=== PATIENT | male | born 1965 | race African-American/Black ===

== ENCOUNTER 2018-03-20 12:59 | Inpatient (IN) | payer OTHER ==
[2018-03-20 16:42] VITALS: BMI 20.9
--- NOTE | 2018-03-20 17:43 | HP ---
COWS - Scale Resting Pulse: 0= [place] 80 or Below Sweatin= Chills/Flushing Restless Observation: 1= Difficult to Sit Still Pupil Size: 0= Normal to Room Light Bone or Joint Aches: 2= Severe Diffuse Aches Runny Nose/ Eye Tearin= Runny Nose/Eyes GI Upset > 30mins: 2= Nausea/Diarrhea Tremor Observation: 2= Slight Tremor Visible Yawning Observation: 1= 1-2x During Session Anxiety or Irritability: 1=Feels Anxious/Irritable Goose Flesh Skin: 0=Smooth Skin COWS Score: 12 CIWA Score - CIWA Score Nausea/Vomitin Muscle Tremors: 3 Anxiety: 4-Mod. Anxious/Guarded Agitation: 1-Slight > Activity Paroxysmal Sweats: No Perspiration Orientation: 1-Uncertain about Date Tacttile Disturbances: 0-None Auditory Disturbances: 1-Very Mild Visual Disturbances: 1-Very Mild Sensitivity Headache: 1-Very Mild CIWA-Ar Total Score: 14 Admission ROS BHS - HPI Chief Complaint: I want to kick this addiction, get off it totally Allergies/Adverse Reactions: Allergies Allergy/AdvReac Type Severity Reaction Status Date / Time Penicillins Allergy Verified 03/20/18 17:28 History of Present Illness: 52 yo gentleman here for detox from opiates and alcohol. Denies any seizure, no overdose, has had black outs. Exam Limitations: Clinical Condition - Ebola screening Have you traveled outside of the country in the last 21 days: No Have you had contact with anyone from an Ebola affected area: No Have you been sick,other than usual withdrawal symptoms: No - Review of Systems Constitutional: Loss of Appetite, Malaise, Night Sweats, Changes in sleep, Unintentional Wgt. Loss EENT: reports: Blurred Vision, Nose Congestion Respiratory: reports: No Symptoms reported Cardiac: reports: No Symptoms Reported GI: reports: Poor Appetite, Poor Fluid Intake, Abdominal cramping : reports: Frequency Musculoskeletal: reports: Back Pain, Muscle Pain Integumentary: reports: Dryness Neuro: reports: Headache Endocrine: reports: No Symptoms Reported Hematology: reports: No Symptoms Reported Psychiatric: reports: Judgement Intact, Mood/Affect Appropiate, Anxious Other Systems: Reviewed and Negative Patient History - Patient Medical History Hx Anemia: No Hx Asthma: No Hx Chronic Obstructive Pulmonary Disease (COPD): No Hx Cancer: No Hx Cardiac Disorders: No Hx Hypertension: No Hx Pacemaker: No Hx Seizures: No Hx Diabetes: No Hx Liver Disease: No Hx Genitourinary Disorders: No Hx Sexually Transmitted Disorders: No Hx Renal Disease (ESRD): No Hx Thyroid Disease: No Hx Human Immunodeficiency Virus (HIV): No Hx Hepatitis C: No Hx Depression: No Hx Suicide Attempt: No Hx Bipolar Disorder: No Hx Schizophrenia: No - Patient Surgical History Past Surgical History: No - PPD History Previous Implant?: Yes Documented Results: Negative w/o proof PPD to be Administered?: Yes - Reproductive History Patient is a Female of Child Bearing Age (11 -55 yrs old): No (male) - Smoking Cessation Smoking history: Current every day smoker Have you smoked in the past 12 months: Yes Aproximately how many cigarettes per day: 5 Initiated information on smoking cessation: Yes 'Breaking Loose' booklet given: 03/20/18 - Substance & Tx. History Hx Alcohol Use: Yes Hx Substance Use: Yes Substance Use Type: Alcohol, Heroin, Opiates Hx Substance Use Treatment: Yes (detox, rehab years ago) - Substances Abused alcohol Route: Oral Frequency: Daily Amount used: 2 pints, one six pack beer Age of first use: 17 Date of Last Use: 03/19/18 cocaine Route: Inhalation Frequency: Daily Amount used: 5 bags Age of first use: 17 Date of Last Use: 03/19/18 Heroin Route: Inhalation Frequency: Daily Amount used: 2 BAGS Age of first use: 52 Date of Last Use: 03/19/18 marijuana Route: Smoking Frequency: 3-6 times per week Amount used: 1 bag Age of first use: 15 Date of Last Use: 03/18/18 Alcohol Route: Oral Frequency: Daily Amount used: LIQUOR- 2 PINTS,BEER-1 SIX PACK Age of first use: 17 Date of Last Use: 03/19/18 Family Disease History - Family Disease History Family Disease History: Heart Disease: Father (, ), Other: Father, Mother (living, dementia), Brother (one - living - healthy), Sister (two - living - healthy) Admission Physical Exam BHS - Vital Signs Vital Signs: Vital Signs - 24 hr 03/20/18 16:20 Temperature 97.5 F L Pulse Rate 78 Respiratory 18 Rate Blood Pressure 160/113 - Physical General Appearance: Yes: Nourished, Appropriately Dressed, Moderate Distress, Thin, Anxious HEENTM: Yes: EOMI, Hearing grossly Normal, Normocephalic, Normal Voice, Pharynx Normal, Nasal Congestion, Other (eyes reddened (states from drugs, no exudate)) Respiratory: Yes: Normal Breath Sounds, No Respiratory Distress Neck: Yes: No masses,lesions,Nodules, Supple Breast: Yes: Breast Exam Deferred Cardiology: Yes: Regular Rhythm, Regular Rate Abdominal: Yes: Flat, Soft Genitourinary: Yes: Frequency Back: Yes: Normal Inspection Musculoskeletal: Yes: full range of Motion, Gait Steady Extremities: Yes: Normal Inspection, Non-Tender Cleared for Admission [facility] - Detox or Rehab [facility] Level of Care: Medically Managed Detox Regimen/Protocol: Methadone/Valium [facility] Breath Alcohol Content Breath Alcohol Content: 0 Urine Drug Screen - Results Drug Screen Negative: No Urine Drug Screen Results: THC-Marijuana, KEVIN-Cocaine, OPI-Opiates, BAR- Barbiturates, FEN-Fentanyl
[2018-03-20] MEDS ORDERED: MAG HYDROX/AL HYDROX/SIMETH 30 ML UNIT-DOSE CUP PO PRN (17:44)
[2018-03-20] MEDS ORDERED: MENTHOL/PHENOL 1 EACH UD MM PRN (17:44)
[2018-03-20] MEDS ORDERED: METHADONE HCL 10 MG TABLET (FOR DETOX USE ONLY) PO ONE ×3 (17:44→23:00)
[2018-03-20] MEDS ORDERED: MAGNESIUM HYDROX 2400MG/30ML ORAL SUSPENSION 30 ML CUP PO PRN (17:44)
[2018-03-20] MEDS ORDERED: LOPERAMIDE HCL 2 MG CAPSULE PO PRN (17:44)
[2018-03-20] MEDS ORDERED: P-EPHED 60MG/TRIPROLIDI 2.5MG TABLET PO PRN (17:44)
[2018-03-20] MEDS ORDERED: NICOTINE POLACRILEX 4 MG GUM BC PRN (17:44)
[2018-03-20] MEDS ORDERED: diazePAM 5 MG TABLET PO ONE ×2 (17:44→19:00)
[2018-03-20] MEDS ORDERED: MAGNESIUM CITRATE 300 ML BOTTLE PO PRN (17:44)
[2018-03-20] MEDS ORDERED: guaiFENesin/D-METHORPHAN HB 10 ML UNIT-DOSE CUPS PO PRN (17:44)
[2018-03-20] MEDS: IBUPROFEN 400 MG TABLET (FP) PO PRN (21:12)
[2018-03-20] MEDS: THIAMINE HCL 100 MG TABLET (FP) PO SCH (22:27)
[2018-03-20] MEDS: ACETAMINOPHEN 325 MG TABLET (FP) PO PRN (22:28)
[2018-03-20] MEDS: diazePAM 5 MG TABLET PO SCH (22:28)
[2018-03-20] MEDS: MELATONIN 5 MG TABLETS PO PRN (22:29)
[2018-03-21] MEDS: diazePAM 5 MG TABLET PO SCH ×3 (05:27→23:43)
[2018-03-21] MEDS ORDERED: METHADONE HCL 10 MG TABLET (FOR DETOX USE ONLY) PO SCH (10:00)
[2018-03-21] MEDS: diazePAM 5 MG TABLET PO PRN (10:17)
[2018-03-21] MEDS: PRENATAL VITAMINS W/ FOLIC ACID TABLET (FP) PO SCH (10:17)
[2018-03-21 10:38] LABS: HEMATOCRIT 42.7 % (35.4-49); MCH 32.4 pg (25.7-33.7); MCHC 32.8 g/dl (32.0-35.9); MEAN CELL VOLUME 98.9 fl (80-96); MEAN PLT VOLUME 8.6 fl (7.5-11.1); PLATELET COUNT 241 K/MM3 (134-434); RBC 4.32 M/mm3 (4.00-5.60); RDW 12.8 % (11.9-15.9); WHITE BLOOD COUNT 7.3 K/mm3 (4.0-10.0)
[2018-03-21 10:41] LABS: URINE APPEARANCE TURBID; URINE BILIRUBIN NEGATIVE (<2.0 mg/dL); URINE COLOR LTYELLOW; URINE GLUCOSE (UA) NEGATIVE (NEGATIVE); URINE KETONE NEGATIVE (NEGATIVE); URINE LEUK ESTERASE NEGATIVE (NEGATIVE); URINE NITRITE NEGATIVE (NEGATIVE); URINE PROTEIN NEGATIVE (NEGATIVE); URINE UROBILINOGEN NEGATIVE mg/dL (0.2-1.0)
[2018-03-21 10:44] LABS: CHLORIDE 102 mmol/L (98-107); POTASSIUM 4.3 mmol/L (3.5-5.1); SODIUM 137 mmol/L (136-145)
[2018-03-21 10:51] LABS: ALBUMIN 3.6 g/dl (3.4-5.0); ALK PHOS 92 U/L (45-117); ANION GAP 14 MMOL/L (8-16); BILIRUBIN,TOTAL 0.8 mg/dL (0.2-1.0); BLOOD UREA NITROGEN 23 mg/dL (7-18); CALCIUM 9.6 mg/dL (8.5-10.1); CO2 21 mmol/L (21-32); CREATININE 1.3 mg/dL (0.7-1.3); GLUCOSE,RANDOM 155 mg/dL (74-106); SGOT/AST 60 U/L (15-37); SGPT/ALT 40 U/L (12-78); TOT PROT 7.6 g/dl (6.4-8.2)
--- NOTE | 2018-03-21 11:48 | CONSULT ---
[facility] Psychiatric Consult - Data Date of interview: 03/21/18 Admission source: [facility] Identifying data: First admission to [facility] for this 52 y/o AA male self- referred for detoxification treatment (opioid,cocaine,cannabis,alcohol).Treated on .Patient is single without dependents,homeless,unemployed and supported on food stamps. Substance Abuse History: Confirmed by patient in this session.Details in current [facility] report as follows : Smoking history: Current every day smoker. Have you smoked in the past 12 months: Yes. Aproximately how many cigarettes per day: 5. Initiated information on smoking cessation: Yes. 'Breaking Loose' booklet given: 03/20/18. - Substance & Tx. History. Hx Alcohol Use: Yes. Hx Substance Use: Yes. Substance Use Type: Alcohol, Heroin, Opiates. Hx Substance Use Treatment: Yes (detox, rehab years ago). - Substances Abused. * * alcohol. Route: Oral. Frequency: Daily. Amount used: 2 pints, one six pack beer. Age of first use: 17. Date of Last Use: 03/19/18. cocaine. Route: Inhalation. Frequency: Daily. Amount used: 5 bags. Age of first use: 17. Date of Last Use: 03/19/18. Heroin. Route: Inhalation. Frequency: Daily. Amount used: 2 BAGS. Age of first use: 52. Date of Last Use: 03/19/18. marijuana. Route: Smoking. Frequency: 3-6 times per week. Amount used: 1 bag. Age of first use: 15. Date of Last Use: 03/18/18. Alcohol. Route: Oral. Frequency: Daily. Amount used: LIQUOR- 2 PINTS,BEER-1 SIX PACK. Age of first use: 17. Date of Last Use: 03/19/18 Medical History: Sciatica as per self-report. Psychiatric History: Patient denies. Physical/Sexual Abuse/Trauma History: Patient denies. Additional Comment: Urine Drug Screen Results: THC-Marijuana, KEVIN-Cocaine, OPI- Opiates, BAR-Barbiturates, FEN-Fentanyl.Noted. Mental Status Exam - Mental Status Exam Alert and Oriented to: Time, Place, Person Cognitive Function: Good Patient Appearance: Well Groomed Mood: Hopeful, Euthymic Affect: Appropriate, Normal Range Patient Behavior: Appropriate, Cooperative Speech Pattern: Clear, Appropriate Voice Loudness: Normal Thought Process: Intact, Goal Oriented Thought Disorder: Not Present Hallucinations: Denies Suicidal Ideation: Denies Homicidal Ideation: Denies Insight/Judgement: Poor Sleep: Poorly, Difficulty falling asleep Appetite: Good Muscle strength/Tone: Normal Gait/Station: Normal Psychiatric Findings - Problem List ([place] 1, 2,3) (1) Opioid dependence with withdrawal Current Visit: Yes Status: Acute (2) Alcohol dependence with uncomplicated withdrawal Current Visit: Yes Status: Acute (3) Cocaine dependence Current Visit: Yes Status: Acute Qualifiers: Substance use status: uncomplicated Qualified Code(s): F14.20 - Cocaine dependence, uncomplicated (4) Cannabis dependence Current Visit: Yes Status: Acute (5) Nicotine dependence Current Visit: Yes Status: Chronic Qualifiers: Nicotine product type: cigarettes Substance use status: uncomplicated Qualified Code(s): F17.210 - Nicotine dependence, cigarettes, uncomplicated (6) Insomnia Current Visit: Yes Status: Acute - Initial Treatment Plan Initial Treatment Plan: Psychoeducation.Sleep hygiene.Detoxification.Ambien 10 mg po hs prn.Patient is made aware of the risk of parasomnias.Agrees to this careplan.Observation.
--- NOTE | 2018-03-21 12:24 | PN ---
S CIWA - CIWA Score Nausea/Vomitin-No Nausea/No Vomiting Muscle Tremors: 4-Moderate,w/Arms Extend Anxiety: 4-Mod. Anxious/Guarded Agitation: 4-Moderately Restless Paroxysmal Sweats: 1-Minimal Palms Moist Orientation: 0-Oriented Tacttile Disturbances: 0-None Auditory Disturbances: 0-None Visual Disturbances: 0-None Headache: 0-None Present CIWA-Ar Total Score: 13 BHS COWS - Scale Resting Pulse: 0= [place] 80 or Below Sweatin= Chills/Flushing Restless Observation: 3= Extraneous Movement Pupil Size: 0= Normal to Room Light Bone or Joint Aches: 4=Acute Joint/Muscle Pain Runny Nose/ Eye Tearin= Nasal Congestion GI Upset > 30mins: 0= None Tremor Observation of Outstretched Hands: 2= Slight Tremor Visible Yawning Observation: 1= 1-2x During Session Anxiety or Irritability: 2=Irritable/Anxious Goose Flesh Skin: 0=Smooth Skin COWS Score: 14 [facility] Progress Note (SOAP) Subjective: ANXIETY,SWEATS,EYES IRRITATED/TEARY, LEFT LEG PAIN WITH RADIATION TO LOWER LEG- HX SCIATICA Objective: 03/21/18 12:23 Vital Signs 03/21/18 03/21/18 06:58 09:40 Temperature 97.7 F 96.7 F L Pulse Rate 68 70 Respiratory 18 18 Rate Blood Pressure 100/60 104/72 Laboratory Tests 03/21/18 03/21/18 03/21/18 08:00 08:00 08:20 WBC 7.3 RBC 4.32 Hgb 14.0 Hct 42.7 MCV 98.9 H MCH 32.4 MCHC 32.8 RDW 12.8 Plt Count 241 MPV 8.6 Sodium 137 Potassium 4.3 Chloride 102 Carbon Dioxide 21 Anion Gap 14 BUN 23 H Creatinine 1.3 Creat Clearance w eGFR 57.97 Random Glucose 155 H Calcium 9.6 Total Bilirubin 0.8 AST 60 H ALT 40 Alkaline Phosphatase 92 Total Protein 7.6 Albumin 3.6 Urine Color Ltyellow Urine Appearance Turbid Urine pH 5.0 Ur Specific [place] 1.034 Urine Protein Negative Urine Glucose (UA) Negative Urine Ketones Negative Urine Blood Negative Urine Nitrite Negative Urine Bilirubin Negative Urine Urobilinogen Negative Ur Leukocyte Esterase Negative Assessment: 03/21/18 12:23 WITHDRAWAL SX Plan: CONTINUE DETOX FLEXERIL DIRECTED CHAVA Bravo DIRECTED
[2018-03-21] MEDS ORDERED: TETRAHYDROZOLINE HCL EYE DROPS OU ONE (13:00)
[2018-03-21] MEDS: CYCLOBENZAPRINE HCL 10 MG TABLET (FP) PO SCH ×2 (13:32→23:42)
[2018-03-21] MEDS: LIDOCAINE 5% TOPICAL PATCH TP SCH (13:33)
[2018-03-21] MEDS ORDERED: ZOLPIDEM TARTRATE 10 MG TABLET (PARK CARE ONLY) PO PRN (22:00)
[2018-03-21] MEDS: LIDOCAINE PATCH REMOVAL MC SCH (23:42)
[2018-03-21] MEDS: THIAMINE HCL 100 MG TABLET (FP) PO SCH (23:43)
[2018-03-21] MEDS: TETRAHYDROZOLINE HCL EYE DROPS OU SCH (23:43)
[2018-03-22] MEDS: IBUPROFEN 400 MG TABLET (FP) PO PRN ×2 (03:15→19:31)
[2018-03-22] MEDS: CYCLOBENZAPRINE HCL 10 MG TABLET (FP) PO SCH ×3 (05:15→22:36)
[2018-03-22] MEDS: PRENATAL VITAMINS W/ FOLIC ACID TABLET (FP) PO SCH (10:05)
[2018-03-22] MEDS: TETRAHYDROZOLINE HCL EYE DROPS OU SCH ×2 (10:06→23:24)
[2018-03-22] MEDS: METHADONE HCL 5 MG TABLET (FOR DETOX USE ONLY) PO SCH (10:06)
[2018-03-22] MEDS: diazePAM 5 MG TABLET PO SCH ×2 (10:06→22:36)
[2018-03-22] MEDS: LIDOCAINE 5% TOPICAL PATCH TP SCH (10:07)
--- NOTE | 2018-03-22 17:13 | PN ---
[facility] CIWA - CIWA Score Nausea/Vomitin Muscle Tremors: 4-Moderate,w/Arms Extend Anxiety: 3 Agitation: 3 Paroxysmal Sweats: 3 Orientation: 0-Oriented Tacttile Disturbances: 0-None Auditory Disturbances: 0-None Visual Disturbances: 0-None Headache: 0-None Present CIWA-Ar Total Score: 16 BHS COWS - Scale Resting Pulse: 0= [place] 80 or Below Sweatin= Chills/Flushing Restless Observation: 3= Extraneous Movement Pupil Size: 1= Pupils >than Normal Bone or Joint Aches: 2= Severe Diffuse Aches Runny Nose/ Eye Tearin= Runny Nose/Eyes GI Upset > 30mins: 2= Nausea/Diarrhea Tremor Observation of Outstretched Hands: 2= Slight Tremor Visible Yawning Observation: 1= 1-2x During Session Anxiety or Irritability: 2=Irritable/Anxious Goose Flesh Skin: 0=Smooth Skin COWS Score: 16 S Progress Note (SOAP) Subjective: Interrupted sleep, sweating Objective: 03/22/18 17:10 Last Vital Signs Temp Pulse Resp BP Pulse Ox 97.0 F L 74 18 103/70 03/22/18 13:17 03/22/18 13:17 03/22/18 13:17 03/22/18 13:17 Laboratory Tests 03/21/18 03/21/18 03/21/18 08:00 08:00 08:00 WBC 7.3 RBC 4.32 Hgb 14.0 Hct 42.7 MCV 98.9 H MCH 32.4 MCHC 32.8 RDW 12.8 Plt Count 241 MPV 8.6 Sodium 137 Potassium 4.3 Chloride 102 Carbon Dioxide 21 Anion Gap 14 BUN 23 H Creatinine 1.3 Creat Clearance w eGFR 57.97 Random Glucose 155 H Calcium 9.6 Total Bilirubin 0.8 AST 60 H ALT 40 Alkaline Phosphatase 92 Total Protein 7.6 Albumin 3.6 Urine Color Urine Appearance Urine pH Ur Specific [place] Urine Protein Urine Glucose (UA) Urine Ketones Urine Blood Urine Nitrite Urine Bilirubin Urine Urobilinogen Ur Leukocyte Esterase RPR Titer Nonreactive 03/21/18 08:20 WBC RBC Hgb Hct MCV MCH MCHC RDW Plt Count MPV Sodium Potassium Chloride Carbon Dioxide Anion Gap BUN Creatinine Creat Clearance w eGFR Random Glucose Calcium Total Bilirubin AST ALT Alkaline Phosphatase Total Protein Albumin Urine Color Ltyellow Urine Appearance Turbid Urine pH 5.0 Ur Specific [place] 1.034 Urine Protein Negative Urine Glucose (UA) Negative Urine Ketones Negative Urine Blood Negative Urine Nitrite Negative Urine Bilirubin Negative Urine Urobilinogen Negative Ur Leukocyte Esterase Negative RPR Titer Labs reviewed: serum glucose 155, prerenal azotemia Assessment: 03/22/18 17:11 Withdrawal symptoms Noted with hyperglycemia and prerenal azotemia Plan: Continue detox Hyperglycemia: repeat fasting glucose, send HbA1c Prerenal azotemia: encourage PO water intake, repeat BMP
[2018-03-22] MEDS: LIDOCAINE PATCH REMOVAL MC SCH (22:23)
[2018-03-22] MEDS: THIAMINE HCL 100 MG TABLET (FP) PO SCH (22:36)
[2018-03-22] MEDS: MELATONIN 5 MG TABLETS PO PRN (22:37)
[2018-03-23] MEDS: CYCLOBENZAPRINE HCL 10 MG TABLET (FP) PO SCH ×3 (06:17→22:02)
[2018-03-23] MEDS: diazePAM 5 MG TABLET PO PRN ×2 (06:27→14:57)
[2018-03-23] MEDS: IBUPROFEN 400 MG TABLET (FP) PO PRN ×2 (09:44→16:25)
[2018-03-23] MEDS: diazePAM 5 MG TABLET PO SCH ×2 (09:44→22:03)
[2018-03-23] MEDS: METHADONE HCL 5 MG TABLET (FOR DETOX USE ONLY) PO SCH (09:44)
[2018-03-23] MEDS: LIDOCAINE 5% TOPICAL PATCH TP SCH (09:45)
[2018-03-23] MEDS: PRENATAL VITAMINS W/ FOLIC ACID TABLET (FP) PO SCH (09:45)
[2018-03-23 10:25] LABS: ANION GAP 9 MMOL/L (8-16); BLOOD UREA NITROGEN 22 mg/dL (7-18); CALCIUM 8.9 mg/dL (8.5-10.1); CHLORIDE 105 mmol/L (98-107); CO2 28 mmol/L (21-32); GLUCOSE,RANDOM 69 mg/dL (74-106); POTASSIUM 4.6 mmol/L (3.5-5.1); SODIUM 142 mmol/L (136-145)
[2018-03-23 10:28] LABS: CREATININE 0.9 mg/dL (0.7-1.3)
--- NOTE | 2018-03-23 11:25 | EKG ---
Test Reason : Blood Pressure : / mmHG Vent. Rate : 064 BPM Atrial Rate : 064 BPM P-R Int : 130 ms QRS Dur : 072 ms QT Int : 422 ms P-R-T Axes : 047 076 063 degrees QTc Int : 435 ms NORMAL SINUS RHYTHM WITH SINUS ARRHYTHMIA NORMAL ECG NO PREVIOUS ECGS AVAILABLE Confirmed by EDDIE ROSS MD ([id number]) on 03/23/2018 11:25:17 AM Referred By: Confirmed By:EDDIE RSOS MD
[2018-03-23] MEDS: TETRAHYDROZOLINE HCL EYE DROPS OU SCH ×2 (11:44→22:04)
[2018-03-23] MEDS: ACETAMINOPHEN 325 MG TABLET (FP) PO PRN (11:47)
--- NOTE | 2018-03-23 15:22 | PN ---
S Progress Note (SOAP) Subjective: Sweats Pain in L leg "I have sciatica" sleep disturbance Objective: 03/23/18 15:18 A & O x 3 In bed Seen ambulating steadily later Vital Signs Temperature 96.8 F L 03/23/18 13:22 Pulse Rate 73 03/23/18 13:22 Respiratory Rate 18 03/23/18 13:22 Blood Pressure 108/67 03/23/18 13:22 O2 Sat by Pulse Oximetry (%) Assessment: 03/23/18 15:20 withdrawal sx Sciatica pain Plan: continue detox Continue flexeril for pain Warm compress to L leg
[2018-03-23] MEDS: THIAMINE HCL 100 MG TABLET (FP) PO SCH (22:03)
[2018-03-23] MEDS: LIDOCAINE PATCH REMOVAL MC SCH (22:04)
[2018-03-24] MEDS: hydrOXYzine PAMOATE 25 MG CAPSULE (FP) PO PRN ×3 (04:34→21:06)
[2018-03-24] MEDS: IBUPROFEN 400 MG TABLET (FP) PO PRN ×2 (04:34→16:52)
[2018-03-24] MEDS: CYCLOBENZAPRINE HCL 10 MG TABLET (FP) PO SCH (06:18)
[2018-03-24] MEDS: LIDOCAINE 5% TOPICAL PATCH TP SCH (09:50)
[2018-03-24] MEDS ORDERED: METHADONE HCL 10 MG TABLET (FOR DETOX USE ONLY) PO SCH (10:00)
[2018-03-24] MEDS ORDERED: diazePAM 5 MG TABLET PO SCH (10:00)
[2018-03-24] MEDS: PRENATAL VITAMINS W/ FOLIC ACID TABLET (FP) PO SCH (10:22)
[2018-03-24] MEDS: TETRAHYDROZOLINE HCL EYE DROPS OU SCH ×2 (10:23→22:12)
--- NOTE | 2018-03-24 13:35 | PN ---
BHS Progress Note (SOAP) Subjective: PT C/O SEVER LEFT LEG PAIN SHOOTING DOWN LOWER LEG-CURRENT MEDS 'NOT HELPING". HX SCIATICA. Objective: 03/24/18 13:34 Vital Signs 03/24/18 03/24/18 06:43 09:24 Temperature 97.6 F 98.4 F Pulse Rate 80 81 Respiratory 18 18 Rate Blood Pressure 125/87 120/74 Laboratory Tests 03/21/18 03/21/18 03/21/18 08:00 08:00 08:00 WBC 7.3 RBC 4.32 Hgb 14.0 Hct 42.7 MCV 98.9 H MCH 32.4 MCHC 32.8 RDW 12.8 Plt Count 241 MPV 8.6 Sodium 137 Potassium 4.3 Chloride 102 Carbon Dioxide 21 Anion Gap 14 BUN 23 H Creatinine 1.3 Creat Clearance w eGFR 57.97 Random Glucose 155 H Hemoglobin A1c % Calcium 9.6 Total Bilirubin 0.8 AST 60 H ALT 40 Alkaline Phosphatase 92 Total Protein 7.6 Albumin 3.6 Urine Color Urine Appearance Urine pH Ur Specific [place] Urine Protein Urine Glucose (UA) Urine Ketones Urine Blood Urine Nitrite Urine Bilirubin Urine Urobilinogen Ur Leukocyte Esterase RPR Titer Nonreactive 03/21/18 03/23/18 03/23/18 08:20 07:00 07:00 WBC RBC Hgb Hct MCV MCH MCHC RDW Plt Count MPV Sodium 142 Potassium 4.6 Chloride 105 Carbon Dioxide 28 D Anion Gap 9 BUN 22 H Creatinine 0.9 Creat Clearance w eGFR > 60 Random Glucose 69 L D Hemoglobin A1c % 6.1 H Calcium 8.9 Total Bilirubin AST ALT Alkaline Phosphatase Total Protein Albumin Urine Color Ltyellow Urine Appearance Turbid Urine pH 5.0 Ur Specific [place] 1.034 Urine Protein Negative Urine Glucose (UA) Negative Urine Ketones Negative Urine Blood Negative Urine Nitrite Negative Urine Bilirubin Negative Urine Urobilinogen Negative Ur Leukocyte Esterase Negative RPR Titer Assessment: 03/24/18 13:34 WITHDRAWAL SX Plan: CONTINUE DETOX D/C FLEXERIL BAXLOFEN DIRECTED.
[2018-03-24] MEDS: BACLOFEN 10 MG TABLET (FP) PO SCH ×2 (13:37→21:06)
[2018-03-24] MEDS: MELATONIN 5 MG TABLETS PO PRN (21:06)
[2018-03-24] MEDS: THIAMINE HCL 100 MG TABLET (FP) PO SCH (21:06)
[2018-03-24] MEDS: LIDOCAINE PATCH REMOVAL MC SCH (22:12)
[2018-03-25] MEDS: ACETAMINOPHEN 325 MG TABLET (FP) PO PRN (04:10)
[2018-03-25] MEDS: BACLOFEN 10 MG TABLET (FP) PO SCH (05:32)
[2018-03-25] MEDS ORDERED: METHADONE HCL 5 MG TABLET (FOR DETOX USE ONLY) PO SCH (06:00)
[2018-03-25 06:17] VITALS: BP 133/85; PULSE 74; TEMP 97.2
--- NOTE | 2018-03-25 16:20 | PN ---
BHS Progress Note (SOAP) Subjective: DETOX COMPLETED. ALERT O X 3. NAD. FOLLOW UP AT [facility]. Objective: 03/25/18 16:18 Laboratory Tests 03/21/18 03/21/18 03/21/18 08:00 08:00 08:00 WBC 7.3 RBC 4.32 Hgb 14.0 Hct 42.7 MCV 98.9 H MCH 32.4 MCHC 32.8 RDW 12.8 Plt Count 241 MPV 8.6 Sodium 137 Potassium 4.3 Chloride 102 Carbon Dioxide 21 Anion Gap 14 BUN 23 H Creatinine 1.3 Creat Clearance w eGFR 57.97 Random Glucose 155 H Hemoglobin A1c % Calcium 9.6 Total Bilirubin 0.8 AST 60 H ALT 40 Alkaline Phosphatase 92 Total Protein 7.6 Albumin 3.6 Urine Color Urine Appearance Urine pH Ur Specific [place] Urine Protein Urine Glucose (UA) Urine Ketones Urine Blood Urine Nitrite Urine Bilirubin Urine Urobilinogen Ur Leukocyte Esterase RPR Titer Nonreactive 03/21/18 03/23/18 03/23/18 08:20 07:00 07:00 WBC RBC Hgb Hct MCV MCH MCHC RDW Plt Count MPV Sodium 142 Potassium 4.6 Chloride 105 Carbon Dioxide 28 D Anion Gap 9 BUN 22 H Creatinine 0.9 Creat Clearance w eGFR > 60 Random Glucose 69 L D Hemoglobin A1c % 6.1 H Calcium 8.9 Total Bilirubin AST ALT Alkaline Phosphatase Total Protein Albumin Urine Color Ltyellow Urine Appearance Turbid Urine pH 5.0 Ur Specific [place] 1.034 Urine Protein Negative Urine Glucose (UA) Negative Urine Ketones Negative Urine Blood Negative Urine Nitrite Negative Urine Bilirubin Negative Urine Urobilinogen Negative Ur Leukocyte Esterase Negative RPR Titer Vital Signs - 24 hr 03/24/18 03/24/18 03/25/18 18:00 22:17 00:30 Temperature 99.8 F H 97.6 F Pulse Rate 75 64 Respiratory 18 18 18 Rate Blood Pressure 129/81 157/100 03/25/18 03/25/18 03:30 06:16 Temperature 97.2 F L Pulse Rate 74 Respiratory 18 18 Rate Blood Pressure 133/85 Assessment: 03/25/18 16:18 MEDICALLY STABLE Plan: D/C PT TODAY
--- NOTE | 2018-03-25 16:23 | DS ---
[facility] Detox Discharge Summary Admission Date: 03/20/18 Discharge Date: 03/25/18 - History Present History: Alcohol Dependence, Cannabis Dependence, Cocaine Dependence Additional Comments: DETOX COMPLETED. ALERT O X 3. Pertinent Past History: PLEASE SEE DX BELOW - Physical Exam Results Vital Signs: Vital Signs Temperature 97.2 F L 03/25/18 06:16 Pulse Rate 74 03/25/18 06:16 Respiratory Rate 18 03/25/18 06:16 Blood Pressure 133/85 03/25/18 06:16 O2 Sat by Pulse Oximetry (%) Pertinent Admission Physical Exam Findings: WITHDRAWAL SX Laboratory Tests 03/21/18 03/21/18 03/21/18 08:00 08:00 08:00 WBC 7.3 RBC 4.32 Hgb 14.0 Hct 42.7 MCV 98.9 H MCH 32.4 MCHC 32.8 RDW 12.8 Plt Count 241 MPV 8.6 Sodium 137 Potassium 4.3 Chloride 102 Carbon Dioxide 21 Anion Gap 14 BUN 23 H Creatinine 1.3 Creat Clearance w eGFR 57.97 Random Glucose 155 H Hemoglobin A1c % Calcium 9.6 Total Bilirubin 0.8 AST 60 H ALT 40 Alkaline Phosphatase 92 Total Protein 7.6 Albumin 3.6 Urine Color Urine Appearance Urine pH Ur Specific [place] Urine Protein Urine Glucose (UA) Urine Ketones Urine Blood Urine Nitrite Urine Bilirubin Urine Urobilinogen Ur Leukocyte Esterase RPR Titer Nonreactive 03/21/18 03/23/18 03/23/18 08:20 07:00 07:00 WBC RBC Hgb Hct MCV MCH MCHC RDW Plt Count MPV Sodium 142 Potassium 4.6 Chloride 105 Carbon Dioxide 28 D Anion Gap 9 BUN 22 H Creatinine 0.9 Creat Clearance w eGFR > 60 Random Glucose 69 L D Hemoglobin A1c % 6.1 H Calcium 8.9 Total Bilirubin AST ALT Alkaline Phosphatase Total Protein Albumin Urine Color Ltyellow Urine Appearance Turbid Urine pH 5.0 Ur Specific [place] 1.034 Urine Protein Negative Urine Glucose (UA) Negative Urine Ketones Negative Urine Blood Negative Urine Nitrite Negative Urine Bilirubin Negative Urine Urobilinogen Negative Ur Leukocyte Esterase Negative RPR Titer - Treatment Hospital Course: Detox Protocol Followed, Detoxed Safely, Responded well, Discharged Condition Good - Medication Discharge Medications: Ambulatory Orders NK [No Known Home Medication] 03/20/18 - Diagnosis (1) Alcohol dependence with uncomplicated withdrawal Status: Acute (2) Cannabis dependence Status: Chronic (3) Cocaine dependence Status: Chronic Qualifiers: Substance use status: uncomplicated Qualified Code(s): F14.20 - Cocaine dependence, uncomplicated (4) Insomnia Status: Chronic (5) Opioid dependence with withdrawal Status: Acute (6) Nicotine dependence Status: Chronic Qualifiers: Nicotine product type: cigarettes Substance use status: in withdrawal Qualified Code(s): F17.213 - Nicotine dependence, cigarettes, with withdrawal (7) Dry eye syndrome Status: Acute Qualifiers: Laterality: bilateral Qualified Code(s): H04.123 - Dry eye syndrome of bilateral lacrimal glands (8) Sciatica Status: Acute - AMA Did Patient Leave Against Medical Advice: No
== END 2018-03-25 08:54 | disposition home or self-care (01) | DRG 773 ==
LOC: YASAS 12:59 → Y3N 18:37
PROC: HZ2ZZZZ Detoxification Services for Substance Abuse Treatment (ICD-10-PCS; principal; 2018-03-20)
DX: F11.23 Opioid dependence with withdrawal (principal); F10.230 Alcohol dependence with withdrawal, uncomplicated; F14.20 Cocaine dependence, uncomplicated; F12.20 Cannabis dependence, uncomplicated; F17.210 Nicotine dependence, cigarettes, uncomplicated; G47.00 Insomnia, unspecified; M54.30 Sciatica, unspecified side; H04.123 Dry eye syndrome of bilateral lacrimal glands; R73.9 Hyperglycemia, unspecified; R79.89 Other specified abnormal findings of blood chemistry; Z88.0 Allergy status to penicillin
CPT/HCPCS: 36415; 80048; 80053; 81003; 83036; 85027; 86593; 93005; 93010; J0475

== ENCOUNTER 2019-02-08 10:48 | Inpatient (IN) | payer OTHER ==
[2019-02-08 11:17] VITALS: BMI 20.6
--- NOTE | 2019-02-08 12:55 | HP ---
COWS - Scale Resting Pulse: 1= [place] 81-100 Sweatin= Chills/Flushing Restless Observation: 1= Difficult to Sit Still Pupil Size: 1= Pupils >than Normal Bone or Joint Aches: 2= Severe Diffuse Aches Runny Nose/ Eye Tearin= Nasal Congestion GI Upset > 30mins: 2= Nausea/Diarrhea Tremor Observation: 1= Tremor [place], Not Seen Yawning Observation: 2= >3x During Session Anxiety or Irritability: 2=Irritable/Anxious Goose Flesh Skin: 0=Smooth Skin COWS Score: 14 CIWA Score Nausea/Vomitin Muscle Tremors: 2 Anxiety: 2 Agitation: 2 Paroxysmal Sweats: 1-Minimal Palms Moist Orientation: 0-Oriented Tacttile Disturbances: 1-Very Mild Itch/Numbness Auditory Disturbances: 1-Very Mild Visual Disturbances: 1-Very Mild Sensitivity Headache: 2-Mild CIWA-Ar Total Score: 14 - Admission Criteria [facility]ASAS Guidelines: Admission for Medically Managed Detox: Requires at least one of the followin. CIWA greater than 12 2. Seizures within the past 24 hours 3. Delirium tremens within the past 24 hours 4. Hallucinations within the past 24 hours 5. Acute intervention needed for co occurring medical disorder 6. Acute intervention needed for co occurring psychiatric disorder 7. Severe withdrawal that cannot be handled at a lower level of care (continued vomiting, continued diarrhea, abnormal vital signs) requiring intravenous medication and/or fluids 8. Admission ROS S - [facility] Chief Complaint: i need help to stop using heroin,alcohol,cocaine Allergies/Adverse Reactions: Allergies Allergy/AdvReac Type Severity Reaction Status Date / Time Penicillins Allergy Verified 02/08/19 11:14 History of Present Illness: this 53 years old male with heroin and alcohol dependence,and cocaine dependence ,seeking detox, withdrawal symptom had previous admission ,last C 03/20/18 to 03/25/18 had sarcoidosis since 1986 ,follow up with pmd nicotine dependence 10 cigarette/day, longest period of sobriety 1 year - Ebola screening Have you traveled outside of the country in the last 21 days: No Have you had contact with anyone from an Ebola affected area: No Patient History - Patient Medical History Hx Anemia: No Hx Asthma: No Hx Chronic Obstructive Pulmonary Disease (COPD): No Hx Cancer: No Hx Cardiac Disorders: No Hx Hypertension: No Hx Pacemaker: No Hx Seizures: No Hx Diabetes: No Hx Gastrointestinal Disorders: No Hx Liver Disease: No Hx Genitourinary Disorders: No Hx Sexually Transmitted Disorders: No Hx Renal Disease (ESRD): No Hx Thyroid Disease: No Hx Human Immunodeficiency Virus (HIV): No (last 11/29 negative) Hx Hepatitis C: No Hx Depression: No Hx Suicide Attempt: No Hx Bipolar Disorder: No Hx Schizophrenia: No Other Medical History: no suicidal,no homicidal - Patient Surgical History Past Surgical History: No Hx Neurologic Surgery: No Hx Cataract Extraction: No Hx Cardiac Surgery: No Hx Lung Surgery: No Hx Breast Surgery: No Hx Breast Biopsy: No Hx Abdominal Surgery: No Hx Appendectomy: No Hx Cholecystectomy: No Hx Genitourinary Surgery: No Hx Section: No Hx Orthopedic Surgery: No Anesthesia Reaction: No - PPD History Previous Implant?: Yes Documented Results: Negative w/proof Implanted On Prior [facility] Admission?: Yes Date: 03/22/18 Results: 0 mm PPD to be Administered?: No - Smoking Cessation Smoking history: Current every day smoker Have you smoked in the past 12 months: Yes Aproximately how many cigarettes per day: 10 Hx Chewing Tobacco Use: No Initiated information on smoking cessation: Yes 'Breaking Loose' booklet given: 02/08/19 - Substance & Tx. History Hx Alcohol Use: Yes Hx Substance Use: Yes Substance Use Type: Alcohol, Heroin Hx Substance Use Treatment: Yes ([facility] 03/20/18 to 03/25/18) - Substances abused Alcohol Substance route: Oral Frequency: Daily Amount used: beers- 24oz ([id number]) and vodka 1L Age of first use: 17 Date of last use: 02/08/19 Heroin Substance route: Inhalation Frequency: Daily Amount used: 6BAGS Age of first use: 52 Date of last use: 02/08/19 Cocaine Substance route: Inhalation Frequency: 1-2 times per week Amount used: 100$ Age of first use: 22 Date of last use: 02/06/19 Family Disease History - Family Disease History Family Disease History: Heart Disease: Father (, ), Other: Father, Mother (living, dementia), Brother (one - living - healthy), Sister (two - living - healthy) Admission Physical Exam BHS - Vital Signs Vital Signs: Vital Signs - 24 hr 02/08/19 02/08/19 11:14 11:55 Temperature 98 F 98 F Pulse Rate 89 89 Respiratory 18 18 Rate Blood Pressure 123/96 123/96 - Physical General Appearance: Yes: Moderate Distress, Tremorous, Sweating, Anxious HEENTM: Yes: Normal ENT Inspection, [place], Pharynx Normal Respiratory: Yes: Within Normal Limits, Lungs Clear, Normal Breath Sounds Neck: Yes: Within Normal Limits, Supple, Trachea in good position Breast: Yes: Within Normal Limits Cardiology: Yes: Within Normal Limits, Regular Rhythm, Regular Rate, S1, S2 Abdominal: Yes: Within Normal Limits, Normal Bowel Sounds, Non Tender, Flat Genitourinary: Yes: Within Normal Limits Back: Yes: Muscle Spasm Musculoskeletal: Yes: Back pain, Muscle Pain Extremities: Yes: Tremors Neurological: Yes: telecommunicator II-XII NML intact, Alert, Motor Strength 5/5 Integumentary: Yes: Dry Lymphatic: Yes: Within Normal Limits - Diagnostic (1) Opioid dependence with withdrawal Current Visit: No Status: Acute (2) Sarcoidosis Current Visit: Yes Status: Acute (3) Alcohol dependence with uncomplicated withdrawal Current Visit: No Status: Acute (4) Cocaine dependence Current Visit: No Status: Chronic Qualifiers: Substance use status: uncomplicated Qualified Code(s): F14.20 - Cocaine dependence, uncomplicated (5) Nicotine dependence Current Visit: No Status: Chronic Qualifiers: Nicotine product type: cigarettes Substance use status: in withdrawal Qualified Code(s): F17.213 - Nicotine dependence, cigarettes, with withdrawal Cleared for Admission [facility] - Detox or Rehab [facility] Level of Care: Medically Managed Detox Regimen/Protocol: Methadone/Librium Breathalyzer - Breathalyzer Breathalyzer: 0.061 Urine Drug Screen - Test Device Lot number: [id number] Expiration date: 11/10/20 - Control Is test valid?: Yes - Results Drug screen NEGATIVE: No Urine drug screen results: KEVIN-Cocaine, FEN-Fentanyl, MOP-Opiates Inpatient Rehab Admission - Rehab Decision to Admit Inpatient rehab admission?: No
[2019-02-08] MEDS ORDERED: cloNIDine HCL 0.1 MG TABLET PO PRN (13:06)
[2019-02-08] MEDS ORDERED: chlordiazePOXIDE HCL 25 MG CAPSULE PO PRN (13:07)
[2019-02-08] MEDS ORDERED: MENTHOL/PHENOL 1 EACH UD MM PRN (13:08)
[2019-02-08] MEDS ORDERED: ACETAMINOPHEN 325 MG TABLET (FP) PO PRN (13:08)
[2019-02-08] MEDS ORDERED: MAG HYDROX/AL HYDROX/SIMETH 30 ML UNIT-DOSE CUP PO PRN (13:08)
[2019-02-08] MEDS ORDERED: IBUPROFEN 400 MG TABLET (FP) PO PRN (13:08)
[2019-02-08] MEDS ORDERED: BISMUTH SUBSALICYLATE 262 MG/15 ML BTL PO PRN (13:08)
[2019-02-08] MEDS ORDERED: MAGNESIUM CITRATE 300 ML BOTTLE PO PRN (13:08)
[2019-02-08] MEDS ORDERED: MAGNESIUM HYDROX 2400MG/30ML ORAL SUSPENSION 30 ML CUP PO PRN (13:08)
[2019-02-08] MEDS ORDERED: ALBUTEROL SO4 2.5/IPRATROPIUM 0.5 INH SOL 3 ML VIAL.NEB. NEB PRN (13:17)
[2019-02-08] MEDS: ALBUTEROL SO4 8 GM HFA INHALER IH SCH ×3 (13:30→22:19)
[2019-02-08] MEDS ORDERED: METHADONE HCL 10 MG TABLET (FOR DETOX USE ONLY) PO ONE (14:30)
[2019-02-08] MEDS ORDERED: predniSONE 20 MG TABLET (UD) PO ONE (14:30)
[2019-02-08] MEDS: BUDESONIDE/FORMETEROL FUMARATE 80/4.5 mcg INHALER IH SCH ×2 (14:49→22:19)
[2019-02-08 16:26] LABS: HEMATOCRIT 37.7 % (35.4-49); HEMOGLOBIN 12.5 GM/dL (11.7-16.9); MCH 32.3 pg (25.7-33.7); MCHC 33.1 g/dl (32.0-35.9); MEAN CELL VOLUME 97.7 fl (80-96); MEAN PLT VOLUME 7.9 fl (7.5-11.1); PLATELET COUNT 257 K/MM3 (134-434); RBC 3.86 M/mm3 (4.00-5.60); RDW 15.1 % (11.9-15.9)
[2019-02-08 16:32] LABS: ALBUMIN 3.4 g/dl (3.4-5.0); BILIRUBIN,TOTAL 0.3 mg/dL (0.2-1); BLOOD UREA NITROGEN 13.4 mg/dL (7-18); CALCIUM 8.9 mg/dL (8.5-10.1); POTASSIUM 3.4 mmol/L (3.5-5.1); TOT PROT 6.9 g/dl (6.4-8.2)
[2019-02-08] MEDS: chlordiazePOXIDE HCL 25 MG CAPSULE PO SCH ×2 (17:37→22:18)
[2019-02-08] MEDS: THIAMINE HCL 100 MG TABLET (FP) PO SCH (22:18)
[2019-02-09] MEDS: ALBUTEROL SO4 8 GM HFA INHALER IH SCH ×6 (02:00→22:09)
[2019-02-09] MEDS: chlordiazePOXIDE HCL 25 MG CAPSULE PO SCH ×2 (06:31→10:10)
--- NOTE | 2019-02-09 09:33 | PN ---
S CIWA - CIWA Score Nausea/Vomitin Muscle Tremors: 2 Anxiety: 2 Agitation: 2 Paroxysmal Sweats: No Perspiration Orientation: 0-Oriented Tacttile Disturbances: 1-Very Mild Itch/Numbness Auditory Disturbances: 0-None Visual Disturbances: 0-None Headache: 2-Mild CIWA-Ar Total Score: 11 BHS COWS - Scale Resting Pulse: 1= [place] 81-100 Sweatin= Chills/Flushing Restless Observation: 1= Difficult to Sit Still Pupil Size: 1= Pupils >than Normal Bone or Joint Aches: 1= Mild Discomfort Runny Nose/ Eye Tearin= Runny Nose/Eyes GI Upset > 30mins: 2= Nausea/Diarrhea Tremor Observation of Outstretched Hands: 1= Tremor [place], Not Seen Yawning Observation: 1= 1-2x During Session Anxiety or Irritability: 2=Irritable/Anxious Goose Flesh Skin: 0=Smooth Skin COWS Score: 13 S Progress Note (SOAP) Subjective: alert,irritable,anxious,interrupted sleep,tremor,pin in the body and back Objective: 02/09/19 09:30 Vital Signs Temperature 96.8 F L 02/09/19 09:07 Pulse Rate 97 H 02/09/19 09:07 Respiratory Rate 18 02/09/19 09:07 Blood Pressure 125/88 02/09/19 09:07 O2 Sat by Pulse Oximetry (%) Laboratory Last Values WBC 7.0 K/mm3 (4.0-10.0) 02/08/19 13:15 RBC 3.86 M/mm3 (4.00-5.60) L 02/08/19 13:15 Hgb 12.5 GM/dL (11.7-16.9) 02/08/19 13:15 Hct 37.7 % (35.4-49) 02/08/19 13:15 MCV 97.7 fl (80-96) H 02/08/19 13:15 MCH 32.3 pg (25.7-33.7) 02/08/19 13:15 MCHC 33.1 g/dl (32.0-35.9) 02/08/19 13:15 RDW 15.1 % (11.9-15.9) D 02/08/19 13:15 Plt Count 257 K/MM3 (134-434) 02/08/19 13:15 MPV 7.9 fl (7.5-11.1) 02/08/19 13:15 Sodium 143 mmol/L (136-145) 02/08/19 13:15 Potassium 3.4 mmol/L (3.5-5.1) L 02/08/19 13:15 Chloride 107 mmol/L (98-107) 02/08/19 13:15 Carbon Dioxide 28 mmol/L (21-32) 02/08/19 13:15 Anion Gap 8 MMOL/L (8-16) 02/08/19 13:15 BUN 13.4 mg/dL (7-18) 02/08/19 13:15 Creatinine 1.0 mg/dL (0.55-1.3) 02/08/19 13:15 Est GFR (CKD-EPI)AfAm 99.15 02/08/19 13:15 Est GFR (CKD-EPI)NonAf 85.55 02/08/19 13:15 Random Glucose 85 mg/dL (74-106) 02/08/19 13:15 Calcium 8.9 mg/dL (8.5-10.1) 02/08/19 13:15 Total Bilirubin 0.3 mg/dL (0.2-1) 02/08/19 13:15 AST 35 U/L (15-37) 02/08/19 13:15 ALT 33 U/L (13-61) 02/08/19 13:15 Alkaline Phosphatase 121 U/L (45-117) H 02/08/19 13:15 Total Protein 6.9 g/dl (6.4-8.2) 02/08/19 13:15 Albumin 3.4 g/dl (3.4-5.0) 02/08/19 13:15 Assessment: 02/09/19 09:31 withdrawal symptom Plan: continue detox methadone and librium regimen,k is 3.4,k dur 20 meq po daily for 3 days,repeat k in am
[2019-02-09] MEDS ORDERED: METHADONE HCL 5 MG TABLET (FOR DETOX USE ONLY) PO ONE (10:00)
[2019-02-09] MEDS ORDERED: predniSONE 10 MG TABLET (UD) PO ONE (10:00)
[2019-02-09] MEDS: PRENATAL VITAMINS W/ FOLIC ACID TABLET (FP) PO SCH (10:10)
[2019-02-09] MEDS: POTASSIUM CHLORIDE TABS 20 MEQ TABLET.ER (FP) PO SCH (10:12)
[2019-02-09] MEDS: BUDESONIDE/FORMETEROL FUMARATE 80/4.5 mcg INHALER IH SCH ×2 (10:13→22:08)
--- NOTE | 2019-02-09 12:01 | PN ---
BHS Progress Note Note: patient would like regimen to be change from methadone librium to methadone and valium
[2019-02-09] MEDS: diazePAM 5 MG TABLET PO SCH ×2 (14:00→22:08)
[2019-02-09 18:07] LABS: URINE APPEARANCE CLEAR; URINE BILIRUBIN NEGATIVE (NEGATIVE); URINE COLOR YELLOW; URINE GLUCOSE (UA) NEGATIVE (NEGATIVE); URINE KETONE NEGATIVE (NEGATIVE); URINE LEUK ESTERASE NEGATIVE (NEGATIVE); URINE NITRITE NEGATIVE (NEGATIVE); URINE PROTEIN NEGATIVE (NEGATIVE); URINE UROBILINOGEN 0.2 mg/dL (0.2-1.0)
[2019-02-09] MEDS: diazePAM 5 MG TABLET PO PRN (18:30)
[2019-02-09] MEDS: METHOCARBAMOL 500 MG TABLET PO PRN (22:08)
[2019-02-09] MEDS: MELATONIN 5 MG TABLETS PO PRN (22:08)
[2019-02-09] MEDS: THIAMINE HCL 100 MG TABLET (FP) PO SCH (22:08)
[2019-02-10] MEDS: ACETAMINOPHEN 325 MG TABLET (FP) PO PRN (00:17)
[2019-02-10] MEDS: ALBUTEROL SO4 8 GM HFA INHALER IH SCH ×6 (02:09→22:09)
[2019-02-10] MEDS ORDERED: chlordiazePOXIDE HCL 25 MG CAPSULE PO SCH (05:00)
[2019-02-10] MEDS: diazePAM 5 MG TABLET PO SCH ×3 (06:44→22:07)
[2019-02-10] MEDS ORDERED: predniSONE 20 MG TABLET (UD) PO ONE (10:00)
[2019-02-10] MEDS: PRENATAL VITAMINS W/ FOLIC ACID TABLET (FP) PO SCH (10:06)
[2019-02-10] MEDS: METHADONE HCL 10 MG TABLET (FOR DETOX USE ONLY) PO ONE ×2 (10:06)
[2019-02-10] MEDS: POTASSIUM CHLORIDE TABS 20 MEQ TABLET.ER (FP) PO SCH (10:06)
[2019-02-10] MEDS: BUDESONIDE/FORMETEROL FUMARATE 80/4.5 mcg INHALER IH SCH ×2 (10:06→22:09)
--- NOTE | 2019-02-10 11:04 | PN ---
S CIWA - CIWA Score Nausea/Vomitin-Mild Nausea/No Vomiting Muscle Tremors: 2 Anxiety: 1-Mildly Anxious Agitation: 1-Slight > Activity Paroxysmal Sweats: 1-Minimal Palms Moist Orientation: 0-Oriented Tacttile Disturbances: 0-None Auditory Disturbances: 0-None Visual Disturbances: 0-None Headache: 0-None Present CIWA-Ar Total Score: 6 S COWS - Scale Resting Pulse: 1= [place] 81-100 Sweatin= Chills/Flushing Restless Observation: 1= Difficult to Sit Still Pupil Size: 1= Pupils >than Normal Bone or Joint Aches: 1= Mild Discomfort Runny Nose/ Eye Tearin= Nasal Congestion GI Upset > 30mins: 0= None Tremor Observation of Outstretched Hands: 0= None Yawning Observation: 0= None Anxiety or Irritability: 1=Feels Anxious/Irritable Goose Flesh Skin: 0=Smooth Skin COWS Score: 7 S Progress Note (SOAP) Subjective: Pt would like to see for wellbutrin prescription- help with tobacco use. says he is doing well with detox protocols O: Vital Signs - 24 hr 02/09/19 02/09/19 02/09/19 13:53 17:00 20:30 Temperature 98.1 F 98.2 F 98.8 F Pulse Rate 77 75 83 Respiratory 18 18 18 Rate Blood Pressure 138/94 143/85 132/84 02/10/19 02/10/19 02/10/19 00:30 07:28 09:16 Temperature 97.7 F 97.8 F Pulse Rate 58 L 88 Respiratory 18 18 18 Rate Blood Pressure 147/95 137/95 Laboratory Tests 02/08/19 02/08/19 02/08/19 13:15 13:15 13:15 WBC 7.0 RBC 3.86 L Hgb 12.5 Hct 37.7 MCV 97.7 H MCH 32.3 MCHC 33.1 RDW 15.1 D Plt Count 257 MPV 7.9 Sodium 143 Potassium 3.4 L Chloride 107 Carbon Dioxide 28 Anion Gap 8 BUN 13.4 Creatinine 1.0 Est GFR (CKD-EPI)AfAm 99.15 Est GFR (CKD-EPI)NonAf 85.55 Random Glucose 85 Calcium 8.9 Total Bilirubin 0.3 AST 35 ALT 33 Alkaline Phosphatase 121 H Total Protein 6.9 Albumin 3.4 Urine Color Urine Appearance Urine pH Ur Specific [place] Urine Protein Urine Glucose (UA) Urine Ketones Urine Blood Urine Nitrite Urine Bilirubin Urine Urobilinogen Ur Leukocyte Esterase RPR Titer Nonreactive 02/09/19 13:10 WBC RBC Hgb Hct MCV MCH MCHC RDW Plt Count MPV Sodium Potassium Chloride Carbon Dioxide Anion Gap BUN Creatinine Est GFR (CKD-EPI)AfAm Est GFR (CKD-EPI)NonAf Random Glucose Calcium Total Bilirubin AST ALT Alkaline Phosphatase Total Protein Albumin Urine Color Yellow Urine Appearance Clear Urine pH 6.0 Ur Specific [place] 1.014 Urine Protein Negative Urine Glucose (UA) Negative Urine Ketones Negative Urine Blood Negative Urine Nitrite Negative Urine Bilirubin Negative Urine Urobilinogen 0.2 Ur Leukocyte Esterase Negative RPR Titer labs WNL VS WNL a/p: continue alcohol and heroin detox protocols- d/w pt long term MAT with methadone/suboxone (does not want this) and alcohol Rx with campral- alcohol not drug of choice. Pt would also like to see for wellbutrin
[2019-02-10] MEDS: diazePAM 5 MG TABLET PO PRN (17:47)
[2019-02-10] MEDS: THIAMINE HCL 100 MG TABLET (FP) PO SCH (22:06)
[2019-02-10] MEDS: MELATONIN 5 MG TABLETS PO PRN (22:07)
[2019-02-10] MEDS: hydrOXYzine HCL 25 MG TABLET (FP) PO PRN (22:07)
[2019-02-11] MEDS ORDERED: chlordiazePOXIDE HCL 10 MG CAPSULE PO PRN
[2019-02-11] MEDS ORDERED: chlordiazePOXIDE HCL 10 MG CAPSULE PO SCH (05:00)
[2019-02-11] MEDS: diazePAM 5 MG TABLET PO SCH ×2 (05:38→17:40)
[2019-02-11] MEDS ORDERED: METHADONE HCL 5 MG TABLET (FOR DETOX USE ONLY) PO ONE (06:00)
[2019-02-11] MEDS: ALBUTEROL SO4 8 GM HFA INHALER IH SCH ×5 (07:05→22:39)
--- NOTE | 2019-02-11 09:19 | CONSULT ---
[facility] Psychiatric Consult - Data Date of interview: 02/11/19 Admission source: [facility] Identifying data: Patient is a 53 year old single male, without children, unemployed, domiciled, but is not receiving any financial assistance. This is one of multiple admissions for patient. Patient admitted to for opioid dependence. Substance Abuse History: Smoking Cessation. Smoking history: Current every day smoker. Have you smoked in the past 12 months: Yes. Aproximately how many cigarettes per day: 10. Hx Chewing Tobacco Use: No. Initiated information on smoking cessation: Yes. 'Breaking Loose' booklet given: 02/08/19. - Substance & Tx. History. Hx Alcohol Use: Yes. Hx Substance Use: Yes. Substance Use Type : Alcohol, Heroin. Hx Substance Use Treatment: Yes ([facility] 03/20/18 to 03/25/18). - Substances abused. Alcohol. Substance route: Oral. Frequency: Daily. Amount used: beers- 24oz ([id number]) and vodka 1L. Age of first use: 17. Date of last use: 02/08/19. Heroin. Substance route: Inhalation. Frequency: Daily. Amount used: 6BAGS. Age of first use: 52. Date of last use: 02/08/19. Cocaine. Substance route: Inhalation. Frequency: 1-2 times per week. Amount used: 100$. Age of first use: 22. Date of last use: 02/06/19 Medical History: sarcoidosis since 1986 Psychiatric History: Patient denies history of psychiatric hospitalizations and suicide attempt. Mr. Pan reports seeing a psychiatrist at [facility] 13 years ago who prescribed him wellbutrin. He reports most recently seeing a physician six months ago at a clinic in [place] who wrote him a prescription for wellbutrin (last took medication six months ago). Mr. Pan also reports past history of accepting remeron. Patient is not followed by a psychiatrist and is not currently taking psychotropic medications. Patient focused on receiving a prescription of wellbutrin. At present patient reports stable mood. Physical/Sexual Abuse/Trauma History: denies. Mental Status Exam - Mental Status Exam Alert and Oriented to: Time, Place, Person Cognitive Function: Good Patient Appearance: Well Groomed Mood: Euthymic Affect: Appropriate Patient Behavior: Cooperative Speech Pattern: Appropriate Voice Loudness: Normal Thought Process: Goal Oriented Thought Disorder: Not Present Hallucinations: Denies Suicidal Ideation: Denies Homicidal Ideation: Denies Insight/Judgement: Poor Sleep: Fair Appetite: Fair Muscle strength/Tone: Normal Gait/Station: Normal Psychiatric Findings - Problem List ([place] 1, 2,3) (1) Alcohol dependence with uncomplicated withdrawal Current Visit: Yes Status: Acute (2) Opioid dependence with withdrawal Current Visit: Yes Status: Acute (3) Cocaine dependence Current Visit: Yes Status: Chronic Qualifiers: Substance use status: uncomplicated Qualified Code(s): F14.20 - Cocaine dependence, uncomplicated (4) Nicotine dependence Current Visit: Yes Status: Chronic Qualifiers: Nicotine product type: cigarettes Substance use status: in withdrawal Qualified Code(s): F17.213 - Nicotine dependence, cigarettes, with withdrawal (5) Substance induced mood disorder Current Visit: Yes Status: Suspected - Initial Treatment Plan Initial Treatment Plan: Psychoeducation provided. Detoxification in progress. Observation.
[2019-02-11] MEDS ORDERED: predniSONE 10 MG TABLET (UD) PO ONE (10:00)
[2019-02-11] MEDS: BUDESONIDE/FORMETEROL FUMARATE 80/4.5 mcg INHALER IH SCH ×2 (10:32→22:39)
[2019-02-11] MEDS: PRENATAL VITAMINS W/ FOLIC ACID TABLET (FP) PO SCH (10:33)
[2019-02-11] MEDS: POTASSIUM CHLORIDE TABS 20 MEQ TABLET.ER (FP) PO SCH (10:33)
[2019-02-11] MEDS: METHOCARBAMOL 500 MG TABLET PO PRN ×2 (13:22→22:38)
[2019-02-11] MEDS: diazePAM 5 MG TABLET PO PRN (13:23)
--- NOTE | 2019-02-11 14:28 | PN ---
S CIWA - CIWA Score Nausea/Vomitin-No Nausea/No Vomiting Muscle Tremors: None Anxiety: 4-Mod. Anxious/Guarded Agitation: 3 Paroxysmal Sweats: No Perspiration Orientation: 0-Oriented Tacttile Disturbances: 2-Mild Itch/Numbness/Burn Auditory Disturbances: 0-None Visual Disturbances: 0-None Headache: 0-None Present CIWA-Ar Total Score: 9 BHS Progress Note (SOAP) Subjective: Anxious, Restless. Objective: PATIENT A & O X 3, OBSERVED AMBULATING ON UNIT UNASSISTED. IN NO ACUTE DISTRESS. 02/11/19 14:26 Vital Signs Temperature 97.6 F 02/11/19 13:38 Pulse Rate 84 02/11/19 13:38 Respiratory Rate 18 02/11/19 13:38 Blood Pressure 154/98 02/11/19 13:38 O2 Sat by Pulse Oximetry (%) Laboratory Tests 02/08/19 02/08/19 02/08/19 13:15 13:15 13:15 WBC 7.0 RBC 3.86 L Hgb 12.5 Hct 37.7 MCV 97.7 H MCH 32.3 MCHC 33.1 RDW 15.1 D Plt Count 257 MPV 7.9 Sodium 143 Potassium 3.4 L Chloride 107 Carbon Dioxide 28 Anion Gap 8 BUN 13.4 Creatinine 1.0 Est GFR (CKD-EPI)AfAm 99.15 Est GFR (CKD-EPI)NonAf 85.55 Random Glucose 85 Calcium 8.9 Total Bilirubin 0.3 AST 35 ALT 33 Alkaline Phosphatase 121 H Total Protein 6.9 Albumin 3.4 Urine Color Urine Appearance Urine pH Ur Specific [place] Urine Protein Urine Glucose (UA) Urine Ketones Urine Blood Urine Nitrite Urine Bilirubin Urine Urobilinogen Ur Leukocyte Esterase RPR Titer Nonreactive 02/09/19 02/10/19 13:10 07:30 WBC RBC Hgb Hct MCV MCH MCHC RDW Plt Count MPV Sodium Potassium 3.7 Chloride Carbon Dioxide Anion Gap BUN Creatinine Est GFR (CKD-EPI)AfAm Est GFR (CKD-EPI)NonAf Random Glucose Calcium Total Bilirubin AST ALT Alkaline Phosphatase Total Protein Albumin Urine Color Yellow Urine Appearance Clear Urine pH 6.0 Ur Specific [place] 1.014 Urine Protein Negative Urine Glucose (UA) Negative Urine Ketones Negative Urine Blood Negative Urine Nitrite Negative Urine Bilirubin Negative Urine Urobilinogen 0.2 Ur Leukocyte Esterase Negative RPR Titer LABS NOTED. Assessment: 02/11/19 14:27 WITHDRAWAL SYMPTOMS. Plan: CONTINUE DETOX. PATIENT SCHEDULED FOR DISCHARGE FROM DETOX UNIT TOMORROW.
[2019-02-11] MEDS: hydrOXYzine HCL 25 MG TABLET (FP) PO PRN (15:07)
[2019-02-11] MEDS: ACETAMINOPHEN 325 MG TABLET (FP) PO PRN (15:55)
[2019-02-11] MEDS: THIAMINE HCL 100 MG TABLET (FP) PO SCH (22:38)
[2019-02-11] MEDS: MELATONIN 5 MG TABLETS PO PRN (22:38)
[2019-02-12] MEDS: hydrOXYzine HCL 25 MG TABLET (FP) PO PRN (00:58)
[2019-02-12] MEDS: ALBUTEROL SO4 8 GM HFA INHALER IH SCH ×2 (01:30→05:41)
[2019-02-12] MEDS ORDERED: chlordiazePOXIDE HCL 10 MG CAPSULE PO SCH (05:00)
[2019-02-12] MEDS ORDERED: predniSONE 5 MG TABLET (UD) PO ONE ×2 (06:00→10:00)
[2019-02-12] MEDS ORDERED: diazePAM 5 MG TABLET PO ONE (06:00)
[2019-02-12 06:16] VITALS: TEMP 97.5
[2019-02-12 06:38] VITALS: BP 150/89; PULSE 79
--- NOTE | 2019-02-12 09:12 | DS ---
[facility] Detox Discharge Summary Admission Date: 02/08/19 Discharge Date: 02/12/19 - History Present History: Alcohol Dependence, Cannabis Dependence, Cocaine Dependence, Opioid Dependence - Physical Exam Results Vital Signs: Vital Signs Temperature 97.5 F L 02/12/19 06:00 Pulse Rate 79 02/12/19 06:37 Respiratory Rate 18 02/12/19 06:37 Blood Pressure 150/89 02/12/19 06:37 O2 Sat by Pulse Oximetry (%) Pertinent Admission Physical Exam Findings: pt arrived in withdrawals Laboratory Tests 02/08/19 02/08/19 02/08/19 13:15 13:15 13:15 WBC 7.0 RBC 3.86 L Hgb 12.5 Hct 37.7 MCV 97.7 H MCH 32.3 MCHC 33.1 RDW 15.1 D Plt Count 257 MPV 7.9 Sodium 143 Potassium 3.4 L Chloride 107 Carbon Dioxide 28 Anion Gap 8 BUN 13.4 Creatinine 1.0 Est GFR (CKD-EPI)AfAm 99.15 Est GFR (CKD-EPI)NonAf 85.55 Random Glucose 85 Calcium 8.9 Total Bilirubin 0.3 AST 35 ALT 33 Alkaline Phosphatase 121 H Total Protein 6.9 Albumin 3.4 Urine Color Urine Appearance Urine pH Ur Specific [place] Urine Protein Urine Glucose (UA) Urine Ketones Urine Blood Urine Nitrite Urine Bilirubin Urine Urobilinogen Ur Leukocyte Esterase RPR Titer Nonreactive 02/09/19 02/10/19 13:10 07:30 WBC RBC Hgb Hct MCV MCH MCHC RDW Plt Count MPV Sodium Potassium 3.7 Chloride Carbon Dioxide Anion Gap BUN Creatinine Est GFR (CKD-EPI)AfAm Est GFR (CKD-EPI)NonAf Random Glucose Calcium Total Bilirubin AST ALT Alkaline Phosphatase Total Protein Albumin Urine Color Yellow Urine Appearance Clear Urine pH 6.0 Ur Specific [place] 1.014 Urine Protein Negative Urine Glucose (UA) Negative Urine Ketones Negative Urine Blood Negative Urine Nitrite Negative Urine Bilirubin Negative Urine Urobilinogen 0.2 Ur Leukocyte Esterase Negative RPR Titer today pt is aaox3 ambulating no acute distress no s/s of withdrawals - Treatment Hospital Course: Detox Protocol Followed, Detoxed Safely, Responded well, Discharged Condition Good, Rehab Referral Accepted Patient has Accepted a Rehab Referral to: pt declined; referral provided - Medication Discharge Medications: Ambulatory Orders Albuterol Sulfate Inhaler - [Ventolin Hfa Inhaler -] 1 - 2 inh IH Q4H PRN #1 inhaler 02/11/19 - Diagnosis (1) Alcohol dependence with uncomplicated withdrawal Status: Chronic (2) Dry eye syndrome Status: Acute Qualifiers: Laterality: bilateral Qualified Code(s): H04.123 - Dry eye syndrome of bilateral lacrimal glands (3) Hyperglycemia Status: Acute (4) Opioid dependence with withdrawal Status: Chronic (5) Sarcoidosis Status: Acute (6) Sciatica Status: Acute Qualifiers: Laterality: unspecified laterality Qualified Code(s): M54.30 - Sciatica, unspecified side (7) Cannabis dependence Status: Chronic (8) Cocaine dependence Status: Chronic Qualifiers: Substance use status: uncomplicated Qualified Code(s): F14.20 - Cocaine dependence, uncomplicated (9) Insomnia Status: Chronic (10) Marijuana use Status: Chronic (11) Nicotine dependence Status: Chronic Qualifiers: Nicotine product type: cigarettes Substance use status: uncomplicated Qualified Code(s): F17.210 - Nicotine dependence, cigarettes, uncomplicated (12) Substance induced mood disorder Status: Suspected - AMA Did Patient Leave Against Medical Advice: No
[2019-02-13] MEDS ORDERED: chlordiazePOXIDE HCL 10 MG CAPSULE PO ONE (05:00)
== END 2019-02-12 06:48 | disposition home or self-care (01) | DRG 773 ==
LOC: YASAS 10:48 → Y6N 13:14
PROVIDERS: ADMIT Surgery; ATTEND Surgery
PROC: HZ2ZZZZ Detoxification Services for Substance Abuse Treatment (ICD-10-PCS; principal; 2019-02-08)
DX: F11.23 Opioid dependence with withdrawal (principal); F10.230 Alcohol dependence with withdrawal, uncomplicated; F14.20 Cocaine dependence, uncomplicated; F12.20 Cannabis dependence, uncomplicated; F17.210 Nicotine dependence, cigarettes, uncomplicated; D86.9 Sarcoidosis, unspecified; G47.00 Insomnia, unspecified; H04.123 Dry eye syndrome of bilateral lacrimal glands; M54.30 Sciatica, unspecified side; R73.9 Hyperglycemia, unspecified; E87.6 Hypokalemia; Z88.0 Allergy status to penicillin
CPT/HCPCS: 36415; 80053; 81003; 84132; 85027; 86593; J0735

== ENCOUNTER 2019-05-31 19:01 | Inpatient (IN) | payer OTHER ==
[2019-05-31 19:49] VITALS: BMI 22.4
--- NOTE | 2019-05-31 19:51 | HP ---
"COWS - Scale Resting Pulse: 0= [place] 80 or Below Sweatin= Chills/Flushing Restless Observation: 3= Extraneous Movement Pupil Size: 0= Normal to Room Light (Pupils = 3 mm) Bone or Joint Aches: 0= None Runny Nose/ Eye Tearin= None GI Upset > 30mins: 0= None Tremor Observation: 2= Slight Tremor Visible Yawning Observation: 0= None Anxiety or Irritability: 1=Feels Anxious/Irritable Goose Flesh Skin: 0=Smooth Skin COWS Score: 7 CIWA Score Nausea/Vomitin-No Nausea/No Vomiting Muscle Tremors: 3 Anxiety: 1-Mildly Anxious Agitation: 1-Slight > Activity Paroxysmal Sweats: No Perspiration Orientation: 1-Uncertain about Date Tacttile Disturbances: 0-None Auditory Disturbances: 0-None Visual Disturbances: 0-None Headache: 2-Mild CIWA-Ar Total Score: 8 - Admission Criteria [facility] Guidelines: Admission for Medically Managed Detox: Requires at least one of the followin. CIWA greater than 12 2. Seizures within the past 24 hours 3. Delirium tremens within the past 24 hours 4. Hallucinations within the past 24 hours 5. Acute intervention needed for co occurring medical disorder 6. Acute intervention needed for co occurring psychiatric disorder 7. Severe withdrawal that cannot be handled at a lower level of care (continued vomiting, continued diarrhea, abnormal vital signs) requiring intravenous medication and/or fluids 8. Patient presents the following: Acute intervention needed for co-occurring med or psych disorder (Elevated B/P.) Admission Criteria Met: Admission criteria met Admitting History and Physical - Smoking History Smoking history: Current every day smoker Have you smoked in the past 12 months: Yes Aproximately how many cigarettes per day: 10 - Alcohol/Substance Use Hx Alcohol Use: Yes Admission ROS BHS - HPI Chief Complaint: Here for heroin and alcohol detox. Allergies/Adverse Reactions: Allergies Allergy/AdvReac Type Severity Reaction Status Date / Time Penicillins Allergy Verified 05/31/19 19:39 History of Present Illness: 53 yo presents w/ mild alcohol and opioid withdrawal symptoms and positive intoxication. Last here 02/12/19. States relapsed 2 weeks after discharge. CONNIE: 0.061 Utox: + KEVIN/FEN/MOP Patient COWS = 7. Pupils pinpoint (2 mm). CIWA = 8 w/ CONNIE: 0.061 Denies seizures or blackouts. Hx: overdoses. Last 2 months ago on heroin. Alcohol use began at age 52. Currently drinks 2 - 6 pks beer and 2 pints vodka 4 x/wk. Last drink 2 pm today. Heroin use began at age 17. Current uses 4 bags/day - Nasal. Last used 4 hrs ago. States has a Narcan kit. Cocaine - states last used 1 month ago. Nicotine use began at age 16. Smokes 4 cig/day. PMHx: Sarcoidosis; HTN: States on Norvasc but can't remember dose. Will start on low dose Norvasc. Pt encouraged to f/u w/ PCP. MHHx: Depression and anxiety. Denies thoughts of harming self or others. Not on MH meds. Does not see a MH Provider. SHx: Homeless. Unemployed. Denies legal issues. Search Terms: Jack Pan, 1965 Search Date: 05/31/2019 07:46:45 PM The Drug Utilization Report below displays all of the controlled substance prescriptions, if any, that your patient has filled in the last twelve months. The information displayed on this report is compiled from pharmacy submissions to the Department, and accurately reflects the information as submitted by the pharmacies. This report was requested by: Irene Pan | Reference #: [id number] There are no results for the search terms that you entered. Exam Limitations: No Limitations - Ebola screening Have you traveled outside of the country in the last 21 days: No (N) Have you had contact with anyone from an Ebola affected area: No Have you been sick,other than usual withdrawal symptoms: No Do you have a fever: No - Review of Systems Constitutional: Changes in sleep (Occ difficulty falling and staying asleep.), Weight Stable EENT: reports: Blurred Vision Respiratory: reports: Other (SOB w/ drug use.) Cardiac: reports: No Symptoms Reported GI: reports: No Symptoms Reported : reports: No Symptoms Reported Musculoskeletal: reports: Back Pain (Intermittent LBP in a.m. Denies pain at this time) Integumentary: reports: No Symptoms Reported Neuro: reports: Headache (Mild frontal headache), Tremors Endocrine: reports: Increased Thirst Hematology: reports: No Symptoms Reported Psychiatric: reports: Judgement Intact, Orientated x3 (Missed by 1 day), Anxious , Depressed (Denies thoughts of harming self or others.) Patient History - Patient Medical History Hx Anemia: No Hx Asthma: No Hx Chronic Obstructive Pulmonary Disease (COPD): No Hx Cancer: No Hx Cardiac Disorders: No Hx Hypertension: No Hx Pacemaker: No Hx Seizures: No Hx Diabetes: No Hx Gastrointestinal Disorders: No Hx Liver Disease: No Hx Genitourinary Disorders: No Hx Sexually Transmitted Disorders: No Hx Renal Disease (ESRD): No Hx Thyroid Disease: No Hx Human Immunodeficiency Virus (HIV): No (last 11/29 negative) Hx Hepatitis C: No Hx Depression: No Hx Suicide Attempt: No Hx Bipolar Disorder: No Hx Schizophrenia: No - Patient Surgical History Past Surgical History: No Hx Neurologic Surgery: No Hx Cataract Extraction: No Hx Cardiac Surgery: No Hx Lung Surgery: No Hx Breast Surgery: No Hx Breast Biopsy: No Hx Abdominal Surgery: No Hx Appendectomy: No Hx Cholecystectomy: No Hx Genitourinary Surgery: No Hx Section: No Hx Orthopedic Surgery: No Anesthesia Reaction: No - PPD History Previous Implant?: Yes Documented Results: Negative w/proof Implanted On Prior [facility] Admission?: Yes Date: 03/22/18 Results: 0 mm PPD to be Administered?: Yes - Smoking Cessation Smoking history: Current every day smoker Have you smoked in the past 12 months: Yes Aproximately how many cigarettes per day: 5 Hx Chewing Tobacco Use: No Initiated information on smoking cessation: Yes 'Breaking Loose' booklet given: 05/31/19 - Substance & Tx. History Hx Alcohol Use: Yes Hx Substance Use: Yes Substance Use Type: Alcohol, Cocaine, Heroin Hx Substance Use Treatment: Yes (detox, rehab - yrs ago) - Substances abused Alcohol Substance route: Oral Frequency: Daily Amount used: beers- 24oz ([id number]) and vodka 1L Age of first use: 17 Date of last use: 02/08/19 Heroin Substance route: Inhalation Frequency: Daily Amount used: 6BAGS Age of first use: 52 Date of last use: 02/08/19 Cocaine Substance route: Inhalation Frequency: 1-2 times per week Amount used: 100$ Age of first use: 22 Date of last use: 02/06/19 Admission Physical Exam BHS - Physical General Appearance: Yes: Nourished, Mild Distress, Intoxicated (CONNIE: 0.061), Tremorous (Slight tremors) HEENTM: Yes: EOMI, Hearing grossly Normal, Normocephalic, Normal Voice, JEREMIE ( Pupils = 3 mm), Pharynx Normal, Other (Dry lips and mucous membranes. 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 NML intact, Alert, Motor Strength 5/5, Normal Response Integumentary: Yes: Normal Color, Dry (Dry skin, decreased skin turgor), Warm Lymphatic: Yes: Within Normal Limits - Diagnostic (1) Hx of sarcoidosis Current Visit: No Status: Chronic (2) Dehydration determined by examination Current Visit: No Status: Acute (3) Alcohol dependence with uncomplicated withdrawal Current Visit: No Status: Acute Comment: with CONNIE: 0.061 (4) Nicotine dependence Current Visit: No Status: Chronic Qualifiers: Nicotine product type: cigarettes Substance use status: uncomplicated Qualified Code(s): F17.210 - Nicotine dependence, cigarettes, uncomplicated (5) Opioid dependence with withdrawal Current Visit: No Status: Acute (6) Hypertension Current Visit: No Status: Chronic Qualifiers: Hypertension type: unspecified Qualified Code(s): I10 - Essential (primary ) hypertension Cleared for Admission [facility] - Detox or Rehab [facility] Level of Care: Medically Managed Detox Regimen/Protocol: Methadone/Librium Claeared for Rehab Admission: No Breathalyzer - Breathalyzer Breathalyzer: 0.061 Urine Drug Screen - Test Device Lot number: [id number] Expiration date: 11/10/20 - Control Is test valid?: Yes - Results Drug screen NEGATIVE: No Urine drug screen results: KEVIN-Cocaine, FEN-Fentanyl, MOP-Opiates Inpatient Rehab Admission - Rehab Decision to Admit Inpatient rehab admission?: No"
[2019-05-31] MEDS ORDERED: MAGNESIUM CITRATE 300 ML BOTTLE PO PRN (20:38)
[2019-05-31] MEDS ORDERED: NICOTINE POLACRILEX 2 MG GUM BUC PRN (20:38)
[2019-05-31] MEDS ORDERED: BISMUTH SUBSALICYLATE 524 MG/30 ML UD PO PRN (20:38)
[2019-05-31] MEDS ORDERED: MAG HYDROX/AL HYDROX/SIMETH 30 ML UNIT-DOSE CUP PO PRN (20:38)
[2019-05-31] MEDS ORDERED: MENTHOL/PHENOL 1 EACH UD MM PRN (20:38)
[2019-05-31] MEDS ORDERED: IBUPROFEN 400 MG TABLET (FP) PO PRN (20:38)
[2019-05-31] MEDS ORDERED: ACETAMINOPHEN 325 MG TABLET (FP) PO PRN (20:38)
[2019-05-31] MEDS ORDERED: MAGNESIUM HYDROX 2400MG/30ML ORAL SUSPENSION 30 ML CUP PO PRN (20:38)
[2019-05-31] MEDS ORDERED: chlordiazePOXIDE HCL 10 MG CAPSULE PO PRN (21:13)
[2019-05-31] MEDS: THIAMINE HCL 100 MG TABLET (FP) PO SCH (21:54)
[2019-05-31] MEDS ORDERED: METHADONE HCL 10 MG TABLET (FOR DETOX USE ONLY) PO ONE (23:30)
[2019-06-01] MEDS: ALBUTEROL SO4 8 GM HFA INHALER IH PRN (01:30)
[2019-06-01] MEDS: chlordiazePOXIDE HCL 25 MG CAPSULE PO SCH ×3 (05:26→22:06)
--- NOTE | 2019-06-01 09:51 | PN ---
[facility] CIWA - CIWA Score Nausea/Vomitin-Mild Nausea/No Vomiting Muscle Tremors: 2 Anxiety: 2 Agitation: 2 Paroxysmal Sweats: 1-Minimal Palms Moist Orientation: 0-Oriented Tacttile Disturbances: 1-Very Mild Itch/Numbness Auditory Disturbances: 0-None Visual Disturbances: 0-None Headache: 2-Mild CIWA-Ar Total Score: 11 [facility] COWS - Scale Resting Pulse: 0= [place] 80 or Below Sweatin= No chills or Flushing Restless Observation: 1= Difficult to Sit Still Pupil Size: 1= Pupils >than Normal Bone or Joint Aches: 1= Mild Discomfort Runny Nose/ Eye Tearin= Nasal Congestion GI Upset > 30mins: 1= Stomach Cramp Tremor Observation of Outstretched Hands: 2= Slight Tremor Visible Yawning Observation: 1= 1-2x During Session Anxiety or Irritability: 2=Irritable/Anxious Goose Flesh Skin: 0=Smooth Skin COWS Score: 10 [facility] Progress Note (SOAP) Subjective: alert,irritable,anxious,interrupted sleep,tremor Objective: 06/01/19 09:50 Vital Signs Temperature 98.1 F 06/01/19 06:31 Pulse Rate 64 06/01/19 06:31 Respiratory Rate 18 06/01/19 06:31 Blood Pressure 117/76 06/01/19 06:31 O2 Sat by Pulse Oximetry (%) 06/01/19 09:50 labs pending Assessment: 06/01/19 09:51 withdrawal symptom Plan: continue detox methadone and librium regimen
[2019-06-01] MEDS ORDERED: METHADONE HCL 5 MG TABLET (FOR DETOX USE ONLY) PO ONE (10:00)
[2019-06-01 10:15] LABS: PH,URINE 6.5 (5.0-8.0); URINE APPEARANCE CLEAR; URINE BILIRUBIN NEGATIVE (NEGATIVE); URINE COLOR YELLOW; URINE GLUCOSE (UA) NEGATIVE (NEGATIVE); URINE KETONE NEGATIVE (NEGATIVE); URINE LEUK ESTERASE NEGATIVE (NEGATIVE); URINE NITRITE NEGATIVE (NEGATIVE); URINE PROTEIN NEGATIVE (NEGATIVE); URINE UROBILINOGEN 0.2 mg/dL (0.2-1.0)
[2019-06-01] MEDS: PRENATAL VITAMINS W/ FOLIC ACID TABLET (FP) PO SCH (10:28)
[2019-06-01] MEDS: amLODIPine BESYLATE 5 MG TABLET (FP) PO SCH (10:29)
--- NOTE | 2019-06-01 10:45 | EKG ---
Test Reason : Blood Pressure : / mmHG Vent. Rate : 065 BPM Atrial Rate : 065 BPM P-R Int : 152 ms QRS Dur : 082 ms QT Int : 384 ms P-R-T Axes : 069 079 056 degrees QTc Int : 399 ms NORMAL SINUS RHYTHM MINIMAL VOLTAGE CRITERIA FOR LVH, MAY BE NORMAL VARIANT BORDERLINE ECG Confirmed by MD JUMA, NELSY ([id number]) on 06/01/2019 10:45:13 AM Referred By: Confirmed By:NELSY DENNISON MD
[2019-06-01] MEDS: THIAMINE HCL 100 MG TABLET (FP) PO SCH (22:06)
[2019-06-01] MEDS: MELATONIN 5 MG TABLETS PO PRN (22:08)
[2019-06-02] MEDS ORDERED: chlordiazePOXIDE HCL 10 MG CAPSULE PO PRN
[2019-06-02] MEDS: ALBUTEROL SO4 8 GM HFA INHALER IH PRN (05:46)
[2019-06-02] MEDS: chlordiazePOXIDE 5 MG CAPSULE PO SCH ×3 (05:46→22:09)
[2019-06-02] MEDS: ACETAMINOPHEN 325 MG TABLET (FP) PO PRN (05:48)
[2019-06-02] MEDS ORDERED: METHADONE HCL 10 MG TABLET (FOR DETOX USE ONLY) PO ONE (10:00)
[2019-06-02] MEDS ORDERED: METHADONE (DETOX) 10 MG, METHADONE (DETOX) 5 MG PO ONE (10:05)
[2019-06-02] MEDS: amLODIPine BESYLATE 5 MG TABLET (FP) PO SCH (10:18)
[2019-06-02] MEDS: PRENATAL VITAMINS W/ FOLIC ACID TABLET (FP) PO SCH (10:18)
[2019-06-02 10:20] LABS: HEMATOCRIT 43.1 % (35.4-49); HEMOGLOBIN 14.1 GM/dL (11.7-16.9); MCHC 32.6 g/dl (32.0-35.9); MEAN CELL VOLUME 98.1 fl (80-96); MEAN PLT VOLUME 8.4 fl (7.5-11.1); PLATELET COUNT 230 K/MM3 (134-434); RBC 4.39 M/mm3 (4.00-5.60); RDW 13.6 % (11.9-15.9); WHITE BLOOD COUNT 4.2 K/mm3 (4.0-10.0)
--- NOTE | 2019-06-02 10:26 | PN ---
[facility] CIWA - CIWA Score Nausea/Vomitin-Mild Nausea/No Vomiting Muscle Tremors: 2 Anxiety: 2 Agitation: 2 Paroxysmal Sweats: No Perspiration Orientation: 0-Oriented Tacttile Disturbances: 1-Very Mild Itch/Numbness Auditory Disturbances: 0-None Visual Disturbances: 0-None Headache: 1-Very Mild CIWA-Ar Total Score: 9 [facility] COWS - Scale Resting Pulse: 0= [place] 80 or Below Sweatin= No chills or Flushing Restless Observation: 1= Difficult to Sit Still Pupil Size: 1= Pupils >than Normal Bone or Joint Aches: 1= Mild Discomfort Runny Nose/ Eye Tearin= Nasal Congestion GI Upset > 30mins: 1= Stomach Cramp Tremor Observation of Outstretched Hands: 2= Slight Tremor Visible Yawning Observation: 1= 1-2x During Session Anxiety or Irritability: 2=Irritable/Anxious Goose Flesh Skin: 0=Smooth Skin COWS Score: 10 [facility] Progress Note (SOAP) Subjective: alert,irritable,anxious,interrupted sleep,pain in the body and back,tremor Objective: 06/02/19 10:25 Vital Signs Temperature 97.9 F 06/02/19 09:24 Pulse Rate 65 06/02/19 09:24 Respiratory Rate 18 06/02/19 09:24 Blood Pressure 125/83 06/02/19 09:24 O2 Sat by Pulse Oximetry (%) Assessment: 06/02/19 10:25 withdrawal symptom Plan: continue detox methadone and librium regimen,medication adjust
[2019-06-02 10:30] LABS: ALBUMIN 3.9 g/dl (3.4-5.0); BILIRUBIN,TOTAL 0.7 mg/dL (0.2-1); BLOOD UREA NITROGEN 13.1 mg/dL (7-18); CALCIUM 9.5 mg/dL (8.5-10.1); POTASSIUM 4.2 mmol/L (3.5-5.1); TOT PROT 7.5 g/dl (6.4-8.2)
[2019-06-02] MEDS ORDERED: METHADONE HCL 10 MG TABLET (FOR DETOX USE ONLY) ONE (10:36)
[2019-06-02] MEDS ORDERED: METHADONE HCL 5 MG TABLET (FOR DETOX USE ONLY) ONE (10:36)
[2019-06-02 14:59] LABS: RPR REACTIVE 1:1 (NONREACTIVE)
[2019-06-02] MEDS: THIAMINE HCL 100 MG TABLET (FP) PO SCH (22:09)
[2019-06-03] MEDS: ACETAMINOPHEN 325 MG TABLET (FP) PO PRN ×2 (04:10→18:27)
[2019-06-03] MEDS: chlordiazePOXIDE HCL 10 MG CAPSULE PO SCH ×3 (04:10→21:18)
[2019-06-03] MEDS: ALBUTEROL SO4 8 GM HFA INHALER IH PRN ×2 (04:12→21:21)
[2019-06-03 09:14] LABS: TREPONEMA ANTIBODY REACTIVE (NONREACTIVE)
[2019-06-03] MEDS ORDERED: METHADONE HCL 10 MG TABLET (FOR DETOX USE ONLY) PO ONE (10:00)
[2019-06-03] MEDS ORDERED: METHADONE HCL 10 MG TABLET PO ONE (10:00)
--- NOTE | 2019-06-03 10:24 | PN ---
S CIWA - CIWA Score Nausea/Vomitin-No Nausea/No Vomiting Muscle Tremors: 1-None Visible, but [place] Anxiety: 1-Mildly Anxious Agitation: 1-Slight > Activity Paroxysmal Sweats: No Perspiration Orientation: 0-Oriented Tacttile Disturbances: 1-Very Mild Itch/Numbness Auditory Disturbances: 0-None Visual Disturbances: 0-None Headache: 1-Very Mild CIWA-Ar Total Score: 5 [facility] COWS - Scale Resting Pulse: 0= [place] 80 or Below Sweatin= No chills or Flushing Restless Observation: 0= Sits Still Pupil Size: 1= Pupils >than Normal Bone or Joint Aches: 1= Mild Discomfort Runny Nose/ Eye Tearin= Nasal Congestion GI Upset > 30mins: 0= None Tremor Observation of Outstretched Hands: 1= Tremor [place], Not Seen Yawning Observation: 0= None Anxiety or Irritability: 1=Feels Anxious/Irritable Goose Flesh Skin: 0=Smooth Skin COWS Score: 5 S Progress Note (SOAP) Subjective: alert,irritable,anxious,interrupted sleep, Objective: 06/03/19 10:22 Vital Signs Temperature 97.7 F 06/03/19 06:13 Pulse Rate 63 06/03/19 06:13 Respiratory Rate 18 06/03/19 06:13 Blood Pressure 115/84 06/03/19 06:13 O2 Sat by Pulse Oximetry (%) Laboratory Last Values WBC 4.2 K/mm3 (4.0-10.0) 06/02/19 08:15 RBC 4.39 M/mm3 (4.00-5.60) 06/02/19 08:15 Hgb 14.1 GM/dL (11.7-16.9) 06/02/19 08:15 Hct 43.1 % (35.4-49) 06/02/19 08:15 MCV 98.1 fl (80-96) H 06/02/19 08:15 MCH 32.0 pg (25.7-33.7) 06/02/19 08:15 MCHC 32.6 g/dl (32.0-35.9) 06/02/19 08:15 RDW 13.6 % (11.9-15.9) 06/02/19 08:15 Plt Count 230 K/MM3 (134-434) 06/02/19 08:15 MPV 8.4 fl (7.5-11.1) 06/02/19 08:15 Sodium 137 mmol/L (136-145) 06/02/19 08:15 Potassium 4.2 mmol/L (3.5-5.1) 06/02/19 08:15 Chloride 103 mmol/L (98-107) 06/02/19 08:15 Carbon Dioxide 30 mmol/L (21-32) 06/02/19 08:15 Anion Gap 4 MMOL/L (8-16) L 06/02/19 08:15 BUN 13.1 mg/dL (7-18) 06/02/19 08:15 Creatinine 1.0 mg/dL (0.55-1.3) 06/02/19 08:15 Est GFR (CKD-EPI)AfAm 99.15 06/02/19 08:15 Est GFR (CKD-EPI)NonAf 85.55 06/02/19 08:15 Random Glucose 65 mg/dL (74-106) L 06/02/19 08:15 Calcium 9.5 mg/dL (8.5-10.1) 06/02/19 08:15 Total Bilirubin 0.7 mg/dL (0.2-1) 06/02/19 08:15 AST 42 U/L (15-37) H 06/02/19 08:15 ALT 51 U/L (13-61) 06/02/19 08:15 Alkaline Phosphatase 103 U/L (45-117) 06/02/19 08:15 Total Protein 7.5 g/dl (6.4-8.2) 06/02/19 08:15 Albumin 3.9 g/dl (3.4-5.0) 06/02/19 08:15 Urine Color Yellow 06/01/19 08:00 Urine Appearance Clear 06/01/19 08:00 Urine pH 6.5 (5.0-8.0) 06/01/19 08:00 Ur Specific [place] 1.010 (1.010-1.035) 06/01/19 08:00 Urine Protein Negative (NEGATIVE) 06/01/19 08:00 Urine Glucose (UA) Negative (NEGATIVE) 06/01/19 08:00 Urine Ketones Negative (NEGATIVE) 06/01/19 08:00 Urine Blood Negative (NEGATIVE) 06/01/19 08:00 Urine Nitrite Negative (NEGATIVE) 06/01/19 08:00 Urine Bilirubin Negative (NEGATIVE) 06/01/19 08:00 Urine Urobilinogen 0.2 mg/dL (0.2-1.0) 06/01/19 08:00 Ur Leukocyte Esterase Negative (NEGATIVE) 06/01/19 08:00 RPR Titer Reactive 1:1 (NONREACTIVE) H D 06/02/19 08:15 T.pallidum Ab (MHA) Reactive (NONREACTIVE) 06/02/19 08:15 patient has rpr negative on 03/21/18 and 02/08/19,sated not sexually active, last sexual relation in 2018,no regular partner patient is allergic to penicillin,start patient on vibramycin 100 mgs po bid for 14 days,advise sexual precaution, patient will go follow up with [facility] outpatient program,or [facility] follow up after discharge,patient understood 06/03/19 10:25 06/03/19 10:27 Assessment: 06/03/19 10:31 withdrawal symptom Plan: continue detox methadone and librium regimen,psychiatric consultation for adhd, discharge in am
[2019-06-03] MEDS: amLODIPine BESYLATE 5 MG TABLET (FP) PO SCH (10:40)
[2019-06-03] MEDS: PRENATAL VITAMINS W/ FOLIC ACID TABLET (FP) PO SCH (10:40)
[2019-06-03] MEDS ORDERED: DOXYCYCLINE HYCLATE 100 MG TABLET PO ONE (10:42)
[2019-06-03] MEDS ORDERED: DOXYCYCLINE HYCLATE 100 MG TABLET PO SCH (18:00)
[2019-06-03] MEDS: THIAMINE HCL 100 MG TABLET (FP) PO SCH (21:18)
[2019-06-03] MEDS: MELATONIN 5 MG TABLETS PO PRN (21:18)
[2019-06-04] MEDS ORDERED: chlordiazePOXIDE HCL 10 MG CAPSULE PO ONE (05:00)
[2019-06-04] MEDS ORDERED: METHADONE HCL 5 MG TABLET (FOR DETOX USE ONLY) PO ONE ×2 (06:00)
[2019-06-04 06:04] VITALS: BP 116/78; PULSE 71; TEMP 97.9
--- NOTE | 2019-06-04 08:32 | DS ---
[facility] Detox Discharge Summary Admission Date: 05/31/19 Discharge Date: 06/04/19 - History Present History: Alcohol Dependence, Cannabis Dependence, Cocaine Dependence, Opioid Dependence - Physical Exam Results Vital Signs: Vital Signs Temperature 97.9 F 06/04/19 06:00 Pulse Rate 71 06/04/19 06:00 Respiratory Rate 18 06/04/19 06:00 Blood Pressure 116/78 06/04/19 06:00 O2 Sat by Pulse Oximetry (%) Pertinent Admission Physical Exam Findings: pt arrived in withdrawals Vital Signs Temperature 97.9 F 06/04/19 06:00 Pulse Rate 71 06/04/19 06:00 Respiratory Rate 18 06/04/19 06:00 Blood Pressure 116/78 06/04/19 06:00 O2 Sat by Pulse Oximetry (%) Laboratory Tests 06/01/19 06/02/19 06/02/19 08:00 08:15 08:15 WBC 4.2 RBC 4.39 Hgb 14.1 Hct 43.1 MCV 98.1 H MCH 32.0 MCHC 32.6 RDW 13.6 Plt Count 230 MPV 8.4 Sodium 137 Potassium 4.2 Chloride 103 Carbon Dioxide 30 Anion Gap 4 L BUN 13.1 Creatinine 1.0 Est GFR (CKD-EPI)AfAm 99.15 Est GFR (CKD-EPI)NonAf 85.55 Random Glucose 65 L Calcium 9.5 Total Bilirubin 0.7 AST 42 H ALT 51 Alkaline Phosphatase 103 Total Protein 7.5 Albumin 3.9 Urine Color Yellow Urine Appearance Clear Urine pH 6.5 Ur Specific [place] 1.010 Urine Protein Negative Urine Glucose (UA) Negative Urine Ketones Negative Urine Blood Negative Urine Nitrite Negative Urine Bilirubin Negative Urine Urobilinogen 0.2 Ur Leukocyte Esterase Negative RPR Titer T.pallidum Ab (MHA) 06/02/19 08:15 WBC RBC Hgb Hct MCV MCH MCHC RDW Plt Count MPV Sodium Potassium Chloride Carbon Dioxide Anion Gap BUN Creatinine Est GFR (CKD-EPI)AfAm Est GFR (CKD-EPI)NonAf Random Glucose Calcium Total Bilirubin AST ALT Alkaline Phosphatase Total Protein Albumin Urine Color Urine Appearance Urine pH Ur Specific [place] Urine Protein Urine Glucose (UA) Urine Ketones Urine Blood Urine Nitrite Urine Bilirubin Urine Urobilinogen Ur Leukocyte Esterase RPR Titer Reactive 1:1 H D T.pallidum Ab (MHA) Reactive today pt is aaox3 ambulating no acute distress - Treatment Hospital Course: Detox Protocol Followed, Detoxed Safely, Responded well, Discharged Condition Good, Rehab Referral Accepted Patient has Accepted a Rehab Referral to: pt referred to [facility] otp - Medication Discharge Medications: Ambulatory Orders Albuterol Sulfate Inhaler - [Ventolin HFA Inhaler -] 2 inh IH Q4H PRN #1 inhaler 06/03/19 Doxycycline Hyclate [Vibramycin -] 100 mg PO BID@1000,1800 #14 capsule 06/03/19 - Diagnosis (1) Alcohol dependence with uncomplicated withdrawal Current Visit: Yes Status: Chronic (2) Dehydration determined by examination Current Visit: No Status: Acute (3) Dry eye syndrome Current Visit: No Status: Acute Qualifiers: Laterality: bilateral Qualified Code(s): H04.123 - Dry eye syndrome of bilateral lacrimal glands (4) Hyperglycemia Current Visit: No Status: Acute (5) Opioid dependence with withdrawal Current Visit: Yes Status: Chronic (6) Sarcoidosis Current Visit: No Status: Acute (7) Sciatica Current Visit: No Status: Acute Qualifiers: Laterality: unspecified laterality Qualified Code(s): M54.30 - Sciatica, unspecified side (8) Cannabis dependence Current Visit: Yes Status: Chronic (9) Cocaine dependence Current Visit: Yes Status: Chronic Qualifiers: Substance use status: uncomplicated Qualified Code(s): F14.20 - Cocaine dependence, uncomplicated (10) Hx of sarcoidosis Current Visit: No Status: Chronic (11) Hypertension Current Visit: No Status: Chronic Qualifiers: Hypertension type: unspecified Qualified Code(s): I10 - Essential (primary ) hypertension (12) Insomnia Current Visit: No Status: Chronic (13) Marijuana use Current Visit: No Status: Chronic (14) Nicotine dependence Current Visit: No Status: Chronic Qualifiers: Nicotine product type: cigarettes Substance use status: uncomplicated Qualified Code(s): F17.210 - Nicotine dependence, cigarettes, uncomplicated (15) Substance induced mood disorder Current Visit: No Status: Suspected - AMA Did Patient Leave Against Medical Advice: No
== END 2019-06-04 08:55 | disposition home or self-care (01) | DRG 773 ==
LOC: YASAS 19:01 → Y6N 20:52
PROVIDERS: ADMIT Allergy & Immunology; ATTEND Allergy & Immunology
PROC: HZ2ZZZZ Detoxification Services for Substance Abuse Treatment (ICD-10-PCS; principal; 2019-05-31)
DX: F11.23 Opioid dependence with withdrawal (principal); F10.230 Alcohol dependence with withdrawal, uncomplicated; F14.20 Cocaine dependence, uncomplicated; F12.20 Cannabis dependence, uncomplicated; F17.210 Nicotine dependence, cigarettes, uncomplicated; F19.24 Other psychoactive substance dependence with psychoactive substance-induced mood disorder; G47.00 Insomnia, unspecified; I10 Essential (primary) hypertension; M54.30 Sciatica, unspecified side; E86.0 Dehydration; H04.123 Dry eye syndrome of bilateral lacrimal glands; R73.9 Hyperglycemia, unspecified; D86.9 Sarcoidosis, unspecified; Z88.0 Allergy status to penicillin
CPT/HCPCS: 36415; 80053; 81003; 85027; 86593; 86780; 93005; 93010

== ENCOUNTER 2019-07-15 19:23 | Inpatient (IN) | payer OTHER ==
[2019-07-15] MEDS ORDERED: ACETAMINOPHEN 325 MG TABLET (FP) PO ONE (19:45)
[2019-07-15] MEDS ORDERED: ACETAMINOPHEN 1000 MG/100 ML VIAL (NON FORMULARY) IVPB ONE ×2 (19:47→19:56)
[2019-07-15] MEDS ORDERED: SODIUM CHLORIDE 2,177 ML IV ONE (19:47)
--- NOTE | 2019-07-15 19:49 | PDOC ---
History of Present Illness - General Chief Complaint: SIRS, Suspected/Possible Stated Complaint: FEVER Time Seen by Provider: 07/15/19 19:44 History Source: Patient Exam Limitations: No Limitations - History of Present Illness Initial Comments: 07/15/19 19:48 HPI: 53yo M PMH Sarcoidosis, COPD, HTN, ETOH and Heroin use disorders presenting from [facility] with fever (TMax 105.5), chills, nausea, cough productive of clear sputum for several days. Patient reports his friend had similar symptoms thought not as bad. Endorses diarrhea "from the dope-sickness. " Last used heroin at 9AM. Patient presenting from [facility] where he was seeking admission for detox. Of note, patient was recently diagnosed with COPD and started on symbicort. He has a new PCP but cannot remember her name. All: PCN Meds: Symbicort PMH: As above PSH: Per chart SHx: 07/18 Vodka daily, Heroin Past History - Travel Traveled outside of the country in the last 30 days: No Close contact w/someone who was outside of country & ill: No - Past Medical History Allergies/Adverse Reactions: Allergies Allergy/AdvReac Type Severity Reaction Status Date / Time Penicillins Allergy Verified 07/15/19 19:25 Home Medications: Ambulatory Orders Budesonide/Formeterol Fumarate [SYMBICORT 160/4.5mcg -] 1 inh PO BID 07/15/19 Umeclidinium [place] [Incruse Ellipta] 62.5 mcg IH DAILY 07/15/19 Anemia: No Asthma: No Cancer: No Cardiac Disorders: No COPD: No Diabetes: No GI Disorders: No Disorders: No HTN: No Kidney Stones: No Liver Disease: No Seizures: No Thyroid Disease: No - Surgical History Abdominal Surgery: No Appendectomy: No Cardiac Surgery: No Cholecystectomy: No Lung Surgery: No Neurologic Surgery: No Orthopedic Surgery: No - Reproductive History Testicular Surgery: No - Psycho Social/Smoking Cessation Hx Smoking History: Unknown if ever smoked Have you smoked in the past 12 months: No Number of Cigarettes Smoked Daily: 5 Information on smoking cessation initiated: No 'Breaking Loose' booklet given: 05/31/19 Hx Alcohol Use: Yes Drug/Substance Use Hx: Yes Substance Use Type: Alcohol, Cocaine, Heroin Hx Substance Use Treatment: Yes (detox, rehab - yrs ago) Review of Systems - Review of Systems Able to Perform ROS?: Yes Is the patient limited Kinyarwanda proficient: Yes Constitutional: Yes: Chills, Fever. No: Diaphoresis, Weakness HEENTM: Yes: Throat Pain. No: Recent change in vision, Nose Pain, Nose Congestion Respiratory: Yes: Cough, Shortness of Breath, Productive cough (clear sputum). No: Wheezing, Hemoptysis Cardiac (ROS): No: Chest Pain, Edema, Irregular Heart Rate, Lightheadedness, Palpitations, Syncope, Chest Tightness ABD/GI: Yes: Nausea. No: Blood Streaked Bowels, Constipated, Diarrhea, Poor Appetite, Poor Fluid Intake, Rectal Bleeding, Vomiting, Tarry Stools : No: Burning, Dysuria, Discharge, Incontinence, Pain Musculoskeletal: No: Muscle Pain, Muscle Weakness Integumentary: No: Bruising, Erythema, Pruritus, Rash Neurological: No: Headache, Numbness, Tingling, Weakness Psychiatric: No: Sleep Pattern Change, Change in Appetite Endocrine: No: Increased Thirst, Increased Urine, Change in Weight Hematologic/Lymphatic: No: Anemia, Blood Clots, Easy Bleeding All Other Systems: Reviewed and Negative *Physical Exam - Vital Signs Last Vital Signs Temp Pulse Resp BP Pulse Ox 104 F H 100 H 20 145/93 97 07/15/19 19:25 07/15/19 19:25 07/15/19 19:25 07/15/19 19:25 07/15/19 19:25 - Physical Exam 07/15/19 19:48 Vitals reviewed, patient rectally febrile to 105.2 07/15/19 19:59 WDWN man, appears stated age, no acute distress, not tremulous No tongue fasciculation, MMM, EOMI, NCAT, PERRLA Sinus tachycardia, no murmurs appreciated, nl s1s2 Wheezes bilateral apices, diminished sounds at bilateral bases, intermittent coughing with productive clear sputum Soft, non-tender, non-distended WWP, no clubbing / cyanosis / edema 2+ radial and PT pulses CN grossly intact, normal sensation and strength throughout ED Treatment Course - LABORATORY CBC & Chemistry Diagram: 07/15/19 20:07 07/15/19 20:07 - RADIOLOGY Radiology Studies Ordered: Category Date Time Status CHEST X-RAY PORTABLE* [RAD] Stat Radiology 07/15/19 19:47 Ordered Medical Decision Making - Medical Decision Making 07/15/19 19:48 53yo M PMH Sarcoidosis, COPD, HTN, ETOH and Heroin use disorders presenting from [facility] with fever (TMax 105.5), chills, nausea, cough productive of clear sputum for several days. Physical exam notable for wheezing, diminished breath sounds, productive cough, and absence of tremor / psychomotor agitation. DDX includes but is not limited to: Influenza, other viral URI, PNA, COPD exacerbation. - Sepsis order set - Flu swab - Tylenol 1g IV - Duo Neb - Monitor for signs of withdrawal 07/15/19 20:23 - EKBPM, Sinus Tach, Normal Anderson, QTc 467, no ST or T changes noted - Zofran ordered 07/15/19 21:18 - No leukocytosis - Normal CMP - Influenza negative - CT Chest 07/15/19 23:22 - CT looks like multilobar PNA on my read - Rocephin and Azithromycin ordered Dispo: Med/Surg for PNA, Sepsis, Detox - Endorsed to Night Team, Dr. Root - F/u CT, Repeat Vitals, Admit Discharge - Discharge Information Problems reviewed: Yes Clinical Impression/Diagnosis: Desire for detoxification Sepsis Qualifiers: Sepsis type: sepsis due to unspecified organism Sepsis acute organ dysfunction status: unspecified Qualified Code(s): A41.9 - Sepsis, unspecified organism Pneumonia Qualifiers: Pneumonia type: due to unspecified organism Laterality: bilateral Lung location : unspecified part of lung Qualified Code(s): J18.9 - Pneumonia, unspecified organism Condition: Guarded Disposition: HOME - Admission Yes - Follow up/Referral Referrals: Timo See DO [Primary Care Provider] - - Patient Discharge Instructions - Post Discharge Activity
[2019-07-15] MEDS ORDERED: ALBUTEROL SO4 2.5/IPRATROPIUM 0.5 INH SOL 3 ML VIAL.NEB. NEB ONE ×2 (19:56→20:02)
[2019-07-15] MEDS ORDERED: ACETAMINOPHEN INJECTION 100 ML IVPB ONE (20:02)
[2019-07-15 20:19] LABS: BASO % 0.3 % (0-2.0); EOS % 0.1 % (0-4.5); HEMATOCRIT 43.5 % (35.4-49); HEMOGLOBIN 14.5 GM/dL (11.7-16.9); LYMPH % 4.6 % (8-40); MCH 32.1 pg (25.7-33.7); MCHC 33.4 g/dl (32.0-35.9); MEAN CELL VOLUME 96.3 fl (80-96); MEAN PLT VOLUME 8.2 fl (7.5-11.1); MONO % 9.2 % (3.8-10.2); NEUT % 85.8 % (42.8-82.8); PLATELET COUNT 214 K/MM3 (134-434); RBC 4.51 M/mm3 (4.00-5.60); RDW 13.3 % (11.9-15.9); WHITE BLOOD COUNT 9.5 K/mm3 (4.0-10.0)
[2019-07-15 20:24] LABS: VENOUS PC02 28.2 mmHg (38-52); VENOUS PH 7.43 (7.31-7.41); VENOUS PO2 < 49 mmHg (28-48)
[2019-07-15] MEDS ORDERED: ONDANSETRON *ODT* 4 MG TABLET SL ONE (20:24)
--- NOTE | 2019-07-15 20:26 | PDOC ---
Documentation entered by Evita Barker SCRIBE, acting as scribe for Arianna Uriarte DO. Arianna Uriarte, : This documentation has been prepared by the Mj marie Joy, SCRIBE, under my direction and personally reviewed by me in its entirety. I confirm that the documentation accurately reflects all work, treatment, procedures, and medical decision making performed by me. Attending Attestation - Resident Resident Name: BertrandDank - ED Attending Attestation I have performed the following: I have examined & evaluated the patient, The case was reviewed & discussed with the resident, I agree w/resident's findings & plan, Exceptions are as noted - HPI HPI: 07/15/19 20:48 The patient is a 53 year old male from [facility] with significant past medical history of sarcoidosis, COPD, HTN, alcohol and drug (substance) abuse who presents to the ED with fever and coughing for x2 days. The patient states that he has associated symptoms of nausea and vomiting. As per patient, he was at [facility] where he was getting detox for snorting heroin (does not inject) and alcohol use (1 pint/day) and had onset of fever of 104 F which prompted his arrival to the ED. The patient denies sore throat or runny nose. Allergies: Penicillins PCP: Dr. Timo See - Physicial Exam PE: 07/15/19 20:22 Gen: aaox3, coughing- productive cream colored sputum heent: dry mm, posterior pharynx clear, no tongue fasciculations neck: supple heart: +s1s2 tachy lungs: coarse bs b/l, wheezing abd: soft, nt/nd +bs ext: no c/c/e, no hand tremors - Medical Decision Making 07/15/19 20:24 I, Dr. Arianna Uriarte DO, attest that this document has been prepared under my direction and personally reviewed by me in its entirety. I further attest, that it accurately reflects all work, treatment, procedures and medical decision -making performed by me. a/p: 53yo male sent from [facility] where he presented for detox from heroin/ alcohol -pt presented febrile with a cough-productive cream colored sputum -pt tachy, temp 104 -pt without acute withdrawal symptoms at this time -will send labs, cultures, nebs, tylenol, ivf hydration -concern for flu vs pna vs copd exacerbation with viral syndrome -will monitor and reassess 07/15/19 22:27 flu neg cxr neg labs reviewed pending ct 07/16/19 00:14 bronchiectasis and patchy infiltrates on ct abx ordered microblog sent to [facility] for admisssion 07/16/19 02:10 pt pending admission to [facility] for sepsis Heart Score/ECG Review - ECG Intrepretation Comment:: 07/15/19 20:26 sinus tach at 107, nl axis, nl interval, q waves septally which are age indeterminate, abnl ekg
[2019-07-15 20:49] LABS: URINE APPEARANCE CLEAR; URINE BILIRUBIN NEGATIVE (NEGATIVE); URINE COLOR YELLOW; URINE GLUCOSE (UA) NEGATIVE (NEGATIVE); URINE KETONE 1+ (NEGATIVE); URINE LEUK ESTERASE NEGATIVE (NEGATIVE); URINE NITRITE NEGATIVE (NEGATIVE); URINE PROTEIN TRACE (NEGATIVE); URINE UROBILINOGEN 0.2 mg/dL (0.2-1.0)
[2019-07-15 20:50] LABS: ALBUMIN 4.2 g/dl (3.4-5.0); ALK PHOS 105 U/L (45-117); ANION GAP 7 MMOL/L (8-16); BILIRUBIN,TOTAL 0.4 mg/dL (0.2-1); BLOOD UREA NITROGEN 16.5 mg/dL (7-18); CALCIUM 9.4 mg/dL (8.5-10.1); CHLORIDE 97 mmol/L (98-107); CO2 28 mmol/L (21-32); CREATININE 1.2 mg/dL (0.55-1.3); GLUCOSE,RANDOM 98 mg/dL (74-106); POTASSIUM 4.2 mmol/L (3.5-5.1); SGOT/AST 41 U/L (15-37); SGPT/ALT 41 U/L (13-61); SODIUM 133 mmol/L (136-145); TOT PROT 8.2 g/dl (6.4-8.2)
[2019-07-15] MEDS ORDERED: AZITHROMYCIN IVPB 250 MG in DEXTROSE 5%-WATER - 250 ML IVPB ONE (23:20)
[2019-07-15] MEDS ORDERED: CEFTRIAXONE 1 GM in DEXTROSE 5%-WATER - 100 ML IVPB ONE (23:20)
[2019-07-16] MEDS ORDERED: KETOROLAC TROMETHAMINE 30 MG/1 ML VIAL IVPUSH ONE (00:01)
[2019-07-16] MEDS ORDERED: KETOROLAC TROMETHAMINE 30 MG/1 ML VIAL ONE (00:24)
[2019-07-16] MEDS ORDERED: CEFTRIAXONE 1 GM/50 ML BAG ONE (00:24)
--- NOTE | 2019-07-16 00:27 | PN ---
Teaching Attending Note Name of Resident: Loretta Truong ATTENDING PHYSICIAN STATEMENT I saw and evaluated the patient. I reviewed the resident's note and discussed the case with the resident. I agree with the resident's findings and plan as documented. SUBJECTIVE: Patient is a 53 year old man with a PMH of Sarcoidosis, Penicillin allergy, COPD , HTN, Tobacco use and Polysubstance abuse (alcohol, cocaine, heroin) presenting from [facility] with fever (TMax 105.5), chills, nausea and cough productive of clear sputum for several days. Patient reports his friend had similar symptoms thought not as bad. Has diarrhea "from the dope-sickness." Last used heroin at 9 am. Patient presenting from [facility] where he was seeking admission for detox. Of note, patient was recently diagnosed with COPD and started on symbicort. He has a new PCP but cannot remember her name. OBJECTIVE: Alert Vital Signs Period Temp Pulse Resp BP Sys/Singer Pulse Ox Last 24 Hr 101.6 F-105.2 F 92-100 18-108 116-154/71-93 95-97 HEENT: No Jaundice, eye redness or discharge, PERRLA, EOMI. Normocephalic, atraumatic. External ears are normal and hearing is grossly intact. No nasal discharge. Neck: Supple, nontender. No palpable adenopathy or thyromegaly. No JVD Chest: Good effort. Clear to auscultation and percussion. Heart: Regular. No S3, rub or murmur Abdomen: Not distended, soft, nontender and no HSM. No rebound or guarding. Normal bowel sounds. Ext: Peripheral pulses intact. No leg edema. Skin: Warm and dry. No petechiae, rash or ecchymosis. Neuro: Alert. Oriented x3. CN 2-12 grossly intact. Sensation grossly intact in all four extremities and DTR are symmetric. Psych: Appropriate mood and affect. Good insight. Current Medications Generic Name Dose Route Start Last Admin Trade Name Freq PRN Reason Stop Dose Admin Azithromycin 250 mg/ Dextrose 250 mls @ 250 mls/hr 07/16/19 00:45 IVPB 07/16/19 01:44 ONCE ONE Home Medications Medication Instructions Recorded Budesonide/Formeterol Fumarate 1 inh PO BID 07/15/19 [SYMBICORT 160/4.5mcg -] Umeclidinium [place] [Incruse 62.5 mcg IH DAILY 07/15/19 Ellipta] Abnormal Lab Results 07/15/19 07/15/19 07/15/19 20:07 20:07 20:07 MCV 96.3 H Absolute Neuts (auto) 8.2 H Neutrophils % 85.8 H Lymphocytes % 4.6 L VBG pH 7.43 H POC VBG pCO2 28.2 L POC VBG pO2 < 49 H VBG HCO3 18.5 L VBG Base Excess -4.4 L Sodium 133 L Chloride 97 L Anion Gap 7 L AST 41 H Urine Ketones 07/15/19 20:30 MCV Absolute Neuts (auto) Neutrophils % Lymphocytes % VBG pH POC VBG pCO2 POC VBG pO2 VBG HCO3 VBG Base Excess Sodium Chloride Anion Gap AST Urine Ketones 1+ H ASSESSMENT AND PLAN: 1. Pneumonia/COPD exacerbation - CXR shows increased interstitial markings. Preliminary report of bronchiectasis and patchy infiltrates on CT chest. Flu swab was negative. EKG shows sinus tachycardia and LAE. Will treat with solumedrol, duoneb, symbicort, IV Levofloxacin and Azithromycin. Hydrate with IV NS. Will continue comprehensive care for all of patients comorbid conditions. 2. Tobacco Use Counseled on risks associated with tobacco use. We will provide patient all the necessary assistance to facilitate smoking cessation and prescribe Nicotine patch. 3. Polysubstance abuse - Monitor for drug withdrawal. Implement [facility] alcohol withdrawal protocol and do neurochecks. Implement seizure, fall and aspiration precautions. Treat with thiamine and folic acid and monitor electrolytes (Ca,Mg,K,P). Counseled patient about abstaining from alcohol/ illicit drugs. Will consult magneto specialist and refer to alcohol/drug detox upon discharge. 4. Hypertension - Restart suitable outpatient antihypertensive drugs when clinically appropriate. Revise regimen to ensure [id number] excellent BP control and sales counselor patient on the injurious effects of uncontrolled hypertension. Nonpharmacologic measures to control hypertension like weight loss , salt restriction and exercise discussed. Importance of adherence to treatment regimen and attainment of normotension emphasized. 5. DVT prophylaxis - Lovenox 40 mg SQ q 24 hours. 6. Advance directives - Full code
[2019-07-16] MEDS ORDERED: AZITHROMYCIN IVPB 250 MG in DEXTROSE 5%-WATER - 250 ML IVPB ONE (00:45)
--- NOTE | 2019-07-16 02:51 | HP ---
CHIEF COMPLAINT: high fever and cough PCP: Unknown HISTORY OF PRESENT ILLNESS: 53yo M PMH Sarcoidosis, COPD, HTN, PCN allergy, ETOH and Heroin use disorders presenting from [facility] with fever (TMax 105.5) cough productive of clear sputum for a couple of days. Patient reports his friend had similar symptoms thought not as bad. He also complained of SOB, nausea, diarrhea (which he associated with getting sick from heroin) for the past few days. He denies any chest pain, night sweats, significant weight loss or urinary changes. According to the pt he was recently found to have early signs of COPD and started on ventolin, symbicort and Incruse ellipta. He admits to using heroin via inhalation and denies any IVDU. CIWA 5. Last drink and heroin use was yesterday morning. ER course was notable for: (1) VS with fever of 101.6 and CBC unremarkable except for MCV of 96.3, CMP with hyponatremia 133, AST 41 ALT 41 (2) flu negative, UA neg, CXR clear with perihalar fullness. CT with bronchiectasis and patchy infiltrate (3) sheng cam and CHITRA florentino Recent Travel: none PAST MEDICAL HISTORY: as above PAST SURGICAL HISTORY: none Social History: Smokinpack and a half for years Alcohol: a fifth daily Drugs: heroin use and cocaine use Allergies Penicillins Allergy (Verified 07/15/19 19:25) HOME MEDICATIONS: Home Medications Medication Instructions Recorded Budesonide/Formeterol Fumarate 1 inh PO BID 07/15/19 [SYMBICORT 160/4.5mcg -] Umeclidinium [place] [Incruse 62.5 mcg IH DAILY 07/15/19 Ellipta] REVIEW OF SYSTEMS CONSTITUTIONAL: fever, chills Absent: diaphoresis, generalized weakness, malaise, loss of appetite, weight change HEENT: Absent: rhinorrhea, nasal congestion, throat pain, throat swelling, difficulty swallowing, mouth swelling, ear pain, eye pain, visual changes CARDIOVASCULAR: Absent: chest pain, syncope, palpitations, irregular heart rate, lightheadedness , peripheral edema RESPIRATORY: cough, shortness of breath Absent: dyspnea with exertion, orthopnea, wheezing, stridor, hemoptysis GASTROINTESTINAL:nausea Absent: abdominal pain, abdominal distension, vomiting, diarrhea, constipation , melena, hematochezia GENITOURINARY: Absent: dysuria, frequency, urgency, hesitancy, hematuria, flank pain, genital pain MUSCULOSKELETAL: Absent: myalgia, arthralgia, joint swelling, back pain, neck pain SKIN: Absent: rash, itching, pallor HEMATOLOGIC/IMMUNOLOGIC: Absent: easy bleeding, easy bruising, lymphadenopathy, frequent infections ENDOCRINE: Absent: unexplained weight gain, unexplained weight loss, heat intolerance, cold intolerance NEUROLOGIC: Absent: headache, focal weakness or paresthesias, dizziness, unsteady gait, seizure, mental status changes, bladder or bowel incontinence PSYCHIATRIC: Absent: anxiety, depression, suicidal or homicidal ideation, hallucinations. PHYSICAL EXAMINATION Vital Signs - 24 hr 07/15/19 07/15/19 07/16/19 19:25 20:44 00:06 Temperature 104 F H 105.2 F H 101.6 F H Pulse Rate 100 H Pulse Rate [ 92 H Left] Pulse Rate [ Right Radial] Respiratory 20 108 H 18 Rate Blood Pressure 145/93 154/89 Blood Pressure 116/71 [Left Arm] Blood Pressure [Right Arm] O2 Sat by Pulse 97 95 96 Oximetry (%) 07/16/19 02:24 Temperature Pulse Rate Pulse Rate [ Left] Pulse Rate [ 88 Right Radial] Respiratory 18 Rate Blood Pressure Blood Pressure [Left Arm] Blood Pressure 124/73 [Right Arm] O2 Sat by Pulse 99 Oximetry (%) GENERAL: Awake, alert, and fully oriented, in no acute distress. HEAD: Normal with no signs of trauma. EYES: Pupils equal, round and reactive to light, extraocular movements intact, sclera anicteric, conjunctiva clear. No lid lag. EARS, NOSE, THROAT: oropharynx clear without exudates. Moist mucous membranes. NECK: Normal range of motion, supple without lymphadenopathy, JVD, or masses. LUNGS: Breath sounds equal, clear to auscultation bilaterally. diffuse wheezes, and no crackles. No accessory muscle use. HEART: Regular rate and rhythm, normal S1 and S2 without murmur, rub or gallop. ABDOMEN: Soft, nontender, not distended, normoactive bowel sounds, no guarding, no rebound, no masses. No hepatomegaly or splenomegaly. MUSCULOSKELETAL: Normal range of motion at all joints. No bony deformities or tenderness. No CVA tenderness. UPPER EXTREMITIES: 2+ pulses, warm, well-perfused. No cyanosis. No clubbing. No peripheral edema. LOWER EXTREMITIES: 2+ pulses, warm, well-perfused. No calf tenderness. No peripheral edema. PSYCHIATRIC: Cooperative. Good eye contact. Appropriate mood and affect. SKIN: Warm, dry, normal turgor, no rashes or lesions noted, normal capillary refill. Laboratory Results - last 24 hr 07/15/19 07/15/19 07/15/19 20:07 20:07 20:07 WBC 9.5 RBC 4.51 Hgb 14.5 Hct 43.5 MCV 96.3 H MCH 32.1 MCHC 33.4 RDW 13.3 Plt Count 214 MPV 8.2 Absolute Neuts (auto) 8.2 H Neutrophils % 85.8 H Lymphocytes % 4.6 L Monocytes % 9.2 Eosinophils % 0.1 Basophils % 0.3 Nucleated RBC % 0 VBG pH POC VBG pCO2 POC VBG pO2 VBG HCO3 VBG O2 Sat ([place]) VBG Base Excess Sodium 133 L Potassium 4.2 Chloride 97 L Carbon Dioxide 28 Anion Gap 7 L BUN 16.5 Creatinine 1.2 Est GFR (CKD-EPI)AfAm 79.53 Est GFR (CKD-EPI)NonAf 68.62 Random Glucose 98 Lactic Acid 1.2 Calcium 9.4 Total Bilirubin 0.4 AST 41 H ALT 41 Alkaline Phosphatase 105 Troponin I < 0.02 Total Protein 8.2 Albumin 4.2 Urine Color Urine Appearance Urine pH Ur Specific [place] Urine Protein Urine Glucose (UA) Urine Ketones Urine Blood Urine Nitrite Urine Bilirubin Urine Urobilinogen Ur Leukocyte Esterase Influenza A (Rapid) Influenza B (Rapid) 07/15/19 07/15/19 07/15/19 20:07 20:30 20:30 WBC RBC Hgb Hct MCV MCH MCHC RDW Plt Count MPV Absolute Neuts (auto) Neutrophils % Lymphocytes % Monocytes % Eosinophils % Basophils % Nucleated RBC % VBG pH 7.43 H POC VBG pCO2 28.2 L POC VBG pO2 < 49 H VBG HCO3 18.5 L VBG O2 Sat ([place]) 73.2 VBG Base Excess -4.4 L Sodium Potassium Chloride Carbon Dioxide Anion Gap BUN Creatinine Est GFR (CKD-EPI)AfAm Est GFR (CKD-EPI)NonAf Random Glucose Lactic Acid Calcium Total Bilirubin AST ALT Alkaline Phosphatase Troponin I Total Protein Albumin Urine Color Yellow Urine Appearance Clear Urine pH 5.0 D Ur Specific [place] 1.022 Urine Protein Trace Urine Glucose (UA) Negative Urine Ketones 1+ H Urine Blood Negative Urine Nitrite Negative Urine Bilirubin Negative Urine Urobilinogen 0.2 Ur Leukocyte Esterase Negative Influenza A (Rapid) Negative Influenza B (Rapid) Negative ASSESSMENT/PLAN: 53yo M PMH Sarcoidosis, COPD, HTN, PCN allergy, ETOH and Heroin use disorders presenting from [facility] with fever (TMax 105.5) cough productive of clear sputum for a couple of days associated with SOB and nausea admitted for PNA with COPD exacerbation Sepsis 2/2 PNA with COPD exacerbation fever 101.6, SOB, tachycardia, productive cough, CT chest with patchy infiltrate flu neg sputum, urine and blood cultures ordered received rocephin and azythro in ED will continue with IV levoflaxacin and azithromycin for now until culture sensitivity and speciation return received tylenol 1gm for fever will treat COPD with symbicort, duonebs, solumedrol, albuterol PRN NS @ 100 cc/hr Substance use disorder CIWA 5. Last drink was yesterday morning monitor for signs of withdrawal Ativan protocol neurochecks seizure, fall and aspiration precautions thiamine,folic acid, MTVs monitor electrolytes Dr See consulted Abnormal LFTS Nausea, AST and ALT at 41 history of alcohol use abdominal US to assess liver function HTN currently normotensive monitor VS No BP meds on pharmacy record DVT lovenox daily Admit to Med Surge Visit type - Emergency Visit Emergency Visit: Yes ED Registration Date: 07/15/19 Care time: The patient presented to the Emergency Department on the above date and was hospitalized for further evaluation of their emergent condition. - New Patient This patient is new to me today: No - Critical Care Critical Care patient: No ATTENDING PHYSICIAN STATEMENT I saw and evaluated the patient. I reviewed the resident's note and discussed the case with the resident. I agree with the resident's findings and plan as documented. SUBJECTIVE: OBJECTIVE: ASSESSMENT AND PLAN:
[2019-07-16] MEDS ORDERED: ALBUTEROL SO4 0.083% IH SOL 2.5 MG/3 ML VIAL.NEB. NEB SCH (04:00)
[2019-07-16] MEDS ORDERED: ALBUTEROL SO4 2.5/IPRATROPIUM 0.5 INH SOL 3 ML VIAL.NEB. NEB SCH (04:00)
[2019-07-16] MEDS ORDERED: BUDESONIDE/FORMETEROL FUMARATE 80/4.5 mcg INHALER IH ONE (04:45)
[2019-07-16 04:47] VITALS: BMI 20.6
[2019-07-16] MEDS ORDERED: LORazepam 2 MG TABLET PO SCH (05:00)
[2019-07-16] MEDS ORDERED: LORazepam 1 MG TABLET PO PRN (06:38)
[2019-07-16] MEDS ORDERED: LORazepam 1 MG TABLET PO SCH (06:52)
[2019-07-16] MEDS: SODIUM CHLORIDE 1,000 ML IV SCH (06:54)
[2019-07-16] MEDS: ACETAMINOPHEN 325 MG TABLET (FP) PO PRN (07:27)
[2019-07-16] MEDS: LORazepam 1 MG TABLET PO SCH ×5 (07:27→22:40)
[2019-07-16 08:07] LABS: BASO % 0.3 % (0-2.0); HEMATOCRIT 37.6 % (35.4-49); HEMOGLOBIN 12.8 GM/dL (11.7-16.9); LYMPH % 4.6 % (8-40); MCH 32.2 pg (25.7-33.7); MEAN CELL VOLUME 94.9 fl (80-96); MEAN PLT VOLUME 8.1 fl (7.5-11.1); MONO % 5.8 % (3.8-10.2); NEUT % 89.3 % (42.8-82.8); PLATELET COUNT 193 K/MM3 (134-434); RBC 3.96 M/mm3 (4.00-5.60); RDW 13.2 % (11.9-15.9); WHITE BLOOD COUNT 11.3 K/mm3 (4.0-10.0)
--- NOTE | 2019-07-16 08:28 | CONSULT ---
Consult Detox [facility] Reason for Current Admission/Consult: Patient is heroin and alcohol dependent. Referred by:: Loretta Truong - History History of Present Illness: 53 yo presents w/ mild alcohol and opioid withdrawal symptoms and positive intoxication. Last here 02/12/19 and 05/31-06/04/19 which he completed detox and was given referral to follow up in [facility] He again comes to [facility] ER yesterday with respiratory complaints but states he is still using and last used on 07/15/19 heroin and alcohol. He is in apparent somewhat withdrawals. No urine tox was done on patient on admission. Denies seizures or blackouts. Hx: overdoses. Last 2 months ago on heroin. Alcohol use began at age 52. Currently drinks 2 - 6 pks beer and 2 pints vodka 4 x/wk. Last drink 2 pm today. Heroin use began at age 17. Current uses 4 bags/day - Nasal. Last used 4 hrs ago. States has a Narcan kit. Cocaine - states last used 1 month ago. Nicotine use began at age 16. Smokes 4 cig/day. This was the history elicited from patient in 05/31/19. PMHx: Sarcoidosis; HTN: States on Norvasc but can't remember dose. MHHx: Depression and anxiety. Denies thoughts of harming self or others. Not on MH meds. Does not see a MH Provider. SHx: Homeless. Unemployed. Denies legal issues. - History Source History Provided By: Medical Record Limitations to Obtaining History: No Limitations - Alcohol/Substance Use Hx Alcohol Use: Yes Hx Substance Use: Yes (cocaine, heroin and marijuana also) Hx Substance Use Treatment: Yes (multiple detoxes in [facility] and 05/2019) - Past Medical History Cardio/Vascular: Yes: HTN Pulmonary: Yes: Other (sarcoidosis) - Past Surgical History Past Surgical History: Yes: None Assessment Plan - Plan Plan: 1. Opioid Dependence: Patient may be initiated on methadone detox protocol. He must follow up with [facility] which was the referral given to him in 06/04/19. He is homeless and not a resident of [place]. 2. Alcohol Dependence: Patient got on dose of Ativan. According to resident patient is on mild withdrawals and will actually be in more withdrawals later on today. Continue Ativan detox protocol Dr. See - Medication Detox Regimen/Protocol: Ativan, Methadone
--- NOTE | 2019-07-16 08:29 | PN ---
Progress Note (short form) - Note Progress Note: 53yo M PMH Sarcoidosis, COPD, HTN, PCN allergy, ETOH and Heroin use disorders presenting from [facility] with fever (TMax 105.5) cough productive of clear sputum for a couple of days. He also complained of SOB, nausea, diarrhea ( which he associated with getting sick from heroin) for the past few days. According to the pt he was recently found to have early signs of COPD and started on ventolin, symbicort and Incruse ellipta. He admits to using heroin via inhalation and denies any IVDU. CIWA 5. Last drink and heroin use was day before admission. Pt seen and examined in bed. Lethargic but arousable. Afebrile. Blood and urine cx pending. On ativan detox taper. Given one dose of methadone by Dr See. VALERY GENERAL: Awake, alert, and fully oriented, in no acute distress. HEAD: Normal with no signs of trauma. EYES: Pupils equal, round and reactive to light, extraocular movements intact, sclera anicteric, conjunctiva clear. No lid lag. EARS, NOSE, THROAT: oropharynx clear without exudates. Moist mucous membranes. NECK: Normal range of motion, supple without lymphadenopathy, JVD, or masses. LUNGS: Breath sounds equal, clear to auscultation bilaterally. scattered wheezes HEART: Regular rate and rhythm, normal S1 and S2 without murmur, rub or gallop. ABDOMEN: Soft, nontender, not distended, normoactive bowel sounds, no guarding, no rebound, no masses. No hepatomegaly or splenomegaly. MUSCULOSKELETAL: Normal range of motion at all joints. No bony deformities or tenderness. No CVA tenderness. UPPER EXTREMITIES: 2+ pulses, warm, well-perfused. No cyanosis. No clubbing. No peripheral edema. LOWER EXTREMITIES: 2+ pulses, warm, well-perfused. No calf tenderness. No peripheral edema. PSYCHIATRIC: Cooperative. Good eye contact. Appropriate mood and affect. SKIN: Warm, dry, normal turgor, no rashes or lesions noted, normal capillary refill. Problem List - Problems (1) Polysubstance (excluding opioids) dependence Code(s): F19.20 - OTHER PSYCHOACTIVE SUBSTANCE DEPENDENCE, UNCOMPLICATED (2) Abnormal LFTs Code(s): R94.5 - ABNORMAL RESULTS OF LIVER FUNCTION STUDIES (3) COPD (chronic obstructive pulmonary disease) Code(s): J44.9 - CHRONIC OBSTRUCTIVE PULMONARY DISEASE, UNSPECIFIED (4) Prophylactic measure Code(s): Z29.9 - ENCOUNTER FOR PROPHYLACTIC MEASURES, UNSPECIFIED (5) Desire for detoxification Code(s): ZYM2234 - (6) Pneumonia Code(s): J18.9 - PNEUMONIA, UNSPECIFIED ORGANISM Qualifiers: Pneumonia type: due to unspecified organism Laterality: bilateral Lung location: unspecified part of lung Qualified Code(s): J18.9 - Pneumonia, unspecified organism (7) Sepsis Code(s): A41.9 - SEPSIS, UNSPECIFIED ORGANISM Qualifiers: Sepsis type: sepsis due to unspecified organism Sepsis acute organ dysfunction status: unspecified Qualified Code(s): A41.9 - Sepsis, unspecified organism (8) Hypertension Code(s): I10 - ESSENTIAL (PRIMARY) HYPERTENSION Qualifiers: Hypertension type: unspecified Qualified Code(s): I10 - Essential (primary ) hypertension Visit type - Emergency Visit Emergency Visit: Yes ED Registration Date: 07/15/19 Care time: The patient presented to the Emergency Department on the above date and was hospitalized for further evaluation of their emergent condition. - New Patient This patient is new to me today: Yes Date on this admission: 07/16/19 - Critical Care Critical Care patient: No - Discharge Referral Referred to [facility] No
[2019-07-16 08:30] LABS: ALBUMIN 3.3 g/dl (3.4-5.0); BILIRUBIN,TOTAL 0.9 mg/dL (0.2-1); BLOOD UREA NITROGEN 15.6 mg/dL (7-18); CALCIUM 8.4 mg/dL (8.5-10.1); MAGNESIUM 2.1 mg/dL (1.8-2.4); PHOSPHOROUS 2.8 mg/dL (2.5-4.9); POTASSIUM 3.7 mmol/L (3.5-5.1); TOT PROT 6.7 g/dl (6.4-8.2)
[2019-07-16] MEDS ORDERED: METHADONE HCL 10 MG TABLET (FOR DETOX USE ONLY) PO ONE (08:36)
[2019-07-16] MEDS ORDERED: cloNIDine HCL 0.1 MG TABLET PO PRN (08:36)
[2019-07-16] MEDS: MULTIVITAMINS (DAILY MVI) TABLET (FP) PO SCH (11:31)
[2019-07-16] MEDS: FOLIC ACID 1 MG TABLET (FP) PO SCH (11:31)
[2019-07-16] MEDS: ENOXAPARIN NA (PORCINE) 40 MG/0.4 ML DISP.SYRIN SQ SCH (11:33)
[2019-07-16] MEDS: methylPREDNISolone NA SUCC 40 MG/1 ML VIAL IVPUSH SCH ×2 (11:33→18:53)
[2019-07-16] MEDS: THIAMINE HCL 100 MG TABLET (FP) PO SCH (11:33)
[2019-07-16] MEDS ORDERED: METHADONE HCL 10 MG TABLET PO ONE (12:15)
--- NOTE | 2019-07-16 13:22 | EKG ---
Test Reason : Blood Pressure : / mmHG Vent. Rate : 107 BPM Atrial Rate : 107 BPM P-R Int : 146 ms QRS Dur : 080 ms QT Int : 350 ms P-R-T Axes : 073 077 054 degrees QTc Int : 467 ms SINUS TACHYCARDIA POSSIBLE LEFT ATRIAL ENLARGEMENT BORDERLINE ECG WHEN COMPARED WITH ECG OF 31-MAY-2019 22:05, VENT. RATE HAS INCREASED BY 42 BPM T WAVE INVERSION NOW EVIDENT IN ANTERIOR LEADS QT HAS LENGTHENED Confirmed by ARNALDO BALTAZAR MD ([id number]) on 07/16/2019 1:22:31 PM Referred By: Confirmed By:ARNALDO BALTAZAR MD
[2019-07-16] MEDS: ALBUTEROL SO4 0.083% IH SOL 2.5 MG/3 ML VIAL.NEB. NEB PRN (14:24)
[2019-07-17] MEDS: SODIUM CHLORIDE 1,000 ML IV SCH ×2 (01:38→05:08)
[2019-07-17] MEDS: methylPREDNISolone NA SUCC 40 MG/1 ML VIAL IVPUSH SCH ×3 (01:38→17:04)
[2019-07-17] MEDS: LORazepam 1 MG TABLET PO SCH ×4 (05:09→23:51)
--- NOTE | 2019-07-17 08:02 | PN ---
Progress Note, Physician History of Present Illness: 53yo M PMH Sarcoidosis, COPD, HTN, PCN allergy, ETOH and Heroin use disorders presenting from [facility] with fever (TMax 105.5) cough productive of clear sputum for a couple of days. He also complained of SOB, nausea, diarrhea ( which he associated with getting sick from heroin) for the past few days. According to the pt he was recently found to have early signs of COPD and started on ventolin, symbicort and Incruse ellipta. He admits to using heroin via inhalation and denies any IVDU. CIWA 5. Last drink and heroin use was day before admission. - Current Medication List Current Medications: Active Medications Acetaminophen (Tylenol -) 650 mg PO Q6H PRN PRN Reason: Fever Or Pain Last Admin: 07/16/19 07:27 Dose: 650 mg Albuterol Sulfate (Ventolin 0.083% Nebulizer Soln -) 1 amp NEB RQ4H PRN PRN Reason: SHORT OF BREATH/WHEEZING Last Admin: 07/16/19 14:24 Dose: 1 amp Clonidine (Catapres -) 0.1 mg PO Q4H PRN PRN Reason: Withdrawal Symptoms Stop: 07/17/19 23:59 Enoxaparin Sodium (Lovenox -) 40 mg SQ DAILY [facility] Last Admin: 07/16/19 11:33 Dose: Not Given Folic Acid (Folic Acid -) 1 mg PO DAILY [facility] Last Admin: 07/16/19 11:31 Dose: 1 mg Sodium Chloride (Normal Saline -) 1,000 mls @ 100 mls/hr IV ASDIR [facility] Last Admin: 07/17/19 05:08 Dose: Not Given Lorazepam (Ativan -) 0.5 mg PO Q6H [facility] Stop: 07/18/19 23:01 Lorazepam (Ativan -) 0.5 mg PO Q4H PRN PRN Reason: Symptoms of Withdrawal Stop: 07/19/19 00:00 Lorazepam (Ativan -) 0.5 mg PO ONCE ONE Stop: 07/19/19 05:01 Lorazepam (Ativan -) 1 mg PO 0500,1100,1700,2300 [facility] Stop: 07/17/19 23:01 Last Admin: 07/17/19 05:09 Dose: 1 mg Lorazepam (Ativan -) 1 mg PO Q4H PRN PRN Reason: Symptoms of Withdrawal Stop: 07/18/19 00:00 Methadone HCl (Dolophine -) 15 mg PO ONCE ONE Stop: 07/17/19 10:01 Methadone HCl (Dolophine -) 10 mg PO ONCE ONE Stop: 07/18/19 10:01 Methadone HCl (Dolophine -) 5 mg PO ONCE ONE Stop: 07/19/19 06:01 Methylprednisolone Sodium Succinate (Solu-Medrol -) 40 mg IVPUSH Q8H-IV [facility] Last Admin: 07/17/19 01:38 Dose: 40 mg Multivitamins/Minerals/Vitamin C (Tab-A-Vit -) 1 tab PO DAILY [facility] Last Admin: 07/16/19 11:31 Dose: 1 tab Thiamine HCl (Vitamin B1 -) 100 mg PO DAILY [facility] Last Admin: 07/16/19 11:33 Dose: 100 mg - Objective Vital Signs: Vital Signs Temperature 97.8 F 07/17/19 04:50 Pulse Rate 72 07/17/19 04:50 Respiratory Rate 18 07/17/19 04:50 Blood Pressure 134/73 07/17/19 04:50 O2 Sat by Pulse Oximetry (%) 96 07/16/19 21:00 Constitutional: Yes: Well Nourished, No Distress, Calm Eyes: Yes: WNL, Conjunctiva Clear HENT: Yes: WNL, Atraumatic, Normocephalic Neck: Yes: WNL, Supple, Trachea Midline Cardiovascular: Yes: WNL, Regular Rate and Rhythm Respiratory: Yes: WNL, Regular, CTA Bilaterally, Diminished (at bases) Gastrointestinal: Yes: WNL, Normal Bowel Sounds ...Rectal Exam: Yes: Deferred Genitourinary: Yes: WNL Breast(s): Yes: WNL Musculoskeletal: Yes: WNL Extremities: Yes: WNL Edema: No Peripheral Pulses WNL: Yes Peripheral Pulses: Left Radial: 2+, Right Radial: 2+, Left Doralis Pedis: 2+, Right Dorsalis Pedis: 2+, Left Femoral: 2+, Right Femoral: 2+ Integumentary: Yes: WNL Neurological: Yes: WNL, Alert, Oriented ...Motor Strength: WNL Psychiatric: Yes: WNL Labs: CBC, BMP 07/16/19 07:30 07/16/19 07:30 - ....Imaging Cat Scan: [facility] severe chronic lung dfisease with upper lobe fibrosis. Several area of patchy opacification within right lower) Problem List - Problems (1) Polysubstance (excluding opioids) dependence Assessment/Plan: seen by Dr See c/w detox with ativan and methadone pt expressed wish to continue with drug/etoh rehab when detox is complete Code(s): F19.20 - OTHER PSYCHOACTIVE SUBSTANCE DEPENDENCE, UNCOMPLICATED (2) Abnormal LFTs Assessment/Plan: trended down avoid hepato toxic agents Code(s): R94.5 - ABNORMAL RESULTS OF LIVER FUNCTION STUDIES (3) COPD (chronic obstructive pulmonary disease) Code(s): J44.9 - CHRONIC OBSTRUCTIVE PULMONARY DISEASE, UNSPECIFIED (4) Prophylactic measure Assessment/Plan: FEN adequate PO intake regular diet monitor electrolytes DVT lovenox Dispo maintain on med surg floor full code discharge planning to rehab/detox Code(s): Z29.9 - ENCOUNTER FOR PROPHYLACTIC MEASURES, UNSPECIFIED (5) Desire for detoxification Code(s): [id number] - (6) Pneumonia Assessment/Plan: patchy opacification on CT chest sputum with aplha hemolytic strep afebrile with nono productive cough will start abx and continue to monitor Code(s): J18.9 - PNEUMONIA, UNSPECIFIED ORGANISM Qualifiers: Pneumonia type: due to unspecified organism Laterality: bilateral Lung location: unspecified part of lung Qualified Code(s): J18.9 - Pneumonia, unspecified organism (7) Sepsis Assessment/Plan: afebrile WBC 11.9 c/w abx Code(s): A41.9 - SEPSIS, UNSPECIFIED ORGANISM Qualifiers: Sepsis type: sepsis due to unspecified organism Sepsis acute organ dysfunction status: unspecified Qualified Code(s): A41.9 - Sepsis, unspecified organism (8) Hypertension Assessment/Plan: pt states he was taking norvasc at home-no prior record in hx BP on higher side will start on norvasc 5mg and moniotr Code(s): I10 - ESSENTIAL (PRIMARY) HYPERTENSION Qualifiers: Hypertension type: unspecified Qualified Code(s): I10 - Essential (primary ) hypertension Visit type - Emergency Visit Emergency Visit: Yes ED Registration Date: 07/15/19 Care time: The patient presented to the Emergency Department on the above date and was hospitalized for further evaluation of their emergent condition. - New Patient This patient is new to me today: No - Critical Care Critical Care patient: No - Discharge Referral Referred to [facility] Med [facility].C.: No
[2019-07-17 08:34] LABS: BASO % 0.1 % (0-2.0); HEMATOCRIT 38.6 % (35.4-49); HEMOGLOBIN 12.7 GM/dL (11.7-16.9); LYMPH % 2.6 % (8-40); MCH 32.1 pg (25.7-33.7); MEAN CELL VOLUME 97.3 fl (80-96); MEAN PLT VOLUME 8.3 fl (7.5-11.1); MONO % 3.2 % (3.8-10.2); NEUT % 94.1 % (42.8-82.8); PLATELET COUNT 197 K/MM3 (134-434); RBC 3.96 M/mm3 (4.00-5.60); RDW 13.3 % (11.9-15.9); WHITE BLOOD COUNT 11.9 K/mm3 (4.0-10.0)
[2019-07-17] MEDS: FOLIC ACID 1 MG TABLET (FP) PO SCH (09:01)
[2019-07-17 09:02] LABS: ALBUMIN 2.8 g/dl (3.4-5.0); BILIRUBIN,TOTAL 0.4 mg/dL (0.2-1); BLOOD UREA NITROGEN 18.5 mg/dL (7-18); CALCIUM 8.7 mg/dL (8.5-10.1); MAGNESIUM 2.5 mg/dL (1.8-2.4); TOT PROT 6.5 g/dl (6.4-8.2)
[2019-07-17] MEDS: MULTIVITAMINS (DAILY MVI) TABLET (FP) PO SCH (09:02)
[2019-07-17] MEDS: ENOXAPARIN NA (PORCINE) 40 MG/0.4 ML DISP.SYRIN SQ SCH ×2 (09:02→09:14)
[2019-07-17] MEDS: THIAMINE HCL 100 MG TABLET (FP) PO SCH (09:02)
[2019-07-17] MEDS ORDERED: METHADONE HCL 5 MG TABLET PO ONE (10:00)
[2019-07-17] MEDS ORDERED: BUDESONIDE/FORMETEROL FUMARATE 160/4.5 mcg INHALER IH SCH (10:00)
[2019-07-17 11:18] LABS: ANISOCYTOSIS 0; MACROCYTOSIS 0; PLATELET ESTIMATE NORMAL
[2019-07-17] MEDS: amLODIPine BESYLATE 5 MG TABLET (FP) PO SCH (11:42)
[2019-07-17] MEDS ORDERED: SODIUM CHLORIDE FOR INHALATION 3 ML VIAL.NEB IH PRN (12:10)
[2019-07-17] MEDS ORDERED: cefTRIAXone SODIUM 1 GM VIAL ONE (12:52)
[2019-07-17] MEDS ORDERED: DEXTROSE 5%-WATER - 50 ML IVPB ONE (12:52)
[2019-07-17] MEDS: CEFTRIAXONE 1 GM in DEXTROSE 5%-WATER - 50 ML IVPB SCH (12:55)
[2019-07-17] MEDS ORDERED: SODIUM CHLORIDE 1,000 ML IV SCH (14:45)
[2019-07-17] MEDS: AZITHROMYCIN IVPB 500 MG/250 ML BAG IVPB SCH (15:12)
[2019-07-17] MEDS: ACETAMINOPHEN 325 MG TABLET (FP) PO PRN (17:03)
[2019-07-17] MEDS: ALBUTEROL SO4 0.083% IH SOL 2.5 MG/3 ML VIAL.NEB. NEB PRN (20:40)
[2019-07-18] MEDS ORDERED: LORazepam 0.5 MG TABLET PO PRN
[2019-07-18] MEDS: methylPREDNISolone NA SUCC 40 MG/1 ML VIAL IVPUSH SCH ×3 (02:47→17:35)
[2019-07-18] MEDS: ALBUTEROL SO4 0.083% IH SOL 2.5 MG/3 ML VIAL.NEB. NEB PRN ×3 (02:58→23:05)
[2019-07-18] MEDS: MELATONIN 5 MG TABLETS PO PRN ×2 (03:17→23:06)
[2019-07-18] MEDS: LORazepam 0.5 MG TABLET PO SCH ×4 (05:49→23:06)
--- NOTE | 2019-07-18 08:36 | PN ---
Progress Note, Physician Chief Complaint: No complaints today-would like to go to rehab after detox is complete History of Present Illness: 53yo M PMH Sarcoidosis, COPD, HTN, PCN allergy, ETOH and Heroin use disorders presenting from [facility] with fever (TMax 105.5) cough productive of clear sputum for a couple of days. He also complained of SOB, nausea, diarrhea ( which he associated with getting sick from heroin) for the past few days. According to the pt he was recently found to have early signs of COPD and started on ventolin, symbicort and Incruse ellipta. He admits to using heroin via inhalation and denies any IVDU. CIWA 5. Last drink and heroin use was day before admission. - Current Medication List Current Medications: Active Medications Acetaminophen (Tylenol -) 650 mg PO Q6H PRN PRN Reason: Fever Or Pain Last Admin: 07/17/19 17:03 Dose: 650 mg Albuterol Sulfate (Ventolin 0.083% Nebulizer Soln -) 1 amp NEB RQ4H PRN PRN Reason: SHORT OF BREATH/WHEEZING Last Admin: 07/18/19 02:58 Dose: 1 amp Amlodipine Besylate (Norvasc -) 5 mg PO DAILY [facility] Last Admin: 07/17/19 11:42 Dose: 5 mg Enoxaparin Sodium (Lovenox -) 40 mg SQ DAILY [facility] Last Admin: 07/17/19 09:14 Dose: Not Given Folic Acid (Folic Acid -) 1 mg PO DAILY [facility] Last Admin: 07/17/19 09:01 Dose: 1 mg Azithromycin (Zithromax 500mg Ivpb (Pre-Docked)) 500 mg in 250 mls @ 250 mls/ hr IVPB DAILY [facility] Last Admin: 07/17/19 15:12 Dose: 250 mls/hr Ceftriaxone Sodium 1 gm/ (Dextrose) 50 mls @ 200 mls/hr IVPB DAILY [facility]; Protocol Last Admin: 07/17/19 12:55 Dose: 200 mls/hr Sodium Chloride (Normal Saline -) 1,000 mls @ 50 mls/hr IV ASDIR [facility] Last Admin: 07/17/19 15:12 Dose: 50 mls/hr Lorazepam (Ativan -) 0.5 mg PO Q6H [facility] Stop: 07/18/19 23:01 Last Admin: 07/18/19 05:49 Dose: 0.5 mg Lorazepam (Ativan -) 0.5 mg PO Q4H PRN PRN Reason: Symptoms of Withdrawal Stop: 07/19/19 00:00 Lorazepam (Ativan -) 0.5 mg PO ONCE ONE Stop: 07/19/19 05:01 Melatonin (Melatonin) 5 mg PO HS PRN PRN Reason: INSOMNIA Last Admin: 07/18/19 03:17 Dose: 5 mg Methadone HCl (Dolophine -) 10 mg PO ONCE ONE Stop: 07/18/19 10:01 Methadone HCl (Dolophine -) 5 mg PO ONCE ONE Stop: 07/19/19 06:01 Methylprednisolone Sodium Succinate (Solu-Medrol -) 40 mg IVPUSH Q8H-IV [facility] Last Admin: 07/18/19 02:47 Dose: 40 mg Multivitamins/Minerals/Vitamin C (Tab-A-Vit -) 1 tab PO DAILY [facility] Last Admin: 07/17/19 09:02 Dose: 1 tab Sodium Chloride (Normal Saline For Inhalation -) 3 ml IH Q6H PRN PRN Reason: COUGH Thiamine HCl (Vitamin B1 -) 100 mg PO DAILY [facility] Last Admin: 07/17/19 09:02 Dose: 100 mg - Objective Vital Signs: Vital Signs Temperature 98.6 F 07/18/19 06:00 Pulse Rate 81 07/18/19 06:00 Respiratory Rate 18 07/18/19 06:00 Blood Pressure 141/83 07/18/19 06:00 O2 Sat by Pulse Oximetry (%) 98 07/17/19 21:00 Additional Findings/Remarks: Constitutional: Yes: Well Nourished, No Distress, Calm Eyes: Yes: WNL, Conjunctiva Clear HENT: Yes: WNL, Atraumatic, Normocephalic Neck: Yes: WNL, Supple, Trachea Midline Cardiovascular: Yes: WNL, Regular Rate and Rhythm Respiratory: Yes: WNL, Regular, CTA Bilaterally Gastrointestinal: Yes: WNL, Normal Bowel Sounds ...Rectal Exam: Yes: Deferred Genitourinary: Yes: WNL Breast(s): Yes: WNL Musculoskeletal: Yes: WNL Extremities: Yes: WNL Edema: No Peripheral Pulses WNL: Yes Peripheral Pulses: Left Radial: 2+, Right Radial: 2+, Left Doralis Pedis: 2+, Right Dorsalis Pedis: 2+, Left Femoral: 2+, Right Femoral: 2+ Integumentary: Yes: WNL Neurological: Yes: WNL, Alert, Oriented ...Motor Strength: WNL Psychiatric: Yes: WNL Labs: CBC, BMP 07/17/19 07:28 07/17/19 07:28 - ....Imaging Cat Scan: Report Reviewed Ultrasound: Report Reviewed (Liver-Fatty infiltartion vs hepatocellular dz) Problem List - Problems (1) Polysubstance (excluding opioids) dependence Assessment/Plan: followed by Dr See c/w detox with ativan and methadone pt expressed wish to continue with drug/etoh rehab when detox is complete Code(s): F19.20 - OTHER PSYCHOACTIVE SUBSTANCE DEPENDENCE, UNCOMPLICATED (2) Abnormal LFTs Assessment/Plan: trended down avoid hepato toxic agents Code(s): R94.5 - ABNORMAL RESULTS OF LIVER FUNCTION STUDIES (3) COPD (chronic obstructive pulmonary disease) Code(s): J44.9 - CHRONIC OBSTRUCTIVE PULMONARY DISEASE, UNSPECIFIED (4) Prophylactic measure Assessment/Plan: FEN adequate PO intake IVF stopped regular diet monitor electrolytes DVT lovenox Dispo maintain on med surg floor full code discharge planning to rehab/detox Code(s): Z29.9 - ENCOUNTER FOR PROPHYLACTIC MEASURES, UNSPECIFIED (5) Desire for detoxification Code(s): [id number] - (6) Pneumonia Assessment/Plan: patchy opacification on CT chest sputum with strep pneumonie afebrile with non-productive cough c/w abx and continue to monitor awaiting sensitivities Code(s): J18.9 - PNEUMONIA, UNSPECIFIED ORGANISM Qualifiers: Pneumonia type: due to unspecified organism Laterality: bilateral Lung location: unspecified part of lung Qualified Code(s): J18.9 - Pneumonia, unspecified organism (7) Sepsis Assessment/Plan: afebrile WBC 11.2 c/w abx Code(s): A41.9 - SEPSIS, UNSPECIFIED ORGANISM Qualifiers: Sepsis type: sepsis due to unspecified organism Sepsis acute organ dysfunction status: unspecified Qualified Code(s): A41.9 - Sepsis, unspecified organism (8) Hypertension Assessment/Plan: c/w norvasc Code(s): I10 - ESSENTIAL (PRIMARY) HYPERTENSION Qualifiers: Hypertension type: unspecified Qualified Code(s): I10 - Essential (primary ) hypertension Visit type - Emergency Visit Emergency Visit: Yes ED Registration Date: 07/15/19 Care time: The patient presented to the Emergency Department on the above date and was hospitalized for further evaluation of their emergent condition. - New Patient This patient is new to me today: No - Critical Care Critical Care patient: No - Discharge Referral Referred to [facility] Med P.C.: No
[2019-07-18] MEDS ORDERED: cefTRIAXone SODIUM 1 GM VIAL ONE (08:51)
[2019-07-18] MEDS ORDERED: DEXTROSE 5%-WATER - 50 ML IVPB ONE (08:52)
[2019-07-18] MEDS: FOLIC ACID 1 MG TABLET (FP) PO SCH (09:18)
[2019-07-18] MEDS: ENOXAPARIN NA (PORCINE) 40 MG/0.4 ML DISP.SYRIN SQ SCH (09:18)
[2019-07-18] MEDS: MULTIVITAMINS (DAILY MVI) TABLET (FP) PO SCH (09:18)
[2019-07-18] MEDS: amLODIPine BESYLATE 5 MG TABLET (FP) PO SCH (09:18)
[2019-07-18 09:19] LABS: BASO % 0.4 % (0-2.0); HEMATOCRIT 34.2 % (35.4-49); HEMOGLOBIN 11.4 GM/dL (11.7-16.9); LYMPH % 2.5 % (8-40); MCH 32.1 pg (25.7-33.7); MCHC 33.4 g/dl (32.0-35.9); MEAN CELL VOLUME 96.1 fl (80-96); MEAN PLT VOLUME 8.6 fl (7.5-11.1); MONO % 4.4 % (3.8-10.2); NEUT % 92.7 % (42.8-82.8); PLATELET COUNT 212 K/MM3 (134-434); RBC 3.56 M/mm3 (4.00-5.60); RDW 13.1 % (11.9-15.9); WHITE BLOOD COUNT 11.2 K/mm3 (4.0-10.0)
[2019-07-18] MEDS: THIAMINE HCL 100 MG TABLET (FP) PO SCH (09:21)
[2019-07-18] MEDS: CEFTRIAXONE 1 GM in DEXTROSE 5%-WATER - 50 ML IVPB SCH (09:22)
[2019-07-18 09:53] LABS: ALBUMIN 2.8 g/dl (3.4-5.0); BILIRUBIN,TOTAL 0.2 mg/dL (0.2-1); BLOOD UREA NITROGEN 20.5 mg/dL (7-18); CALCIUM 8.7 mg/dL (8.5-10.1); CREATININE 0.8 mg/dL (0.55-1.3); MAGNESIUM 2.3 mg/dL (1.8-2.4); POTASSIUM 4.1 mmol/L (3.5-5.1); TOT PROT 6.3 g/dl (6.4-8.2)
[2019-07-18] MEDS ORDERED: METHADONE HCL 10 MG TABLET PO ONE (10:00)
[2019-07-18 10:28] LABS: ANISOCYTOSIS 0; MACROCYTOSIS 0; PLATELET ESTIMATE NORMAL
[2019-07-18] MEDS: AZITHROMYCIN IVPB 500 MG/250 ML BAG IVPB SCH ×2 (10:31→14:25)
[2019-07-19] MEDS: methylPREDNISolone NA SUCC 40 MG/1 ML VIAL IVPUSH SCH (02:30)
[2019-07-19] MEDS ORDERED: LORazepam 0.5 MG TABLET PO ONE (05:00)
[2019-07-19] MEDS: ALBUTEROL SO4 0.083% IH SOL 2.5 MG/3 ML VIAL.NEB. NEB PRN (05:40)
[2019-07-19] MEDS ORDERED: METHADONE HCL 5 MG TABLET PO ONE (06:00)
[2019-07-19 06:40] VITALS: TEMP 98.8
[2019-07-19 07:27] LABS: BASO % 0.2 % (0-2.0); EOS % 0.1 % (0-4.5); HEMATOCRIT 36.5 % (35.4-49); HEMOGLOBIN 12.2 GM/dL (11.7-16.9); LYMPH % 3.5 % (8-40); MCH 32.3 pg (25.7-33.7); MCHC 33.5 g/dl (32.0-35.9); MEAN CELL VOLUME 96.6 fl (80-96); MEAN PLT VOLUME 7.9 fl (7.5-11.1); MONO % 5.5 % (3.8-10.2); NEUT % 90.7 % (42.8-82.8); PLATELET COUNT 248 K/MM3 (134-434); RBC 3.77 M/mm3 (4.00-5.60); RDW 13.4 % (11.9-15.9); WHITE BLOOD COUNT 9.5 K/mm3 (4.0-10.0)
--- NOTE | 2019-07-19 07:55 | PN ---
Progress Note, Physician History of Present Illness: 53yo M PMH Sarcoidosis, COPD, HTN, PCN allergy, ETOH and Heroin use disorders presenting from [facility] with fever (TMax 105.5) cough productive of clear sputum for a couple of days. He also complained of SOB, nausea, diarrhea ( which he associated with getting sick from heroin) for the past few days. According to the pt he was recently found to have early signs of COPD and started on ventolin, symbicort and Incruse ellipta. He admits to using heroin via inhalation and denies any IVDU. CIWA 5. Last drink and heroin use was day before admission. - Current Medication List Current Medications: Active Medications Acetaminophen (Tylenol -) 650 mg PO Q6H PRN PRN Reason: Fever Or Pain Last Admin: 07/17/19 17:03 Dose: 650 mg Albuterol Sulfate (Ventolin 0.083% Nebulizer Soln -) 1 amp NEB RQ4H PRN PRN Reason: SHORT OF BREATH/WHEEZING Last Admin: 07/19/19 05:40 Dose: 1 amp Amlodipine Besylate (Norvasc -) 5 mg PO DAILY [facility] Last Admin: 07/18/19 09:18 Dose: 5 mg Enoxaparin Sodium (Lovenox -) 40 mg SQ DAILY [facility] Last Admin: 07/18/19 09:18 Dose: Not Given Folic Acid (Folic Acid -) 1 mg PO DAILY [facility] Last Admin: 07/18/19 09:18 Dose: 1 mg Azithromycin (Zithromax 500mg Ivpb (Pre-Docked)) 500 mg in 250 mls @ 250 mls/ hr IVPB DAILY [facility] Last Admin: 07/18/19 14:25 Dose: 250 mls/hr Ceftriaxone Sodium 1 gm/ (Dextrose) 50 mls @ 200 mls/hr IVPB DAILY [facility]; Protocol Last Admin: 07/18/19 09:22 Dose: 200 mls/hr Melatonin (Melatonin) 5 mg PO HS PRN PRN Reason: INSOMNIA Last Admin: 07/18/19 23:06 Dose: 5 mg Methylprednisolone Sodium Succinate (Solu-Medrol -) 40 mg IVPUSH Q8H-IV [facility] Last Admin: 07/19/19 02:30 Dose: 40 mg Multivitamins/Minerals/Vitamin C (Tab-A-Vit -) 1 tab PO DAILY [facility] Last Admin: 07/18/19 09:18 Dose: 1 tab Sodium Chloride (Normal Saline For Inhalation -) 3 ml IH Q6H PRN PRN Reason: COUGH Thiamine HCl (Vitamin B1 -) 100 mg PO DAILY [facility] Last Admin: 07/18/19 09:21 Dose: 100 mg - Objective Vital Signs: Vital Signs Temperature 98.8 F 07/19/19 06:00 Pulse Rate 57 L 07/19/19 06:00 Respiratory Rate 18 07/19/19 06:00 Blood Pressure 142/83 07/19/19 06:00 O2 Sat by Pulse Oximetry (%) 97 07/18/19 21:00 Additional Findings/Remarks: Constitutional: Yes: Well Nourished, No Distress, Calm Eyes: Yes: WNL, Conjunctiva Clear HENT: Yes: WNL, Atraumatic, Normocephalic Neck: Yes: WNL, Supple, Trachea Midline Cardiovascular: Yes: WNL, Regular Rate and Rhythm Respiratory: Yes: WNL, Regular, CTA Bilaterally Gastrointestinal: Yes: WNL, Normal Bowel Sounds ...Rectal Exam: Yes: Deferred Genitourinary: Yes: WNL Breast(s): Yes: WNL Musculoskeletal: Yes: WNL Extremities: Yes: WNL Edema: No Peripheral Pulses WNL: Yes Peripheral Pulses: Left Radial: 2+, Right Radial: 2+, Left Doralis Pedis: 2+, Right Dorsalis Pedis: 2+, Left Femoral: 2+, Right Femoral: 2+ Integumentary: Yes: WNL Neurological: Yes: WNL, Alert, Oriented ...Motor Strength: WNL Psychiatric: Yes: WNL Labs: CBC, BMP 07/19/19 07:05 Problem List - Problems (1) Polysubstance (excluding opioids) dependence Assessment/Plan: followed by Dr See c/w detox with ativan and methadone pt expressed wish to continue with drug/etoh rehab when detox is complete Code(s): F19.20 - OTHER PSYCHOACTIVE SUBSTANCE DEPENDENCE, UNCOMPLICATED (2) Abnormal LFTs Assessment/Plan: trended down avoid hepato toxic agents hepatatis serologies sent and pending Code(s): R94.5 - ABNORMAL RESULTS OF LIVER FUNCTION STUDIES (3) COPD (chronic obstructive pulmonary disease) Code(s): J44.9 - CHRONIC OBSTRUCTIVE PULMONARY DISEASE, UNSPECIFIED (4) Prophylactic measure Assessment/Plan: FEN adequate PO intake IVF stopped regular diet monitor electrolytes DVT lovenox Dispo maintain on med surg floor full code discharge planning to rehab/detox Code(s): Z29.9 - ENCOUNTER FOR PROPHYLACTIC MEASURES, UNSPECIFIED (5) Desire for detoxification Code(s): AJS0346 - (6) Pneumonia Assessment/Plan: patchy opacification on CT chest sputum with strep pneumonie afebrile with non-productive cough c/w abx and continue to monitor awaiting sensitivities Code(s): J18.9 - PNEUMONIA, UNSPECIFIED ORGANISM Qualifiers: Pneumonia type: due to unspecified organism Laterality: bilateral Lung location: unspecified part of lung Qualified Code(s): J18.9 - Pneumonia, unspecified organism (7) Sepsis Code(s): A41.9 - SEPSIS, UNSPECIFIED ORGANISM Qualifiers: Sepsis type: sepsis due to unspecified organism Sepsis acute organ dysfunction status: unspecified Qualified Code(s): A41.9 - Sepsis, unspecified organism (8) Hypertension Code(s): I10 - ESSENTIAL (PRIMARY) HYPERTENSION Qualifiers: Hypertension type: unspecified Qualified Code(s): I10 - Essential (primary ) hypertension
[2019-07-19 07:59] LABS: ALBUMIN 3.2 g/dl (3.4-5.0); BILIRUBIN,TOTAL 0.2 mg/dL (0.2-1); BLOOD UREA NITROGEN 15.6 mg/dL (7-18); CALCIUM 9.7 mg/dL (8.5-10.1); CREATININE 0.9 mg/dL (0.55-1.3); MAGNESIUM 2.5 mg/dL (1.8-2.4); POTASSIUM 3.9 mmol/L (3.5-5.1)
[2019-07-19] MEDS ORDERED: methylPREDNISolone NA SUCC 40 MG/1 ML VIAL IVPUSH SCH ×2 (08:00→14:00)
[2019-07-19] MEDS ORDERED: LORazepam 1 MG TABLET PO PRN (08:14)
[2019-07-19] MEDS ORDERED: ALBUTEROL SO4 8 GM HFA INHALER IH PRN (10:00)
[2019-07-19] MEDS: MULTIVITAMINS (DAILY MVI) TABLET (FP) PO SCH (10:02)
[2019-07-19] MEDS: FOLIC ACID 1 MG TABLET (FP) PO SCH (10:02)
[2019-07-19] MEDS: amLODIPine BESYLATE 5 MG TABLET (FP) PO SCH (10:03)
[2019-07-19] MEDS: CEFTRIAXONE 1 GM in DEXTROSE 5%-WATER - 50 ML IVPB SCH (10:06)
[2019-07-19] MEDS: ENOXAPARIN NA (PORCINE) 40 MG/0.4 ML DISP.SYRIN SQ SCH (10:06)
[2019-07-19] MEDS: AZITHROMYCIN IVPB 500 MG/250 ML BAG IVPB SCH (10:07)
--- NOTE | 2019-07-19 10:07 | DS ---
Physical Exam: SUBJECTIVE: Patient seen and examined OBJECTIVE: Vital Signs Period Temp Pulse Resp BP Sys/Singer Pulse Ox Last 24 Hr 97.5 F-98.8 F 57-87 18-19 123-142/81-83 97 PHYSICAL EXAM GENERAL: The patient is awake, alert, and fully oriented, in no acute distress. HEAD: Normal with no signs of trauma. EYES: PERRL, extraocular movements intact, sclera anicteric, conjunctiva clear. ENT: Ears normal, nares patent, oropharynx clear without exudates, moist mucous membranes. NECK: Trachea midline, full range of motion, supple. LUNGS: Breath sounds equal, clear to auscultation bilaterally, no wheezes, no crackles, no accessory muscle use. HEART: Regular rate and rhythm, S1, S2 without murmur, rub or gallop. ABDOMEN: Soft, nontender, nondistended, normoactive bowel sounds, no guarding, no rebound, no hepatosplenomegaly, no masses. EXTREMITIES: 2+ pulses, warm, well-perfused, no edema. NEUROLOGICAL: Cranial nerves II through XII grossly intact. Normal speech, gait not observed. PSYCH: Normal mood, normal affect. SKIN: Warm, dry, normal turgor, no rashes or lesions noted. LABS Laboratory Results - last 24 hr 07/18/19 07/19/19 07/19/19 07:45 07:05 07:05 WBC 9.5 RBC 3.77 L Hgb 12.2 Hct 36.5 MCV 96.6 H MCH 32.3 MCHC 33.5 RDW 13.4 Plt Count 248 MPV 7.9 Absolute Neuts (auto) 8.6 H Neutrophils % 90.7 H Neutrophils % (Manual) 94.0 H D Band Neutrophils % 0.0 Lymphocytes % 3.5 L D Lymphocytes % (Manual) 3.0 L D Monocytes % 5.5 Monocytes % (Manual) 2 L D Eosinophils % 0.1 D Eosinophils % (Manual) 0.0 Basophils % 0.2 Basophils % (Manual) 1.0 D Myelocytes % (Man) 0 Promyelocytes % (Man) 0 Blast Cells % (Manual) 0 Nucleated RBC % 0 Metamyelocytes 0 Hypochromia 0 Platelet Estimate Normal Polychromasia 0 Poikilocytosis 0 Anisocytosis 0 Microcytosis 0 Macrocytosis 0 Sodium 137 Potassium 3.9 Chloride 100 Carbon Dioxide 31 Anion Gap 6 L BUN 15.6 Creatinine 0.9 Est GFR (CKD-EPI)AfAm 112.62 Est GFR (CKD-EPI)NonAf 97.17 Random Glucose 130 H Calcium 9.7 Magnesium 2.5 H Total Bilirubin 0.2 AST 44 H ALT 73 H Alkaline Phosphatase 112 Total Protein 7.0 Albumin 3.2 L HOSPITAL COURSE: Date of Admission:07/15/19 Date of Discharge: 07/19/19 - ....Imaging Cat Scan: Report Reviewed BL consolidations Ultrasound: Report Reviewed (Liver-Fatty infiltartion vs hepatocellular dz) Problem List - Problems (1) Polysubstance (excluding opioids) dependence Assessment/Plan: followed by Dr See completed detox with ativan and methadone Pt referred to [facility] Code(s): F19.20 - OTHER PSYCHOACTIVE SUBSTANCE DEPENDENCE, UNCOMPLICATED (2) Abnormal LFTs Assessment/Plan: trended down avoid hepato toxic agents on discharge alcolhol cessation Code(s): R94.5 - ABNORMAL RESULTS OF LIVER FUNCTION STUDIES (3) COPD (chronic obstructive pulmonary disease) Code(s): J44.9 - CHRONIC OBSTRUCTIVE PULMONARY DISEASE, UNSPECIFIED Continue with home inhalers Medically stable for discharge to home with referred OTP substance programs Minutes to complete discharge: 45 Discharge Summary Problems reviewed: Yes Reason For Visit: DESIRE FOR DETOXIFICATION,SEPSIS,PNEUMONIA Current Active Problems Abnormal LFTs (Acute) COPD (chronic obstructive pulmonary disease) (Acute) Desire for detoxification (Acute) Pneumonia (Acute) Polysubstance (excluding opioids) dependence (Acute) Prophylactic measure (Acute) Sepsis (Acute) Hospital Course: HOSPITAL COURSE: Date of Admission:07/15/19 Date of Discharge: 07/19/19 - ....Imaging Cat Scan: Report Reviewed BL consolidations Ultrasound: Report Reviewed (Liver-Fatty infiltartion vs hepatocellular dz) Problem List - Problems (1) Polysubstance (excluding opioids) dependence Assessment/Plan: followed by Dr See completed detox with ativan and methadone Pt referred to [facility] Code(s): F19.20 - OTHER PSYCHOACTIVE SUBSTANCE DEPENDENCE, UNCOMPLICATED (2) Abnormal LFTs Assessment/Plan: trended down avoid hepato toxic agents on discharge alcolhol cessation Code(s): R94.5 - ABNORMAL RESULTS OF LIVER FUNCTION STUDIES (3) COPD (chronic obstructive pulmonary disease) Code(s): J44.9 - CHRONIC OBSTRUCTIVE PULMONARY DISEASE, UNSPECIFIED Continue with home inhalers Medically stable for discharge to home with referred OTP substance programs Condition: Stable - Instructions Diet, Activity, Other Instructions: DISCHARGE YOUR VISIT You came to the hospital because you were found to have a high fever while at [facility]. You were treated for pneumonia with IV antiobiotics and steroids. Were were given ativan and methadone to help with withdrawal from heroin and alcohol. An market risk specialist saw you and referred you to a substance abuse program in [facility]. MEDICATIONS Please continue to take your home medications as prescribed. Continue taking your inhalers NEW MEDICATIONS NORVASC 5MG DAILY for high blood pressure LEVAQUIN 500mg daily x 7 days antiobiotic for pneumonia PREDNISONE-medrol pack x 7 days with a tapering dose Thiamine/folate/mutilvitamins Take daily DIET Continue your home diet ADDITIONAL CARE Please make an appointment to see your primary care provider, 2 weeks from today. Schedule and appointment to the [facility] substance abuse program today. ADDITIONAL INFORMATION Please call 911 or come directly to the emergency department if you experience unusual headache, vision change, shortness of breath, chest pain, numbness, tingling, loss of alertness/awareness, loss of function, unusual bleeding or any alarming symptoms. Thank you for allowing me to care for you. Weston Armstrong, ACNP, [facility] [phone] Referrals: Timo See DO [Primary Care Provider] - Disposition: HOME - Home Medications Comprehensive Discharge Medication List: Ambulatory Orders Albuterol Sulfate Inhaler - [Ventolin HFA Inhaler -] 2 inh PO Q4H PRN #1 inhaler NS 07/19/19 Amlodipine Besylate [Norvasc -] 5 mg PO DAILY #30 tablet 07/19/19 Budesonide/Formeterol Fumarate [SYMBICORT 160/4.5mcg -] 2 inh PO BID #1 inhaler 07/19/19 Folic Acid - 1 mg PO DAILY #30 tablet 07/19/19 Methylprednisolone [Medrol Dose Jake] 4 mg PO ASDIR #21 tablet 07/19/19 Thiamine HCl [Vitamin B1 -] 100 mg PO DAILY #30 tablet 07/19/19 Umeclidinium [place] [Incruse Ellipta] 62.5 mcg IH DAILY #1 blst.w.dev 07/19/19 levoFLOXacin [Levaquin -] 500 mg PO DAILY@0600 #7 tablet 07/19/19 Prescription Drug Monitoring Program (I-STOP) results: I-STOP reviewed and no issues identified Problem List - Problems (1) Polysubstance (excluding opioids) dependence Code(s): F19.20 - OTHER PSYCHOACTIVE SUBSTANCE DEPENDENCE, UNCOMPLICATED (2) Abnormal LFTs Code(s): R94.5 - ABNORMAL RESULTS OF LIVER FUNCTION STUDIES (3) COPD (chronic obstructive pulmonary disease) Code(s): J44.9 - CHRONIC OBSTRUCTIVE PULMONARY DISEASE, UNSPECIFIED (4) Prophylactic measure Code(s): Z29.9 - ENCOUNTER FOR PROPHYLACTIC MEASURES, UNSPECIFIED (5) Desire for detoxification Code(s): CGO3158 - (6) Pneumonia Code(s): J18.9 - PNEUMONIA, UNSPECIFIED ORGANISM Qualifiers: Pneumonia type: due to unspecified organism Laterality: bilateral Lung location: unspecified part of lung Qualified Code(s): J18.9 - Pneumonia, unspecified organism (7) Sepsis Code(s): A41.9 - SEPSIS, UNSPECIFIED ORGANISM Qualifiers: Sepsis type: sepsis due to unspecified organism Sepsis acute organ dysfunction status: unspecified Qualified Code(s): A41.9 - Sepsis, unspecified organism (8) Hypertension Code(s): I10 - ESSENTIAL (PRIMARY) HYPERTENSION Qualifiers: Hypertension type: unspecified Qualified Code(s): I10 - Essential (primary ) hypertension This patient is new to me today: No Emergency Visit: Yes ED Registration Date: 07/15/19 Care time: The patient presented to the Emergency Department on the above date and was hospitalized for further evaluation of their emergent condition. Critical Care patient: No - Discharge Referral Referred to [facility] No
[2019-07-19] MEDS: THIAMINE HCL 100 MG TABLET (FP) PO SCH (11:32)
[2019-07-19 13:40] VITALS: BP 156/94; PULSE 88
[2019-07-20 19:07] LABS: HEP B CORE AB, TOT Positive (Negative)
== END 2019-07-19 12:27 | disposition home or self-care (01) | DRG 720 ==
LOC: JER 19:23 → JERBED 23:44 → J5S 07-16 05:33
PROVIDERS: ADMIT Internal Medicine; ATTEND Nurse Practitioner Acute Care
PROC: HZ2ZZZZ Detoxification Services for Substance Abuse Treatment (ICD-10-PCS; principal; 2019-07-15)
DX: A40.9 Streptococcal sepsis, unspecified (principal); F10.239 Alcohol dependence with withdrawal, unspecified; F11.23 Opioid dependence with withdrawal; J44.9 Chronic obstructive pulmonary disease, unspecified; I10 Essential (primary) hypertension; D86.9 Sarcoidosis, unspecified; E87.1 Hypo-osmolality and hyponatremia; J47.9 Bronchiectasis, uncomplicated; J44.1 Chronic obstructive pulmonary disease with (acute) exacerbation; J44.0 Chronic obstructive pulmonary disease with (acute) lower respiratory infection; J15.4 Pneumonia due to other streptococci
CPT/HCPCS: 36415; 71045-TC-FY; 71250-TC; 76705-TC; 80053; 81003; 82803; 83605; 83735; 84100; 84484; 85025; 86704; 86706; 86707; 86708; 86709; 86803; 87040; 87070; 87086; 87186; 87205; 87340; 87804; 93005; 93010; 94640; 97116-GP; 97161-GP; 99285-25; J0131; J7030

== ENCOUNTER 2019-08-09 17:55 | Inpatient (IN) | payer OTHER ==
[2019-08-09 18:51] VITALS: BMI 21.9
--- NOTE | 2019-08-09 21:03 | HP ---
"COWS - Scale Resting Pulse: 1= RI 81-100 Sweatin=Flushed/Facial Moisture Restless Observation: 0= Sits Still Pupil Size: 2= Moderately Dilated (Pupils = 3 mm) Bone or Joint Aches: 0= None Runny Nose/ Eye Tearin= Nasal Congestion GI Upset > 30mins: 0= None Tremor Observation: 4= Gross Tremor/Twitching Yawning Observation: 1= 1-2x During Session Anxiety or Irritability: 1=Feels Anxious/Irritable Goose Flesh Skin: 0=Smooth Skin COWS Score: 12 CIWA Score Nausea/Vomitin-No Nausea/No Vomiting Muscle Tremors: 4-Moderate,w/Arms Extend Anxiety: 1-Mildly Anxious Agitation: 1-Slight > Activity Paroxysmal Sweats: 3 (Increased facial moisture) Orientation: 0-Oriented Tacttile Disturbances: 0-None Auditory Disturbances: 0-None Visual Disturbances: 0-None Headache: 0-None Present CIWA-Ar Total Score: 9 - Admission Criteria OASAS Guidelines: Admission for Medically Managed Detox: Requires at least one of the followin. CIWA greater than 12 2. Seizures within the past 24 hours 3. Delirium tremens within the past 24 hours 4. Hallucinations within the past 24 hours 5. Acute intervention needed for co occurring medical disorder 6. Acute intervention needed for co occurring psychiatric disorder 7. Severe withdrawal that cannot be handled at a lower level of care (continued vomiting, continued diarrhea, abnormal vital signs) requiring intravenous medication and/or fluids 8. Patient presents the following: Acute intervention needed for co-occurring med or psych disorder (Patient w/ co-occurig opiate use disorder. Patient current CONNIE: 0.030) Admission Criteria Met: Admission criteria met Admitting History and Physical - Past Medical History Cardiovascular: Yes: HTN Pulmonary: Yes: Other (sarcoidosis) - Past Surgical History Past Surgical History: Yes: None - Smoking History Smoking history: Current every day smoker Have you smoked in the past 12 months: Yes Aproximately how many cigarettes per day: 5 - Alcohol/Substance Use Hx Alcohol Use: Yes Admission ROS BHS - HPI Chief Complaint: I need to detox and go into rehab. Allergies/Adverse Reactions: Allergies Allergy/AdvReac Type Severity Reaction Status Date / Time Penicillins Allergy Verified 08/09/19 18:44 History of Present Illness: 53 yo presents w/ alcohol and opioid heroin withdrawal symptoms seeking detox. Last here 05/2019. Last presented to [facility] on 07/15/2019 and sent to [facility] where treated for Pneumonia and detoxed. States started using the day of discharge from hospital. CONNIE: 0.030 Utox: + FEN/MOP Denies seizures or blackouts. Hx: overdoses. Last Sept months ago. Alcohol use began at age 52. Currently drinks 1/5th alternating w/ 1- 6 pk beer. Last drink 5 pm today. Heroin use began at age 17. Current uses 7-10 bags/day - Nasal. Last used about 1 pm. States has a Narcan kit. Encouraged to consider MAT. Nicotine use began at age 16. Smokes 8 cig/day. Declines nicotine patch. Will accept gum. PMHx: Sarcoidosis; Pneumonia tx 07/15-12/2019; HTN:Compliant w/ meds Last EK07/15/2019 reviewed. MHHx: Anxiety. Denies thoughts of harming self or others. Not on MH meds. SHx: Homeless. Unemployed. Denies legal issues. Search Terms: Jack Pan, 1965 Search Date: 08/09/2019 08:53:57 PM The Drug Utilization Report below displays all of the controlled substance prescriptions, if any, that your patient has filled in the last twelve months. The information displayed on this report is compiled from pharmacy submissions to the Department, and accurately reflects the information as submitted by the pharmacies. This report was requested by: Irene Pan | Reference #: [id number] There are no results for the search terms that you entered. Exam Limitations: No Limitations - Ebola screening Have you traveled outside of the country in the last 21 days: No Have you had contact with anyone from an Ebola affected area: No Have you been sick,other than usual withdrawal symptoms: No Do you have a fever: No - Review of Systems Constitutional: Chills, Changes in sleep (Difficulty falling and staying asleep) , Weight Stable EENT: reports: Blurred Vision (for reading), Nose Congestion Respiratory: reports: No Symptoms reported Cardiac: reports: No Symptoms Reported GI: reports: No Symptoms Reported : reports: No Symptoms Reported Musculoskeletal: reports: No Symptoms Reported Integumentary: reports: No Symptoms Reported Neuro: reports: Tremors Endocrine: reports: No Symptoms Reported Hematology: reports: No Symptoms Reported Psychiatric: reports: Judgement Intact, Orientated x3, Anxious (Denies thoughts of harming self or others.) Patient History - Patient Medical History Hx Anemia: No Hx Asthma: No Hx Chronic Obstructive Pulmonary Disease (COPD): Yes Hx Cancer: No Hx Cardiac Disorders: No Hx Congestive Heart Failure: No Hx Hypertension: Yes Hx Hypercholesterolemia: No Hx Pacemaker: No HX Cerebrovascular Accident: No Hx Seizures: No Hx Dementia: No Hx Diabetes: No Hx Gastrointestinal Disorders: No Hx Liver Disease: No Hx Genitourinary Disorders: No Hx Sexually Transmitted Disorders: No Hx Renal Disease (ESRD): No Hx Thyroid Disease: No Hx Human Immunodeficiency Virus (HIV): No Hx Hepatitis C: No Hx Depression: No Hx Suicide Attempt: No Hx Bipolar Disorder: No Hx Schizophrenia: No - Patient Surgical History Past Surgical History: No Hx Neurologic Surgery: No Hx Cataract Extraction: No Hx Cardiac Surgery: No Hx Lung Surgery: No Hx Breast Surgery: No Hx Breast Biopsy: No Hx Abdominal Surgery: No Hx Appendectomy: No Hx Cholecystectomy: No Hx Genitourinary Surgery: No Hx Section: No Hx Orthopedic Surgery: No Anesthesia Reaction: No - PPD History Previous Implant?: Yes Documented Results: Negative w/proof Implanted On Prior R Admission?: Yes Date: 06/02/19 Results: 0 mm PPD to be Administered?: No - Smoking Cessation Smoking history: Current every day smoker Have you smoked in the past 12 months: Yes Aproximately how many cigarettes per day: 8 Hx Chewing Tobacco Use: No Initiated information on smoking cessation: Yes 'Breaking Loose' booklet given: 08/09/19 - Substance & Tx. History Hx Alcohol Use: Yes Hx Substance Use: Yes Substance Use Type: Alcohol, Cocaine (Stopped 4 months ago), Heroin Hx Substance Use Treatment: Yes (detox, rehab, denies past MAT) - Substances abused Alcohol Substance route: Oral Frequency: Daily Amount used: 1/5 VODKA, 1-2 6 PACKS OF BEERS Age of first use: 17 Date of last use: 08/09/19 Heroin Substance route: Inhalation Frequency: Daily Amount used: 1 BUNDLE Age of first use: 52 Date of last use: 08/09/19 Admission Physical Exam BHS - Vital Signs Vital Signs: Vital Signs - 24 hr 08/09/19 08/09/19 18:23 19:38 Temperature 97.6 F 97.6 F Pulse Rate 91 H 91 H Respiratory 18 18 Rate Blood Pressure 132/85 132/85 - Physical General Appearance: Yes: Nourished, Mild Distress (CONNIE: 0.030), Tremorous, Sweating (Increased facial moisture) HEENTM: Yes: EOMI (jerking movement of eyes upon lateral gaze), Hearing grossly Normal, Normocephalic, Normal Voice, JEREMIE (Pupils = 3 mm), Pharynx Normal, Nasal Congestion, Other (Thickened saliva.) Respiratory: Yes: Lungs Clear (Pulse Ox = 95), Normal Breath Sounds, No Respiratory Distress Neck: Yes: No masses,lesions,Nodules, Supple Breast: Yes: Breast Exam Deferred Cardiology: Yes: Regular Rhythm, Regular Rate, S1, S2 Abdominal: Yes: Non Tender, Flat, Soft, Increased Bowel Sounds Genitourinary: Yes: Within Normal Limits Back: Yes: Normal Inspection Musculoskeletal: Yes: full range of Motion, Gait Steady Extremities: Yes: Normal Capillary Refill (Periph pulses + No edema), Normal Inspection, Tremors Neurological: Yes: dispatcher electric power II-XII NML intact (Jerking movement of eyes upon lateral gaze), Motor Strength 5/5 Integumentary: Yes: Normal Color, Warm, Other (decreased skin turgor) Lymphatic: Yes: Within Normal Limits - Diagnostic (1) Unspecified nystagmus Current Visit: Yes Status: Acute (2) Dehydration determined by examination Current Visit: Yes Status: Acute (3) Alcohol dependence with uncomplicated withdrawal Current Visit: Yes Status: Acute Comment: with CONNIE: 0.030 (4) Hx of sarcoidosis Current Visit: No Status: Chronic (5) Hypertension Current Visit: Yes Status: Chronic Qualifiers: Hypertension type: unspecified Qualified Code(s): I10 - Essential (primary ) hypertension (6) Nicotine dependence Current Visit: Yes Status: Chronic Qualifiers: Nicotine product type: cigarettes Substance use status: uncomplicated Qualified Code(s): F17.210 - Nicotine dependence, cigarettes, uncomplicated (7) Opioid dependence with withdrawal Current Visit: Yes Status: Acute (8) History of COPD Current Visit: Yes Status: Chronic (9) History of abnormal electrocardiogram Current Visit: Yes Status: Chronic Cleared for Admission S - Detox or Rehab S Level of Care: Medically Managed Detox Regimen/Protocol: Methadone/Librium Claeared for Rehab Admission: No Breathalyzer - Breathalyzer Breathalyzer: 0.030 Urine Drug Screen - Test Device Lot number: [id number] Expiration date: 12/11/20 - Control Is test valid?: Yes - Results Drug screen NEGATIVE: No Urine drug screen results: FEN-Fentanyl, MOP-Opiates Inpatient Rehab Admission - Rehab Decision to Admit Inpatient rehab admission?: No"
[2019-08-09] MEDS ORDERED: MAG HYDROX/AL HYDROX/SIMETH 30 ML UNIT-DOSE CUP PO PRN (21:31)
[2019-08-09] MEDS ORDERED: chlordiazePOXIDE HCL 10 MG CAPSULE PO PRN (21:31)
[2019-08-09] MEDS ORDERED: cloNIDine HCL 0.1 MG TABLET PO PRN (21:31)
[2019-08-09] MEDS ORDERED: ACETAMINOPHEN 325 MG TABLET (FP) PO PRN ×2 (21:31)
[2019-08-09] MEDS ORDERED: MAGNESIUM CITRATE 300 ML BOTTLE PO PRN (21:31)
[2019-08-09] MEDS ORDERED: BISMUTH SUBSALICYLATE 524 MG/30 ML UD PO PRN (21:31)
[2019-08-09] MEDS ORDERED: MENTHOL/PHENOL 1 EACH UD MM PRN (21:31)
[2019-08-09] MEDS ORDERED: MAGNESIUM HYDROX 2400MG/30ML ORAL SUSPENSION 30 ML CUP PO PRN (21:31)
[2019-08-09] MEDS ORDERED: NICOTINE POLACRILEX 2 MG GUM BUC PRN (21:31)
[2019-08-09] MEDS ORDERED: METHADONE HCL 5 MG TABLET (FOR DETOX USE ONLY) PO ONE (22:15)
[2019-08-09] MEDS ORDERED: chlordiazePOXIDE HCL 25 MG CAPSULE PO ONE (22:30)
[2019-08-09] MEDS: MELATONIN 5 MG TABLETS PO PRN (23:16)
[2019-08-09] MEDS: THIAMINE HCL 100 MG TABLET (FP) PO SCH (23:16)
[2019-08-10] MEDS: chlordiazePOXIDE HCL 25 MG CAPSULE PO SCH ×3 (05:32→22:05)
[2019-08-10] MEDS ORDERED: METHADONE HCL 10 MG TABLET (FOR DETOX USE ONLY) PO ONE (09:55)
[2019-08-10] MEDS ORDERED: PATIENT'S OWN MEDICATION (NON-FORMULARY) (Umeclidinium Bromide [Incruse Ellipta] 62.5 MCG) IH SCH (10:00)
[2019-08-10] MEDS ORDERED: METHADONE HCL 5 MG TABLET (FOR DETOX USE ONLY) PO ONE (10:00)
[2019-08-10] MEDS: amLODIPine BESYLATE 5 MG TABLET (FP) PO SCH (10:20)
[2019-08-10] MEDS: BUDESONIDE/FORMETEROL FUMARATE 160/4.5 mcg INHALER IH SCH ×2 (10:20→22:02)
[2019-08-10] MEDS: PRENATAL VITAMINS W/ FOLIC ACID TABLET (FP) PO SCH (10:21)
--- NOTE | 2019-08-10 10:50 | PN ---
[facility] CIWA - CIWA Score Nausea/Vomitin-No Nausea/No Vomiting Muscle Tremors: 2 Anxiety: 2 Agitation: 3 Paroxysmal Sweats: 2 Orientation: 0-Oriented Tacttile Disturbances: 0-None Auditory Disturbances: 0-None Visual Disturbances: 0-None Headache: 0-None Present CIWA-Ar Total Score: 9 BHS COWS - Scale Resting Pulse: 0= AR 80 or Below Sweatin= Chills/Flushing Restless Observation: 1= Difficult to Sit Still Pupil Size: 0= Normal to Room Light Bone or Joint Aches: 1= Mild Discomfort Runny Nose/ Eye Tearin= Runny Nose/Eyes GI Upset > 30mins: 0= None Tremor Observation of Outstretched Hands: 2= Slight Tremor Visible Yawning Observation: 2= >3x During Session Anxiety or Irritability: 2=Irritable/Anxious Goose Flesh Skin: 3=Piloerection COWS Score: 14 [facility] Progress Note (SOAP) Subjective: the methadone dose is not enough sweats shakes irritable agitation body aches Objective: 08/10/19 10:52 Vital Signs Temperature 97.8 F 08/10/19 09:12 Pulse Rate 74 08/10/19 09:12 Respiratory Rate 18 08/10/19 09:12 Blood Pressure 120/74 08/10/19 09:12 O2 Sat by Pulse Oximetry (%) labs noted aaox3 ambulating no acute distress Assessment: 08/10/19 10:53 withdrawals Plan: continue detox methadone dose adjusted increase fluids
[2019-08-10 10:51] LABS: HEMATOCRIT 36.1 % (35.4-49); HEMOGLOBIN 11.9 GM/dL (11.7-16.9); MCH 32.2 pg (25.7-33.7); MEAN CELL VOLUME 97.7 fl (80-96); MEAN PLT VOLUME 8.2 fl (7.5-11.1); PLATELET COUNT 240 K/MM3 (134-434); RDW 14.2 % (11.9-15.9); WHITE BLOOD COUNT 3.6 K/mm3 (4.0-10.0)
[2019-08-10 11:01] LABS: ALBUMIN 3.3 g/dl (3.4-5.0); BILIRUBIN,TOTAL 0.5 mg/dL (0.2-1); BLOOD UREA NITROGEN 17.9 mg/dL (7-18); CALCIUM 9.5 mg/dL (8.5-10.1); CREATININE 0.9 mg/dL (0.55-1.3); POTASSIUM 4.5 mmol/L (3.5-5.1); TOT PROT 6.4 g/dl (6.4-8.2)
[2019-08-10 12:00] LABS: RPR REACTIVE 1:1 (NONREACTIVE)
[2019-08-10 12:01] LABS: TREPONEMA ANTIBODY PREVIOUSLY REACTIVE (NONREACTIVE)
[2019-08-10 13:10] LABS: PH,URINE 5.5 (5.0-8.0); URINE APPEARANCE CLEAR; URINE BILIRUBIN NEGATIVE (NEGATIVE); URINE COLOR YELLOW; URINE GLUCOSE (UA) NEGATIVE (NEGATIVE); URINE KETONE NEGATIVE (NEGATIVE); URINE LEUK ESTERASE NEGATIVE (NEGATIVE); URINE NITRITE NEGATIVE (NEGATIVE); URINE PROTEIN NEGATIVE (NEGATIVE); URINE UROBILINOGEN 0.2 mg/dL (0.2-1.0)
[2019-08-10] MEDS: TIOTROPIUM BROMIDE 2.5 MCG (SPIRIVA) RESPIMAT INHALER IH SCH (15:52)
[2019-08-10] MEDS: THIAMINE HCL 100 MG TABLET (FP) PO SCH (22:01)
[2019-08-10] MEDS: MELATONIN 5 MG TABLETS PO PRN (22:02)
[2019-08-11] MEDS ORDERED: chlordiazePOXIDE HCL 10 MG CAPSULE PO PRN
[2019-08-11] MEDS: chlordiazePOXIDE 5 MG CAPSULE PO SCH ×3 (05:31→21:21)
[2019-08-11] MEDS ORDERED: METHADONE HCL 10 MG TABLET (FOR DETOX USE ONLY) PO ONE (10:00)
[2019-08-11] MEDS ORDERED: METHADONE HCL 5 MG TABLET (FOR DETOX USE ONLY) PO ONE (10:00)
[2019-08-11] MEDS: BUDESONIDE/FORMETEROL FUMARATE 160/4.5 mcg INHALER IH SCH ×2 (10:02→21:20)
[2019-08-11] MEDS: TIOTROPIUM BROMIDE 2.5 MCG (SPIRIVA) RESPIMAT INHALER IH SCH (10:02)
[2019-08-11] MEDS: amLODIPine BESYLATE 5 MG TABLET (FP) PO SCH (10:03)
[2019-08-11] MEDS: PRENATAL VITAMINS W/ FOLIC ACID TABLET (FP) PO SCH (10:03)
[2019-08-11] MEDS: METHOCARBAMOL 500 MG TABLET PO PRN (17:39)
[2019-08-11] MEDS: THIAMINE HCL 100 MG TABLET (FP) PO SCH (21:21)
[2019-08-11] MEDS: MELATONIN 5 MG TABLETS PO PRN (21:22)
[2019-08-12] MEDS: IBUPROFEN 400 MG TABLET (FP) PO PRN ×2 (02:44→16:37)
[2019-08-12] MEDS: chlordiazePOXIDE HCL 10 MG CAPSULE PO SCH ×3 (05:39→21:19)
[2019-08-12] MEDS ORDERED: METHADONE HCL 5 MG TABLET (FOR DETOX USE ONLY) PO ONE ×2 (06:00→10:00)
[2019-08-12] MEDS ORDERED: diphenhydrAMINE HCL 25 MG CAPSULE (FP) PO PRN (09:23)
[2019-08-12] MEDS ORDERED: METHADONE HCL 10 MG TABLET (FOR DETOX USE ONLY) PO ONE (10:00)
[2019-08-12] MEDS: TIOTROPIUM BROMIDE 2.5 MCG (SPIRIVA) RESPIMAT INHALER IH SCH (10:07)
[2019-08-12] MEDS: amLODIPine BESYLATE 5 MG TABLET (FP) PO SCH (10:07)
[2019-08-12] MEDS: BUDESONIDE/FORMETEROL FUMARATE 160/4.5 mcg INHALER IH SCH ×2 (10:07→21:20)
[2019-08-12] MEDS: PRENATAL VITAMINS W/ FOLIC ACID TABLET (FP) PO SCH (10:07)
--- NOTE | 2019-08-12 10:31 | PN ---
[facility] CIWA - CIWA Score Nausea/Vomitin-No Nausea/No Vomiting Muscle Tremors: 3 Anxiety: 2 Agitation: 2 Paroxysmal Sweats: 2 Orientation: 0-Oriented Tacttile Disturbances: 0-None Auditory Disturbances: 0-None Visual Disturbances: 0-None Headache: 0-None Present CIWA-Ar Total Score: 9 BHS COWS - Scale Resting Pulse: 0= DC 80 or Below Sweatin= Chills/Flushing Restless Observation: 1= Difficult to Sit Still Pupil Size: 0= Normal to Room Light Bone or Joint Aches: 1= Mild Discomfort Runny Nose/ Eye Tearin= None GI Upset > 30mins: 0= None Tremor Observation of Outstretched Hands: 1= Tremor [place], Not Seen Yawning Observation: 1= 1-2x During Session Anxiety or Irritability: 2=Irritable/Anxious Goose Flesh Skin: 0=Smooth Skin COWS Score: 7 BHS Progress Note (SOAP) Subjective: sweats insomnia Objective: 08/12/19 10:36 Vital Signs Temperature 98.1 F 08/12/19 09:23 Pulse Rate 72 08/12/19 09:23 Respiratory Rate 17 08/12/19 09:23 Blood Pressure 121/81 08/12/19 09:23 O2 Sat by Pulse Oximetry (%) aaox3 ambulating no acute distress Assessment: 08/12/19 10:54 mild withdrawals Plan: benadryl 25mg qhs increase fluids d/c in am
[2019-08-12] MEDS: METHOCARBAMOL 500 MG TABLET PO PRN (13:00)
[2019-08-12] MEDS: THIAMINE HCL 100 MG TABLET (FP) PO SCH (21:19)
[2019-08-13] MEDS ORDERED: METHADONE HCL 5 MG TABLET (FOR DETOX USE ONLY) PO ONE (06:00)
[2019-08-13] MEDS ORDERED: chlordiazePOXIDE HCL 10 MG CAPSULE PO ONE (06:00)
[2019-08-13 06:18] VITALS: BP 140/84; PULSE 71; TEMP 97.2
--- NOTE | 2019-08-13 08:53 | DS ---
[facility] Detox Discharge Summary Admission Date: 08/09/19 Discharge Date: 08/13/19 - History Present History: Alcohol Dependence, Opioid Dependence - Physical Exam Results Vital Signs: Vital Signs Temperature 97.2 F L 08/13/19 06:10 Pulse Rate 71 08/13/19 06:10 Respiratory Rate 18 08/13/19 06:10 Blood Pressure 140/84 08/13/19 06:10 O2 Sat by Pulse Oximetry (%) Pertinent Admission Physical Exam Findings: Vital Signs Temperature 97.2 F L 08/13/19 06:10 Pulse Rate 71 08/13/19 06:10 Respiratory Rate 18 08/13/19 06:10 Blood Pressure 140/84 08/13/19 06:10 O2 Sat by Pulse Oximetry (%) Laboratory Tests 08/10/19 08/10/19 08/10/19 07:45 07:45 07:45 WBC 3.6 L RBC 3.70 L Hgb 11.9 Hct 36.1 MCV 97.7 H MCH 32.2 MCHC 33.0 RDW 14.2 Plt Count 240 MPV 8.2 Sodium 142 Potassium 4.5 Chloride 108 H Carbon Dioxide 30 Anion Gap 3 L BUN 17.9 Creatinine 0.9 Est GFR (CKD-EPI)AfAm 112.62 Est GFR (CKD-EPI)NonAf 97.17 Random Glucose 78 Calcium 9.5 Total Bilirubin 0.5 AST 20 ALT 30 Alkaline Phosphatase 81 Total Protein 6.4 Albumin 3.3 L Urine Color Urine Appearance Urine pH Ur Specific [place] Urine Protein Urine Glucose (UA) Urine Ketones Urine Blood Urine Nitrite Urine Bilirubin Urine Urobilinogen Ur Leukocyte Esterase RPR Titer Reactive 1:1 H T.pallidum Ab (A) Previously reactive 08/10/19 07:45 WBC RBC Hgb Hct MCV MCH MCHC RDW Plt Count MPV Sodium Potassium Chloride Carbon Dioxide Anion Gap BUN Creatinine Est GFR (CKD-EPI)AfAm Est GFR (CKD-EPI)NonAf Random Glucose Calcium Total Bilirubin AST ALT Alkaline Phosphatase Total Protein Albumin Urine Color Yellow Urine Appearance Clear Urine pH 5.5 Ur Specific [place] 1.017 Urine Protein Negative Urine Glucose (UA) Negative Urine Ketones Negative Urine Blood Negative Urine Nitrite Negative Urine Bilirubin Negative Urine Urobilinogen 0.2 Ur Leukocyte Esterase Negative RPR Titer T.pallidum Ab (MHA) aaox3 ambulating no acute distress - Treatment Hospital Course: Detox Protocol Followed, Detoxed Safely, Responded well, Discharged Condition Good, Rehab Referral Accepted - Medication Discharge Medications: Ambulatory Orders Amlodipine Besylate [Norvasc -] 5 mg PO DAILY #30 tablet 07/19/19 Budesonide/Formeterol Fumarate [SYMBICORT 160/4.5mcg -] 2 inh PO BID #1 inhaler 07/19/19 Thiamine HCl [Vitamin B1 -] 100 mg PO DAILY #30 tablet 07/19/19 Umeclidinium [place] [Incruse Ellipta] 62.5 mcg IH DAILY #1 blst.w.dev 07/19/19 - Diagnosis (1) Alcohol dependence with uncomplicated withdrawal Current Visit: Yes Status: Chronic (2) COPD (chronic obstructive pulmonary disease) Current Visit: Yes Status: Chronic Qualifiers: Emphysema type: unspecified (3) Opioid dependence with withdrawal Current Visit: Yes Status: Chronic (4) History of abnormal electrocardiogram Current Visit: Yes Status: Chronic (5) Hypertension Current Visit: Yes Status: Chronic Qualifiers: Hypertension type: unspecified Qualified Code(s): I10 - Essential (primary ) hypertension (6) Nicotine dependence Current Visit: Yes Status: Chronic Qualifiers: Nicotine product type: cigarettes Substance use status: uncomplicated Qualified Code(s): F17.210 - Nicotine dependence, cigarettes, uncomplicated (7) Cannabis dependence Current Visit: Yes Status: Chronic (8) Cocaine dependence Current Visit: Yes Status: Chronic Qualifiers: Substance use status: uncomplicated Qualified Code(s): F14.20 - Cocaine dependence, uncomplicated (9) Hx of sarcoidosis Current Visit: No Status: Chronic (10) Insomnia Current Visit: No Status: Chronic (11) Substance induced mood disorder Current Visit: No Status: Suspected - AMA Did Patient Leave Against Medical Advice: No
[2019-08-13] MEDS ORDERED: METHADONE HCL 10 MG TABLET (FOR DETOX USE ONLY) PO ONE (10:00)
== END 2019-08-13 08:45 | disposition home or self-care (01) | DRG 773 ==
LOC: YASAS 17:55 → Y6N 21:54
PROVIDERS: ADMIT Allergy & Immunology; ATTEND Allergy & Immunology
PROC: HZ2ZZZZ Detoxification Services for Substance Abuse Treatment (ICD-10-PCS; principal; 2019-08-09)
DX: F10.230 Alcohol dependence with withdrawal, uncomplicated (principal); F11.23 Opioid dependence with withdrawal; F14.20 Cocaine dependence, uncomplicated; F12.20 Cannabis dependence, uncomplicated; F17.210 Nicotine dependence, cigarettes, uncomplicated; F19.24 Other psychoactive substance dependence with psychoactive substance-induced mood disorder; G47.00 Insomnia, unspecified; I10 Essential (primary) hypertension; J44.9 Chronic obstructive pulmonary disease, unspecified; E86.0 Dehydration; R94.31 Abnormal electrocardiogram [ECG] [EKG]; Z86.73 Personal history of transient ischemic attack (TIA), and cerebral infarction without residual deficits; D86.9 Sarcoidosis, unspecified; Z87.01 Personal history of pneumonia (recurrent); Z88.0 Allergy status to penicillin; Z86.2 Personal history of diseases of the blood and blood-forming organs and certain disorders involving the immune mechanism
CPT/HCPCS: 36415; 80053; 81003; 85027; 86593; 86780

== ENCOUNTER 2020-01-03 14:36 | Inpatient (IN) | payer OTHER ==
--- NOTE | 2020-01-03 16:44 | HP ---
COWS - Scale Resting Pulse: 1= [place] 81-100 Sweatin=Flushed/Facial Moisture Restless Observation: 3= Extraneous Movement Pupil Size: 2= Moderately Dilated (Pupils = 3 mm) Bone or Joint Aches: 1= Mild Discomfort Runny Nose/ Eye Tearin= Nasal Congestion GI Upset > 30mins: 0= None Tremor Observation: 2= Slight Tremor Visible Yawning Observation: 0= None Anxiety or Irritability: 2=Irritable/Anxious Goose Flesh Skin: 0=Smooth Skin COWS Score: 14 CIWA Score Nausea/Vomitin-No Nausea/No Vomiting Muscle Tremors: 3 Anxiety: 3 Agitation: 4-Moderately Restless Paroxysmal Sweats: 3 (Increased facial moisture) Orientation: 0-Oriented Tacttile Disturbances: 0-None Auditory Disturbances: 0-None Visual Disturbances: 0-None Headache: 0-None Present CIWA-Ar Total Score: 13 - Admission Criteria OASAS Guidelines: Admission for Medically Managed Detox: Requires at least one of the followin. CIWA greater than 12 2. Seizures within the past 24 hours 3. Delirium tremens within the past 24 hours 4. Hallucinations within the past 24 hours 5. Acute intervention needed for co occurring medical disorder 6. Acute intervention needed for co occurring psychiatric disorder 7. Severe withdrawal that cannot be handled at a lower level of care (continued vomiting, continued diarrhea, abnormal vital signs) requiring intravenous medication and/or fluids 8. Patient presents the following: CIWA greater than 12 Admission Criteria Met: Admission criteria met Admitting History and Physical - Past Medical History Cardiovascular: Yes: HTN Pulmonary: Yes: Other (sarcoidosis) - Past Surgical History Past Surgical History: Yes: None - Smoking History Smoking history: Current every day smoker Have you smoked in the past 12 months: Yes Aproximately how many cigarettes per day: 5 - Alcohol/Substance Use Hx Alcohol Use: Yes Number of Drinks Daily: 10 History of Substance Use: reports: Heroin - Social History ADL: Independent Occupation: unemployed History of Recent Travel: No Admission ROS S - HPI Chief Complaint: Here because I want to detox off heroin and alcohol. Allergies/Adverse Reactions: Allergies Allergy/AdvReac Type Severity Reaction Status Date / Time Penicillins Allergy Verified 11/22/19 14:29 History of Present Illness: 54 yo presents w/ alcohol and opioid withdrawal symptoms seeking detox. Last here 11/21 -. States relapsed a week after discharge. CONNIE: 0.020 Utox: + BZO/FEN/MOP Denies seizures, blackouts. One overdoses in 2019. Alcohol use began at age 15. Currently drinks 1/5th liquor alternating w/ 6 to 8 - 12 oz beer. Last drink 9 a.m. today. Heroin use began at age 17. Current uses 8-10 bags/day - Nasal. Last used about 7 am today. States has a Narcan kit. Nicotine use began at age 16. Smokes 10 cig/day. Denies known benzo use. PMHx: HTN; Sarcoidosis; COPD Last EK07/15/2019 reviewed. MHHx: Occ anxiety. Denies depression. Denies thoughts of harming self or others. SHx: Domiciled. Unemployed. Denies legal issues. Search Terms: Jack Pan, 09/14/1995 Search Date: 01/03/2020 16:42:40 PM The Drug Utilization Report below displays all of the controlled substance prescriptions, if any, that your patient has filled in the last twelve months. The information displayed on this report is compiled from pharmacy submissions to the Department, and accurately reflects the information as submitted by the pharmacies. This report was requested by: Irene Pan | Reference #: [id number] There are no results for the search terms that you entered. Exam Limitations: No Limitations - Ebola screening Have you traveled outside of the country in the last 21 days: No (No known COVID exposure) Have you had contact with anyone from an Ebola affected area: No Have you been sick,other than usual withdrawal symptoms: No Do you have a fever: No - Review of Systems Constitutional: Chills, Diaphoresis, Changes in sleep (Difficulty staying asleep), Weight Stable EENT: reports: Blurred Vision, Dental Problems (Chew and swallows ok) Respiratory: reports: No Symptoms reported, Shortness of Breath (r/t smoking) Cardiac: reports: No Symptoms Reported GI: reports: Diarrhea ("squirts" this am) : reports: No Symptoms Reported Musculoskeletal: reports: Back Pain (Chronic intermitent back pain - unsure of triggers. "0" now.) Integumentary: reports: No Symptoms Reported Neuro: reports: Numbness ((L) foot), Tremors Endocrine: reports: No Symptoms Reported Hematology: reports: No Symptoms Reported Psychiatric: reports: Orientated x3, Agitated, Anxious Patient History - Patient Medical History Hx Anemia: No Hx Asthma: No Hx Chronic Obstructive Pulmonary Disease (COPD): Yes Hx Cancer: No Hx Cardiac Disorders: No Hx Congestive Heart Failure: No Hx Hypertension: Yes Hx Hypercholesterolemia: No Hx Pacemaker: No HX Cerebrovascular Accident: No Hx Seizures: No Hx Dementia: No Hx Diabetes: No Hx Gastrointestinal Disorders: No Hx Liver Disease: No Hx Genitourinary Disorders: No Hx Sexually Transmitted Disorders: No Hx Renal Disease (ESRD): No Hx Thyroid Disease: No Hx Human Immunodeficiency Virus (HIV): No Hx Hepatitis C: No Hx Depression: No Hx Suicide Attempt: No Hx Bipolar Disorder: No Hx Schizophrenia: No - Patient Surgical History Past Surgical History: No Hx Neurologic Surgery: No Hx Cataract Extraction: No Hx Cardiac Surgery: No Hx Lung Surgery: No Hx Breast Surgery: No Hx Breast Biopsy: No Hx Abdominal Surgery: No Hx Appendectomy: No Hx Cholecystectomy: No Hx Genitourinary Surgery: No Hx Section: No Hx Orthopedic Surgery: No Anesthesia Reaction: No - PPD History Previous Implant?: Yes Documented Results: Negative w/proof Implanted On Prior [facility] Admission?: Yes Date: 06/02/19 Results: 0 mm PPD to be Administered?: No - Smoking Cessation Smoking history: Current every day smoker Have you smoked in the past 12 months: Yes Aproximately how many cigarettes per day: 10 Cigars Per Day: 0 Hx Chewing Tobacco Use: No Initiated information on smoking cessation: Yes 'Breaking Loose' booklet given: 01/03/20 - Substance & Tx. History Hx Alcohol Use: Yes Hx Substance Use: Yes Substance Use Type: Alcohol, Heroin Hx Substance Use Treatment: No (detox, rehab, denies MAT) Admission Physical Exam [facility] - Physical General Appearance: Yes: Nourished, Mild Distress, Tremorous, Irritable, Sweating (Increased facial moisture), Anxious HEENTM: Yes: EOMI (Jerking movement of eyes upon lateral gaze), Hearing grossly Normal, Normal Voice, JEREMIE (Pupils = 3 mm), Pharynx Normal, Nasal Congestion Respiratory: Yes: Lungs Clear, Normal Breath Sounds, No Respiratory Distress Neck: Yes: No masses,lesions,Nodules, Supple Breast: Yes: Breast Exam Deferred Cardiology: Yes: Regular Rhythm, Regular Rate, S1, S2 Abdominal: Yes: Non Tender, Soft, Increased Bowel Sounds Genitourinary: Yes: Within Normal Limits Back: Yes: Normal Inspection Musculoskeletal: Yes: full range of Motion, Gait Steady Extremities: Yes: Normal Capillary Refill, Tremors Neurological: Yes: septic tank servicer II-XII NML intact (Jerking movement of eyes upon lateral gaze), Fully Oriented, Alert, Motor Strength 5/5, Normal Response Integumentary: Yes: Normal Color, Warm Lymphatic: Yes: Within Normal Limits - Diagnostic (1) Alcohol dependence with uncomplicated withdrawal Current Visit: Yes Status: Acute Comment: with CONNIE: 0.020 (2) COPD (chronic obstructive pulmonary disease) Current Visit: Yes Status: Chronic Qualifiers: COPD type: unspecified COPD Qualified Code(s): J44.9 - Chronic obstructive pulmonary disease, unspecified (3) Opioid dependence with withdrawal Current Visit: Yes Status: Acute (4) Unspecified nystagmus Current Visit: Yes Status: Chronic (5) Hx of sarcoidosis Current Visit: Yes Status: Chronic (6) Hypertension Current Visit: Yes Status: Chronic Qualifiers: Hypertension type: unspecified Qualified Code(s): I10 - Essential (primary) hypertension (7) Nicotine dependence Current Visit: Yes Status: Chronic Qualifiers: Nicotine product type: cigarettes Substance use status: uncomplicated Qualified Code(s): F17.210 - Nicotine dependence, cigarettes, uncomplicated Cleared for Admission S - Detox or Rehab [facility] Level of Care: Medically Managed Detox Regimen/Protocol: Methadone/Librium Claeared for Rehab Admission: No Breathalyzer - Breathalyzer Breathalyzer: 0.020 Urine Drug Screen - Test Device Lot number: [id number] Expiration date: 03/13/21 - Control Is test valid?: Yes - Results Drug screen NEGATIVE: No Urine drug screen results: FEN-Fentanyl, MOP-Opiates, BZO-Benzodiazepines Inpatient Rehab Admission - Rehab Decision to Admit Inpatient rehab admission?: No
[2020-01-03] MEDS ORDERED: NICOTINE POLACRILEX 2 MG GUM BUC PRN (18:31)
[2020-01-03] MEDS ORDERED: MENTHOL/PHENOL 1 EACH UD MM PRN (18:31)
[2020-01-03] MEDS ORDERED: cloNIDine HCL 0.1 MG TABLET PO PRN (18:31)
[2020-01-03] MEDS ORDERED: ACETAMINOPHEN 325 MG TABLET (FP) PO PRN ×2 (18:31)
[2020-01-03] MEDS ORDERED: MAGNESIUM HYDROX 2400MG/30ML ORAL SUSPENSION 30 ML CUP PO PRN (18:31)
[2020-01-03] MEDS ORDERED: chlordiazePOXIDE HCL 25 MG CAPSULE PO PRN (18:31)
[2020-01-03] MEDS ORDERED: MAG HYDROX/AL HYDROX/SIMETH 30 ML UNIT-DOSE CUP PO PRN (18:31)
[2020-01-03] MEDS ORDERED: BISMUTH SUBSALICYLATE 524 MG/30 ML UD PO PRN (18:31)
[2020-01-03] MEDS ORDERED: hydrOXYzine PAMOATE 25 MG CAPSULE (FP) PO PRN (18:31)
[2020-01-03] MEDS ORDERED: MAGNESIUM CITRATE 300 ML BOTTLE PO PRN (18:31)
[2020-01-03] MEDS ORDERED: METHADONE HCL 10 MG TABLET (FOR DETOX USE ONLY) PO ONE (19:00)
[2020-01-03] MEDS ORDERED: ONDANSETRON *ODT* 4 MG TABLET SL ONE (19:00)
[2020-01-03 19:28] VITALS: BMI 23.0
[2020-01-03] MEDS: MELATONIN 5 MG TABLETS PO SCH (22:06)
[2020-01-03] MEDS: chlordiazePOXIDE HCL 25 MG CAPSULE PO SCH (22:06)
[2020-01-03] MEDS: BUDESONIDE/FORMETEROL FUMARATE 160/4.5 mcg INHALER IH SCH (22:06)
[2020-01-03] MEDS: THIAMINE HCL 100 MG TABLET (FP) PO SCH (22:06)
[2020-01-04] MEDS: chlordiazePOXIDE HCL 25 MG CAPSULE PO SCH ×4 (05:35→22:09)
[2020-01-04] MEDS ORDERED: METHADONE HCL 5 MG TABLET (FOR DETOX USE ONLY) ONE (09:05)
[2020-01-04] MEDS ORDERED: METHADONE HCL 10 MG TABLET (FOR DETOX USE ONLY) ONE (09:06)
[2020-01-04] MEDS ORDERED: METHADONE (DETOX) 20 MG, METHADONE (DETOX) 5 MG PO ONE (10:00)
[2020-01-04] MEDS: BUDESONIDE/FORMETEROL FUMARATE 160/4.5 mcg INHALER IH SCH ×2 (10:07→22:11)
[2020-01-04] MEDS: PRENATAL VITAMINS W/ FOLIC ACID TABLET (FP) PO SCH (10:08)
[2020-01-04] MEDS: NICOTINE 14 MG/24 HOURS TOPICAL PATCH TD SCH (10:08)
[2020-01-04] MEDS: amLODIPine BESYLATE 5 MG TABLET (FP) PO SCH (10:08)
[2020-01-04 10:17] LABS: HEMATOCRIT 38.5 % (35.4-49); HEMOGLOBIN 12.5 GM/dL (11.7-16.9); MCH 31.9 pg (25.7-33.7); MCHC 32.5 g/dl (32.0-35.9); MEAN CELL VOLUME 98.1 fl (80-96); MEAN PLT VOLUME 8.5 fl (7.5-11.1); PLATELET COUNT 250 K/MM3 (134-434); RBC 3.93 M/mm3 (4.00-5.60); RDW 14.1 % (11.9-15.9); WHITE BLOOD COUNT 4.9 K/mm3 (4.0-10.0)
[2020-01-04 10:31] LABS: BLOOD UREA NITROGEN 18.5 mg/dL (7-18); CALCIUM 8.9 mg/dL (8.5-10.1); CREATININE 1.1 mg/dL (0.55-1.3); POTASSIUM 3.8 mmol/L (3.5-5.1); TOT PROT 7.1 g/dl (6.4-8.2)
--- NOTE | 2020-01-04 11:42 | PN ---
[facility] CIWA - CIWA Score Nausea/Vomitin-No Nausea/No Vomiting Muscle Tremors: 3 Anxiety: 3 Agitation: 3 Paroxysmal Sweats: 3 Orientation: 0-Oriented Tacttile Disturbances: 0-None Auditory Disturbances: 0-None Visual Disturbances: 0-None Headache: 0-None Present CIWA-Ar Total Score: 12 [facility] COWS - Scale Resting Pulse: 0= [place] 80 or Below Sweatin= Chills/Flushing Restless Observation: 1= Difficult to Sit Still Pupil Size: 0= Normal to Room Light Bone or Joint Aches: 2= Severe Diffuse Aches Runny Nose/ Eye Tearin= Nasal Congestion GI Upset > 30mins: 0= None Tremor Observation of Outstretched Hands: 1= Tremor [place], Not Seen Yawning Observation: 1= 1-2x During Session Anxiety or Irritability: 1=Feels Anxious/Irritable Goose Flesh Skin: 0=Smooth Skin COWS Score: 8 [facility] Progress Note (SOAP) Subjective: sweats shakes body aches interrupted sleep agitation poor appetite Objective: 01/04/20 11:41 Vital Signs Temperature 97.1 F L 01/04/20 08:48 Pulse Rate 67 01/04/20 08:48 Respiratory Rate 18 01/04/20 08:48 Blood Pressure 120/70 01/04/20 08:48 O2 Sat by Pulse Oximetry (%) 96 01/04/20 06:18 Laboratory Tests 01/04/20 01/04/20 01/04/20 07:00 07:00 07:00 WBC 4.9 RBC 3.93 L Hgb 12.5 Hct 38.5 MCV 98.1 H MCH 31.9 MCHC 32.5 RDW 14.1 Plt Count 250 MPV 8.5 Sodium 138 Potassium 3.8 Chloride 103 Carbon Dioxide 29 Anion Gap 6 L BUN 18.5 H Creatinine 1.1 Est GFR (CKD-EPI)AfAm 87.74 Est GFR (CKD-EPI)NonAf 75.70 Random Glucose 116 H Calcium 8.9 Total Bilirubin 1.0 AST 20 ALT 25 Alkaline Phosphatase 80 Total Protein 7.1 Albumin 4.0 Syphilis Serology Reactive A* titer pending aaox3 ambulating no acute distress Assessment: 01/04/20 11:41 withdrawals Plan: continue detox ensure bid
[2020-01-04] MEDS ORDERED: MASKS NR ONE (12:45)
[2020-01-04] MEDS: IBUPROFEN 400 MG TABLET (FP) PO PRN (18:37)
[2020-01-04] MEDS: MELATONIN 5 MG TABLETS PO SCH (22:10)
[2020-01-04] MEDS: THIAMINE HCL 100 MG TABLET (FP) PO SCH (22:11)
[2020-01-05] MEDS: chlordiazePOXIDE HCL 25 MG CAPSULE PO SCH ×4 (05:38→22:17)
[2020-01-05] MEDS ORDERED: METHADONE HCL 10 MG TABLET (FOR DETOX USE ONLY) PO ONE (10:00)
[2020-01-05] MEDS: NICOTINE 14 MG/24 HOURS TOPICAL PATCH TD SCH (10:27)
[2020-01-05] MEDS: amLODIPine BESYLATE 5 MG TABLET (FP) PO SCH (10:28)
[2020-01-05] MEDS: PRENATAL VITAMINS W/ FOLIC ACID TABLET (FP) PO SCH (10:28)
[2020-01-05] MEDS: BUDESONIDE/FORMETEROL FUMARATE 160/4.5 mcg INHALER IH SCH ×2 (10:28→22:18)
[2020-01-05] MEDS: IBUPROFEN 400 MG TABLET (FP) PO PRN ×2 (10:30→16:42)
[2020-01-05] MEDS: METHOCARBAMOL 500 MG TABLET PO PRN ×2 (10:30→16:42)
[2020-01-05] MEDS: TIOTROPIUM BROMIDE 2.5 MCG (SPIRIVA) RESPIMAT INHALER IH SCH (10:31)
--- NOTE | 2020-01-05 10:45 | PN ---
[facility] CIWA - CIWA Score Nausea/Vomitin-No Nausea/No Vomiting Muscle Tremors: 3 Anxiety: 3 Agitation: 3 Paroxysmal Sweats: 2 Orientation: 0-Oriented Tacttile Disturbances: 0-None Auditory Disturbances: 0-None Visual Disturbances: 0-None Headache: 0-None Present CIWA-Ar Total Score: 11 S COWS - Scale Resting Pulse: 0= [place] 80 or Below Sweatin= Chills/Flushing Restless Observation: 1= Difficult to Sit Still Pupil Size: 0= Normal to Room Light Bone or Joint Aches: 1= Mild Discomfort Runny Nose/ Eye Tearin= None GI Upset > 30mins: 0= None Tremor Observation of Outstretched Hands: 1= Tremor [place], Not Seen Yawning Observation: 0= None Anxiety or Irritability: 1=Feels Anxious/Irritable Goose Flesh Skin: 0=Smooth Skin COWS Score: 5 S Progress Note (SOAP) Subjective: dry eyes sweats shakes shoulder pain I need my spirivia for my copd Objective: 01/05/20 10:44 Vital Signs Temperature 97.1 F L 01/05/20 08:32 Pulse Rate 70 01/05/20 08:32 Respiratory Rate 16 01/05/20 08:32 Blood Pressure 120/90 01/05/20 08:32 O2 Sat by Pulse Oximetry (%) 98 01/05/20 05:21 Laboratory Tests 01/03/20 01/04/20 01/04/20 19:00 07:00 07:00 WBC 4.9 RBC 3.93 L Hgb 12.5 Hct 38.5 MCV 98.1 H MCH 31.9 MCHC 32.5 RDW 14.1 Plt Count 250 MPV 8.5 Sodium Potassium Chloride Carbon Dioxide Anion Gap BUN Creatinine Est GFR (CKD-EPI)AfAm Est GFR (CKD-EPI)NonAf Random Glucose Calcium Total Bilirubin AST ALT Alkaline Phosphatase Total Protein Albumin Syphilis Serology Reactive A* RPR Titer COVID-19 ([facility]) Not detected 01/04/20 01/04/20 07:00 07:00 WBC RBC Hgb Hct MCV MCH MCHC RDW Plt Count MPV Sodium 138 Potassium 3.8 Chloride 103 Carbon Dioxide 29 Anion Gap 6 L BUN 18.5 H Creatinine 1.1 Est GFR (CKD-EPI)AfAm 87.74 Est GFR (CKD-EPI)NonAf 75.70 Random Glucose 116 H Calcium 8.9 Total Bilirubin 1.0 AST 20 ALT 25 Alkaline Phosphatase 80 Total Protein 7.1 Albumin 4.0 Syphilis Serology RPR Titer Reactive 1:1 H COVID-19 ([facility]) labs noted rpr titer is a 1:1 with reactive titer; will discuss treatment aaox3 ambulating no acute distress Assessment: 01/05/20 10:45 withdrawals Plan: continue detox increase fluids artificial tears ordered spirivia ordered will re-discuss options for any treatment necessary for a low rpr titer
[2020-01-05] MEDS: THIAMINE HCL 100 MG TABLET (FP) PO SCH (22:18)
[2020-01-05] MEDS: MELATONIN 5 MG TABLETS PO SCH (22:18)
[2020-01-06] MEDS ORDERED: chlordiazePOXIDE HCL 10 MG CAPSULE PO PRN
[2020-01-06] MEDS: ARTIFICIAL TEARS (POLYVINYL ALCOHOL) OPTH DROPS OU PRN (05:59)
[2020-01-06] MEDS: chlordiazePOXIDE HCL 10 MG CAPSULE PO SCH ×4 (06:00→22:03)
[2020-01-06] MEDS: IBUPROFEN 400 MG TABLET (FP) PO PRN (06:01)
[2020-01-06] MEDS: METHOCARBAMOL 500 MG TABLET PO PRN (06:02)
[2020-01-06] MEDS ORDERED: METHADONE HCL 5 MG TABLET (FOR DETOX USE ONLY) ONE (08:38)
[2020-01-06] MEDS ORDERED: METHADONE HCL 10 MG TABLET (FOR DETOX USE ONLY) ONE (08:38)
[2020-01-06] MEDS ORDERED: METHADONE (DETOX) 10 MG, METHADONE (DETOX) 5 MG PO ONE (10:00)
[2020-01-06] MEDS: BUDESONIDE/FORMETEROL FUMARATE 160/4.5 mcg INHALER IH SCH ×2 (10:06→22:03)
[2020-01-06] MEDS: NICOTINE 14 MG/24 HOURS TOPICAL PATCH TD SCH (10:06)
[2020-01-06] MEDS: amLODIPine BESYLATE 5 MG TABLET (FP) PO SCH (10:06)
[2020-01-06] MEDS: PRENATAL VITAMINS W/ FOLIC ACID TABLET (FP) PO SCH (10:06)
[2020-01-06] MEDS: TIOTROPIUM BROMIDE 2.5 MCG (SPIRIVA) RESPIMAT INHALER IH SCH (10:07)
--- NOTE | 2020-01-06 12:03 | PN ---
S CIWA - CIWA Score Nausea/Vomitin-No Nausea/No Vomiting Muscle Tremors: 2 Anxiety: 1-Mildly Anxious Agitation: 1-Slight > Activity Paroxysmal Sweats: No Perspiration Orientation: 0-Oriented Tacttile Disturbances: 0-None Auditory Disturbances: 0-None Visual Disturbances: 0-None Headache: 0-None Present CIWA-Ar Total Score: 4 [facility] COWS - Scale Resting Pulse: 0= [place] 80 or Below Sweatin= Chills/Flushing Restless Observation: 1= Difficult to Sit Still Pupil Size: 0= Normal to Room Light Bone or Joint Aches: 1= Mild Discomfort Runny Nose/ Eye Tearin= None GI Upset > 30mins: 0= None Tremor Observation of Outstretched Hands: 1= Tremor [place], Not Seen Yawning Observation: 1= 1-2x During Session Anxiety or Irritability: 1=Feels Anxious/Irritable Goose Flesh Skin: 0=Smooth Skin COWS Score: 6 S Progress Note (SOAP) Subjective: sweats anxiety shoulder pain Objective: 01/06/20 12:01 Vital Signs Temperature 98.2 F 01/06/20 08:42 Pulse Rate 72 01/06/20 08:42 Respiratory Rate 18 01/06/20 08:42 Blood Pressure 136/69 01/06/20 08:42 O2 Sat by Pulse Oximetry (%) 100 01/06/20 05:40 Laboratory Tests 01/03/20 01/04/20 01/04/20 19:00 07:00 07:00 WBC 4.9 RBC 3.93 L Hgb 12.5 Hct 38.5 MCV 98.1 H MCH 31.9 MCHC 32.5 RDW 14.1 Plt Count 250 MPV 8.5 Sodium Potassium Chloride Carbon Dioxide Anion Gap BUN Creatinine Est GFR (CKD-EPI)AfAm Est GFR (CKD-EPI)NonAf Random Glucose Calcium Total Bilirubin AST ALT Alkaline Phosphatase Total Protein Albumin Syphilis Serology Reactive A* RPR Titer COVID-19 ([facility]) Not detected 01/04/20 01/04/20 07:00 07:00 WBC RBC Hgb Hct MCV MCH MCHC RDW Plt Count MPV Sodium 138 Potassium 3.8 Chloride 103 Carbon Dioxide 29 Anion Gap 6 L BUN 18.5 H Creatinine 1.1 Est GFR (CKD-EPI)AfAm 87.74 Est GFR (CKD-EPI)NonAf 75.70 Random Glucose 116 H Calcium 8.9 Total Bilirubin 1.0 AST 20 ALT 25 Alkaline Phosphatase 80 Total Protein 7.1 Albumin 4.0 Syphilis Serology RPR Titer Reactive 1:1 H COVID-19 ([facility]) labs noted discussion done with pt regarding rpr with low titer pt is allergic to penicillin therefore bicilian injection cannot be ordered pt may be placed on oral ABX and he is in agreement aaox3 ambulating no acute distress Assessment: 01/06/20 12:03 withdrawals Plan: continue detox doxcycline abx ordered increase fluids lidocaine patch
[2020-01-06] MEDS: LIDOCAINE 5% TOPICAL PATCH TP SCH (13:23)
[2020-01-06] MEDS: DOXYCYCLINE HYCLATE 100 MG TABLET PO SCH (17:24)
[2020-01-06] MEDS: THIAMINE HCL 100 MG TABLET (FP) PO SCH (22:02)
[2020-01-06] MEDS: LIDOCAINE PATCH REMOVAL MC SCH (22:02)
[2020-01-06] MEDS: MELATONIN 5 MG TABLETS PO SCH (22:03)
[2020-01-07] MEDS: chlordiazePOXIDE HCL 10 MG CAPSULE PO SCH ×2 (05:32→18:02)
[2020-01-07] MEDS: IBUPROFEN 400 MG TABLET (FP) PO PRN ×2 (05:51→13:02)
[2020-01-07] MEDS ORDERED: METHADONE HCL 10 MG TABLET (FOR DETOX USE ONLY) PO ONE (10:00)
[2020-01-07] MEDS: BUDESONIDE/FORMETEROL FUMARATE 160/4.5 mcg INHALER IH SCH ×2 (10:51→22:57)
[2020-01-07] MEDS: ARTIFICIAL TEARS (POLYVINYL ALCOHOL) OPTH DROPS OU PRN (10:51)
[2020-01-07] MEDS: DOXYCYCLINE HYCLATE 100 MG TABLET PO SCH (10:51)
[2020-01-07] MEDS: TIOTROPIUM BROMIDE 2.5 MCG (SPIRIVA) RESPIMAT INHALER IH SCH (10:51)
[2020-01-07] MEDS: amLODIPine BESYLATE 5 MG TABLET (FP) PO SCH (10:51)
[2020-01-07] MEDS: LIDOCAINE 5% TOPICAL PATCH TP SCH (10:52)
[2020-01-07] MEDS: PRENATAL VITAMINS W/ FOLIC ACID TABLET (FP) PO SCH (10:53)
[2020-01-07] MEDS: NICOTINE 14 MG/24 HOURS TOPICAL PATCH TD SCH (10:53)
--- NOTE | 2020-01-07 11:45 | PN ---
[facility] CIWA - CIWA Score Nausea/Vomitin-No Nausea/No Vomiting Muscle Tremors: 1-None Visible, but [place] Anxiety: 1-Mildly Anxious Agitation: 1-Slight > Activity Paroxysmal Sweats: No Perspiration Orientation: 0-Oriented Tacttile Disturbances: 0-None Auditory Disturbances: 0-None Visual Disturbances: 0-None Headache: 0-None Present CIWA-Ar Total Score: 3 S COWS - Scale Resting Pulse: 0= [place] 80 or Below Sweatin= Chills/Flushing Restless Observation: 1= Difficult to Sit Still Pupil Size: 0= Normal to Room Light Bone or Joint Aches: 0= None Runny Nose/ Eye Tearin= None GI Upset > 30mins: 0= None Tremor Observation of Outstretched Hands: 1= Tremor [place], Not Seen Yawning Observation: 0= None Anxiety or Irritability: 1=Feels Anxious/Irritable Goose Flesh Skin: 0=Smooth Skin COWS Score: 4 [facility] Progress Note (SOAP) Subjective: sweats interrupted sleep Objective: 01/07/20 11:44 Vital Signs Temperature 97.5 F L 01/07/20 11:24 Pulse Rate 63 01/07/20 11:24 Respiratory Rate 18 01/07/20 11:24 Blood Pressure 125/85 01/07/20 11:24 O2 Sat by Pulse Oximetry (%) 100 01/07/20 06:37 aaox3 ambulating no acute distress Assessment: 01/07/20 11:44 mild withdrawals Plan: continue detox d/c in am
[2020-01-07] MEDS: DOXYCYCLINE HYCLATE 100 MG CAPSULE PO SCH ×2 (12:00→18:02)
[2020-01-07] MEDS: METHOCARBAMOL 500 MG TABLET PO PRN (13:02)
[2020-01-07] MEDS: MELATONIN 5 MG TABLETS PO SCH (22:20)
[2020-01-07] MEDS: THIAMINE HCL 100 MG TABLET (FP) PO SCH (22:20)
[2020-01-07] MEDS: LIDOCAINE PATCH REMOVAL MC SCH (22:21)
[2020-01-08] MEDS: METHOCARBAMOL 500 MG TABLET PO PRN ×2 (01:41→07:42)
[2020-01-08] MEDS: IBUPROFEN 400 MG TABLET (FP) PO PRN ×2 (01:41→07:43)
[2020-01-08] MEDS ORDERED: chlordiazePOXIDE HCL 10 MG CAPSULE PO ONE (05:00)
[2020-01-08] MEDS ORDERED: METHADONE HCL 5 MG TABLET (FOR DETOX USE ONLY) PO ONE (06:00)
[2020-01-08 09:37] VITALS: BP 148/93; PULSE 66; TEMP 97.5
--- NOTE | 2020-01-08 17:17 | DS ---
[facility] Detox Discharge Summary Admission Date: 01/03/20 Discharge Date: 01/08/20 - History Present History: Alcohol Dependence, Opioid Dependence Additional Comments: Patient to attend [facility] ([place], [place]) for aftercare. Prescription for aftercare for Doxycycline (initiated while Patient was admitted on Detox Unit for treatment of Reactive RPR result sent to Patient's Pharmacy ([place], [place]). Patient advised to complete full course of medication and to follow-up with Primary care Medical Provider as soon as possible after Discharge from Detox Unit. Patient verbalized understanding of recommendations. Patient was discharged form Detox Unit in stable medical condition. Pertinent Past History: History of C.O.P.D., Anxiety, Hypertension., Sarcoidosis, Nicotine Dependence, Nystagmus, Reactive RPR. - Physical Exam Results Vital Signs: Vital Signs Temperature 97.5 F L 01/08/20 08:48 Pulse Rate 66 01/08/20 08:48 Respiratory Rate 17 01/08/20 08:48 Blood Pressure 148/93 01/08/20 08:48 O2 Sat by Pulse Oximetry (%) 98 01/08/20 05:28 Pertinent Admission Physical Exam Findings: WITHDRAWAL SYMPTOMS. Laboratory Tests 01/03/20 01/04/20 01/04/20 19:00 07:00 07:00 WBC 4.9 RBC 3.93 L Hgb 12.5 Hct 38.5 MCV 98.1 H MCH 31.9 MCHC 32.5 RDW 14.1 Plt Count 250 MPV 8.5 Sodium Potassium Chloride Carbon Dioxide Anion Gap BUN Creatinine Est GFR (CKD-EPI)AfAm Est GFR (CKD-EPI)NonAf Random Glucose Calcium Total Bilirubin AST ALT Alkaline Phosphatase Total Protein Albumin Syphilis Serology Reactive A* RPR Titer COVID-19 ([facility]) Not detected 01/04/20 01/04/20 07:00 07:00 WBC RBC Hgb Hct MCV MCH MCHC RDW Plt Count MPV Sodium 138 Potassium 3.8 Chloride 103 Carbon Dioxide 29 Anion Gap 6 L BUN 18.5 H Creatinine 1.1 Est GFR (CKD-EPI)AfAm 87.74 Est GFR (CKD-EPI)NonAf 75.70 Random Glucose 116 H Calcium 8.9 Total Bilirubin 1.0 AST 20 ALT 25 Alkaline Phosphatase 80 Total Protein 7.1 Albumin 4.0 Syphilis Serology RPR Titer Reactive 1:1 H COVID-19 ([facility]) Lab Results noted. - Treatment Hospital Course: Detox Protocol Followed, Detoxed Safely, Responded well, Discharged Condition Good Patient has Accepted a Rehab Referral to: Patient to attend [facility] ([place], [place]) for aftercare. - Medication Discharge Medications: Ambulatory Orders Amlodipine Besylate [Norvasc -] 5 mg PO DAILY #30 tablet 07/19/19 Budesonide/Formeterol Fumarate [SYMBICORT 160/4.5mcg -] 2 inh PO BID #1 inhaler 07/19/19 Umeclidinium Hunter [Incruse Ellipta] 62.5 mcg IH DAILY #1 blst.w.dev 07/19/19 Doxycycline Hyclate 100 mg PO BID 14 Days #28 tablet 01/08/20 - Diagnosis (1) Alcohol dependence with uncomplicated withdrawal Status: Acute (2) Opioid dependence with withdrawal Status: Acute (3) COPD (chronic obstructive pulmonary disease) Status: Chronic Qualifiers: COPD type: emphysema Emphysema type: unspecified Qualified Code(s): J43.9 - Emphysema, unspecified (4) Hx of sarcoidosis Status: Chronic (5) Hypertension Status: Chronic Qualifiers: Hypertension type: unspecified Qualified Code(s): I10 - Essential (primary) hypertension (6) Unspecified nystagmus Status: Chronic (7) Nicotine dependence Status: Chronic Qualifiers: Nicotine product type: cigarettes Substance use status: uncomplicated Qualified Code(s): F17.210 - Nicotine dependence, cigarettes, uncomplicated - AMA Did Patient Leave Against Medical Advice: No
== END 2020-01-08 09:17 | disposition home or self-care (01) | DRG 773 ==
LOC: YASAS 14:36 → Y6N 18:28
PROVIDERS: ADMIT Allergy & Immunology; ATTEND Allergy & Immunology
PROC: HZ2ZZZZ Detoxification Services for Substance Abuse Treatment (ICD-10-PCS; principal; 2020-01-03)
DX: F11.23 Opioid dependence with withdrawal (principal); F10.230 Alcohol dependence with withdrawal, uncomplicated; F17.210 Nicotine dependence, cigarettes, uncomplicated; J43.9 Emphysema, unspecified; I10 Essential (primary) hypertension; H55.00 Unspecified nystagmus
CPT/HCPCS: 36415; 80053; 85027; 86593; 86780; Q0162; U0003

== ENCOUNTER 2020-02-02 16:39 | Inpatient (IN) | payer OTHER ==
--- NOTE | 2020-02-02 19:26 | HP ---
COWS - Scale Resting Pulse: 1= [place] 81-100 Sweatin= Chills/Flushing Restless Observation: 1= Difficult to Sit Still Pupil Size: 0= Normal to Room Light Bone or Joint Aches: 1= Mild Discomfort Runny Nose/ Eye Tearin= None GI Upset > 30mins: 2= Nausea/Diarrhea Tremor Observation: 0= None Yawning Observation: 0= None Anxiety or Irritability: 2=Irritable/Anxious Goose Flesh Skin: 0=Smooth Skin COWS Score: 8 CIWA Score Nausea/Vomitin Muscle Tremors: None Anxiety: 2 Agitation: 4-Moderately Restless Paroxysmal Sweats: No Perspiration Orientation: 0-Oriented Tacttile Disturbances: 1-Very Mild Itch/Numbness Auditory Disturbances: 0-None Visual Disturbances: 0-None Headache: 0-None Present CIWA-Ar Total Score: 9 - Admission Criteria OASAS Guidelines: Admission for Medically Managed Detox: Requires at least one of the followin. CIWA greater than 12 2. Seizures within the past 24 hours 3. Delirium tremens within the past 24 hours 4. Hallucinations within the past 24 hours 5. Acute intervention needed for co occurring medical disorder 6. Acute intervention needed for co occurring psychiatric disorder 7. Severe withdrawal that cannot be handled at a lower level of care (continued vomiting, continued diarrhea, abnormal vital signs) requiring intravenous medication and/or fluids 8. Admitting History and Physical - Past Medical History Cardiovascular: Yes: HTN Pulmonary: Yes: Other (sarcoidosis) - Past Surgical History Past Surgical History: Yes: None - Smoking History Smoking history: Current every day smoker Have you smoked in the past 12 months: Yes Aproximately how many cigarettes per day: 10 - Alcohol/Substance Use Hx Alcohol Use: Yes Number of Drinks Daily: 10 History of Substance Use: reports: Heroin - Social History ADL: Independent Occupation: unemployed History of Recent Travel: No Admission ROS S - HPI Allergies/Adverse Reactions: Allergies Allergy/AdvReac Type Severity Reaction Status Date / Time Penicillins Allergy Verified 02/02/20 20:00 History of Present Illness: 54 y.o. male requesting detox from alcohol and heroin use ,denies recent detox except at this facility 1 mo ago , reports relapse after 4 days , current use 5-6 bags to max 1 bundle , latest use earlier today , denies IV use . OD x once . Has Narcan at home and does not know how to use it , lives alone . etoh - 1/5 to 1 x 6-pk .day , reports agitation if not drinking alcohol. Denies withdrawal seizures , denies blackouts , occasional tremors ,denies falls while intoxication . Nicotine : since age 16 , 7-8 cigs/day PMHx: HTN; Sarcoidosis; COPD . Exam Limitations: Clinical Condition, Intoxication - Review of Systems Constitutional: Loss of Appetite, Unintentional Wgt. Loss (10 lbs) EENT: reports: No Symptoms Reported, Other ( reading glasses) Respiratory: reports: See HPI, Shortness of Breath Cardiac: reports: No Symptoms Reported GI: reports: Diarrhea, Poor Appetite, Abdominal cramping : reports: No Symptoms Reported Musculoskeletal: reports: Muscle Pain Integumentary: reports: No Symptoms Reported Neuro: reports: No Symptoms reported Endocrine: reports: No Symptoms Reported Hematology: reports: No Symptoms Reported Psychiatric: reports: Orientated x3, Agitated, Anxious Patient History - Patient Medical History Hx Anemia: No Hx Asthma: No Hx Chronic Obstructive Pulmonary Disease (COPD): Yes Hx Cancer: No Hx Cardiac Disorders: No Hx Congestive Heart Failure: No Hx Hypertension: Yes Hx Hypercholesterolemia: No Hx Pacemaker: No HX Cerebrovascular Accident: No Hx Seizures: No Hx Dementia: No Hx Diabetes: No Hx Gastrointestinal Disorders: No Hx Liver Disease: No Hx Genitourinary Disorders: No Hx Sexually Transmitted Disorders: No Hx Renal Disease (ESRD): No Hx Thyroid Disease: No Hx Human Immunodeficiency Virus (HIV): No Hx Hepatitis C: No Hx Depression: No Hx Suicide Attempt: No Hx Bipolar Disorder: No Hx Schizophrenia: No - Patient Surgical History Past Surgical History: No Hx Neurologic Surgery: No Hx Cataract Extraction: No Hx Cardiac Surgery: No Hx Lung Surgery: No Hx Breast Surgery: No Hx Breast Biopsy: No Hx Abdominal Surgery: No Hx Appendectomy: No Hx Cholecystectomy: No Hx Genitourinary Surgery: No Hx Section: No Hx Orthopedic Surgery: No Anesthesia Reaction: No - PPD History Date: 06/02/19 Results: 0 mm - Smoking Cessation Smoking history: Current every day smoker Have you smoked in the past 12 months: Yes Aproximately how many cigarettes per day: 10 Cigars Per Day: 0 Hx Chewing Tobacco Use: No Initiated information on smoking cessation: Yes 'Breaking Loose' booklet given: 02/02/20 - Substances abused Heroin Substance route: Inhalation Frequency: Daily Amount used: 5 to 6 bags/ bundle Age of first use: 52 Date of last use: 02/02/20 Alcohol Substance route: Oral Frequency: Daily Amount used: 6 packs to a fifth of vodka/beer Age of first use: 18 Date of last use: 02/02/20 Admission Physical Exam BHS - Physical General Appearance: Yes: Mild Distress, Moderate Distress, Intoxicated, Irritable, Anxious HEENTM: Yes: EOMI, Hearing grossly Normal, Normocephalic, Normal Voice Respiratory: Yes: Chest Non-Tender, Lungs Clear, Normal Breath Sounds, No Respiratory Distress, No Accessory Muscle Use Neck: Yes: No masses,lesions,Nodules, Trachea in good position Cardiology: Yes: Regular Rhythm, Regular Rate, S1, S2 Abdominal: Yes: Non Tender, Soft Back: Yes: Normal Inspection Musculoskeletal: Yes: Gait Steady Extremities: Yes: Normal Capillary Refill, Normal Inspection, Normal Range of Motion, Non-Tender Neurological: Yes: Fully Oriented, Alert, Motor Strength 5/5, Other (irritable affect) Integumentary: Yes: Warm - Addiitonal Findings: QTC 467 ms d/w pt , advised to f/up w/ cardiology prior lab work reviewed w/ pt Hgb A1c 6.1 % ,01/03/2020 , pt advised of pre-DM , reports FHX diabetes sister, father . Nutritional counseling done . - Diagnostic (1) Alcohol dependence with uncomplicated withdrawal Current Visit: Yes Status: Chronic (2) Opioid dependence with withdrawal Current Visit: Yes Status: Chronic (3) Nicotine dependence Current Visit: Yes Status: Chronic Qualifiers: Nicotine product type: cigarettes Substance use status: uncomplicated Qualified Code(s): F17.210 - Nicotine dependence, cigarettes, uncomplicated Breathalyzer - Breathalyzer Breathalyzer: 0.020 Urine Drug Screen - Test Device Lot number: [id number] Expiration date: 03/13/21 - Control Is test valid?: Yes - Results Drug screen NEGATIVE: No Urine drug screen results: FEN-Fentanyl, MOP-Opiates, BZO-Benzodiazepines Inpatient Rehab Admission - Rehab Decision to Admit Inpatient rehab admission?: No
[2020-02-02] MEDS ORDERED: MAGNESIUM HYDROX 2400MG/30ML ORAL SUSPENSION 30 ML CUP PO PRN (19:35)
[2020-02-02] MEDS ORDERED: ACETAMINOPHEN 325 MG TABLET (FP) PO PRN ×2 (19:35)
[2020-02-02] MEDS ORDERED: MAGNESIUM CITRATE 300 ML BOTTLE PO PRN (19:35)
[2020-02-02] MEDS ORDERED: hydrOXYzine PAMOATE 25 MG CAPSULE (FP) PO PRN (19:35)
[2020-02-02] MEDS ORDERED: MENTHOL/PHENOL 1 EACH UD MM PRN (19:35)
[2020-02-02] MEDS ORDERED: BISMUTH SUBSALICYLATE 524 MG/30 ML UD PO PRN (19:35)
[2020-02-02] MEDS ORDERED: MAG HYDROX/AL HYDROX/SIMETH 30 ML UNIT-DOSE CUP PO PRN (19:35)
[2020-02-02] MEDS ORDERED: IBUPROFEN 400 MG TABLET (FP) PO PRN (19:35)
[2020-02-02] MEDS ORDERED: cloNIDine HCL 0.1 MG TABLET PO PRN (19:37)
[2020-02-02 20:12] VITALS: BMI 19.1
[2020-02-02] MEDS ORDERED: ONDANSETRON *ODT* 4 MG TABLET SL PRN (20:16)
[2020-02-02] MEDS ORDERED: METHADONE HCL 10 MG TABLET (FOR DETOX USE ONLY) PO ONE (20:30)
[2020-02-02] MEDS ORDERED: diazePAM 5 MG TABLET PO ONE (20:30)
[2020-02-02] MEDS: THIAMINE HCL 100 MG TABLET (FP) PO SCH (21:06)
[2020-02-02] MEDS: MELATONIN 5 MG TABLETS PO SCH (21:06)
[2020-02-02] MEDS: diazePAM 5 MG TABLET PO SCH (21:07)
[2020-02-02] MEDS: BUDESONIDE/FORMETEROL FUMARATE 160/4.5 mcg INHALER IH SCH (21:07)
[2020-02-02] MEDS: amLODIPine BESYLATE 5 MG TABLET (FP) PO SCH (21:28)
[2020-02-03] MEDS: diazePAM 5 MG TABLET PO SCH ×3 (06:12→22:15)
[2020-02-03] MEDS ORDERED: METHADONE HCL 5 MG TABLET (FOR DETOX USE ONLY) ONE (09:25)
[2020-02-03] MEDS ORDERED: METHADONE HCL 10 MG TABLET (FOR DETOX USE ONLY) ONE (09:26)
[2020-02-03] MEDS ORDERED: METHADONE (DETOX) 20 MG, METHADONE (DETOX) 5 MG PO ONE (10:00)
[2020-02-03] MEDS: amLODIPine BESYLATE 5 MG TABLET (FP) PO SCH (10:47)
[2020-02-03] MEDS: PRENATAL VITAMINS W/ FOLIC ACID TABLET (FP) PO SCH (10:47)
[2020-02-03] MEDS: BUDESONIDE/FORMETEROL FUMARATE 160/4.5 mcg INHALER IH SCH ×2 (11:20→22:16)
[2020-02-03] MEDS: TIOTROPIUM BROMIDE 2.5 MCG (SPIRIVA) RESPIMAT INHALER IH SCH (11:20)
[2020-02-03] MEDS ORDERED: TRIMETHOBENZAMIDE HCL 300 MG CAPSULE PO PRN (11:29)
--- NOTE | 2020-02-03 11:39 | PN ---
[facility] CIWA - CIWA Score Nausea/Vomitin-No Nausea/No Vomiting Muscle Tremors: 3 Anxiety: 2 Agitation: 2 Paroxysmal Sweats: 1-Minimal Palms Moist Orientation: 0-Oriented Tacttile Disturbances: 0-None Auditory Disturbances: 0-None Visual Disturbances: 0-None Headache: 0-None Present CIWA-Ar Total Score: 8 BHS COWS - Scale Resting Pulse: 0= [place] 80 or Below Sweatin= Chills/Flushing Restless Observation: 1= Difficult to Sit Still Pupil Size: 0= Normal to Room Light Bone or Joint Aches: 2= Severe Diffuse Aches Runny Nose/ Eye Tearin= Nasal Congestion GI Upset > 30mins: 0= None Tremor Observation of Outstretched Hands: 1= Tremor [place], Not Seen Yawning Observation: 2= >3x During Session Anxiety or Irritability: 2=Irritable/Anxious Goose Flesh Skin: 0=Smooth Skin COWS Score: 10 [facility] Progress Note (SOAP) Subjective: sweats shakes interrupted sleep agitation Objective: 02/03/20 11:34 Vital Signs Temperature 97.8 F 02/03/20 05:52 Pulse Rate 64 02/03/20 05:52 Respiratory Rate 16 02/03/20 05:52 Blood Pressure 129/83 02/03/20 05:52 O2 Sat by Pulse Oximetry (%) 96 02/03/20 05:52 labs pending aaox3 ambulating no acute distress Assessment: 02/03/20 11:34 withdrawals Plan: continue detox increase fluids pending labs
[2020-02-03] MEDS: THIAMINE HCL 100 MG TABLET (FP) PO SCH (22:15)
[2020-02-03] MEDS: METHOCARBAMOL 500 MG TABLET PO PRN (22:16)
[2020-02-03] MEDS: MELATONIN 5 MG TABLETS PO SCH (22:16)
[2020-02-04] MEDS: diazePAM 5 MG TABLET PO SCH ×2 (05:35→17:53)
[2020-02-04] MEDS ORDERED: METHADONE HCL 10 MG TABLET (FOR DETOX USE ONLY) PO ONE (10:00)
--- NOTE | 2020-02-04 10:04 | PN ---
[facility] CIWA - CIWA Score Nausea/Vomitin-No Nausea/No Vomiting Muscle Tremors: 2 Anxiety: 2 Agitation: 2 Paroxysmal Sweats: 2 Orientation: 0-Oriented Tacttile Disturbances: 0-None Auditory Disturbances: 0-None Visual Disturbances: 0-None Headache: 0-None Present CIWA-Ar Total Score: 8 BHS COWS - Scale Resting Pulse: 0= [place] 80 or Below Sweatin= Chills/Flushing Restless Observation: 1= Difficult to Sit Still Pupil Size: 0= Normal to Room Light Bone or Joint Aches: 2= Severe Diffuse Aches Runny Nose/ Eye Tearin= None GI Upset > 30mins: 0= None Tremor Observation of Outstretched Hands: 1= Tremor [place], Not Seen Yawning Observation: 1= 1-2x During Session Anxiety or Irritability: 2=Irritable/Anxious Goose Flesh Skin: 0=Smooth Skin COWS Score: 8 S Progress Note (SOAP) Subjective: sweats shakes interrupted sleep body aches Objective: 02/04/20 10:03 Vital Signs Temperature 97.5 F L 02/04/20 05:33 Pulse Rate 62 02/04/20 05:33 Respiratory Rate 20 02/04/20 05:33 Blood Pressure 147/88 02/04/20 05:33 O2 Sat by Pulse Oximetry (%) 99 02/04/20 05:33 pt had labs drawn a month ago while inpatient detox. no further labs required at this time. aaox3 ambulating no acute distress Assessment: 02/04/20 10:04 withdrawals Plan: continue detox increase fluids
[2020-02-04] MEDS: PRENATAL VITAMINS W/ FOLIC ACID TABLET (FP) PO SCH (10:53)
[2020-02-04] MEDS: amLODIPine BESYLATE 5 MG TABLET (FP) PO SCH (10:53)
[2020-02-04] MEDS: BUDESONIDE/FORMETEROL FUMARATE 160/4.5 mcg INHALER IH SCH ×2 (10:54→22:05)
[2020-02-04] MEDS: TIOTROPIUM BROMIDE 2.5 MCG (SPIRIVA) RESPIMAT INHALER IH SCH (10:54)
[2020-02-04] MEDS: METHOCARBAMOL 500 MG TABLET PO PRN ×2 (10:56→17:53)
[2020-02-04] MEDS: diazePAM 5 MG TABLET PO PRN ×2 (13:58→22:05)
[2020-02-04] MEDS: MELATONIN 5 MG TABLETS PO SCH (22:05)
[2020-02-04] MEDS: THIAMINE HCL 100 MG TABLET (FP) PO SCH (22:05)
[2020-02-05] MEDS: METHOCARBAMOL 500 MG TABLET PO PRN ×3 (03:11→22:09)
[2020-02-05] MEDS ORDERED: diazePAM 5 MG TABLET PO ONE (06:00)
[2020-02-05] MEDS ORDERED: METHADONE HCL 10 MG TABLET (FOR DETOX USE ONLY) ONE (08:47)
[2020-02-05] MEDS ORDERED: METHADONE HCL 5 MG TABLET (FOR DETOX USE ONLY) ONE (08:47)
[2020-02-05] MEDS ORDERED: METHADONE (DETOX) 10 MG, METHADONE (DETOX) 5 MG PO ONE (10:00)
[2020-02-05] MEDS: amLODIPine BESYLATE 5 MG TABLET (FP) PO SCH (10:12)
[2020-02-05] MEDS: TIOTROPIUM BROMIDE 2.5 MCG (SPIRIVA) RESPIMAT INHALER IH SCH (10:12)
[2020-02-05] MEDS: BUDESONIDE/FORMETEROL FUMARATE 160/4.5 mcg INHALER IH SCH ×2 (10:12→22:09)
[2020-02-05] MEDS: PRENATAL VITAMINS W/ FOLIC ACID TABLET (FP) PO SCH (10:12)
--- NOTE | 2020-02-05 13:14 | PN ---
[facility] CIWA - CIWA Score Nausea/Vomitin-No Nausea/No Vomiting Muscle Tremors: None Anxiety: 2 Agitation: 1-Slight > Activity Paroxysmal Sweats: 1-Minimal Palms Moist Orientation: 0-Oriented Tacttile Disturbances: 0-None Auditory Disturbances: 0-None Visual Disturbances: 0-None Headache: 0-None Present CIWA-Ar Total Score: 4 S COWS - Scale Resting Pulse: 0= [place] 80 or Below Sweatin= Chills/Flushing Restless Observation: 1= Difficult to Sit Still Pupil Size: 0= Normal to Room Light Bone or Joint Aches: 2= Severe Diffuse Aches Runny Nose/ Eye Tearin= None GI Upset > 30mins: 0= None Tremor Observation of Outstretched Hands: 0= None Yawning Observation: 0= None Anxiety or Irritability: 2=Irritable/Anxious Goose Flesh Skin: 0=Smooth Skin COWS Score: 6 S Progress Note (SOAP) Subjective: complaints of sweats, anxiety, irritability, and body aches. Objective: 02/05/20 13:13 Vital Signs 02/05/20 02/05/20 05:23 08:37 Temperature 97.1 F L 97.1 F L Pulse Rate 60 68 Respiratory 20 17 Rate Blood Pressure 138/90 121/75 O2 Sat by Pulse 100 100 Oximetry (%) Laboratory Last Values Syphilis Serology Reactive (NONREACTIVE) A* 02/04/20 08:15 Laboratory Tests 02/04/20 08:15 Syphilis Serology Reactive A* 02/05/20 15:01 Labs noted with Syphilis serology reactive, pending titer. Assessment: 02/05/20 13:14 Alert and oriented x3, in no acute respiratory distress. Full ROM, ambulatory without assistance. Withdrawal symptoms. Syphilis serology reactive, pending titer. 02/05/20 15:02 Plan: Continue detox protocol. Pt was treated in the past for syphilis. Will follow up with PCP upon discharge.
[2020-02-05] MEDS: diazePAM 5 MG TABLET PO PRN (14:23)
[2020-02-05] MEDS: MELATONIN 5 MG TABLETS PO SCH (22:09)
[2020-02-05] MEDS: THIAMINE HCL 100 MG TABLET (FP) PO SCH (22:09)
[2020-02-06] MEDS ORDERED: hydrOXYzine PAMOATE 25 MG CAPSULE (FP) PO PRN (01:35)
[2020-02-06] MEDS: amLODIPine BESYLATE 5 MG TABLET (FP) PO SCH (09:24)
[2020-02-06] MEDS: BUDESONIDE/FORMETEROL FUMARATE 160/4.5 mcg INHALER IH SCH ×2 (09:26→22:00)
[2020-02-06] MEDS: TIOTROPIUM BROMIDE 2.5 MCG (SPIRIVA) RESPIMAT INHALER IH SCH (09:26)
[2020-02-06] MEDS: PRENATAL VITAMINS W/ FOLIC ACID TABLET (FP) PO SCH (09:26)
[2020-02-06] MEDS ORDERED: METHADONE HCL 10 MG TABLET (FOR DETOX USE ONLY) PO ONE (10:00)
--- NOTE | 2020-02-06 14:31 | PN ---
[facility] CIWA - CIWA Score Nausea/Vomitin-No Nausea/No Vomiting Muscle Tremors: None Anxiety: 2 Agitation: 2 Paroxysmal Sweats: No Perspiration Orientation: 0-Oriented Tacttile Disturbances: 0-None Auditory Disturbances: 0-None Visual Disturbances: 0-None Headache: 0-None Present CIWA-Ar Total Score: 4 S COWS - Scale Resting Pulse: 0= [place] 80 or Below Sweatin= No chills or Flushing Restless Observation: 0= Sits Still Pupil Size: 0= Normal to Room Light Bone or Joint Aches: 1= Mild Discomfort Runny Nose/ Eye Tearin= None GI Upset > 30mins: 1= Stomach Cramp Tremor Observation of Outstretched Hands: 0= None Yawning Observation: 0= None Anxiety or Irritability: 1=Feels Anxious/Irritable Goose Flesh Skin: 0=Smooth Skin COWS Score: 3 S Progress Note (SOAP) Subjective: Anxious, patient stated he is for discharge tomorrow, refused inpatient rehab Objective: 02/06/20 14:30 Last Vital Signs Temp Pulse Resp BP Pulse Ox 97.7 F 71 18 127/76 99 02/06/20 12:55 02/06/20 12:55 02/06/20 12:55 02/06/20 12:55 02/06/20 12:55 Laboratory Tests 02/02/20 02/04/20 02/04/20 20:00 08:15 08:15 Syphilis Serology Reactive A* RPR Titer Reactive 1:2 H D COVID-19 (VEGA) Not detected Labs reviewed: RPR reactive, titer 1:2 Assessment: 02/06/20 14:30 Withdrawal sxs Noted with latent syphilis Plan: Continue detox Encouraged PO water intake Patient scheduled for discharge home tomorrow Latent syphilis: asx for new infection, treated in the past, follow up with PCP
[2020-02-06] MEDS: THIAMINE HCL 100 MG TABLET (FP) PO SCH (22:00)
[2020-02-06] MEDS: MELATONIN 5 MG TABLETS PO SCH (22:00)
[2020-02-07] MEDS ORDERED: METHADONE HCL 5 MG TABLET (FOR DETOX USE ONLY) PO ONE (06:00)
[2020-02-07 06:20] VITALS: BP 144/93; PULSE 62; TEMP 97.1
--- NOTE | 2020-02-07 08:50 | DS ---
[facility] Detox Discharge Summary Admission Date: 02/02/20 Discharge Date: 02/07/20 - History Present History: Alcohol Dependence, Cannabis Dependence, Opioid Dependence - Physical Exam Results Vital Signs: Vital Signs Temperature 97.1 F L 02/07/20 05:30 Pulse Rate 62 02/07/20 05:30 Respiratory Rate 20 02/07/20 05:30 Blood Pressure 144/93 02/07/20 05:30 O2 Sat by Pulse Oximetry (%) 98 02/07/20 05:30 Pertinent Admission Physical Exam Findings: Vital Signs Temperature 97.1 F L 02/07/20 05:30 Pulse Rate 62 02/07/20 05:30 Respiratory Rate 20 02/07/20 05:30 Blood Pressure 144/93 02/07/20 05:30 O2 Sat by Pulse Oximetry (%) 98 02/07/20 05:30 Laboratory Tests 02/02/20 02/04/20 02/04/20 20:00 08:15 08:15 Syphilis Serology Reactive A* RPR Titer Reactive 1:2 H D COVID-19 (VEGA) Not detected aaox3 ambulating no acute distress - Treatment Hospital Course: Detox Protocol Followed, Detoxed Safely, Responded well, Discharged Condition Good, Rehab Referral Accepted - Medication Discharge Medications: Ambulatory Orders Amlodipine Besylate [Norvasc -] 5 mg PO DAILY #30 tablet 07/19/19 Budesonide/Formeterol Fumarate [SYMBICORT 160/4.5mcg -] 2 inh PO BID #1 inhaler 07/19/19 Umeclidinium Walls [Incruse Ellipta] 62.5 mcg IH DAILY #1 blst.w.dev 07/19/19 - Diagnosis (1) Alcohol dependence with uncomplicated withdrawal Current Visit: Yes Status: Chronic (2) Nicotine dependence Current Visit: Yes Status: Chronic Qualifiers: Nicotine product type: cigarettes Substance use status: uncomplicated Qualified Code(s): F17.210 - Nicotine dependence, cigarettes, uncomplicated (3) Opioid dependence with withdrawal Current Visit: Yes Status: Chronic (4) COPD (chronic obstructive pulmonary disease) Current Visit: No Status: Chronic Qualifiers: COPD type: emphysema Emphysema type: unspecified Qualified Code(s): J43.9 - Emphysema, unspecified (5) COPD (chronic obstructive pulmonary disease) Current Visit: No Status: Chronic Qualifiers: COPD type: unspecified COPD Qualified Code(s): J44.9 - Chronic obstructive pulmonary disease, unspecified (6) Cannabis dependence Current Visit: Yes Status: Chronic (7) Cocaine dependence Current Visit: Yes Status: Chronic Qualifiers: Substance use status: uncomplicated Qualified Code(s): F14.20 - Cocaine dependence, uncomplicated (8) History of abnormal electrocardiogram Current Visit: No Status: Chronic (9) Hx of sarcoidosis Current Visit: No Status: Chronic (10) Hypertension Current Visit: No Status: Chronic Qualifiers: Hypertension type: unspecified Qualified Code(s): I10 - Essential (primary) hypertension (11) Insomnia Current Visit: No Status: Chronic (12) Substance induced mood disorder Current Visit: No Status: Chronic (13) Unspecified nystagmus Current Visit: No Status: Chronic - AMA Did Patient Leave Against Medical Advice: No
== END 2020-02-07 08:57 | disposition home or self-care (01) | DRG 773 ==
LOC: YASAS 16:39 → Y6N 20:14
PROVIDERS: ADMIT Allergy & Immunology; ATTEND Allergy & Immunology
PROC: HZ2ZZZZ Detoxification Services for Substance Abuse Treatment (ICD-10-PCS; principal; 2020-02-02)
DX: F10.230 Alcohol dependence with withdrawal, uncomplicated (principal); F11.23 Opioid dependence with withdrawal; F14.20 Cocaine dependence, uncomplicated; F12.20 Cannabis dependence, uncomplicated; F17.210 Nicotine dependence, cigarettes, uncomplicated; F19.24 Other psychoactive substance dependence with psychoactive substance-induced mood disorder; J43.9 Emphysema, unspecified; A53.0 Latent syphilis, unspecified as early or late; G47.00 Insomnia, unspecified; I10 Essential (primary) hypertension; Z86.79 Personal history of other diseases of the circulatory system; Z88.0 Allergy status to penicillin; Z86.2 Personal history of diseases of the blood and blood-forming organs and certain disorders involving the immune mechanism
CPT/HCPCS: 36415; 86593; 86780; U0003

== ENCOUNTER 2020-03-22 19:00 | Inpatient (IN) | payer OTHER ==
--- NOTE | 2020-03-22 21:24 | HP ---
COWS - Scale Resting Pulse: 0= [place] 80 or Below Sweatin=Flushed/Facial Moisture Restless Observation: 0= Sits Still Pupil Size: 0= Normal to Room Light Bone or Joint Aches: 0= None Runny Nose/ Eye Tearin= Runny Nose/Eyes GI Upset > 30mins: 3= Vomiting/Diarrhea (vomiting x 2, no diarrhea) Tremor Observation: 2= Slight Tremor Visible Yawning Observation: 0= None Anxiety or Irritability: 2=Irritable/Anxious Goose Flesh Skin: 0=Smooth Skin COWS Score: 11 CIWA Score Nausea/Vomitin (vomitng x 2) Muscle Tremors: 3 Anxiety: 3 Agitation: 2 Paroxysmal Sweats: 1-Minimal Palms Moist Orientation: 0-Oriented Tacttile Disturbances: 0-None Auditory Disturbances: 0-None Visual Disturbances: 0-None Headache: 0-None Present CIWA-Ar Total Score: 12 - Admission Criteria OASAS Guidelines: Admission for Medically Managed Detox: Requires at least one of the followin. CIWA greater than 12 2. Seizures within the past 24 hours 3. Delirium tremens within the past 24 hours 4. Hallucinations within the past 24 hours 5. Acute intervention needed for co occurring medical disorder 6. Acute intervention needed for co occurring psychiatric disorder 7. Severe withdrawal that cannot be handled at a lower level of care (continued vomiting, continued diarrhea, abnormal vital signs) requiring intravenous medication and/or fluids 8. Admitting History and Physical - Past Medical History Cardiovascular: Yes: HTN Pulmonary: Yes: Other (sarcoidosis) - Past Surgical History Past Surgical History: Yes: None - Smoking History Smoking history: Current every day smoker Have you smoked in the past 12 months: Yes Aproximately how many cigarettes per day: 10 - Alcohol/Substance Use Hx Alcohol Use: Yes Number of Drinks Daily: 10 History of Substance Use: reports: Heroin - Social History ADL: Independent Occupation: unemployed History of Recent Travel: No Admission ROS [facility] - [facility] Chief Complaint: Seeking admission to detox from alcohol and heroin Allergies/Adverse Reactions: Allergies Allergy/AdvReac Type Severity Reaction Status Date / Time Penicillins Allergy Verified 02/02/20 20:00 History of Present Illness: 54 years old male with a long history of alcohol dependence and 2 years of heroin dependence is seeking admission to detox. He has been admitted multiple times and his last admission was for the period 02/02/2020 - 02/07/2020 and he reports that he relapsed 2 days post discharge. He uses 10 bags of heroin and drinks 3 pints of vodka and 1 x 6 packs of wilkinson beer daily. He has medical history of Sarcoidosis, hypertension and COPD, psych. history of anxiety, depression and he denies suicidal ideation at this time. He reports + eye opener tender, blackouts and overdose ( January 2019). He is unemployed, lives alone and denies legal issues. His urine toxicology is positive for fentanyl, opiate, marijuana and benzodiazepine. Exam Limitations: No Limitations - Ebola screening Have you traveled outside of the country in the last 21 days: No Have you had contact with anyone from an Ebola affected area: No Have you been sick,other than usual withdrawal symptoms: No Do you have a fever: No - Review of Systems Constitutional: Chills, Loss of Appetite, Malaise, Night Sweats, Changes in sleep EENT: reports: Nose Congestion Respiratory: reports: No Symptoms reported Cardiac: reports: No Symptoms Reported GI: reports: Nausea, Poor Appetite, Poor Fluid Intake, Vomiting (x 2) : reports: No Symptoms Reported Musculoskeletal: reports: No Symptoms Reported Integumentary: reports: Dryness, Flushing Neuro: reports: Tremors Endocrine: reports: No Symptoms Reported Hematology: reports: No Symptoms Reported Psychiatric: reports: Mood/Affect Appropiate, Orientated x3 Other Systems: Reviewed and Negative Patient History - Patient Medical History Hx Anemia: No Hx Asthma: No Hx Chronic Obstructive Pulmonary Disease (COPD): Yes Hx Cancer: No Hx Cardiac Disorders: No Hx Congestive Heart Failure: No Hx Hypertension: Yes Hx Hypercholesterolemia: No Hx Pacemaker: No HX Cerebrovascular Accident: No Hx Seizures: No Hx Dementia: No Hx Diabetes: No Hx Gastrointestinal Disorders: No Hx Liver Disease: No Hx Genitourinary Disorders: No Hx Sexually Transmitted Disorders: No Hx Renal Disease (ESRD): No Hx Thyroid Disease: No Hx Human Immunodeficiency Virus (HIV): No (Negative) Hx Hepatitis C: No Hx Depression: Yes Hx Suicide Attempt: No (Denies suicidal ideation at this time) Hx Bipolar Disorder: No Hx Schizophrenia: No Other Medical History: Sarcoidosis - Patient Surgical History Past Surgical History: No Hx Neurologic Surgery: No Hx Cataract Extraction: No Hx Cardiac Surgery: No Hx Lung Surgery: No Hx Abdominal Surgery: No Hx Appendectomy: No Hx Cholecystectomy: No Hx Genitourinary Surgery: No Hx Orthopedic Surgery: No Anesthesia Reaction: No - PPD History Previous Implant?: Yes Documented Results: Negative w/proof Implanted On Prior [facility] Admission?: Yes Date: 06/02/19 Results: 0 mm PPD to be Administered?: No - Reproductive History Patient is a Female of Child Bearing Age (11 -55 yrs old): No (Male) - Smoking Cessation Smoking history: Current every day smoker Have you smoked in the past 12 months: Yes Aproximately how many cigarettes per day: 10 Hx Chewing Tobacco Use: No Initiated information on smoking cessation: Yes 'Breaking Loose' booklet given: 03/22/20 - Substance & Tx. History Hx Alcohol Use: Yes Hx Substance Use: Yes Substance Use Type: Alcohol, Marijuana, Opiates Hx Substance Use Treatment: No - Substances abused Alcohol Substance route: Oral Frequency: Daily Amount used: 3 pints of vodka and 1 x 6 packs of wilkinson beer Age of first use: 15 Date of last use: 03/22/20 Heroin Substance route: Inhalation Frequency: Daily Amount used: 10 bags Age of first use: 52 Date of last use: 03/22/20 Admission Physical Exam BHS - Physical General Appearance: Yes: Moderate Distress, Tremorous, Irritable, Anxious HEENTM: Yes: Within Normal Limits Respiratory: Yes: Lungs Clear, Normal Breath Sounds, No Respiratory Distress Neck: Yes: Within Normal Limits Breast: Yes: Breast Exam Deferred Cardiology: Yes: Within Normal Limits Abdominal: Yes: Normal Bowel Sounds Genitourinary: Yes: Within Normal Limits Back: Yes: Normal Inspection Musculoskeletal: Yes: Within Normal Limits Extremities: Yes: Normal Inspection Neurological: Yes: Within Normal Limits Integumentary: Yes: Warm Lymphatic: Yes: Within Normal Limits - Diagnostic (1) Alcohol dependence with uncomplicated withdrawal Current Visit: Yes Status: Acute (2) COPD (chronic obstructive pulmonary disease) Current Visit: Yes Status: Chronic Qualifiers: COPD type: unspecified COPD Qualified Code(s): J44.9 - Chronic obstructive pulmonary disease, unspecified (3) Cannabis dependence Current Visit: Yes Status: Chronic (4) Hypertension Current Visit: No Status: Chronic Qualifiers: Hypertension type: unspecified Qualified Code(s): I10 - Essential (primary) hypertension (5) Nicotine dependence Current Visit: Yes Status: Chronic Qualifiers: Nicotine product type: cigarettes Substance use status: uncomplicated Qualified Code(s): F17.210 - Nicotine dependence, cigarettes, uncomplicated (6) Opioid dependence with withdrawal Current Visit: Yes Status: Acute (7) Sarcoidosis Current Visit: Yes Status: Chronic Cleared for Admission [facility] - Detox or Rehab [facility] Level of Care: Medically Managed Detox Regimen/Protocol: Methadone/Valium Claeared for Rehab Admission: No Breathalyzer - Breathalyzer Breathalyzer: 0.068 Urine Drug Screen - Test Device Lot number: [id number] Expiration date: 10/19/21 - Control Is test valid?: Yes - Results Drug screen NEGATIVE: No Urine drug screen results: THC-Marijuana, FEN-Fentanyl, MOP-Opiates, BZO- Benzodiazepines Inpatient Rehab Admission - Rehab Decision to Admit Inpatient rehab admission?: No
[2020-03-22 21:55] VITALS: BMI 19.6
[2020-03-22] MEDS ORDERED: MENTHOL/PHENOL 1 EACH UD MM PRN (21:57)
[2020-03-22] MEDS ORDERED: METHADONE HCL 10 MG TABLET (FOR DETOX USE ONLY) PO ONE (21:57)
[2020-03-22] MEDS ORDERED: IBUPROFEN 400 MG TABLET (FP) PO PRN (21:57)
[2020-03-22] MEDS ORDERED: BISMUTH SUBSALICYLATE 524 MG/30 ML UD PO PRN (21:57)
[2020-03-22] MEDS ORDERED: METHOCARBAMOL 500 MG TABLET PO PRN (21:57)
[2020-03-22] MEDS ORDERED: cloNIDine HCL 0.1 MG TABLET PO PRN (21:57)
[2020-03-22] MEDS ORDERED: NICOTINE POLACRILEX 2 MG GUM BUC PRN (21:57)
[2020-03-22] MEDS ORDERED: ONDANSETRON *ODT* 4 MG TABLET SL PRN (21:57)
[2020-03-22] MEDS ORDERED: ACETAMINOPHEN 325 MG TABLET (FP) PO PRN ×2 (21:57)
[2020-03-22] MEDS ORDERED: MAGNESIUM CITRATE 300 ML BOTTLE PO PRN (21:57)
[2020-03-22] MEDS ORDERED: MAG HYDROX/AL HYDROX/SIMETH 30 ML UNIT-DOSE CUP PO PRN (21:57)
[2020-03-22] MEDS: diazePAM 5 MG TABLET PO SCH (22:42)
[2020-03-22] MEDS: MELATONIN 5 MG TABLETS PO SCH (22:42)
[2020-03-22] MEDS: THIAMINE HCL 100 MG TABLET (FP) PO SCH (22:42)
[2020-03-22] MEDS: BUDESONIDE/FORMETEROL FUMARATE 160/4.5 mcg INHALER IH SCH (22:46)
[2020-03-23] MEDS: diazePAM 5 MG TABLET PO SCH ×4 (05:12→22:10)
[2020-03-23] MEDS ORDERED: METHADONE HCL 5 MG TABLET (FOR DETOX USE ONLY) ONE (09:05)
[2020-03-23] MEDS ORDERED: METHADONE HCL 10 MG TABLET (FOR DETOX USE ONLY) ONE (09:06)
[2020-03-23] MEDS ORDERED: METHADONE (DETOX) 20 MG, METHADONE (DETOX) 5 MG PO ONE (10:00)
[2020-03-23] MEDS: NICOTINE 14 MG/24 HOURS TOPICAL PATCH TD SCH (10:12)
[2020-03-23] MEDS: amLODIPine BESYLATE 5 MG TABLET (FP) PO SCH (10:12)
[2020-03-23] MEDS: PRENATAL VITAMINS W/ FOLIC ACID TABLET (FP) PO SCH (10:12)
[2020-03-23] MEDS: BUDESONIDE/FORMETEROL FUMARATE 160/4.5 mcg INHALER IH SCH ×2 (10:12→22:10)
[2020-03-23 11:00] LABS: HEMATOCRIT 38.7 % (35.4-49); HEMOGLOBIN 12.6 GM/dL (11.7-16.9); MCH 31.7 pg (25.7-33.7); MCHC 32.6 g/dl (32.0-35.9); MEAN CELL VOLUME 97.4 fl (80-96); MEAN PLT VOLUME 8.3 fl (7.5-11.1); PLATELET COUNT 253 K/MM3 (134-434); RBC 3.98 M/mm3 (4.00-5.60); RDW 13.6 % (11.9-15.9); WHITE BLOOD COUNT 5.4 K/mm3 (4.0-10.0)
--- NOTE | 2020-03-23 11:15 | PN ---
[facility] CIWA - CIWA Score Nausea/Vomitin-Mild Nausea/No Vomiting Muscle Tremors: 2 Anxiety: 2 Agitation: 2 Paroxysmal Sweats: 2 Orientation: 0-Oriented Tacttile Disturbances: 0-None Auditory Disturbances: 0-None Visual Disturbances: 0-None Headache: 0-None Present CIWA-Ar Total Score: 9 BHS COWS - Scale Resting Pulse: 0= [place] 80 or Below Sweatin= Chills/Flushing Restless Observation: 1= Difficult to Sit Still Pupil Size: 0= Normal to Room Light Bone or Joint Aches: 1= Mild Discomfort Runny Nose/ Eye Tearin= None GI Upset > 30mins: 0= None Tremor Observation of Outstretched Hands: 1= Tremor [place], Not Seen Yawning Observation: 2= >3x During Session Anxiety or Irritability: 1=Feels Anxious/Irritable Goose Flesh Skin: 0=Smooth Skin COWS Score: 7 BHS Progress Note (SOAP) Subjective: restless body aches interrupted sleep I need my asthma medication ordered sweats Objective: 03/23/20 11:14 Vital Signs Temperature 97.5 F L 03/23/20 09:27 Pulse Rate 63 03/23/20 09:27 Respiratory Rate 16 03/23/20 09:27 Blood Pressure 128/74 03/23/20 09:27 O2 Sat by Pulse Oximetry (%) 98 03/23/20 09:27 Laboratory Tests 03/23/20 08:45 WBC 5.4 RBC 3.98 L Hgb 12.6 Hct 38.7 MCV 97.4 H MCH 31.7 MCHC 32.6 RDW 13.6 Plt Count 253 MPV 8.3 rest of labs pending aaox3 ambulating no acute distress Assessment: 03/23/20 11:15 withdrawals Plan: continue detox spiriva ordered
[2020-03-23 11:17] LABS: ALBUMIN 3.7 g/dl (3.4-5.0); CALCIUM 9.5 mg/dL (8.5-10.1); POTASSIUM 4.1 mmol/L (3.5-5.1)
[2020-03-23 11:23] LABS: BILIRUBIN,TOTAL 0.5 mg/dL (0.2-1); BLOOD UREA NITROGEN 15.1 mg/dL (7-18); CREATININE 0.9 mg/dL (0.55-1.3); TOT PROT 7.3 g/dl (6.4-8.2)
--- NOTE | 2020-03-23 12:39 | EKG ---
Test Reason : Blood Pressure : / mmHG Vent. Rate : 078 BPM Atrial Rate : 078 BPM P-R Int : 158 ms QRS Dur : 076 ms QT Int : 378 ms P-R-T Axes : 070 073 045 degrees QTc Int : 430 ms NORMAL SINUS RHYTHM NORMAL ECG WHEN COMPARED WITH ECG OF 15-JUL-2019 20:20, T WAVE INVERSION NO LONGER EVIDENT IN ANTERIOR LEADS Confirmed by ARNALDO BALTAZAR MD ([id number]) on 03/23/2020 12:39:41 PM Referred By: CASSANDRA HOPKINS Confirmed By:ARNALDO BALTAZAR MD
[2020-03-23] MEDS: TIOTROPIUM BROMIDE 2.5 MCG (SPIRIVA) RESPIMAT INHALER IH SCH (13:46)
[2020-03-23] MEDS: diazePAM 5 MG TABLET PO PRN (13:50)
--- NOTE | 2020-03-23 14:09 | CONSULT ---
[facility] Psychiatric Consult - Data Date of interview: 03/23/20 Admission source: [facility] Identifying data: Patient is a 54 year old single black male, without children, unemployed, domiciled, and is not supported with welfare benefits. This is one of multiple admissions for patient. Patient admitted to for alcohol and opiate dependence. Substance Abuse History: Smoking Cessation. Smoking history: Current every day smoker. Have you smoked in the past 12 months: Yes. Aproximately how many cigarettes per day: 10. Hx Chewing Tobacco Use: No. Initiated information on smoking cessation: Yes. 'Breaking Loose' booklet given: 03/22/20. - Substance & Tx. History. Hx Alcohol Use: Yes. Hx Substance Use: Yes. Substance Use Type: Alcohol, Marijuana, Opiates. Hx Substance Use Treatment: No. - Substances abused. Alcohol. Substance route: Oral. Frequency: Daily. Amount used: 3 pints of vodka and 1 x 6 packs of wilkinson beer. Age of first use: 15. Date of last use: 03/22/20. Heroin. Substance route: Inhalation. Frequency: Daily. Amount used: 10 bags. Age of first use: 52. Date of last use: 03/22/20 Medical History: hypertension, Sarcoidosis Psychiatric History: Patient denies history of psychiatric hospitalization, outpatient psychiatric care, and suicide attempt. Mr. Pan reports seeing a psychiatrist when admitted to detox/ rehab settings and has been prescribed wellbutrin. Patient is totally lost in follow up care and is not prescribed psychotropic medications. At present patient reports difficulty sleeping. Physical/Sexual Abuse/Trauma History: denies. Mental Status Exam - Mental Status Exam Alert and Oriented to: Time, Place, Person Cognitive Function: Good Patient Appearance: Well Groomed Mood: Euthymic Affect: Appropriate Patient Behavior: Appropriate, Cooperative Speech Pattern: Appropriate Voice Loudness: Normal Thought Process: Intact, Goal Oriented Thought Disorder: Not Present Hallucinations: Denies Suicidal Ideation: Denies Homicidal Ideation: Denies Insight/Judgement: Poor Sleep: Poorly Appetite: Fair Muscle strength/Tone: Normal Gait/Station: Normal Psychiatric Findings - Problem List ([place] 1, 2,3) (1) Substance-induced sleep disorder Current Visit: Yes Status: Acute (2) Alcohol dependence with uncomplicated withdrawal Current Visit: Yes Status: Acute (3) Opioid dependence with withdrawal Current Visit: Yes Status: Acute (4) Cannabis dependence Current Visit: Yes Status: Chronic - Initial Treatment Plan Initial Treatment Plan: Psychoeducation provided. Detoxification in progress. Will order Belsomra 10mg HS PRN. Benefits and side effects discussed. Verbal consent given.
[2020-03-23] MEDS: MAGNESIUM HYDROX 2400MG/30ML ORAL SUSPENSION 30 ML CUP PO PRN (18:19)
[2020-03-23] MEDS: THIAMINE HCL 100 MG TABLET (FP) PO SCH (22:10)
[2020-03-23] MEDS: SUVOREXANT 10 MG TABLET PO PRN (22:12)
[2020-03-23] MEDS: MELATONIN 5 MG TABLETS PO SCH (22:21)
[2020-03-24] MEDS: diazePAM 5 MG TABLET PO SCH ×3 (05:10→22:19)
[2020-03-24] MEDS ORDERED: METHADONE HCL 10 MG TABLET (FOR DETOX USE ONLY) PO ONE (10:00)
[2020-03-24] MEDS: amLODIPine BESYLATE 5 MG TABLET (FP) PO SCH (10:09)
[2020-03-24] MEDS: PRENATAL VITAMINS W/ FOLIC ACID TABLET (FP) PO SCH (10:09)
[2020-03-24] MEDS: NICOTINE 14 MG/24 HOURS TOPICAL PATCH TD SCH (10:09)
[2020-03-24] MEDS: BUDESONIDE/FORMETEROL FUMARATE 160/4.5 mcg INHALER IH SCH ×2 (10:11→22:20)
[2020-03-24] MEDS: TIOTROPIUM BROMIDE 2.5 MCG (SPIRIVA) RESPIMAT INHALER IH SCH (10:11)
[2020-03-24] MEDS: MAGNESIUM HYDROX 2400MG/30ML ORAL SUSPENSION 30 ML CUP PO PRN (10:12)
--- NOTE | 2020-03-24 13:00 | PN ---
[facility] CIWA - CIWA Score Nausea/Vomitin-Mild Nausea/No Vomiting Muscle Tremors: 3 Anxiety: 3 Agitation: 2 Paroxysmal Sweats: No Perspiration Orientation: 0-Oriented Tacttile Disturbances: 1-Very Mild Itch/Numbness Auditory Disturbances: 0-None Visual Disturbances: 0-None Headache: 2-Mild CIWA-Ar Total Score: 12 BHS COWS - Scale Resting Pulse: 0= [place] 80 or Below Sweatin= No chills or Flushing Restless Observation: 0= Sits Still Pupil Size: 1= Pupils >than Normal Bone or Joint Aches: 2= Severe Diffuse Aches Runny Nose/ Eye Tearin= Runny Nose/Eyes GI Upset > 30mins: 1= Stomach Cramp Tremor Observation of Outstretched Hands: 2= Slight Tremor Visible Yawning Observation: 1= 1-2x During Session Anxiety or Irritability: 2=Irritable/Anxious Goose Flesh Skin: 0=Smooth Skin COWS Score: 11 S Progress Note (SOAP) Subjective: alert,irritable,anxious,interrupted sleep,tremor,pain in the body and back,constipated Objective: 03/24/20 13:27 Vital Signs Temperature 97.5 F L 03/24/20 08:47 Pulse Rate 70 03/24/20 08:47 Respiratory Rate 17 03/24/20 08:47 Blood Pressure 146/85 03/24/20 08:47 O2 Sat by Pulse Oximetry (%) 99 03/24/20 08:47 Laboratory Last Values WBC 5.4 K/mm3 (4.0-10.0) 03/23/20 08:45 RBC 3.98 M/mm3 (4.00-5.60) L 03/23/20 08:45 Hgb 12.6 GM/dL (11.7-16.9) 03/23/20 08:45 Hct 38.7 % (35.4-49) 03/23/20 08:45 MCV 97.4 fl (80-96) H 03/23/20 08:45 MCH 31.7 pg (25.7-33.7) 03/23/20 08:45 MCHC 32.6 g/dl (32.0-35.9) 03/23/20 08:45 RDW 13.6 % (11.9-15.9) 03/23/20 08:45 Plt Count 253 K/MM3 (134-434) 03/23/20 08:45 MPV 8.3 fl (7.5-11.1) 03/23/20 08:45 Sodium 140 mmol/L (136-145) 03/23/20 08:45 Potassium 4.1 mmol/L (3.5-5.1) 03/23/20 08:45 Chloride 105 mmol/L (98-107) 03/23/20 08:45 Carbon Dioxide 31 mmol/L (21-32) 03/23/20 08:45 Anion Gap 4 MMOL/L (8-16) L 03/23/20 08:45 BUN 15.1 mg/dL (7-18) 03/23/20 08:45 Creatinine 0.9 mg/dL (0.55-1.3) 03/23/20 08:45 Est GFR (CKD-EPI)AfAm 111.83 03/23/20 08:45 Est GFR (CKD-EPI)NonAf 96.49 03/23/20 08:45 Random Glucose 84 mg/dL (74-106) 03/23/20 08:45 Calcium 9.5 mg/dL (8.5-10.1) 03/23/20 08:45 Total Bilirubin 0.5 mg/dL (0.2-1) 03/23/20 08:45 AST 37 U/L (15-37) 03/23/20 08:45 ALT 37 U/L (13-61) 03/23/20 08:45 Alkaline Phosphatase 91 U/L (45-117) 03/23/20 08:45 Total Protein 7.3 g/dl (6.4-8.2) 03/23/20 08:45 Albumin 3.7 g/dl (3.4-5.0) 03/23/20 08:45 Syphilis Serology Reactive (NONREACTIVE) A* 03/23/20 08:45 RPR Titer Reactive 1:1 (NONREACTIVE) H D 03/23/20 08:45 COVID-19 (VEGA) Not detected (Not Detected) 03/22/20 23:35 patient was adequately treated for syphilis before Assessment: 03/24/20 13:28 withdrawal symptom Plan: continue detox methadone and valium regimen
[2020-03-24] MEDS: MELATONIN 5 MG TABLETS PO SCH (22:20)
[2020-03-24] MEDS: THIAMINE HCL 100 MG TABLET (FP) PO SCH (22:20)
[2020-03-24] MEDS: SUVOREXANT 10 MG TABLET PO PRN (22:20)
[2020-03-25] MEDS: diazePAM 5 MG TABLET PO SCH ×2 (06:11→18:11)
[2020-03-25] MEDS ORDERED: METHADONE HCL 10 MG TABLET (FOR DETOX USE ONLY) ONE (09:00)
[2020-03-25] MEDS ORDERED: METHADONE HCL 5 MG TABLET (FOR DETOX USE ONLY) ONE (09:00)
[2020-03-25] MEDS ORDERED: METHADONE (DETOX) 10 MG, METHADONE (DETOX) 5 MG PO ONE (10:00)
[2020-03-25] MEDS: PRENATAL VITAMINS W/ FOLIC ACID TABLET (FP) PO SCH (10:19)
[2020-03-25] MEDS: BUDESONIDE/FORMETEROL FUMARATE 160/4.5 mcg INHALER IH SCH ×2 (10:19→22:12)
[2020-03-25] MEDS: TIOTROPIUM BROMIDE 2.5 MCG (SPIRIVA) RESPIMAT INHALER IH SCH (10:19)
[2020-03-25] MEDS: amLODIPine BESYLATE 5 MG TABLET (FP) PO SCH (10:19)
[2020-03-25] MEDS: NICOTINE 14 MG/24 HOURS TOPICAL PATCH TD SCH (10:20)
[2020-03-25] MEDS: diazePAM 5 MG TABLET PO PRN (12:54)
--- NOTE | 2020-03-25 15:45 | PN ---
S CIWA - CIWA Score Nausea/Vomitin-No Nausea/No Vomiting Muscle Tremors: 3 Anxiety: 3 Agitation: 2 Paroxysmal Sweats: No Perspiration Orientation: 0-Oriented Tacttile Disturbances: 1-Very Mild Itch/Numbness Auditory Disturbances: 0-None Visual Disturbances: 0-None Headache: 0-None Present CIWA-Ar Total Score: 9 BHS COWS - Scale Resting Pulse: 0= [place] 80 or Below Sweatin= Chills/Flushing Restless Observation: 1= Difficult to Sit Still Pupil Size: 0= Normal to Room Light Bone or Joint Aches: 0= None Runny Nose/ Eye Tearin= None GI Upset > 30mins: 0= None Tremor Observation of Outstretched Hands: 2= Slight Tremor Visible Yawning Observation: 1= 1-2x During Session Anxiety or Irritability: 2=Irritable/Anxious Goose Flesh Skin: 0=Smooth Skin COWS Score: 7 BHS Progress Note (SOAP) Subjective: Tremors, Anxious. Patient also reports lingering constipation that has not been relieved by MOM thus far. He denies abdominal discomfort. Objective: Patient A & O X 3, Observed Ambulating on Detox Unit Unassisted. In No Acute Distress. 03/25/20 15:43 Vital Signs Temperature 97.3 F L 03/25/20 12:52 Pulse Rate 69 03/25/20 12:52 Respiratory Rate 20 03/25/20 12:52 Blood Pressure 137/79 03/25/20 12:52 O2 Sat by Pulse Oximetry (%) 95 03/25/20 12:52 Laboratory Tests 03/22/20 03/23/20 03/23/20 23:35 08:45 08:45 WBC 5.4 RBC 3.98 L Hgb 12.6 Hct 38.7 MCV 97.4 H MCH 31.7 MCHC 32.6 RDW 13.6 Plt Count 253 MPV 8.3 Sodium Potassium Chloride Carbon Dioxide Anion Gap BUN Creatinine Est GFR (CKD-EPI)AfAm Est GFR (CKD-EPI)NonAf Random Glucose Calcium Total Bilirubin AST ALT Alkaline Phosphatase Total Protein Albumin Syphilis Serology Reactive A* RPR Titer COVID-19 (VEGA) Not detected 03/23/20 03/23/20 08:45 08:45 WBC RBC Hgb Hct MCV MCH MCHC RDW Plt Count MPV Sodium 140 Potassium 4.1 Chloride 105 Carbon Dioxide 31 Anion Gap 4 L BUN 15.1 Creatinine 0.9 Est GFR (CKD-EPI)AfAm 111.83 Est GFR (CKD-EPI)NonAf 96.49 Random Glucose 84 Calcium 9.5 Total Bilirubin 0.5 AST 37 ALT 37 Alkaline Phosphatase 91 Total Protein 7.3 Albumin 3.7 Syphilis Serology RPR Titer Reactive 1:1 H D COVID-19 (VEGA) Lab Results noted. Assessment: 03/25/20 15:44 WITHDRAWAL SYMPTOMS. Plan: Continue Detox. Increase Daily Oral Water Intake. Senna-Colace oral BID ordered for relief of constipation.
[2020-03-25] MEDS: SENNOSIDES/DOCUSATE COMBO (SENNA PLUS) TABLET (UD) PO SCH ×2 (18:12→23:07)
[2020-03-25] MEDS: THIAMINE HCL 100 MG TABLET (FP) PO SCH (22:10)
[2020-03-25] MEDS: SUVOREXANT 10 MG TABLET PO PRN (22:11)
[2020-03-25] MEDS: MELATONIN 5 MG TABLETS PO SCH (22:12)
[2020-03-26] MEDS ORDERED: diazePAM 5 MG TABLET PO ONE (06:00)
[2020-03-26] MEDS ORDERED: METHADONE HCL 10 MG TABLET (FOR DETOX USE ONLY) PO ONE (10:00)
[2020-03-26] MEDS: BUDESONIDE/FORMETEROL FUMARATE 160/4.5 mcg INHALER IH SCH ×2 (10:17→22:02)
[2020-03-26] MEDS: SENNOSIDES/DOCUSATE COMBO (SENNA PLUS) TABLET (UD) PO SCH ×2 (10:17→22:03)
[2020-03-26] MEDS: amLODIPine BESYLATE 5 MG TABLET (FP) PO SCH (10:17)
[2020-03-26] MEDS: NICOTINE 14 MG/24 HOURS TOPICAL PATCH TD SCH (10:17)
[2020-03-26] MEDS: TIOTROPIUM BROMIDE 2.5 MCG (SPIRIVA) RESPIMAT INHALER IH SCH (10:17)
[2020-03-26] MEDS: PRENATAL VITAMINS W/ FOLIC ACID TABLET (FP) PO SCH (10:17)
--- NOTE | 2020-03-26 11:23 | PN ---
S CIWA - CIWA Score Nausea/Vomitin-No Nausea/No Vomiting Muscle Tremors: None Anxiety: 1-Mildly Anxious Agitation: 2 Paroxysmal Sweats: 2 Orientation: 0-Oriented Tacttile Disturbances: 0-None Auditory Disturbances: 0-None Visual Disturbances: 0-None Headache: 0-None Present CIWA-Ar Total Score: 5 S COWS - Scale Resting Pulse: 0= [place] 80 or Below Sweatin= Chills/Flushing Restless Observation: 0= Sits Still Pupil Size: 0= Normal to Room Light Bone or Joint Aches: 0= None Runny Nose/ Eye Tearin= Nasal Congestion GI Upset > 30mins: 1= Stomach Cramp Tremor Observation of Outstretched Hands: 0= None Yawning Observation: 0= None Anxiety or Irritability: 1=Feels Anxious/Irritable Goose Flesh Skin: 0=Smooth Skin COWS Score: 4 S Progress Note (SOAP) Subjective: Anxiety; patient requesting to be discharged at 6am tomorrow because he has to be in [place] by 9am Objective: 03/26/20 11:19 Last Vital Signs Temp Pulse Resp BP Pulse Ox 96.9 F L 65 18 116/73 82 L 03/26/20 08:33 03/26/20 08:33 03/26/20 08:33 03/26/20 08:33 03/26/20 05:13 Pulse Ox: 82% is error, patient ambulating and breathing freely on RA without any complaints Laboratory Tests 03/22/20 03/23/20 03/23/20 23:35 08:45 08:45 WBC 5.4 RBC 3.98 L Hgb 12.6 Hct 38.7 MCV 97.4 H MCH 31.7 MCHC 32.6 RDW 13.6 Plt Count 253 MPV 8.3 Sodium Potassium Chloride Carbon Dioxide Anion Gap BUN Creatinine Est GFR (CKD-EPI)AfAm Est GFR (CKD-EPI)NonAf Random Glucose Calcium Total Bilirubin AST ALT Alkaline Phosphatase Total Protein Albumin Syphilis Serology Reactive A* RPR Titer COVID-19 (VEGA) Not detected 03/23/20 03/23/20 08:45 08:45 WBC RBC Hgb Hct MCV MCH MCHC RDW Plt Count MPV Sodium 140 Potassium 4.1 Chloride 105 Carbon Dioxide 31 Anion Gap 4 L BUN 15.1 Creatinine 0.9 Est GFR (CKD-EPI)AfAm 111.83 Est GFR (CKD-EPI)NonAf 96.49 Random Glucose 84 Calcium 9.5 Total Bilirubin 0.5 AST 37 ALT 37 Alkaline Phosphatase 91 Total Protein 7.3 Albumin 3.7 Syphilis Serology RPR Titer Reactive 1:1 H D COVID-19 (VEGA) Labs reviewed RPR 1:1 reactive; h/o syphilis and treated in the past, denies any sxs, follow up with PCP post discharge Assessment: 03/26/20 11:21 Withdrawal sxs Plan: Continue detox Encouraged PO water intake Patient scheduled for discharge tomorrow and requested to leave at 6am because has to be in [place] by 9am as per patient.
[2020-03-26] MEDS: SUVOREXANT 10 MG TABLET PO PRN (22:00)
[2020-03-26] MEDS: THIAMINE HCL 100 MG TABLET (FP) PO SCH (22:02)
[2020-03-26] MEDS: MELATONIN 5 MG TABLETS PO SCH (22:03)
[2020-03-27] MEDS ORDERED: METHADONE HCL 5 MG TABLET (FOR DETOX USE ONLY) PO ONE (06:00)
[2020-03-27 06:24] VITALS: BP 141/86; PULSE 59; TEMP 97.7
--- NOTE | 2020-03-27 07:07 | DS ---
[facility] Detox Discharge Summary Admission Date: 03/22/20 Discharge Date: 03/27/20 - History Additional Comments: bon is being discharged today. He was detoxed safely and responded well to therapy. He is alert and oriented x 3, ambulates independently, in acute distress and vital signs stable. He reports that he recently filled his home medications and does not require refills. Pertinent Past History: Alcohol dependence Opioid dependence Sarcoidosis Hypertension COPD Cannabis dependence Nicotine dependence - Physical Exam Results Vital Signs: Vital Signs Temperature 97.7 F 03/27/20 05:00 Pulse Rate 59 L 03/27/20 05:00 Respiratory Rate 03/27/20 05:00 Blood Pressure 141/86 03/27/20 05:00 O2 Sat by Pulse Oximetry (%) 100 03/27/20 05:00 Laboratory Last Values WBC 5.4 K/mm3 (4.0-10.0) 03/23/20 08:45 RBC 3.98 M/mm3 (4.00-5.60) L 03/23/20 08:45 Hgb 12.6 GM/dL (11.7-16.9) 03/23/20 08:45 Hct 38.7 % (35.4-49) 03/23/20 08:45 MCV 97.4 fl (80-96) H 03/23/20 08:45 MCH 31.7 pg (25.7-33.7) 03/23/20 08:45 MCHC 32.6 g/dl (32.0-35.9) 03/23/20 08:45 RDW 13.6 % (11.9-15.9) 03/23/20 08:45 Plt Count 253 K/MM3 (134-434) 03/23/20 08:45 MPV 8.3 fl (7.5-11.1) 03/23/20 08:45 Sodium 140 mmol/L (136-145) 03/23/20 08:45 Potassium 4.1 mmol/L (3.5-5.1) 03/23/20 08:45 Chloride 105 mmol/L (98-107) 03/23/20 08:45 Carbon Dioxide 31 mmol/L (21-32) 03/23/20 08:45 Anion Gap 4 MMOL/L (8-16) L 03/23/20 08:45 BUN 15.1 mg/dL (7-18) 03/23/20 08:45 Creatinine 0.9 mg/dL (0.55-1.3) 03/23/20 08:45 Est GFR (CKD-EPI)AfAm 111.83 03/23/20 08:45 Est GFR (CKD-EPI)NonAf 96.49 03/23/20 08:45 Random Glucose 84 mg/dL (74-106) 03/23/20 08:45 Calcium 9.5 mg/dL (8.5-10.1) 03/23/20 08:45 Total Bilirubin 0.5 mg/dL (0.2-1) 03/23/20 08:45 AST 37 U/L (15-37) 03/23/20 08:45 ALT 37 U/L (13-61) 03/23/20 08:45 Alkaline Phosphatase 91 U/L (45-117) 03/23/20 08:45 Total Protein 7.3 g/dl (6.4-8.2) 03/23/20 08:45 Albumin 3.7 g/dl (3.4-5.0) 03/23/20 08:45 Syphilis Serology Reactive (NONREACTIVE) A* 03/23/20 08:45 RPR Titer Reactive 1:1 (NONREACTIVE) H D 03/23/20 08:45 COVID-19 (VEGA) Not detected (Not Detected) 03/22/20 23:35 Pertinent Admission Physical Exam Findings: Opioid withdrawal symptoms Alcohol withdrawal symptoms - Medication Discharge Medications: Ambulatory Orders Amlodipine Besylate [Norvasc -] 5 mg PO DAILY #30 tablet 07/19/19 Budesonide/Formeterol Fumarate [SYMBICORT 160/4.5mcg -] 2 inh PO BID #1 inhaler 07/19/19 Umeclidinium Bozman [Incruse Ellipta] 62.5 mcg IH DAILY #1 blst.w.dev 07/19/19 - Diagnosis (1) Alcohol dependence with uncomplicated withdrawal Current Visit: Yes Status: Chronic (2) COPD (chronic obstructive pulmonary disease) Current Visit: Yes Status: Chronic Qualifiers: COPD type: unspecified COPD Qualified Code(s): J44.9 - Chronic obstructive pulmonary disease, unspecified (3) Cannabis dependence Current Visit: Yes Status: Chronic (4) Hypertension Current Visit: No Status: Chronic Qualifiers: Hypertension type: unspecified Qualified Code(s): I10 - Essential (primary) hypertension (5) Nicotine dependence Current Visit: Yes Status: Chronic Qualifiers: Nicotine product type: cigarettes Substance use status: uncomplicated Qualified Code(s): F17.210 - Nicotine dependence, cigarettes, uncomplicated (6) Opioid dependence with withdrawal Current Visit: Yes Status: Chronic (7) Sarcoidosis Current Visit: Yes Status: Chronic - AMA Did Patient Leave Against Medical Advice: No
== END 2020-03-27 06:45 | disposition home or self-care (01) | DRG 773 ==
LOC: YASAS 19:00 → Y6N 22:08
PROVIDERS: ADMIT Allergy & Immunology; ATTEND Allergy & Immunology
PROC: HZ2ZZZZ Detoxification Services for Substance Abuse Treatment (ICD-10-PCS; principal; 2020-03-22)
DX: F10.230 Alcohol dependence with withdrawal, uncomplicated (principal); F11.23 Opioid dependence with withdrawal; F12.20 Cannabis dependence, uncomplicated; F17.210 Nicotine dependence, cigarettes, uncomplicated; F19.282 Other psychoactive substance dependence with psychoactive substance-induced sleep disorder; F41.9 Anxiety disorder, unspecified; F32.9 Major depressive disorder, single episode, unspecified; I10 Essential (primary) hypertension; J44.9 Chronic obstructive pulmonary disease, unspecified; D86.9 Sarcoidosis, unspecified; Z86.19 Personal history of other infectious and parasitic diseases; Z88.0 Allergy status to penicillin
CPT/HCPCS: 36415; 80053; 85027; 86593; 86780; 93005; 93010; U0003

== ENCOUNTER 2020-04-14 11:06 | Inpatient (IN) | payer OTHER ==
--- NOTE | 2020-04-14 11:18 | BHS.RME ---
Substance Use & Tx History - Substance Use History Alcohol Substance amount: 2 pint vodka and 1 six pack beer Frequency of use: Daily Substance route: Oral Date of Last Use: 04/14/20 (started age 15) Heroin Substance amount: 10 bags Frequency of use: Daily Substance route: Inhalation (ex: sniffing or snorting) Date of Last Use: 04/14/20 (started age 52) Nicotine Substance amount: 10 ciggs Frequency of use: Daily Substance route: Smoking Date of Last Use: 04/14/20 (started age 15) Marijuana/Hashish Substance amount: 1 joint Frequency of use: Once a month Substance route: Smoking Date of Last Use: 03/15/20 Physical/Psych/Mental Status - Behavior General Behavior: Increased activity (restlessness, agitation) Eye Contact: Normal - Cooperativeness Cooperativeness: Cooperative - Thinking Thought Processes: Tight, Logical, Goal Directed - Physical Health Problems Is patient presently having any pain?: No Does patient presently have any injuries (include location): No Does patient currently have a fever: No Is patient : No COWS - Scale Resting Pulse: 0= [place] 80 or Below Sweatin= Chills/Flushing Restless Observation: 1= Difficult to Sit Still Pupil Size: 1= Pupils >than Normal Bone or Joint Aches: 1= Mild Discomfort Runny Nose/ Eye Tearin= Nasal Congestion GI Upset > 30mins: 1= Stomach Cramp Tremor Observation: 1= Tremor [place], Not Seen Yawning Observation: 1= 1-2x During Session Anxiety or Irritability: 2=Irritable/Anxious Goose Flesh Skin: 3=Pil[place] COWS Score: 13 CIWA Nausea/Vomitin-Mild Nausea/No Vomiting Muscle Tremors: 3 Anxiety: 4-Mod. Anxious/Guarded Agitation: 4-Moderately Restless Paroxysmal Sweats: 2 Orientation: 0-Oriented Tacttile Disturbances: 0-None Auditory Disturbances: 0-None Visual Disturbances: 0-None Headache: 1-Very Mild CIWA-Ar Total Score: 15
--- NOTE | 2020-04-14 11:55 | HP ---
COWS - Scale Resting Pulse: 0= [place] 80 or Below Sweatin= Chills/Flushing Restless Observation: 1= Difficult to Sit Still Pupil Size: 1= Pupils >than Normal Bone or Joint Aches: 1= Mild Discomfort Runny Nose/ Eye Tearin= Nasal Congestion GI Upset > 30mins: 1= Stomach Cramp Tremor Observation: 1= Tremor [place], Not Seen Yawning Observation: 1= 1-2x During Session Anxiety or Irritability: 2=Irritable/Anxious Goose Flesh Skin: 3=Piloerection COWS Score: 13 CIWA Score Nausea/Vomitin-Mild Nausea/No Vomiting Muscle Tremors: 3 Anxiety: 4-Mod. Anxious/Guarded Agitation: 4-Moderately Restless Paroxysmal Sweats: 2 Orientation: 0-Oriented Tacttile Disturbances: 0-None Auditory Disturbances: 0-None Visual Disturbances: 0-None Headache: 1-Very Mild CIWA-Ar Total Score: 15 - Admission Criteria OASAS Guidelines: Admission for Medically Managed Detox: Requires at least one of the followin. CIWA greater than 12 2. Seizures within the past 24 hours 3. Delirium tremens within the past 24 hours 4. Hallucinations within the past 24 hours 5. Acute intervention needed for co occurring medical disorder 6. Acute intervention needed for co occurring psychiatric disorder 7. Severe withdrawal that cannot be handled at a lower level of care (continued vomiting, continued diarrhea, abnormal vital signs) requiring intravenous medication and/or fluids 8. Admitting History and Physical - Admission Chief Complaint: Mr. Pan is a 54 yo man who presents to [facility] requesting admission to detox for alcohol and heroin use. History of Present Illness: Mr. Pan is a 54 yo man who presents to [facility] requesting admission to detox for alcohol and heroin use. He was last her between March 22 and , completed detox. 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 No Narcan at home Nicotine Substance amount: 10 ciggs Frequency of use: Daily Substance route: Smoking Date of Last Use: 04/14/20 (started age 15) Marijuana/Hashish Substance amount: 1 joint Frequency of use: Once a month Substance route: Smoking Date of Last Use: 03/15/20 Methadone: denies use History Source: Patient Limitations to Obtaining History: No Limitations - Past Medical History Cardiovascular: Yes: HTN Pulmonary: Yes: Other (sarcoidosis) - Past Surgical History Past Surgical History: Yes: None - Smoking History Smoking history: Current every day smoker Have you smoked in the past 12 months: Yes Aproximately how many cigarettes per day: 10 - Alcohol/Substance Use Hx Alcohol Use: Yes Number of Drinks Daily: 10 History of Substance Use: reports: Heroin - Social History ADL: Independent Occupation: unemployed History of Recent Travel: No Admission ROS S - HPI Allergies/Adverse Reactions: Allergies Allergy/AdvReac Type Severity Reaction Status Date / Time Penicillins Allergy Verified 04/14/20 11:48 Exam Limitations: No Limitations - Ebola screening Have you traveled outside of the country in the last 21 days: No Have you been sick,other than usual withdrawal symptoms: No Do you have a fever: No - Review of Systems Constitutional: Changes in sleep (trouble sleeping), Unintentional Wgt. Loss (10 lb in one mos) EENT: reports: Blurred Vision (glasses for reading) Respiratory: reports: Shortness of Breath (COPD, smoker) Cardiac: reports: No Symptoms Reported GI: reports: No Symptoms Reported : reports: No Symptoms Reported Musculoskeletal: reports: Back Pain (mild) Integumentary: reports: Dryness Neuro: reports: No Symptoms reported Endocrine: reports: No Symptoms Reported Hematology: reports: No Symptoms Reported Psychiatric: reports: Depressed (worried about COVID) Patient History - Patient Medical History Hx Anemia: No Hx Asthma: No Hx Chronic Obstructive Pulmonary Disease (COPD): Yes Hx Cancer: No Hx Cardiac Disorders: No Hx Congestive Heart Failure: No Hx Hypertension: Yes Hx Hypercholesterolemia: No Hx Pacemaker: No HX Cerebrovascular Accident: No Hx Seizures: No Hx Dementia: No Hx Diabetes: No Hx Gastrointestinal Disorders: No Hx Liver Disease: No Hx Genitourinary Disorders: No Hx Sexually Transmitted Disorders: No Hx Renal Disease (ESRD): No Hx Thyroid Disease: No Hx Human Immunodeficiency Virus (HIV): No (Negative) Hx Hepatitis C: No Hx Depression: Yes Hx Suicide Attempt: No (Denies suicidal ideation at this time) Hx Bipolar Disorder: No Hx Schizophrenia: No - Patient Surgical History Past Surgical History: No Hx Neurologic Surgery: No Hx Cataract Extraction: No Hx Cardiac Surgery: No Hx Lung Surgery: No Hx Breast Surgery: No Hx Breast Biopsy: No Hx Abdominal Surgery: No Hx Appendectomy: No Hx Cholecystectomy: No Hx Genitourinary Surgery: No Hx Section: No Hx Orthopedic Surgery: No Anesthesia Reaction: No - PPD History Date: 06/02/19 Results: 0 mm - Smoking Cessation Smoking history: Current every day smoker Have you smoked in the past 12 months: Yes Aproximately how many cigarettes per day: 10 Cigars Per Day: 0 Hx Chewing Tobacco Use: No Initiated information on smoking cessation: Yes 'Breaking Loose' booklet given: 04/14/20 Admission Physical Exam BHS - Vital Signs Vital Signs: 154/105, 78, 12, 97.3 CONNIE: 0.114 - Physical General Appearance: Yes: No Apparent Distress, Nourished HEENTM: Yes: EOMI, Hearing grossly Normal, Normocephalic, Normal Voice Respiratory: Yes: Lungs Clear, No Respiratory Distress, No Accessory Muscle Use Neck: Yes: Within Normal Limits, Supple Breast: Yes: Breast Exam Deferred Cardiology: Yes: Regular Rhythm, Regular Rate Abdominal: Yes: Normal Bowel Sounds, Non Tender, Flat Back: Yes: Normal Inspection Musculoskeletal: Yes: Gait Steady Extremities: Yes: Normal Inspection, Non-Tender Neurological: Yes: Alert, Normal Response Integumentary: Yes: Other (dry) - Diagnostic (1) Alcohol dependence with uncomplicated withdrawal Current Visit: Yes Status: Acute (2) Cannabis dependence Current Visit: Yes Status: Acute (3) Hx of sarcoidosis Current Visit: No Status: Chronic (4) Hypertension Current Visit: Yes Status: Chronic Qualifiers: Hypertension type: unspecified Qualified Code(s): I10 - Essential (primary) hypertension (5) Nicotine dependence Current Visit: Yes Status: Acute Qualifiers: Nicotine product type: cigarettes Substance use status: uncomplicated Qualified Code(s): F17.210 - Nicotine dependence, cigarettes, uncomplicated (6) Opioid dependence with withdrawal Current Visit: Yes Status: Acute (7) Syphilis contact, treated Current Visit: No Status: Resolved Cleared for Admission [facility] - Detox or Rehab [facility] Level of Care: Medically Managed Detox Regimen/Protocol: Methadone, Valium Breathalyzer - Breathalyzer Breathalyzer: 0.114 Urine Drug Screen - Test Device Lot number: [id number] Expiration date: 10/19/21 - Control Is test valid?: Yes - Results Drug screen NEGATIVE: No Urine drug screen results: FEN-Fentanyl, MOP-Opiates, MTD-Methadone Inpatient Rehab Admission - Rehab Decision to Admit Inpatient rehab admission?: No
[2020-04-14] MEDS ORDERED: MENTHOL/PHENOL 1 EACH UD MM PRN (12:04)
[2020-04-14] MEDS ORDERED: BISMUTH SUBSALICYLATE 262 MG/15 ML BTL PO PRN (12:04)
[2020-04-14] MEDS ORDERED: cloNIDine HCL 0.1 MG TABLET PO PRN (12:04)
[2020-04-14] MEDS ORDERED: ACETAMINOPHEN 325 MG TABLET (FP) PO PRN ×2 (12:04)
[2020-04-14] MEDS ORDERED: MAGNESIUM CITRATE 300 ML BOTTLE PO PRN (12:04)
[2020-04-14] MEDS ORDERED: METHADONE HCL 10 MG TABLET (FOR DETOX USE ONLY) PO ONE (12:04)
[2020-04-14] MEDS ORDERED: MAG HYDROX/AL HYDROX/SIMETH 30 ML UNIT-DOSE CUP PO PRN (12:04)
[2020-04-14] MEDS ORDERED: ONDANSETRON *ODT* 4 MG TABLET SL PRN (12:04)
[2020-04-14] MEDS ORDERED: NICOTINE POLACRILEX 2 MG GUM BUC PRN (12:04)
[2020-04-14] MEDS ORDERED: IBUPROFEN 400 MG TABLET (FP) PO PRN (12:04)
[2020-04-14 12:25] VITALS: BMI 22.4
[2020-04-14] MEDS: NICOTINE 14 MG/24 HOURS TOPICAL PATCH TD SCH (12:55)
[2020-04-14] MEDS: hydrOXYzine PAMOATE 25 MG CAPSULE (FP) PO SCH ×3 (13:00→22:21)
--- OUTSIDE RECORDS SUMMARY | 2020-04-14 13:15 | XMS ---
:1965 Author Organization [facility] Care Team Providers Name Role Phone SAM, LISEJANEE Unavailable Unavailable CONSTANTIN FELIZ Unavailable Unavailable DHARMESH CARVAJAL Unavailable Unavailable Charlotte Mohr MD, MD Unavailable Chucky Mohr MD, MD Unavailable Chucky Mohr MD, MD Unavailable Re-disclosure Warning The records that you are about to access may contain information from federally- assisted alcohol or drug abuse programs. If such information is present, then the following federally mandated warning applies: This information has been disclosed to you from records protected by federal confidentiality rules (42 CFR part 2). The federal rules prohibit you from making any further disclosure of this information unless further disclosure is expressly permitted by the written consent of the person to whom it pertains or as otherwise permitted by 42 CFR part 2. A general authorization for the release of medical or other information is NOT sufficient for this purpose. The Federal rules restrict any use of the information to criminally investigate or prosecute any alcohol or drug abuse patient.The records that you are about to access may contain highly sensitive health information, the redisclosure of which is protected by Article 27-F of the [facility] Public Health law. If you continue you may haveaccess to information: Regarding HIV / AIDS; Provided by facilities licensed or operated by the [facility] Office of Mental Health; or Provided by the [facility] Office for People With Developmental Disabilities. If such information is present, then the following [facility] mandated warning applies: This information has been disclosed to you from confidential records which are protected by state law. State law prohibits you from making any further disclosure of this information without the specific written consent of the person to whom it pertains, or as otherwise permitted by law. Any unauthorized further disclosure in violation of state law may result in a fine or [place] health [facility] sentence or both. A general authorization for the release of medical or other information is NOT sufficient authorization for further disclosure. Allergies and Adverse Reactions Type Description Substance Reaction Status Data Source(s ) Propensity to adverse PENICILLINS Penicillins Active T [facility] For reactions to drug Family [facility] Encounters Encounter Providers Location Date Indications Data Source(s ) Outpatient Attender: Charlotte Mohr 01/07/2020 [facility] 11:52:42 AM [facility] EDT Patient admitted. Outpatient Attender: CONSTANTIN FELIZ [facility] Patient [facility]. Outpatient Attender: JUAN MANUEL 08/16/2019 01:42:44 PM [facility] Patient admitted. Outpatient Attender: JUAN MANUEL 07/02/2019 09:38:58 AM [facility] Patient admitted. Outpatient Attender: JUAN MANUEL 06/30/2019 09:47:29 AM [facility] Patient admitted. Outpatient Attender: JUAN MANUEL 06/07/2019 08:19:15 AM [facility] Patient admitted. Outpatient Attender: DHARMESH CARVAJAL 03/18/2019 03:11:47 PM [facility] EDT - 03/18/2019 03:31:18 [facility] EDT Patient admitted. Outpatient Attender: JUAN MANUEL 02/12/2019 08:38:43 AM [facility] Patient admitted. Medications Medication Brand Start Product Dose Route Administrative Pharmacy [facility] Indications Reaction Description Data Name Date Form Instructions Instructions Source(s) Cyclobenzap Cyclob 09/11/ Oral complet Back pain 1 TABLET 3 The rine enzapr 2011 ed TIMES DAILY Instit kamila hydrochlori ine 12:00: NEEDED F or Family de 10 MG HCl 00 AM Health Oral Tablet (FLEXE EST [Flexeril] RIL) Cyclobenzap 10 MG rine HCl OR (FLEXERIL) TABS 10 MG OR TABS Back pain 1 TABLET 3 TIMES DAILY NEEDED tramadol TraMADol 08/22/2011 Oral completed Lumbago 1 The hydrochloride HCl 50 MG 12:00:00 AM tablet [place] 50 MG Oral OR TABS EST 2-3 For Fa [place] Tablet TraMADol times Hea lth HCl 50 MG OR daily TABS as needed for pain Lumbago 1 tablet 2-3 times daily as needed for pain Insurance Providers Payer name Policy type Policy ID Covered Covered republican's Policy P kirsten / Coverage republican ID relationship to Ray Inf ormation type ray [place] [id number] SP [id number] [place] [id number] Self [id number] [place] [id number] Self [id number] [place] [id number] SP [id number] [employer] [id number] SP [id number] [employer] [id number] SP [id number] [employer] [id number] SP [id number] [place]US [id number] SP [id number] HEALTH PLAN [place] [id number] SP [id number] [employer] [place] [id number] SP [id number] [place] Medicaid 125 125 Problems, Conditions, and Diagnoses Code Display Name Description Problem Type Effective Data Dates Source(s) Z11.59 Encounter for Encounter for Diagnosis 01/07/2020 The [facility] [place] screening for screening for 11:52:42 AM For Fam anselmo other viral other viral EDT Health diseases diseases Transitional Care Transitional Care Diagnosis 11/30/2019 The [place] Management Management 10:40:22 AM For Family Outreach Outreach EDT Health Emergency Room Emergency Room Diagnosis 08/16/2019 [facility] Follow Up Visit Follow Up 01:42:44 PM For Family EST Health Outreach Outreach Diagnosis 07/02/2019 The [place] 09:38:58 AM For Family EST Health Hospital Discharge Hospital Discharge Diagnosis 9 The [place] Appointment Appointment 09:38:58 AM For Family EST Health Other Other Diagnosis 07/02/2019 The [place] 09:38:58 AM For Family EST Health Z65.9 Problem related to Problem related to Diagnosis 9 The [place] unspecified unspecified 03:11:47 PM For Family psychosocial psychosocial EDT Health circumstances circumstances Call During Clinic Call During Clinic Diagnosis 9 The [place] Hours Hours 08:38:43 AM For Family EDT Health Hospital Discharge Hospital Discharge Diagnosis 9 The [place] Outreach Outreach 08:38:43 AM For Family EDT Health [id number] Back pain Diagnosis [facility] [id number] Lumbago Diagnosis [facility] Surgeries/Procedures Procedure Description Date Indications Data Source(s) NOVEL CORONAVIRUS NOVEL CORONAVIRUS Routine 01/05/2020 0 01/05/2020 The COVID-19 COVID-19 12:00:00 AM In stitute NASOPHARYNGEAL NASOPHARYNGEAL EDT For [facility] NOVEL CORONAVIRUS COVID-19 NOVEL CORONAVIRUS COVID-19 The [place] For NASOPHARYNGEAL NASOPHARYNGEAL Family Heal th Results ID Date Data Source [id number] 03/22/2020 11:35:00 PM EDT [facility] Name Value Range Interpretation Description Data Sup porting Code Source(s) Document(s ) SARS [facility] coronavirus 2 RNA This lab was ordered by [facility] and reported by [facility]. ID Date Data Source [id number] 02/02/2020 08:00:00 PM EDT [facility] Name Value Range Interpretation Description Data Sup porting Code Source(s) Document(s ) SARS [facility] coronavirus 2 RNA This lab was ordered by [facility] and reported by [facility]. ID Date Data Source [id number] 01/03/2020 07:00:00 PM EDT [facility] Name Value Range Interpretation Description Data Sup porting Code Source(s) Document(s ) SARS [facility] CORONAVIRUS 2 RNA This lab was ordered by [facility] and reported by [facility]. ID Date Data Source [id number] 12/14/2019 02:15:00 PM EDT [facility] Name Value Range Interpretation Code Description Data Teresa rce(s) Supporting Document(s ) SARS-COV-2 [facility] PCR This lab was ordered by [facility] and re ported by [facility]. Procedure Social History Code Duration Value Status Description Data Source(s ) Sex assigned at Not on file Not on file [facility] Tobacco smoking Unknown if ever completed Unknown if ever The [place] For status NHIS smoked smoked Family Health Sex assigned at Not on file Not on file [facility] Sex assigned at Not on file Not on file [facility] Sex assigned at Not on file Not on file [facility] Sex assigned at Not on file Not on file [facility] Sex assigned at Not on file Not on file [facility] Patient Treatment Plan of Care Planned Activity Planned Date Details Description Data Source (s) Cyclobenzaprine 09/12/[address] [facility] e For hydrochloride 10 MG Oral 12:00:00 AM [facility] Tablet [Flexeril] tramadol hydrochloride 50 08/22/2011 [facility] For MG Oral Tablet 12:00:00 [facility]
[2020-04-14 14:39] LABS: HEMATOCRIT 39.7 % (35.4-49); HEMOGLOBIN 13.2 GM/dL (11.7-16.9); MCH 31.9 pg (25.7-33.7); MCHC 33.3 g/dl (32.0-35.9); MEAN CELL VOLUME 95.7 fl (80-96); PLATELET COUNT 241 K/MM3 (134-434); RBC 4.15 M/mm3 (4.00-5.60); RDW 13.3 % (11.9-15.9)
[2020-04-14 14:46] LABS: BILIRUBIN,TOTAL 0.5 mg/dL (0.2-1); BLOOD UREA NITROGEN 16.2 mg/dL (7-18); CALCIUM 8.9 mg/dL (8.5-10.1); CREATININE 0.9 mg/dL (0.55-1.3); POTASSIUM 3.8 mmol/L (3.5-5.1); TOT PROT 7.6 g/dl (6.4-8.2)
[2020-04-14] MEDS: diazePAM 5 MG TABLET PO SCH ×2 (17:40→22:21)
[2020-04-14] MEDS: BUDESONIDE/FORMETEROL FUMARATE 160/4.5 mcg INHALER IH SCH (22:20)
[2020-04-14] MEDS: THIAMINE HCL 100 MG TABLET (FP) PO SCH (22:21)
[2020-04-14] MEDS: MELATONIN 5 MG TABLETS PO SCH (22:22)
[2020-04-15] MEDS: diazePAM 5 MG TABLET PO SCH ×4 (05:16→22:01)
[2020-04-15] MEDS: hydrOXYzine PAMOATE 25 MG CAPSULE (FP) PO SCH ×5 (05:16→22:01)
[2020-04-15] MEDS ORDERED: METHADONE HCL 5 MG TABLET (FOR DETOX USE ONLY) ONE (08:56)
[2020-04-15] MEDS ORDERED: METHADONE HCL 10 MG TABLET (FOR DETOX USE ONLY) ONE (08:56)
[2020-04-15] MEDS ORDERED: METHADONE (DETOX) 20 MG, METHADONE (DETOX) 5 MG PO ONE (10:00)
[2020-04-15] MEDS: BUDESONIDE/FORMETEROL FUMARATE 160/4.5 mcg INHALER IH SCH ×2 (10:33→22:02)
[2020-04-15] MEDS: NICOTINE 14 MG/24 HOURS TOPICAL PATCH TD SCH (10:33)
[2020-04-15] MEDS: PRENATAL VITAMINS W/ FOLIC ACID TABLET (FP) PO SCH (10:33)
[2020-04-15] MEDS: amLODIPine BESYLATE 5 MG TABLET (FP) PO SCH (10:33)
[2020-04-15] MEDS: TIOTROPIUM BROMIDE 2.5 MCG (SPIRIVA) RESPIMAT INHALER IH SCH (12:38)
[2020-04-15] MEDS: diazePAM 5 MG TABLET PO PRN (14:16)
--- NOTE | 2020-04-15 18:16 | PN ---
S CIWA - CIWA Score Nausea/Vomitin-No Nausea/No Vomiting Muscle Tremors: None Anxiety: 3 Agitation: 2 Paroxysmal Sweats: No Perspiration Orientation: 0-Oriented Tacttile Disturbances: 0-None Auditory Disturbances: 0-None Visual Disturbances: 2-Mild Sensitivity Headache: 0-None Present CIWA-Ar Total Score: 7 S COWS - Scale Resting Pulse: 0= [place] 80 or Below Sweatin= Chills/Flushing Restless Observation: 1= Difficult to Sit Still Pupil Size: 0= Normal to Room Light Bone or Joint Aches: 1= Mild Discomfort Runny Nose/ Eye Tearin= None GI Upset > 30mins: 0= None Tremor Observation of Outstretched Hands: 0= None Yawning Observation: 1= 1-2x During Session Anxiety or Irritability: 2=Irritable/Anxious Goose Flesh Skin: 0=Smooth Skin COWS Score: 6 S Progress Note (SOAP) Subjective: Anxious, Sweating, Fatigue, Poor Appetite. Objective: Patient A & O X 3, Observed Ambulating on Detox Unit Unassisted. In No Acute Distress. 04/15/20 18:20 Vital Signs Temperature 97.4 F L 04/15/20 17:00 Pulse Rate 69 04/15/20 17:00 Respiratory Rate 16 04/15/20 17:00 Blood Pressure 100/58 L 04/15/20 17:00 O2 Sat by Pulse Oximetry (%) 99 04/15/20 17:00 Laboratory Tests 04/14/20 04/14/20 04/14/20 12:20 12:20 12:20 WBC 6.0 RBC 4.15 Hgb 13.2 Hct 39.7 MCV 95.7 MCH 31.9 MCHC 33.3 RDW 13.3 Plt Count 241 MPV 8.0 Sodium 141 Potassium 3.8 Chloride 109 H Carbon Dioxide 26 Anion Gap 7 L BUN 16.2 Creatinine 0.9 Est GFR (CKD-EPI)AfAm 111.83 Est GFR (CKD-EPI)NonAf 96.49 Random Glucose 94 Calcium 8.9 Total Bilirubin 0.5 AST 29 ALT 32 Alkaline Phosphatase 90 Total Protein 7.6 Albumin 4.0 Syphilis Serology Reactive A* RPR Titer COVID-19 (VEGA) 04/14/20 04/14/20 12:20 13:00 WBC RBC Hgb Hct MCV MCH MCHC RDW Plt Count MPV Sodium Potassium Chloride Carbon Dioxide Anion Gap BUN Creatinine Est GFR (CKD-EPI)AfAm Est GFR (CKD-EPI)NonAf Random Glucose Calcium Total Bilirubin AST ALT Alkaline Phosphatase Total Protein Albumin Syphilis Serology RPR Titer Reactive 1:1 H COVID-19 (VEGA) Not detected Lab Results noted. Detox Admission RPR Result noted: Reactive A; Reactive; Titer 1:1. Patient reports that he completed treatment for Syphilis in the past. 04/15/20 18:21 Assessment: 04/15/20 18:21 WITHDRAWAL SYMPTOMS. REACTIVE RPR. Plan: Continue Detox. Ensure PO for caloric supplementation.
[2020-04-15] MEDS: THIAMINE HCL 100 MG TABLET (FP) PO SCH (22:01)
[2020-04-15] MEDS: MELATONIN 5 MG TABLETS PO SCH (22:02)
[2020-04-16] MEDS: hydrOXYzine PAMOATE 25 MG CAPSULE (FP) PO SCH ×5 (05:39→22:24)
[2020-04-16] MEDS: diazePAM 5 MG TABLET PO SCH ×3 (05:39→22:24)
[2020-04-16] MEDS ORDERED: METHADONE HCL 10 MG TABLET (FOR DETOX USE ONLY) PO ONE (10:00)
[2020-04-16] MEDS: PRENATAL VITAMINS W/ FOLIC ACID TABLET (FP) PO SCH (10:27)
[2020-04-16] MEDS: NICOTINE 14 MG/24 HOURS TOPICAL PATCH TD SCH (10:27)
[2020-04-16] MEDS: amLODIPine BESYLATE 5 MG TABLET (FP) PO SCH (10:27)
[2020-04-16] MEDS: BUDESONIDE/FORMETEROL FUMARATE 160/4.5 mcg INHALER IH SCH ×2 (10:28→22:23)
[2020-04-16] MEDS: TIOTROPIUM BROMIDE 2.5 MCG (SPIRIVA) RESPIMAT INHALER IH SCH (10:28)
[2020-04-16] MEDS: diazePAM 5 MG TABLET PO PRN (10:30)
--- NOTE | 2020-04-16 16:49 | PN ---
[facility] CIWA - CIWA Score Nausea/Vomitin-Mild Nausea/No Vomiting Muscle Tremors: 2 Anxiety: 2 Agitation: 2 Paroxysmal Sweats: 2 Orientation: 0-Oriented Tacttile Disturbances: 0-None Auditory Disturbances: 0-None Visual Disturbances: 0-None Headache: 0-None Present CIWA-Ar Total Score: 9 BHS COWS - Scale Resting Pulse: 0= [place] 80 or Below Sweatin= Chills/Flushing Restless Observation: 0= Sits Still Pupil Size: 0= Normal to Room Light Bone or Joint Aches: 1= Mild Discomfort Runny Nose/ Eye Tearin= Runny Nose/Eyes GI Upset > 30mins: 1= Stomach Cramp Tremor Observation of Outstretched Hands: 2= Slight Tremor Visible Yawning Observation: 0= None Anxiety or Irritability: 2=Irritable/Anxious Goose Flesh Skin: 0=Smooth Skin COWS Score: 9 BHS Progress Note (SOAP) Subjective: Anxious, sweating, interrupted sleep Objective: 04/16/20 16:44 Last Vital Signs Temp Pulse Resp BP Pulse Ox 97.3 F L 72 18 129/85 100 04/16/20 12:35 04/16/20 12:35 04/16/20 12:35 04/16/20 12:35 04/16/20 12:35 Elevated b/p noted: has htn, on med Laboratory Tests 04/14/20 04/14/20 04/14/20 12:20 12:20 12:20 WBC 6.0 RBC 4.15 Hgb 13.2 Hct 39.7 MCV 95.7 MCH 31.9 MCHC 33.3 RDW 13.3 Plt Count 241 MPV 8.0 Sodium 141 Potassium 3.8 Chloride 109 H Carbon Dioxide 26 Anion Gap 7 L BUN 16.2 Creatinine 0.9 Est GFR (CKD-EPI)AfAm 111.83 Est GFR (CKD-EPI)NonAf 96.49 Random Glucose 94 Calcium 8.9 Total Bilirubin 0.5 AST 29 ALT 32 Alkaline Phosphatase 90 Total Protein 7.6 Albumin 4.0 Syphilis Serology Reactive A* RPR Titer COVID-19 (VEGA) 04/14/20 04/14/20 12:20 13:00 WBC RBC Hgb Hct MCV MCH MCHC RDW Plt Count MPV Sodium Potassium Chloride Carbon Dioxide Anion Gap BUN Creatinine Est GFR (CKD-EPI)AfAm Est GFR (CKD-EPI)NonAf Random Glucose Calcium Total Bilirubin AST ALT Alkaline Phosphatase Total Protein Albumin Syphilis Serology RPR Titer Reactive 1:1 H COVID-19 (VEGA) Not detected Labs reviewed: abnormal RPR Assessment: 04/16/20 16:45 Withdrawal sxs Latent syphilis noted Plan: Continue detox Encourage PO water intake HTN: monitor b/p, continue antihypertensive medication 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
[2020-04-16] MEDS: THIAMINE HCL 100 MG TABLET (FP) PO SCH (22:24)
[2020-04-16] MEDS: MELATONIN 5 MG TABLETS PO SCH (22:47)
[2020-04-17] MEDS: hydrOXYzine PAMOATE 25 MG CAPSULE (FP) PO SCH ×5 (05:42→21:44)
[2020-04-17] MEDS: diazePAM 5 MG TABLET PO SCH ×2 (05:42→17:32)
[2020-04-17] MEDS: MAGNESIUM HYDROX 2400MG/30ML ORAL SUSPENSION 30 ML CUP PO PRN ×2 (05:43→10:14)
[2020-04-17] MEDS ORDERED: METHADONE HCL 5 MG TABLET (FOR DETOX USE ONLY) ONE (08:54)
[2020-04-17] MEDS ORDERED: METHADONE HCL 10 MG TABLET (FOR DETOX USE ONLY) ONE (08:54)
[2020-04-17] MEDS ORDERED: METHADONE (DETOX) 10 MG, METHADONE (DETOX) 5 MG PO ONE (10:00)
[2020-04-17] MEDS: PRENATAL VITAMINS W/ FOLIC ACID TABLET (FP) PO SCH (10:10)
[2020-04-17] MEDS: NICOTINE 14 MG/24 HOURS TOPICAL PATCH TD SCH (10:10)
[2020-04-17] MEDS: BUDESONIDE/FORMETEROL FUMARATE 160/4.5 mcg INHALER IH SCH ×2 (10:11→21:44)
[2020-04-17] MEDS: TIOTROPIUM BROMIDE 2.5 MCG (SPIRIVA) RESPIMAT INHALER IH SCH (10:11)
[2020-04-17] MEDS: amLODIPine BESYLATE 5 MG TABLET (FP) PO SCH (10:11)
--- NOTE | 2020-04-17 11:38 | PN ---
S CIWA - CIWA Score Nausea/Vomitin-No Nausea/No Vomiting Muscle Tremors: 2 Anxiety: 1-Mildly Anxious Agitation: 2 Paroxysmal Sweats: 1-Minimal Palms Moist Orientation: 0-Oriented Tacttile Disturbances: 0-None Auditory Disturbances: 0-None Visual Disturbances: 0-None Headache: 0-None Present CIWA-Ar Total Score: 6 BHS COWS - Scale Resting Pulse: 0= [place] 80 or Below Sweatin= Chills/Flushing Restless Observation: 1= Difficult to Sit Still Pupil Size: 0= Normal to Room Light Bone or Joint Aches: 1= Mild Discomfort Runny Nose/ Eye Tearin= Nasal Congestion GI Upset > 30mins: 0= None Tremor Observation of Outstretched Hands: 1= Tremor [place], Not Seen Yawning Observation: 1= 1-2x During Session Anxiety or Irritability: 1=Feels Anxious/Irritable Goose Flesh Skin: 0=Smooth Skin COWS Score: 7 [facility] Progress Note (SOAP) Subjective: anxiety restless agitation interrupted sleep Objective: 04/17/20 11:38 Vital Signs Temperature 97.6 F 04/17/20 09:36 Pulse Rate 78 04/17/20 09:36 Respiratory Rate 19 04/17/20 09:36 Blood Pressure 143/78 04/17/20 09:36 O2 Sat by Pulse Oximetry (%) 100 04/17/20 09:36 Laboratory Tests 04/14/20 04/14/20 04/14/20 12:20 12:20 12:20 WBC 6.0 RBC 4.15 Hgb 13.2 Hct 39.7 MCV 95.7 MCH 31.9 MCHC 33.3 RDW 13.3 Plt Count 241 MPV 8.0 Sodium 141 Potassium 3.8 Chloride 109 H Carbon Dioxide 26 Anion Gap 7 L BUN 16.2 Creatinine 0.9 Est GFR (CKD-EPI)AfAm 111.83 Est GFR (CKD-EPI)NonAf 96.49 Random Glucose 94 Calcium 8.9 Total Bilirubin 0.5 AST 29 ALT 32 Alkaline Phosphatase 90 Total Protein 7.6 Albumin 4.0 Syphilis Serology Reactive A* RPR Titer COVID-19 (VEGA) 04/14/20 04/14/20 12:20 13:00 WBC RBC Hgb Hct MCV MCH MCHC RDW Plt Count MPV Sodium Potassium Chloride Carbon Dioxide Anion Gap BUN Creatinine Est GFR (CKD-EPI)AfAm Est GFR (CKD-EPI)NonAf Random Glucose Calcium Total Bilirubin AST ALT Alkaline Phosphatase Total Protein Albumin Syphilis Serology RPR Titer Reactive 1:1 H COVID-19 (VEGA) Not detected aaox3 ambulating no acute distress Assessment: 04/17/20 11:38 withdrawals Plan: continue detox
[2020-04-17] MEDS: MELATONIN 5 MG TABLETS PO SCH (21:44)
[2020-04-17] MEDS: METHOCARBAMOL 500 MG TABLET PO PRN (21:44)
[2020-04-17] MEDS: THIAMINE HCL 100 MG TABLET (FP) PO SCH (21:44)
[2020-04-18] MEDS ORDERED: diazePAM 5 MG TABLET PO ONE (06:00)
[2020-04-18] MEDS: hydrOXYzine PAMOATE 25 MG CAPSULE (FP) PO SCH ×2 (06:24→10:27)
[2020-04-18] MEDS ORDERED: METHADONE HCL 10 MG TABLET (FOR DETOX USE ONLY) PO ONE (10:00)
[2020-04-18] MEDS: NICOTINE 14 MG/24 HOURS TOPICAL PATCH TD SCH (10:26)
[2020-04-18] MEDS: METHOCARBAMOL 500 MG TABLET PO PRN ×2 (10:26→21:36)
[2020-04-18] MEDS: amLODIPine BESYLATE 5 MG TABLET (FP) PO SCH (10:26)
[2020-04-18] MEDS: PRENATAL VITAMINS W/ FOLIC ACID TABLET (FP) PO SCH (10:26)
[2020-04-18] MEDS: BUDESONIDE/FORMETEROL FUMARATE 160/4.5 mcg INHALER IH SCH ×2 (10:26→21:37)
[2020-04-18] MEDS: TIOTROPIUM BROMIDE 2.5 MCG (SPIRIVA) RESPIMAT INHALER IH SCH (10:26)
[2020-04-18] MEDS ORDERED: hydrOXYzine PAMOATE 25 MG CAPSULE (FP) PO PRN (11:03)
--- NOTE | 2020-04-18 11:07 | PN ---
[facility] CIWA - CIWA Score Nausea/Vomitin-No Nausea/No Vomiting Muscle Tremors: None Anxiety: 1-Mildly Anxious Agitation: 1-Slight > Activity Paroxysmal Sweats: No Perspiration Orientation: 0-Oriented Tacttile Disturbances: 0-None Auditory Disturbances: 0-None Visual Disturbances: 0-None Headache: 0-None Present CIWA-Ar Total Score: 2 BHS COWS - Scale Resting Pulse: 0= [place] 80 or Below Sweatin= No chills or Flushing Restless Observation: 1= Difficult to Sit Still Pupil Size: 0= Normal to Room Light Bone or Joint Aches: 1= Mild Discomfort Runny Nose/ Eye Tearin= None GI Upset > 30mins: 0= None Tremor Observation of Outstretched Hands: 1= Tremor [place], Not Seen Yawning Observation: 0= None Anxiety or Irritability: 1=Feels Anxious/Irritable Goose Flesh Skin: 0=Smooth Skin COWS Score: 4 S Progress Note (SOAP) Subjective: anxiety restless Objective: 04/18/20 11:06 Vital Signs Temperature 97.1 F L 04/18/20 08:43 Pulse Rate 73 04/18/20 08:43 Respiratory Rate 16 04/18/20 08:43 Blood Pressure 156/85 04/18/20 08:43 O2 Sat by Pulse Oximetry (%) 97 04/18/20 06:00 Laboratory Tests 04/14/20 04/14/20 04/14/20 12:20 12:20 12:20 WBC 6.0 RBC 4.15 Hgb 13.2 Hct 39.7 MCV 95.7 MCH 31.9 MCHC 33.3 RDW 13.3 Plt Count 241 MPV 8.0 Sodium 141 Potassium 3.8 Chloride 109 H Carbon Dioxide 26 Anion Gap 7 L BUN 16.2 Creatinine 0.9 Est GFR (CKD-EPI)AfAm 111.83 Est GFR (CKD-EPI)NonAf 96.49 Random Glucose 94 Calcium 8.9 Total Bilirubin 0.5 AST 29 ALT 32 Alkaline Phosphatase 90 Total Protein 7.6 Albumin 4.0 Syphilis Serology Reactive A* RPR Titer COVID-19 (VEGA) 04/14/20 04/14/20 12:20 13:00 WBC RBC Hgb Hct MCV MCH MCHC RDW Plt Count MPV Sodium Potassium Chloride Carbon Dioxide Anion Gap BUN Creatinine Est GFR (CKD-EPI)AfAm Est GFR (CKD-EPI)NonAf Random Glucose Calcium Total Bilirubin AST ALT Alkaline Phosphatase Total Protein Albumin Syphilis Serology RPR Titer Reactive 1:1 H COVID-19 (VEGA) Not detected aaox3 ambulating no acute distress Assessment: 04/18/20 11:06 withdrawals Plan: continue detox d/c in am
[2020-04-18] MEDS: MELATONIN 5 MG TABLETS PO SCH (21:35)
[2020-04-18] MEDS: THIAMINE HCL 100 MG TABLET (FP) PO SCH (21:36)
[2020-04-19] MEDS ORDERED: METHADONE HCL 5 MG TABLET (FOR DETOX USE ONLY) PO ONE (06:00)
[2020-04-19 06:04] VITALS: BP 134/90; PULSE 73; TEMP 97.5
--- NOTE | 2020-04-19 08:35 | DS ---
[facility] Detox Discharge Summary Admission Date: 04/14/20 Discharge Date: 04/19/20 - History Present History: Alcohol Dependence, Cannabis Dependence, Cocaine Dependence - Physical Exam Results Vital Signs: Vital Signs Temperature 97.5 F L 04/19/20 06:04 Pulse Rate 73 04/19/20 06:04 Respiratory Rate 18 04/19/20 06:04 Blood Pressure 134/90 04/19/20 06:04 O2 Sat by Pulse Oximetry (%) 97 04/19/20 06:04 Pertinent Admission Physical Exam Findings: Vital Signs Temperature 97.5 F L 04/19/20 06:04 Pulse Rate 73 04/19/20 06:04 Respiratory Rate 18 04/19/20 06:04 Blood Pressure 134/90 04/19/20 06:04 O2 Sat by Pulse Oximetry (%) 97 04/19/20 06:04 Laboratory Tests 04/14/20 04/14/20 04/14/20 12:20 12:20 12:20 WBC 6.0 RBC 4.15 Hgb 13.2 Hct 39.7 MCV 95.7 MCH 31.9 MCHC 33.3 RDW 13.3 Plt Count 241 MPV 8.0 Sodium 141 Potassium 3.8 Chloride 109 H Carbon Dioxide 26 Anion Gap 7 L BUN 16.2 Creatinine 0.9 Est GFR (CKD-EPI)AfAm 111.83 Est GFR (CKD-EPI)NonAf 96.49 Random Glucose 94 Calcium 8.9 Total Bilirubin 0.5 AST 29 ALT 32 Alkaline Phosphatase 90 Total Protein 7.6 Albumin 4.0 Syphilis Serology Reactive A* RPR Titer COVID-19 (VEGA) 04/14/20 04/14/20 12:20 13:00 WBC RBC Hgb Hct MCV MCH MCHC RDW Plt Count MPV Sodium Potassium Chloride Carbon Dioxide Anion Gap BUN Creatinine Est GFR (CKD-EPI)AfAm Est GFR (CKD-EPI)NonAf Random Glucose Calcium Total Bilirubin AST ALT Alkaline Phosphatase Total Protein Albumin Syphilis Serology RPR Titer Reactive 1:1 H COVID-19 (VEGA) Not detected labs noted aaox3 ambulating no acute distress lung CTA - Treatment Hospital Course: Detox Protocol Followed, Detoxed Safely, Responded well, Discharged Condition Good, Rehab Referral Accepted - Medication Discharge Medications: Ambulatory Orders Amlodipine Besylate [Norvasc -] 5 mg PO DAILY #30 tablet 07/19/19 Budesonide/Formeterol Fumarate [SYMBICORT 160/4.5mcg -] 2 inh PO BID #1 inhaler 07/19/19 Umeclidinium [place] [Incruse Ellipta] 62.5 mcg IH DAILY #1 blst.w.dev 07/19/19 - Diagnosis (1) Alcohol dependence with uncomplicated withdrawal Current Visit: Yes Status: Chronic (2) Cannabis dependence Current Visit: Yes Status: Chronic (3) Nicotine dependence Current Visit: Yes Status: Chronic Qualifiers: Nicotine product type: cigarettes Substance use status: uncomplicated Qualified Code(s): F17.210 - Nicotine dependence, cigarettes, uncomplicated (4) Opioid dependence with withdrawal Current Visit: Yes Status: Acute (5) Positive RPR test Current Visit: Yes Status: Acute (6) Hypertension Current Visit: Yes Status: Chronic Qualifiers: Hypertension type: unspecified Qualified Code(s): I10 - Essential (primary) hypertension (7) Substance-induced sleep disorder Current Visit: No Status: Acute (8) COPD (chronic obstructive pulmonary disease) Current Visit: No Status: Chronic Qualifiers: COPD type: emphysema Emphysema type: unspecified Qualified Code(s): J43.9 - Emphysema, unspecified (9) COPD (chronic obstructive pulmonary disease) Current Visit: No Status: Chronic Qualifiers: COPD type: unspecified COPD Qualified Code(s): J44.9 - Chronic obstructive pulmonary disease, unspecified (10) Cocaine dependence Current Visit: No Status: Chronic Qualifiers: Substance use status: uncomplicated Qualified Code(s): F14.20 - Cocaine dependence, uncomplicated (11) History of abnormal electrocardiogram Current Visit: No Status: Chronic (12) Hx of sarcoidosis Current Visit: No Status: Chronic (13) Insomnia Current Visit: No Status: Chronic (14) Sarcoidosis Current Visit: No Status: Chronic (15) Substance induced mood disorder Current Visit: No Status: Chronic (16) Unspecified nystagmus Current Visit: No Status: Chronic (17) Syphilis contact, treated Current Visit: No Status: Resolved - AMA Did Patient Leave Against Medical Advice: No
== END 2020-04-19 09:25 | disposition home or self-care (01) | DRG 774 ==
LOC: YASAS 11:06 → Y6N 12:24
PROVIDERS: ADMIT Allergy & Immunology; ATTEND Allergy & Immunology
PROC: HZ2ZZZZ Detoxification Services for Substance Abuse Treatment (ICD-10-PCS; principal; 2020-04-14)
DX: F10.230 Alcohol dependence with withdrawal, uncomplicated (principal); F14.20 Cocaine dependence, uncomplicated; F12.20 Cannabis dependence, uncomplicated; F17.210 Nicotine dependence, cigarettes, uncomplicated; F19.282 Other psychoactive substance dependence with psychoactive substance-induced sleep disorder; F19.24 Other psychoactive substance dependence with psychoactive substance-induced mood disorder; D86.9 Sarcoidosis, unspecified; I10 Essential (primary) hypertension; J43.9 Emphysema, unspecified; A53.0 Latent syphilis, unspecified as early or late; H55.00 Unspecified nystagmus; Z86.79 Personal history of other diseases of the circulatory system; Z88.0 Allergy status to penicillin
CPT/HCPCS: 36415; 80053; 85027; 86593; 86780; U0003

== ENCOUNTER 2020-05-22 13:26 | Inpatient (IN) | payer OTHER ==
[2020-05-22 14:26] VITALS: BMI 22.8
[2020-05-22] MEDS ORDERED: MAG HYDROX/AL HYDROX/SIMETH 30 ML UNIT-DOSE CUP PO PRN (15:33)
[2020-05-22] MEDS ORDERED: BISMUTH SUBSALICYLATE 524 MG/30 ML UD PO PRN (15:33)
[2020-05-22] MEDS ORDERED: cloNIDine HCL 0.1 MG TABLET PO PRN (15:33)
[2020-05-22] MEDS ORDERED: METHADONE HCL 10 MG TABLET (FOR DETOX USE ONLY) PO ONE (15:33)
[2020-05-22] MEDS ORDERED: ONDANSETRON *ODT* 4 MG TABLET SL PRN (15:33)
[2020-05-22] MEDS ORDERED: NICOTINE POLACRILEX 2 MG GUM BUC PRN (15:33)
[2020-05-22] MEDS ORDERED: ACETAMINOPHEN 325 MG TABLET (FP) PO PRN ×2 (15:33)
[2020-05-22] MEDS ORDERED: MENTHOL/PHENOL 1 EACH UD MM PRN (15:33)
[2020-05-22] MEDS ORDERED: MAGNESIUM CITRATE 300 ML BOTTLE PO PRN (15:33)
[2020-05-22] MEDS ORDERED: IBUPROFEN 400 MG TABLET (FP) PO PRN (15:33)
[2020-05-22] MEDS ORDERED: TIOTROPIUM BROMIDE 2.5 MCG (SPIRIVA) RESPIMAT INHALER IH SCH (16:30)
[2020-05-22] MEDS: diazePAM 5 MG TABLET PO SCH ×2 (17:10→22:11)
[2020-05-22] MEDS: amLODIPine BESYLATE 5 MG TABLET (FP) PO SCH (17:10)
[2020-05-22] MEDS: hydrOXYzine PAMOATE 25 MG CAPSULE (FP) PO SCH ×2 (17:10→22:11)
[2020-05-22] MEDS: TIOTROPIUM BROMIDE 2.5 MCG (SPIRIVA) RESPIMAT INHALER IH SCH (17:15)
[2020-05-22 17:27] LABS: HEMATOCRIT 36.9 % (35.4-49); HEMOGLOBIN 12.3 GM/dL (11.7-16.9); MCH 32.6 pg (25.7-33.7); MCHC 33.4 g/dl (32.0-35.9); MEAN CELL VOLUME 97.4 fl (80-96); MEAN PLT VOLUME 8.1 fl (7.5-11.1); PLATELET COUNT 265 K/MM3 (134-434); POTASSIUM 3.8 mmol/L (3.5-5.1); RBC 3.79 M/mm3 (4.00-5.60); WHITE BLOOD COUNT 6.3 K/mm3 (4.0-10.0)
[2020-05-22 17:30] LABS: CALCIUM 8.9 mg/dL (8.5-10.1)
[2020-05-22 17:31] LABS: ALBUMIN 3.7 g/dl (3.4-5.0); BLOOD UREA NITROGEN 18.6 mg/dL (7-18)
[2020-05-22 17:34] LABS: CREATININE 0.8 mg/dL (0.55-1.3)
[2020-05-22 17:36] LABS: BILIRUBIN,TOTAL 0.6 mg/dL (0.2-1); TOT PROT 7.1 g/dl (6.4-8.2)
[2020-05-22] MEDS: PETROLATUM, WHITE 30 GM TUBE TP SCH (18:02)
[2020-05-22] MEDS ORDERED: diphenhydrAMINE HCL 25 MG CAPSULE (FP) PO ONE (18:29)
[2020-05-22] MEDS: THIAMINE HCL 100 MG TABLET (FP) PO SCH (22:11)
[2020-05-22] MEDS: MELATONIN 5 MG TABLETS PO SCH (22:12)
[2020-05-22] MEDS: BUDESONIDE/FORMETEROL FUMARATE 160/4.5 mcg INHALER IH SCH (22:13)
[2020-05-23] MEDS: diazePAM 5 MG TABLET PO SCH ×4 (05:15→22:07)
[2020-05-23] MEDS: hydrOXYzine PAMOATE 25 MG CAPSULE (FP) PO SCH (05:15)
[2020-05-23] MEDS ORDERED: METHADONE HCL 5 MG TABLET (FOR DETOX USE ONLY) ONE (09:27)
[2020-05-23] MEDS ORDERED: METHADONE HCL 10 MG TABLET (FOR DETOX USE ONLY) ONE (09:27)
[2020-05-23] MEDS ORDERED: METHADONE (DETOX) 20 MG, METHADONE (DETOX) 5 MG PO ONE (10:00)
[2020-05-23] MEDS: PRENATAL VITAMINS W/ FOLIC ACID TABLET (FP) PO SCH (10:11)
[2020-05-23] MEDS: amLODIPine BESYLATE 5 MG TABLET (FP) PO SCH (10:12)
[2020-05-23] MEDS: BUDESONIDE/FORMETEROL FUMARATE 160/4.5 mcg INHALER IH SCH ×2 (10:12→22:08)
[2020-05-23] MEDS: TIOTROPIUM BROMIDE 2.5 MCG (SPIRIVA) RESPIMAT INHALER IH SCH (10:13)
[2020-05-23] MEDS: PETROLATUM, WHITE 30 GM TUBE TP SCH (10:14)
[2020-05-23] MEDS: NICOTINE 14 MG/24 HOURS TOPICAL PATCH TD SCH (10:39)
[2020-05-23] MEDS: METHOCARBAMOL 500 MG TABLET PO PRN (10:42)
[2020-05-23] MEDS: diazePAM 5 MG TABLET PO PRN (12:11)
[2020-05-23] MEDS: THIAMINE HCL 100 MG TABLET (FP) PO SCH (22:07)
[2020-05-23] MEDS: MELATONIN 5 MG TABLETS PO SCH (22:07)
[2020-05-23] MEDS: hydrOXYzine PAMOATE 25 MG CAPSULE (FP) PO PRN (22:07)
[2020-05-23] MEDS: diphenhydrAMINE HCL 25 MG CAPSULE (FP) PO PRN (22:07)
[2020-05-24] MEDS: diazePAM 5 MG TABLET PO SCH ×3 (05:26→22:14)
[2020-05-24] MEDS: hydrOXYzine PAMOATE 25 MG CAPSULE (FP) PO PRN (05:26)
[2020-05-24] MEDS ORDERED: METHOCARBAMOL 750 MG TAB PO ONE (09:45)
[2020-05-24] MEDS ORDERED: METHADONE HCL 10 MG TABLET (FOR DETOX USE ONLY) PO ONE (10:00)
[2020-05-24] MEDS: PRENATAL VITAMINS W/ FOLIC ACID TABLET (FP) PO SCH (10:06)
[2020-05-24] MEDS: BUDESONIDE/FORMETEROL FUMARATE 160/4.5 mcg INHALER IH SCH ×2 (10:06→22:15)
[2020-05-24] MEDS: NICOTINE 14 MG/24 HOURS TOPICAL PATCH TD SCH (10:06)
[2020-05-24] MEDS: TIOTROPIUM BROMIDE 2.5 MCG (SPIRIVA) RESPIMAT INHALER IH SCH (10:07)
[2020-05-24] MEDS: diazePAM 5 MG TABLET PO PRN (10:07)
[2020-05-24] MEDS: amLODIPine BESYLATE 5 MG TABLET (FP) PO SCH (10:07)
[2020-05-24] MEDS: PETROLATUM, WHITE 30 GM TUBE TP SCH (10:09)
[2020-05-24] MEDS: hydrOXYzine PAMOATE 50 MG CAPSULE (FP) PO SCH ×3 (12:46→22:14)
[2020-05-24] MEDS: METHOCARBAMOL 500 MG TABLET PO PRN (17:50)
[2020-05-24] MEDS: MELATONIN 5 MG TABLETS PO SCH (22:14)
[2020-05-24] MEDS: THIAMINE HCL 100 MG TABLET (FP) PO SCH (22:14)
[2020-05-24] MEDS: diphenhydrAMINE HCL 25 MG CAPSULE (FP) PO PRN (22:17)
[2020-05-25 00:08] LABS: HEP B CORE AB, TOT Positive (Negative)
[2020-05-25] MEDS: diazePAM 5 MG TABLET PO SCH ×2 (05:32→17:27)
[2020-05-25] MEDS: hydrOXYzine PAMOATE 50 MG CAPSULE (FP) PO SCH ×4 (05:32→22:09)
[2020-05-25] MEDS: MAGNESIUM HYDROX 2400MG/30ML ORAL SUSPENSION 30 ML CUP PO PRN (05:50)
[2020-05-25] MEDS ORDERED: METHADONE HCL 5 MG TABLET (FOR DETOX USE ONLY) ONE (09:05)
[2020-05-25] MEDS ORDERED: METHADONE HCL 10 MG TABLET (FOR DETOX USE ONLY) ONE (09:05)
[2020-05-25] MEDS: METHOCARBAMOL 500 MG TABLET PO PRN (09:48)
[2020-05-25] MEDS: amLODIPine BESYLATE 5 MG TABLET (FP) PO SCH (09:48)
[2020-05-25] MEDS: NICOTINE 14 MG/24 HOURS TOPICAL PATCH TD SCH (09:49)
[2020-05-25] MEDS: PRENATAL VITAMINS W/ FOLIC ACID TABLET (FP) PO SCH (09:49)
[2020-05-25] MEDS: TIOTROPIUM BROMIDE 2.5 MCG (SPIRIVA) RESPIMAT INHALER IH SCH (09:49)
[2020-05-25] MEDS: BUDESONIDE/FORMETEROL FUMARATE 160/4.5 mcg INHALER IH SCH ×2 (09:49→22:10)
[2020-05-25] MEDS ORDERED: METHADONE (DETOX) 10 MG, METHADONE (DETOX) 5 MG PO ONE (10:00)
[2020-05-25] MEDS: PETROLATUM, WHITE 30 GM TUBE TP SCH (10:28)
[2020-05-25] MEDS: diazePAM 5 MG TABLET PO PRN (13:31)
[2020-05-25] MEDS ORDERED: MASKS NR ONE (17:26)
[2020-05-25] MEDS: THIAMINE HCL 100 MG TABLET (FP) PO SCH (22:09)
[2020-05-25] MEDS: MELATONIN 5 MG TABLETS PO SCH (22:09)
[2020-05-25] MEDS: diphenhydrAMINE HCL 25 MG CAPSULE (FP) PO PRN (22:12)
[2020-05-26] MEDS: hydrOXYzine PAMOATE 50 MG CAPSULE (FP) PO SCH ×4 (05:14→22:23)
[2020-05-26] MEDS ORDERED: diazePAM 5 MG TABLET PO ONE (06:00)
[2020-05-26] MEDS ORDERED: METHADONE HCL 10 MG TABLET (FOR DETOX USE ONLY) PO ONE (10:00)
[2020-05-26] MEDS: BUDESONIDE/FORMETEROL FUMARATE 160/4.5 mcg INHALER IH SCH ×2 (10:32→22:24)
[2020-05-26] MEDS: amLODIPine BESYLATE 5 MG TABLET (FP) PO SCH (10:32)
[2020-05-26] MEDS: MAGNESIUM HYDROX 2400MG/30ML ORAL SUSPENSION 30 ML CUP PO PRN (10:34)
[2020-05-26] MEDS: NICOTINE 14 MG/24 HOURS TOPICAL PATCH TD SCH (10:39)
[2020-05-26] MEDS: PRENATAL VITAMINS W/ FOLIC ACID TABLET (FP) PO SCH (10:39)
[2020-05-26] MEDS: TIOTROPIUM BROMIDE 2.5 MCG (SPIRIVA) RESPIMAT INHALER IH SCH (10:39)
[2020-05-26] MEDS: PETROLATUM, WHITE 30 GM TUBE TP SCH (11:08)
[2020-05-26] MEDS: METHOCARBAMOL 500 MG TABLET PO PRN (13:14)
[2020-05-26] MEDS ORDERED: hydrOXYzine PAMOATE 50 MG CAPSULE (FP) PO ONE (13:15)
[2020-05-26] MEDS: THIAMINE HCL 100 MG TABLET (FP) PO SCH (22:23)
[2020-05-26] MEDS: MELATONIN 5 MG TABLETS PO SCH (22:23)
[2020-05-26] MEDS: diphenhydrAMINE HCL 25 MG CAPSULE (FP) PO PRN (22:25)
[2020-05-27] MEDS: hydrOXYzine PAMOATE 50 MG CAPSULE (FP) PO SCH (05:12)
[2020-05-27] MEDS ORDERED: MASKS NR ONE (05:48)
[2020-05-27] MEDS ORDERED: METHADONE HCL 5 MG TABLET (FOR DETOX USE ONLY) PO ONE (06:00)
[2020-05-27] MEDS: amLODIPine BESYLATE 5 MG TABLET (FP) PO SCH (09:04)
[2020-05-27] MEDS: BUDESONIDE/FORMETEROL FUMARATE 160/4.5 mcg INHALER IH SCH (09:05)
[2020-05-27] MEDS: TIOTROPIUM BROMIDE 2.5 MCG (SPIRIVA) RESPIMAT INHALER IH SCH (09:05)
[2020-05-27] MEDS: NICOTINE 14 MG/24 HOURS TOPICAL PATCH TD SCH (09:06)
[2020-05-27] MEDS: PRENATAL VITAMINS W/ FOLIC ACID TABLET (FP) PO SCH (09:06)
[2020-05-27] MEDS: PETROLATUM, WHITE 30 GM TUBE TP SCH (09:06)
[2020-05-27 09:22] VITALS: BP 127/81; PULSE 82; TEMP 97.3
== END 2020-05-27 09:08 | disposition home or self-care (01) | DRG 773 ==
LOC: YASAS 13:26 → Y3N 14:48
PROVIDERS: ADMIT Allergy & Immunology; ATTEND Allergy & Immunology
PROC: HZ2ZZZZ Detoxification Services for Substance Abuse Treatment (ICD-10-PCS; principal; 2020-05-22)
DX: F11.20 Opioid dependence, uncomplicated (principal); F10.230 Alcohol dependence with withdrawal, uncomplicated; F12.20 Cannabis dependence, uncomplicated; F17.210 Nicotine dependence, cigarettes, uncomplicated; A53.0 Latent syphilis, unspecified as early or late; E78.5 Hyperlipidemia, unspecified; I10 Essential (primary) hypertension; L29.8 Other pruritus; J44.9 Chronic obstructive pulmonary disease, unspecified; Z86.2 Personal history of diseases of the blood and blood-forming organs and certain disorders involving the immune mechanism; Z59.0 Homelessness; Z88.0 Allergy status to penicillin; Z87.09 Personal history of other diseases of the respiratory system
CPT/HCPCS: 36415; 80053; 85027; 86593; 86704; 86706; 86707; 86708; 86709; 86780; 86803; 87340; 93005; 93010; C9803; U0003

== ENCOUNTER 2020-06-22 14:25 | Inpatient (IN) | payer OTHER ==
[2020-06-22 15:40] VITALS: BMI 20.9
[2020-06-22] MEDS ORDERED: cloNIDine HCL 0.1 MG TABLET PO PRN (16:08)
[2020-06-22] MEDS ORDERED: MENTHOL/PHENOL 1 EACH UD MM PRN (16:08)
[2020-06-22] MEDS ORDERED: MAGNESIUM CITRATE 300 ML BOTTLE PO PRN (16:08)
[2020-06-22] MEDS ORDERED: MAGNESIUM HYDROX 2400MG/30ML ORAL SUSPENSION 30 ML CUP PO PRN (16:08)
[2020-06-22] MEDS ORDERED: BISMUTH SUBSALICYLATE 524 MG/30 ML UD PO PRN (16:08)
[2020-06-22] MEDS ORDERED: ACETAMINOPHEN 325 MG TABLET (FP) PO PRN (16:08)
[2020-06-22] MEDS ORDERED: chlordiazePOXIDE HCL 25 MG CAPSULE PO PRN (16:08)
[2020-06-22] MEDS ORDERED: IBUPROFEN 400 MG TABLET (FP) PO PRN (16:08)
[2020-06-22] MEDS ORDERED: METHADONE HCL 10 MG TABLET (FOR DETOX USE ONLY) PO ONE (16:08)
[2020-06-22] MEDS ORDERED: MAG HYDROX/AL HYDROX/SIMETH 30 ML UNIT-DOSE CUP PO PRN (16:08)
[2020-06-22] MEDS ORDERED: NICOTINE POLACRILEX 2 MG GUM BUC PRN (16:08)
[2020-06-22] MEDS ORDERED: ONDANSETRON *ODT* 4 MG TABLET SL PRN (16:08)
[2020-06-22] MEDS ORDERED: NALOXONE (NARCAN) HCL 4 MG/0.1 ML SPRAY NS ONE (16:45)
[2020-06-22] MEDS: NICOTINE 7 MG/24 HOURS TOPICAL PATCH TD SCH (17:32)
[2020-06-22] MEDS: amLODIPine BESYLATE 5 MG TABLET (FP) PO SCH (17:32)
[2020-06-22] MEDS: hydrOXYzine PAMOATE 25 MG CAPSULE (FP) PO SCH ×2 (18:15→22:03)
[2020-06-22] MEDS: TIOTROPIUM BROMIDE 2.5 MCG (SPIRIVA) RESPIMAT INHALER IH SCH (18:39)
[2020-06-22] MEDS ORDERED: MELATONIN 5 MG TABLETS PO SCH (22:00)
[2020-06-22] MEDS: THIAMINE HCL 100 MG TABLET (FP) PO SCH (22:03)
[2020-06-22] MEDS: chlordiazePOXIDE HCL 25 MG CAPSULE PO SCH (22:03)
[2020-06-22] MEDS: BUDESONIDE/FORMETEROL FUMARATE 160/4.5 mcg INHALER IH SCH (22:05)
[2020-06-23] MEDS: hydrOXYzine PAMOATE 25 MG CAPSULE (FP) PO SCH ×5 (05:30→22:25)
[2020-06-23] MEDS: chlordiazePOXIDE HCL 25 MG CAPSULE PO SCH ×2 (05:30→10:19)
[2020-06-23] MEDS ORDERED: METHADONE HCL 10 MG TABLET (FOR DETOX USE ONLY) ONE (09:02)
[2020-06-23] MEDS ORDERED: METHADONE HCL 5 MG TABLET (FOR DETOX USE ONLY) ONE (09:02)
[2020-06-23] MEDS ORDERED: METHADONE (DETOX) 20 MG, METHADONE (DETOX) 5 MG PO ONE (10:00)
[2020-06-23] MEDS: PRENATAL VITAMINS W/ FOLIC ACID TABLET (FP) PO SCH (10:18)
[2020-06-23] MEDS: NICOTINE 7 MG/24 HOURS TOPICAL PATCH TD SCH (10:19)
[2020-06-23] MEDS: amLODIPine BESYLATE 5 MG TABLET (FP) PO SCH (10:19)
[2020-06-23] MEDS: TIOTROPIUM BROMIDE 2.5 MCG (SPIRIVA) RESPIMAT INHALER IH SCH (10:22)
[2020-06-23] MEDS: BUDESONIDE/FORMETEROL FUMARATE 160/4.5 mcg INHALER IH SCH ×2 (10:22→22:24)
[2020-06-23 11:12] LABS: POTASSIUM 4.4 mmol/L (3.5-5.1)
[2020-06-23 11:18] LABS: ALBUMIN 3.6 g/dl (3.4-5.0); BLOOD UREA NITROGEN 11.8 mg/dL (7-18)
[2020-06-23 11:23] LABS: BILIRUBIN,TOTAL 0.4 mg/dL (0.2-1)
[2020-06-23 11:26] LABS: HEMATOCRIT 38.8 % (35.4-49); HEMOGLOBIN 12.4 GM/dL (11.7-16.9); MCH 31.3 pg (25.7-33.7); MEAN CELL VOLUME 97.9 fl (80-96); MEAN PLT VOLUME 8.2 fl (7.5-11.1); PLATELET COUNT 239 K/MM3 (134-434); RBC 3.96 M/mm3 (4.00-5.60); RDW 14.6 % (11.9-15.9); WHITE BLOOD COUNT 5.4 K/mm3 (4.0-10.0)
[2020-06-23] MEDS: diazePAM 5 MG TABLET PO PRN (14:52)
[2020-06-23] MEDS: diazePAM 5 MG TABLET PO SCH ×2 (17:36→22:25)
[2020-06-23] MEDS: THIAMINE HCL 100 MG TABLET (FP) PO SCH (22:25)
[2020-06-23] MEDS: MELATONIN 5 MG TABLETS PO SCH (22:25)
[2020-06-24] MEDS ORDERED: chlordiazePOXIDE HCL 25 MG CAPSULE PO SCH (05:00)
[2020-06-24] MEDS: hydrOXYzine PAMOATE 25 MG CAPSULE (FP) PO SCH ×5 (06:01→22:04)
[2020-06-24] MEDS: diazePAM 5 MG TABLET PO SCH ×4 (06:01→22:04)
[2020-06-24] MEDS: diazePAM 5 MG TABLET PO PRN ×2 (08:49→13:09)
[2020-06-24] MEDS ORDERED: METHADONE HCL 10 MG TABLET (FOR DETOX USE ONLY) PO ONE (10:00)
[2020-06-24] MEDS: PRENATAL VITAMINS W/ FOLIC ACID TABLET (FP) PO SCH (10:01)
[2020-06-24] MEDS: TIOTROPIUM BROMIDE 2.5 MCG (SPIRIVA) RESPIMAT INHALER IH SCH (10:02)
[2020-06-24] MEDS: BUDESONIDE/FORMETEROL FUMARATE 160/4.5 mcg INHALER IH SCH ×2 (10:02→22:07)
[2020-06-24] MEDS: amLODIPine BESYLATE 5 MG TABLET (FP) PO SCH (10:02)
[2020-06-24] MEDS: NICOTINE 7 MG/24 HOURS TOPICAL PATCH TD SCH (10:03)
[2020-06-24] MEDS: ACETAMINOPHEN 325 MG TABLET (FP) PO PRN ×2 (13:10→22:05)
[2020-06-24] MEDS: MELATONIN 5 MG TABLETS PO SCH (22:04)
[2020-06-24] MEDS: THIAMINE HCL 100 MG TABLET (FP) PO SCH (22:04)
[2020-06-25] MEDS ORDERED: chlordiazePOXIDE HCL 10 MG CAPSULE PO PRN
[2020-06-25] MEDS ORDERED: chlordiazePOXIDE HCL 10 MG CAPSULE PO SCH (05:00)
[2020-06-25] MEDS: diazePAM 5 MG TABLET PO SCH ×3 (05:07→22:05)
[2020-06-25] MEDS: hydrOXYzine PAMOATE 25 MG CAPSULE (FP) PO SCH ×5 (05:08→22:05)
[2020-06-25] MEDS: ACETAMINOPHEN 325 MG TABLET (FP) PO PRN (06:10)
[2020-06-25] MEDS ORDERED: METHADONE HCL 10 MG TABLET (FOR DETOX USE ONLY) ONE (09:04)
[2020-06-25] MEDS ORDERED: METHADONE HCL 5 MG TABLET (FOR DETOX USE ONLY) ONE (09:05)
[2020-06-25] MEDS: diazePAM 5 MG TABLET PO PRN (09:08)
[2020-06-25] MEDS ORDERED: METHADONE (DETOX) 10 MG, METHADONE (DETOX) 5 MG PO ONE (10:00)
[2020-06-25] MEDS: TIOTROPIUM BROMIDE 2.5 MCG (SPIRIVA) RESPIMAT INHALER IH SCH (10:05)
[2020-06-25] MEDS: PRENATAL VITAMINS W/ FOLIC ACID TABLET (FP) PO SCH (10:05)
[2020-06-25] MEDS: BUDESONIDE/FORMETEROL FUMARATE 160/4.5 mcg INHALER IH SCH ×2 (10:05→22:07)
[2020-06-25] MEDS: amLODIPine BESYLATE 5 MG TABLET (FP) PO SCH (10:06)
[2020-06-25] MEDS: NICOTINE 7 MG/24 HOURS TOPICAL PATCH TD SCH (10:06)
[2020-06-25] MEDS: SODIUM CHLORIDE NASAL SPRAY 44 ML BOTTLE NS PRN (22:04)
[2020-06-25] MEDS: MELATONIN 5 MG TABLETS PO SCH (22:05)
[2020-06-25] MEDS: THIAMINE HCL 100 MG TABLET (FP) PO SCH (22:05)
[2020-06-26] MEDS ORDERED: chlordiazePOXIDE HCL 10 MG CAPSULE PO SCH (05:00)
[2020-06-26] MEDS: diazePAM 5 MG TABLET PO SCH ×2 (05:31→17:22)
[2020-06-26] MEDS: hydrOXYzine PAMOATE 25 MG CAPSULE (FP) PO SCH ×5 (05:31→22:05)
[2020-06-26] MEDS: BUDESONIDE/FORMETEROL FUMARATE 160/4.5 mcg INHALER IH SCH ×2 (09:54→22:08)
[2020-06-26] MEDS: TIOTROPIUM BROMIDE 2.5 MCG (SPIRIVA) RESPIMAT INHALER IH SCH (09:54)
[2020-06-26] MEDS: SODIUM CHLORIDE NASAL SPRAY 44 ML BOTTLE NS PRN ×2 (09:54→22:08)
[2020-06-26] MEDS: amLODIPine BESYLATE 5 MG TABLET (FP) PO SCH (09:54)
[2020-06-26] MEDS: PRENATAL VITAMINS W/ FOLIC ACID TABLET (FP) PO SCH (09:55)
[2020-06-26] MEDS: NICOTINE 7 MG/24 HOURS TOPICAL PATCH TD SCH (09:55)
[2020-06-26] MEDS ORDERED: METHADONE HCL 10 MG TABLET (FOR DETOX USE ONLY) PO ONE (10:00)
[2020-06-26] MEDS: ARTIFICIAL TEARS (POLYVINYL ALCOHOL) OPTH DROPS OU SCH ×4 (13:24→22:07)
[2020-06-26] MEDS: ACETAMINOPHEN 325 MG TABLET (FP) PO PRN ×2 (14:43→23:55)
[2020-06-26] MEDS: METHOCARBAMOL 500 MG TABLET PO PRN ×2 (14:43→22:07)
[2020-06-26] MEDS: THIAMINE HCL 100 MG TABLET (FP) PO SCH (22:05)
[2020-06-26] MEDS: MELATONIN 5 MG TABLETS PO SCH (22:05)
[2020-06-27] MEDS ORDERED: chlordiazePOXIDE HCL 10 MG CAPSULE PO ONE (05:00)
[2020-06-27] MEDS: hydrOXYzine PAMOATE 25 MG CAPSULE (FP) PO SCH (05:17)
[2020-06-27] MEDS ORDERED: METHADONE HCL 5 MG TABLET (FOR DETOX USE ONLY) PO ONE (06:00)
[2020-06-27] MEDS ORDERED: diazePAM 5 MG TABLET PO ONE (06:00)
[2020-06-27 06:59] VITALS: BP 118/72; PULSE 61; TEMP 98.2
== END 2020-06-27 09:05 | disposition home or self-care (01) | DRG 773 ==
LOC: YASAS 14:25 → Y3N 16:31
PROVIDERS: ADMIT Allergy & Immunology; ATTEND Allergy & Immunology
PROC: HZ2ZZZZ Detoxification Services for Substance Abuse Treatment (ICD-10-PCS; principal; 2020-06-22)
DX: F11.23 Opioid dependence with withdrawal (principal); F10.230 Alcohol dependence with withdrawal, uncomplicated; F14.20 Cocaine dependence, uncomplicated; F12.20 Cannabis dependence, uncomplicated; F17.210 Nicotine dependence, cigarettes, uncomplicated; I10 Essential (primary) hypertension; G47.00 Insomnia, unspecified; Z86.19 Personal history of other infectious and parasitic diseases; Z88.0 Allergy status to penicillin; Z56.0 Unemployment, unspecified
CPT/HCPCS: 36415; 80053; 85027; 86593; 86780; C9803; U0003

== ENCOUNTER 2020-07-19 13:25 | Inpatient (IN) | payer OTHER ==
[2020-07-19 14:29] VITALS: BMI 23.7
[2020-07-19] MEDS ORDERED: DICYCLOMINE HCL 10 MG CAPSULE PO PRN (22:58)
[2020-07-19] MEDS ORDERED: P-EPHED 60MG/TRIPROLIDI 2.5MG TABLET PO PRN (22:58)
[2020-07-19] MEDS ORDERED: NICOTINE POLACRILEX 2 MG GUM BUC PRN (22:58)
[2020-07-19] MEDS ORDERED: NALOXONE HCL 0.4 MG/ML VIAL IM PRN (22:58)
[2020-07-19] MEDS ORDERED: cloNIDine HCL 0.1 MG TABLET PO PRN (22:58)
[2020-07-19] MEDS ORDERED: BISMUTH SUBSALICYLATE 524 MG/30 ML PO PRN (22:58)
[2020-07-19] MEDS ORDERED: MAGNESIUM CITRATE 300 ML BOTTLE PO PRN (22:58)
[2020-07-19] MEDS ORDERED: MAGNESIUM HYDROX 2400MG/30ML ORAL SUSPENSION 30 ML CUP PO PRN (22:58)
[2020-07-19] MEDS ORDERED: ONDANSETRON *ODT* 4 MG TABLET SL PRN (22:58)
[2020-07-19] MEDS ORDERED: MENTHOL/PHENOL 1 EACH UD MM PRN (22:58)
[2020-07-19] MEDS ORDERED: ACETAMINOPHEN 325 MG TABLET (FP) PO PRN ×2 (22:58)
[2020-07-19] MEDS ORDERED: guaiFENesin 200 MG/10 ML 10 ML UNIT-DOSE CUPS PO PRN (22:58)
[2020-07-19] MEDS ORDERED: IBUPROFEN 400 MG TABLET (FP) PO PRN (22:58)
[2020-07-19] MEDS ORDERED: MAG HYDROX/AL HYDROX/SIMETH 30 ML UNIT-DOSE CUP PO PRN (22:58)
[2020-07-19] MEDS ORDERED: methaDONE HCL 10 MG TABLET (FOR DETOX USE ONLY) PO ONE (22:58)
[2020-07-19] MEDS ORDERED: cloNIDine HCL 0.1 MG TABLET PO ONE (23:03)
[2020-07-19] MEDS ORDERED: TUBERCULIN PPD 5 TU/0.1ML VIAL ID ONE (23:56)
[2020-07-20] MEDS: diazePAM 5 MG TABLET PO SCH ×5 (00:02→22:18)
[2020-07-20] MEDS ORDERED: methaDONE HCL 10 MG TABLET (FOR DETOX USE ONLY) ONE (08:39)
[2020-07-20] MEDS ORDERED: TIOTROPIUM BROMIDE 2.5 MCG (SPIRIVA) RESPIMAT INHALER IH SCH (10:00)
[2020-07-20] MEDS: BUDESONIDE/FORMETEROL FUMARATE 160/4.5 mcg INHALER IH SCH ×2 (10:08→22:19)
[2020-07-20] MEDS: NICOTINE 14 MG/24 HOURS TOPICAL PATCH TD SCH (10:10)
[2020-07-20] MEDS: PRENATAL VITAMINS W/ FOLIC ACID TABLET (FP) PO SCH (10:10)
[2020-07-20] MEDS: amLODIPine BESYLATE 5 MG TABLET (FP) PO SCH (10:10)
[2020-07-20] MEDS: METHOCARBAMOL 500 MG TABLET PO PRN ×2 (10:12→17:12)
[2020-07-20 11:07] LABS: HEMATOCRIT 36.3 % (35.4-49); HEMOGLOBIN 12.4 GM/dL (11.7-16.9); MEAN CELL VOLUME 97.1 fl (80-96); MEAN PLT VOLUME 8.3 fl (7.5-11.1); PLATELET COUNT 258 K/MM3 (134-434); RBC 3.74 M/mm3 (4.00-5.60); RDW 13.7 % (11.9-15.9); WHITE BLOOD COUNT 5.9 K/mm3 (4.0-10.0)
[2020-07-20] MEDS: TIOTROPIUM BROMIDE 2.5 MCG (SPIRIVA) RESPIMAT INHALER IH SCH (11:10)
[2020-07-20 11:17] LABS: BLOOD UREA NITROGEN 16.3 mg/dL (7-18); CALCIUM 8.9 mg/dL (8.5-10.1)
[2020-07-20 11:18] LABS: ALBUMIN 3.2 g/dl (3.4-5.0)
[2020-07-20 11:22] LABS: BILIRUBIN,TOTAL 0.8 mg/dL (0.2-1); TOT PROT 6.5 g/dl (6.4-8.2)
[2020-07-20] MEDS: diazePAM 5 MG TABLET PO PRN (13:22)
[2020-07-20 19:10] LABS: URINE APPEARANCE CLOUDY; URINE BILIRUBIN NEGATIVE (NEGATIVE); URINE COLOR YELLOW; URINE GLUCOSE (UA) NEGATIVE (NEGATIVE); URINE KETONE TRACE (NEGATIVE); URINE LEUK ESTERASE NEGATIVE (NEGATIVE); URINE NITRITE NEGATIVE (NEGATIVE); URINE PROTEIN NEGATIVE (NEGATIVE); URINE UROBILINOGEN 0.2 mg/dL (0.2-1.0)
[2020-07-20] MEDS: THIAMINE HCL 100 MG TABLET (FP) PO SCH (22:18)
[2020-07-20] MEDS: MELATONIN 5 MG TABLETS PO SCH (22:18)
[2020-07-21] MEDS: diazePAM 5 MG TABLET PO SCH ×3 (05:50→22:24)
[2020-07-21] MEDS: PRENATAL VITAMINS W/ FOLIC ACID TABLET (FP) PO SCH (09:04)
[2020-07-21] MEDS: amLODIPine BESYLATE 5 MG TABLET (FP) PO SCH (09:04)
[2020-07-21] MEDS: NICOTINE 14 MG/24 HOURS TOPICAL PATCH TD SCH (09:04)
[2020-07-21] MEDS: BUDESONIDE/FORMETEROL FUMARATE 160/4.5 mcg INHALER IH SCH ×2 (09:04→22:25)
[2020-07-21] MEDS: diazePAM 5 MG TABLET PO PRN (09:05)
[2020-07-21] MEDS ORDERED: methaDONE HCL 10 MG TABLET (FOR DETOX USE ONLY) PO ONE (10:00)
[2020-07-21] MEDS: TIOTROPIUM BROMIDE 2.5 MCG (SPIRIVA) RESPIMAT INHALER IH SCH (10:36)
[2020-07-21] MEDS: hydrOXYzine PAMOATE 25 MG CAPSULE (FP) PO PRN ×2 (13:02→22:25)
[2020-07-21] MEDS: MELATONIN 5 MG TABLETS PO SCH (22:24)
[2020-07-21] MEDS: THIAMINE HCL 100 MG TABLET (FP) PO SCH (22:25)
[2020-07-22] MEDS: diazePAM 5 MG TABLET PO SCH ×2 (05:30→17:23)
[2020-07-22] MEDS ORDERED: MASKS NR ONE (08:42)
[2020-07-22] MEDS ORDERED: methaDONE HCL 10 MG TABLET (FOR DETOX USE ONLY) ONE (08:59)
[2020-07-22] MEDS: amLODIPine BESYLATE 5 MG TABLET (FP) PO SCH (09:24)
[2020-07-22] MEDS: PRENATAL VITAMINS W/ FOLIC ACID TABLET (FP) PO SCH (09:24)
[2020-07-22] MEDS: NICOTINE 14 MG/24 HOURS TOPICAL PATCH TD SCH (09:25)
[2020-07-22] MEDS: BUDESONIDE/FORMETEROL FUMARATE 160/4.5 mcg INHALER IH SCH ×2 (09:25→21:13)
[2020-07-22] MEDS: TIOTROPIUM BROMIDE 2.5 MCG (SPIRIVA) RESPIMAT INHALER IH SCH (10:13)
[2020-07-22] MEDS: hydrOXYzine PAMOATE 25 MG CAPSULE (FP) PO PRN (12:39)
[2020-07-22] MEDS: MELATONIN 5 MG TABLETS PO SCH (21:13)
[2020-07-22] MEDS: THIAMINE HCL 100 MG TABLET (FP) PO SCH (21:13)
[2020-07-23] MEDS ORDERED: diazePAM 5 MG TABLET PO ONE (06:00)
[2020-07-23] MEDS: NICOTINE 14 MG/24 HOURS TOPICAL PATCH TD SCH (09:09)
[2020-07-23] MEDS: PRENATAL VITAMINS W/ FOLIC ACID TABLET (FP) PO SCH (09:09)
[2020-07-23] MEDS: amLODIPine BESYLATE 5 MG TABLET (FP) PO SCH (09:09)
[2020-07-23] MEDS: BUDESONIDE/FORMETEROL FUMARATE 160/4.5 mcg INHALER IH SCH ×2 (09:10→22:11)
[2020-07-23] MEDS ORDERED: methaDONE HCL 10 MG TABLET (FOR DETOX USE ONLY) PO ONE (10:00)
[2020-07-23] MEDS: TIOTROPIUM BROMIDE 2.5 MCG (SPIRIVA) RESPIMAT INHALER IH SCH (10:20)
[2020-07-23] MEDS ORDERED: cloNIDine HCL 0.1 MG TABLET PO PRN (11:48)
[2020-07-23] MEDS: hydrOXYzine PAMOATE 25 MG CAPSULE (FP) PO PRN (12:24)
[2020-07-23] MEDS: MELATONIN 5 MG TABLETS PO SCH (22:10)
[2020-07-23] MEDS: THIAMINE HCL 100 MG TABLET (FP) PO SCH (22:11)
[2020-07-24 09:20] VITALS: BP 146/93; PULSE 81; TEMP 97.5
[2020-07-24] MEDS: BUDESONIDE/FORMETEROL FUMARATE 160/4.5 mcg INHALER IH SCH (09:22)
[2020-07-24] MEDS: PRENATAL VITAMINS W/ FOLIC ACID TABLET (FP) PO SCH (09:22)
[2020-07-24] MEDS: NICOTINE 14 MG/24 HOURS TOPICAL PATCH TD SCH (09:22)
[2020-07-24] MEDS: amLODIPine BESYLATE 5 MG TABLET (FP) PO SCH (09:22)
== END 2020-07-24 08:50 | disposition home or self-care (01) | DRG 773 ==
LOC: YASAS 13:25 → Y3N 22:59
PROVIDERS: ADMIT Allergy & Immunology; ATTEND Allergy & Immunology
PROC: HZ2ZZZZ Detoxification Services for Substance Abuse Treatment (ICD-10-PCS; principal; 2020-07-19)
DX: F10.230 Alcohol dependence with withdrawal, uncomplicated (principal); F11.23 Opioid dependence with withdrawal; F12.20 Cannabis dependence, uncomplicated; F17.210 Nicotine dependence, cigarettes, uncomplicated; F19.282 Other psychoactive substance dependence with psychoactive substance-induced sleep disorder; F19.24 Other psychoactive substance dependence with psychoactive substance-induced mood disorder; E88.09 Other disorders of plasma-protein metabolism, not elsewhere classified; B19.10 Unspecified viral hepatitis B without hepatic coma; J43.9 Emphysema, unspecified; D86.9 Sarcoidosis, unspecified; E78.5 Hyperlipidemia, unspecified; G47.00 Insomnia, unspecified; I10 Essential (primary) hypertension; Z86.19 Personal history of other infectious and parasitic diseases; Z91.19 Patient's noncompliance with other medical treatment and regimen
CPT/HCPCS: 36415; 80053; 81003; 85027; C9803; J0735; U0003

== ENCOUNTER 2020-07-19 19:21 | Emergency (ER) | payer OTHER | END 2020-07-19 21:58 | disposition home or self-care (01) | LOC: JER 19:21 | DX: F10.129 Alcohol abuse with intoxication, unspecified (principal) | CPT/HCPCS: 99281-25 ==

== ENCOUNTER 2020-09-07 13:28 | Inpatient (IN) | payer OTHER ==
[2020-09-07 14:13] VITALS: BMI 21.9
[2020-09-07] MEDS ORDERED: MAGNESIUM CITRATE 300 ML BOTTLE PO PRN (15:00)
[2020-09-07] MEDS ORDERED: METHOCARBAMOL 500 MG TABLET PO PRN (15:00)
[2020-09-07] MEDS ORDERED: MENTHOL/PHENOL 1 EACH UD MM PRN (15:00)
[2020-09-07] MEDS ORDERED: BISMUTH SUBSALICYLATE 262 MG/15 ML BTL PO PRN (15:00)
[2020-09-07] MEDS ORDERED: IBUPROFEN 400 MG TABLET (FP) PO PRN (15:00)
[2020-09-07] MEDS ORDERED: MAG HYDROX/AL HYDROX/SIMETH 30 ML UNIT-DOSE CUP PO PRN (15:00)
[2020-09-07] MEDS ORDERED: ACETAMINOPHEN 325 MG TABLET (FP) PO PRN (15:00)
[2020-09-07] MEDS ORDERED: METHADONE HCL 10 MG TABLET (FOR DETOX USE ONLY) PO ONE (15:00)
[2020-09-07] MEDS ORDERED: MAGNESIUM HYDROX 2400MG/30ML ORAL SUSPENSION 30 ML CUP PO PRN (15:00)
[2020-09-07] MEDS ORDERED: NICOTINE POLACRILEX 2 MG GUM BUC PRN (15:00)
[2020-09-07] MEDS ORDERED: ONDANSETRON *ODT* 4 MG TABLET SL PRN (15:00)
[2020-09-07] MEDS ORDERED: cloNIDine HCL 0.1 MG TABLET PO PRN (15:00)
[2020-09-07] MEDS: PRENATAL VITAMINS W/ FOLIC ACID TABLET (FP) PO SCH (15:46)
[2020-09-07] MEDS: diazePAM 5 MG TABLET PO PRN (15:47)
[2020-09-07] MEDS: amLODIPine BESYLATE 5 MG TABLET (FP) PO SCH (15:47)
[2020-09-07] MEDS: NICOTINE 7 MG/24 HOURS TOPICAL PATCH TD SCH (15:50)
[2020-09-07 17:19] LABS: HEMATOCRIT 41.4 % (35.4-49); HEMOGLOBIN 13.9 GM/dL (11.7-16.9); MCH 32.7 pg (25.7-33.7); MCHC 33.6 g/dl (32.0-35.9); MEAN CELL VOLUME 97.1 fl (80-96); MEAN PLT VOLUME 8.5 fl (7.5-11.1); PLATELET COUNT 275 K/MM3 (134-434); RBC 4.26 M/mm3 (4.00-5.60); RDW 13.4 % (11.9-15.9); WHITE BLOOD COUNT 6.2 K/mm3 (4.0-10.0)
[2020-09-07 17:25] LABS: POTASSIUM 4.1 mmol/L (3.5-5.1)
[2020-09-07 17:29] LABS: CALCIUM 9.4 mg/dL (8.5-10.1)
[2020-09-07 17:30] LABS: ALBUMIN 4.2 g/dl (3.4-5.0); BLOOD UREA NITROGEN 19.4 mg/dL (7-18)
[2020-09-07 17:33] LABS: CREATININE 1.3 mg/dL (0.55-1.3)
[2020-09-07 17:35] LABS: TOT PROT 7.9 g/dl (6.4-8.2)
[2020-09-07] MEDS: diazePAM 5 MG TABLET PO SCH ×2 (17:52→22:36)
[2020-09-07] MEDS: hydrOXYzine PAMOATE 25 MG CAPSULE (FP) PO SCH ×2 (17:52→22:36)
[2020-09-07] MEDS ORDERED: MELATONIN 5 MG TABLETS PO SCH (22:00)
[2020-09-07] MEDS: THIAMINE HCL 100 MG TABLET (FP) PO SCH (22:36)
[2020-09-07] MEDS: BUDESONIDE/FORMETEROL FUMARATE 160/4.5 mcg INHALER IH SCH (22:36)
[2020-09-08] MEDS: hydrOXYzine PAMOATE 25 MG CAPSULE (FP) PO SCH ×5 (05:27→22:56)
[2020-09-08] MEDS: diazePAM 5 MG TABLET PO SCH ×4 (05:27→22:56)
[2020-09-08] MEDS ORDERED: METHADONE HCL 10 MG TABLET (FOR DETOX USE ONLY) ONE (09:02)
[2020-09-08] MEDS ORDERED: METHADONE HCL 5 MG TABLET (FOR DETOX USE ONLY) ONE (09:03)
[2020-09-08] MEDS ORDERED: METHADONE (DETOX) 20 MG, METHADONE (DETOX) 5 MG PO ONE (10:00)
[2020-09-08] MEDS: PRENATAL VITAMINS W/ FOLIC ACID TABLET (FP) PO SCH (10:30)
[2020-09-08] MEDS: amLODIPine BESYLATE 5 MG TABLET (FP) PO SCH (10:30)
[2020-09-08] MEDS: BUDESONIDE/FORMETEROL FUMARATE 160/4.5 mcg INHALER IH SCH ×2 (10:31→22:58)
[2020-09-08] MEDS: NICOTINE 7 MG/24 HOURS TOPICAL PATCH TD SCH (10:32)
[2020-09-08] MEDS ORDERED: TETRAHYDROZOLINE HCL EYE DROPS OU PRN (11:04)
[2020-09-08] MEDS: diazePAM 5 MG TABLET PO PRN (15:17)
[2020-09-08] MEDS: TIOTROPIUM BROMIDE 2.5 MCG (SPIRIVA) RESPIMAT INHALER IH SCH (18:44)
[2020-09-08] MEDS: THIAMINE HCL 100 MG TABLET (FP) PO SCH (22:56)
[2020-09-08] MEDS: MELATONIN 5 MG TABLETS PO SCH (22:56)
[2020-09-09] MEDS: hydrOXYzine PAMOATE 25 MG CAPSULE (FP) PO SCH ×5 (06:09→22:13)
[2020-09-09] MEDS: diazePAM 5 MG TABLET PO SCH ×3 (06:09→22:12)
[2020-09-09] MEDS ORDERED: METHADONE HCL 10 MG TABLET (FOR DETOX USE ONLY) PO ONE (10:00)
[2020-09-09] MEDS ORDERED: TIOTROPIUM BROMIDE 2.5 MCG (SPIRIVA) RESPIMAT INHALER IH SCH (10:00)
[2020-09-09] MEDS: TIOTROPIUM BROMIDE 2.5 MCG (SPIRIVA) RESPIMAT INHALER IH SCH (10:13)
[2020-09-09] MEDS: PRENATAL VITAMINS W/ FOLIC ACID TABLET (FP) PO SCH (10:15)
[2020-09-09] MEDS: amLODIPine BESYLATE 5 MG TABLET (FP) PO SCH (10:15)
[2020-09-09] MEDS: BUDESONIDE/FORMETEROL FUMARATE 160/4.5 mcg INHALER IH SCH ×2 (10:17→22:13)
[2020-09-09] MEDS: NICOTINE 7 MG/24 HOURS TOPICAL PATCH TD SCH (10:17)
[2020-09-09] MEDS: diazePAM 5 MG TABLET PO PRN ×2 (10:19→17:41)
[2020-09-09] MEDS: MELATONIN 5 MG TABLETS PO SCH (22:13)
[2020-09-09] MEDS: THIAMINE HCL 100 MG TABLET (FP) PO SCH (22:13)
[2020-09-10] MEDS: diazePAM 5 MG TABLET PO PRN ×2 (02:41→10:27)
[2020-09-10] MEDS: diazePAM 5 MG TABLET PO SCH ×2 (05:58→17:26)
[2020-09-10] MEDS: hydrOXYzine PAMOATE 25 MG CAPSULE (FP) PO SCH ×5 (05:58→21:13)
[2020-09-10] MEDS ORDERED: METHADONE HCL 10 MG TABLET (FOR DETOX USE ONLY) ONE (09:24)
[2020-09-10] MEDS ORDERED: METHADONE HCL 5 MG TABLET (FOR DETOX USE ONLY) ONE (09:25)
[2020-09-10] MEDS ORDERED: METHADONE (DETOX) 10 MG, METHADONE (DETOX) 5 MG PO ONE (10:00)
[2020-09-10] MEDS: amLODIPine BESYLATE 5 MG TABLET (FP) PO SCH (10:24)
[2020-09-10] MEDS: PRENATAL VITAMINS W/ FOLIC ACID TABLET (FP) PO SCH (10:24)
[2020-09-10] MEDS: NICOTINE 7 MG/24 HOURS TOPICAL PATCH TD SCH (10:24)
[2020-09-10] MEDS: TIOTROPIUM BROMIDE 2.5 MCG (SPIRIVA) RESPIMAT INHALER IH SCH (10:25)
[2020-09-10] MEDS: BUDESONIDE/FORMETEROL FUMARATE 160/4.5 mcg INHALER IH SCH ×2 (10:26→21:13)
[2020-09-10] MEDS: THIAMINE HCL 100 MG TABLET (FP) PO SCH (21:13)
[2020-09-10] MEDS: MELATONIN 5 MG TABLETS PO SCH (21:14)
[2020-09-11] MEDS: hydrOXYzine PAMOATE 25 MG CAPSULE (FP) PO SCH ×5 (05:35→22:25)
[2020-09-11] MEDS ORDERED: diazePAM 5 MG TABLET PO ONE (06:00)
[2020-09-11] MEDS: amLODIPine BESYLATE 5 MG TABLET (FP) PO SCH (09:15)
[2020-09-11] MEDS: PRENATAL VITAMINS W/ FOLIC ACID TABLET (FP) PO SCH (09:16)
[2020-09-11] MEDS: NICOTINE 7 MG/24 HOURS TOPICAL PATCH TD SCH (09:16)
[2020-09-11] MEDS: TIOTROPIUM BROMIDE 2.5 MCG (SPIRIVA) RESPIMAT INHALER IH SCH (09:18)
[2020-09-11] MEDS: BUDESONIDE/FORMETEROL FUMARATE 160/4.5 mcg INHALER IH SCH ×2 (09:18→22:25)
[2020-09-11] MEDS ORDERED: METHADONE HCL 10 MG TABLET (FOR DETOX USE ONLY) PO ONE (10:00)
[2020-09-11] MEDS: ACETAMINOPHEN 325 MG TABLET (FP) PO PRN (14:41)
[2020-09-11] MEDS: THIAMINE HCL 100 MG TABLET (FP) PO SCH (22:25)
[2020-09-11] MEDS: MELATONIN 5 MG TABLETS PO SCH (22:25)
[2020-09-12] MEDS: hydrOXYzine PAMOATE 25 MG CAPSULE (FP) PO SCH (05:47)
[2020-09-12] MEDS: ACETAMINOPHEN 325 MG TABLET (FP) PO PRN (05:49)
[2020-09-12] MEDS ORDERED: METHADONE HCL 5 MG TABLET (FOR DETOX USE ONLY) PO ONE (06:00)
[2020-09-12 07:02] VITALS: BP 134/84; PULSE 89; TEMP 97.6
== END 2020-09-12 09:38 | disposition left against medical advice (07) | DRG 770 ==
LOC: YASAS 13:28 → Y3N 14:21
PROVIDERS: ADMIT Allergy & Immunology; ATTEND Allergy & Immunology
PROC: HZ2ZZZZ Detoxification Services for Substance Abuse Treatment (ICD-10-PCS; principal; 2020-09-07)
DX: F11.23 Opioid dependence with withdrawal (principal); F10.230 Alcohol dependence with withdrawal, uncomplicated; F14.20 Cocaine dependence, uncomplicated; F12.20 Cannabis dependence, uncomplicated; F15.10 Other stimulant abuse, uncomplicated; F17.210 Nicotine dependence, cigarettes, uncomplicated; F19.282 Other psychoactive substance dependence with psychoactive substance-induced sleep disorder; F19.24 Other psychoactive substance dependence with psychoactive substance-induced mood disorder; I10 Essential (primary) hypertension; J43.9 Emphysema, unspecified; G47.00 Insomnia, unspecified; D86.9 Sarcoidosis, unspecified; B19.10 Unspecified viral hepatitis B without hepatic coma; R79.89 Other specified abnormal findings of blood chemistry; R94.31 Abnormal electrocardiogram [ECG] [EKG]; R73.03 Prediabetes; Z86.19 Personal history of other infectious and parasitic diseases; Z88.0 Allergy status to penicillin; Z91.14 Patient's other noncompliance with medication regimen
CPT/HCPCS: 36415; 80053; 85027; 86593; 86780; C9803; U0003

== ENCOUNTER 2020-10-13 13:26 | Inpatient (IN) | payer OTHER ==
[2020-10-13 15:15] VITALS: BMI 22.4
[2020-10-13] MEDS ORDERED: METHADONE HCL 10 MG TABLET (FOR DETOX USE ONLY) PO ONE (16:10)
[2020-10-13] MEDS ORDERED: MENTHOL/PHENOL 1 EACH UD MM PRN (16:10)
[2020-10-13] MEDS ORDERED: ACETAMINOPHEN 325 MG TABLET (FP) PO PRN ×2 (16:10)
[2020-10-13] MEDS ORDERED: MAG HYDROX/AL HYDROX/SIMETH 30 ML UNIT-DOSE CUP PO PRN (16:10)
[2020-10-13] MEDS ORDERED: MAGNESIUM HYDROX 2400MG/30ML ORAL SUSPENSION 30 ML CUP PO PRN (16:10)
[2020-10-13] MEDS ORDERED: MAGNESIUM CITRATE 300 ML BOTTLE PO PRN (16:10)
[2020-10-13] MEDS ORDERED: ONDANSETRON *ODT* 4 MG TABLET SL PRN (16:10)
[2020-10-13] MEDS ORDERED: NICOTINE POLACRILEX 2 MG GUM BUC PRN (16:10)
[2020-10-13] MEDS ORDERED: IBUPROFEN 400 MG TABLET (FP) PO PRN (16:10)
[2020-10-13] MEDS ORDERED: cloNIDine HCL 0.1 MG TABLET PO PRN (16:10)
[2020-10-13] MEDS ORDERED: BISMUTH SUBSALICYLATE 524 MG/30 ML UD PO PRN (16:10)
[2020-10-13] MEDS ORDERED: diazePAM 5 MG TABLET PO PRN (16:10)
[2020-10-13] MEDS: diazePAM 5 MG TABLET PO SCH ×2 (17:31→22:15)
[2020-10-13] MEDS: THIAMINE HCL 100 MG TABLET (FP) PO SCH (22:14)
[2020-10-13] MEDS: BUDESONIDE/FORMETEROL FUMARATE 160/4.5 mcg INHALER IH SCH (22:14)
[2020-10-13] MEDS: MELATONIN 5 MG TABLETS PO SCH (22:14)
[2020-10-14] MEDS: diazePAM 5 MG TABLET PO SCH ×4 (06:09→22:20)
[2020-10-14] MEDS ORDERED: METHADONE HCL 5 MG TABLET (FOR DETOX USE ONLY) ONE (09:14)
[2020-10-14] MEDS ORDERED: METHADONE HCL 10 MG TABLET (FOR DETOX USE ONLY) ONE (09:15)
[2020-10-14] MEDS ORDERED: METHADONE (DETOX) 20 MG, METHADONE (DETOX) 5 MG PO ONE (10:00)
[2020-10-14] MEDS: hydrOXYzine PAMOATE 25 MG CAPSULE (FP) PO PRN ×2 (10:19→22:21)
[2020-10-14] MEDS: TIOTROPIUM BROMIDE 2.5 MCG (SPIRIVA) RESPIMAT INHALER IH SCH (10:19)
[2020-10-14] MEDS: BUDESONIDE/FORMETEROL FUMARATE 160/4.5 mcg INHALER IH SCH ×2 (10:20→22:21)
[2020-10-14] MEDS: PRENATAL VITAMINS W/ FOLIC ACID TABLET (FP) PO SCH (10:20)
[2020-10-14 11:43] LABS: POTASSIUM 4.1 mmol/L (3.5-5.1)
[2020-10-14 11:44] LABS: HEMATOCRIT 37.9 % (35.4-49); HEMOGLOBIN 12.7 GM/dL (11.7-16.9); MCH 32.5 pg (25.7-33.7); MCHC 33.4 g/dl (32.0-35.9); MEAN CELL VOLUME 97.3 fl (80-96); MEAN PLT VOLUME 8.9 fl (7.5-11.1); PLATELET COUNT 248 K/MM3 (134-434); WHITE BLOOD COUNT 4.6 K/mm3 (4.0-10.0)
[2020-10-14 11:47] LABS: ALBUMIN 3.6 g/dl (3.4-5.0); BLOOD UREA NITROGEN 19.6 mg/dL (7-18); CALCIUM 9.6 mg/dL (8.5-10.1)
[2020-10-14 11:52] LABS: BILIRUBIN,TOTAL 0.6 mg/dL (0.2-1)
[2020-10-14] MEDS: THIAMINE HCL 100 MG TABLET (FP) PO SCH (22:19)
[2020-10-14] MEDS: amLODIPine BESYLATE 5 MG TABLET (FP) PO SCH (22:19)
[2020-10-14] MEDS: MELATONIN 5 MG TABLETS PO SCH (22:20)
[2020-10-15] MEDS: diazePAM 5 MG TABLET PO SCH ×3 (06:12→21:44)
[2020-10-15] MEDS ORDERED: METHADONE HCL 10 MG TABLET (FOR DETOX USE ONLY) PO ONE (10:00)
[2020-10-15] MEDS: PRENATAL VITAMINS W/ FOLIC ACID TABLET (FP) PO SCH (10:33)
[2020-10-15] MEDS: METHOCARBAMOL 500 MG TABLET PO PRN ×2 (10:33→21:43)
[2020-10-15] MEDS: amLODIPine BESYLATE 5 MG TABLET (FP) PO SCH (10:33)
[2020-10-15] MEDS: BUDESONIDE/FORMETEROL FUMARATE 160/4.5 mcg INHALER IH SCH ×2 (10:34→21:45)
[2020-10-15] MEDS: TIOTROPIUM BROMIDE 2.5 MCG (SPIRIVA) RESPIMAT INHALER IH SCH (10:34)
[2020-10-15] MEDS ORDERED: cloNIDine HCL 0.1 MG TABLET PO PRN (12:09)
[2020-10-15] MEDS: THIAMINE HCL 100 MG TABLET (FP) PO SCH (21:43)
[2020-10-15] MEDS: MELATONIN 5 MG TABLETS PO SCH (21:43)
[2020-10-15] MEDS: hydrOXYzine PAMOATE 25 MG CAPSULE (FP) PO PRN (21:44)
[2020-10-16] MEDS: diazePAM 5 MG TABLET PO SCH ×2 (05:55→18:15)
[2020-10-16 08:10] LABS: SARS-CoV-2 NAA Not Detected (Not Detected)
[2020-10-16] MEDS ORDERED: METHADONE HCL 5 MG TABLET (FOR DETOX USE ONLY) ONE (09:03)
[2020-10-16] MEDS ORDERED: METHADONE HCL 10 MG TABLET (FOR DETOX USE ONLY) ONE (09:04)
[2020-10-16] MEDS ORDERED: METHADONE (DETOX) 10 MG, METHADONE (DETOX) 5 MG PO ONE (10:00)
[2020-10-16] MEDS: PRENATAL VITAMINS W/ FOLIC ACID TABLET (FP) PO SCH (10:22)
[2020-10-16] MEDS: amLODIPine BESYLATE 5 MG TABLET (FP) PO SCH (10:22)
[2020-10-16] MEDS: TIOTROPIUM BROMIDE 2.5 MCG (SPIRIVA) RESPIMAT INHALER IH SCH (10:22)
[2020-10-16] MEDS: BUDESONIDE/FORMETEROL FUMARATE 160/4.5 mcg INHALER IH SCH ×2 (10:22→21:45)
[2020-10-16] MEDS: hydrOXYzine PAMOATE 25 MG CAPSULE (FP) PO PRN (21:44)
[2020-10-16] MEDS: METHOCARBAMOL 500 MG TABLET PO PRN (21:44)
[2020-10-16] MEDS: THIAMINE HCL 100 MG TABLET (FP) PO SCH (21:44)
[2020-10-16] MEDS: MELATONIN 5 MG TABLETS PO SCH (21:44)
[2020-10-17] MEDS ORDERED: diazePAM 5 MG TABLET PO ONE (06:00)
[2020-10-17] MEDS ORDERED: METHADONE HCL 10 MG TABLET (FOR DETOX USE ONLY) PO ONE (10:00)
[2020-10-17] MEDS: amLODIPine BESYLATE 5 MG TABLET (FP) PO SCH (10:05)
[2020-10-17] MEDS: PRENATAL VITAMINS W/ FOLIC ACID TABLET (FP) PO SCH (10:05)
[2020-10-17] MEDS: TIOTROPIUM BROMIDE 2.5 MCG (SPIRIVA) RESPIMAT INHALER IH SCH (10:07)
[2020-10-17] MEDS: BUDESONIDE/FORMETEROL FUMARATE 160/4.5 mcg INHALER IH SCH ×2 (10:07→21:57)
[2020-10-17] MEDS: METHOCARBAMOL 500 MG TABLET PO PRN ×2 (10:09→21:56)
[2020-10-17] MEDS: hydrOXYzine PAMOATE 25 MG CAPSULE (FP) PO PRN ×3 (10:09→21:56)
[2020-10-17] MEDS: MELATONIN 5 MG TABLETS PO SCH (21:56)
[2020-10-17] MEDS: THIAMINE HCL 100 MG TABLET (FP) PO SCH (21:56)
[2020-10-18] MEDS ORDERED: MASKS NR ONE (03:55)
[2020-10-18] MEDS ORDERED: METHADONE HCL 5 MG TABLET (FOR DETOX USE ONLY) PO ONE (06:00)
[2020-10-18 07:53] VITALS: BP 142/93; PULSE 72; TEMP 97.3
[2020-10-18] MEDS: amLODIPine BESYLATE 5 MG TABLET (FP) PO SCH (09:06)
[2020-10-18] MEDS: PRENATAL VITAMINS W/ FOLIC ACID TABLET (FP) PO SCH (09:06)
[2020-10-18] MEDS: TIOTROPIUM BROMIDE 2.5 MCG (SPIRIVA) RESPIMAT INHALER IH SCH (09:09)
[2020-10-18] MEDS: BUDESONIDE/FORMETEROL FUMARATE 160/4.5 mcg INHALER IH SCH (09:09)
== END 2020-10-18 09:08 | disposition home or self-care (01) | DRG 773 ==
LOC: YASAS 13:26 → UNDOADMIN 16:47 → Y6N 16:47
PROVIDERS: ADMIT Allergy & Immunology; ATTEND Allergy & Immunology
PROC: HZ2ZZZZ Detoxification Services for Substance Abuse Treatment (ICD-10-PCS; principal; 2020-10-13)
DX: F11.23 Opioid dependence with withdrawal (principal); F10.230 Alcohol dependence with withdrawal, uncomplicated; F14.20 Cocaine dependence, uncomplicated; F17.210 Nicotine dependence, cigarettes, uncomplicated; F32.9 Major depressive disorder, single episode, unspecified; I10 Essential (primary) hypertension; J44.9 Chronic obstructive pulmonary disease, unspecified; E78.5 Hyperlipidemia, unspecified; D86.9 Sarcoidosis, unspecified; B18.1 Chronic viral hepatitis B without delta-agent; Z91.14 Patient's other noncompliance with medication regimen; Z86.19 Personal history of other infectious and parasitic diseases; Z88.8 Allergy status to other drugs, medicaments and biological substances
CPT/HCPCS: 36415; 80053; 85027; 86593; 86780; C9803; U0003; U0005

== ENCOUNTER 2020-11-02 12:14 | Inpatient (IN) | payer OTHER ==
[2020-11-02 12:44] VITALS: BMI 21.7
[2020-11-02] MEDS ORDERED: MAGNESIUM CITRATE 300 ML BOTTLE PO PRN (15:15)
[2020-11-02] MEDS ORDERED: MAGNESIUM HYDROX 2400MG/30ML ORAL SUSPENSION 30 ML CUP PO PRN (15:15)
[2020-11-02] MEDS ORDERED: MENTHOL/PHENOL 1 EACH UD MM PRN (15:15)
[2020-11-02] MEDS ORDERED: ONDANSETRON *ODT* 4 MG TABLET SL PRN (15:15)
[2020-11-02] MEDS ORDERED: MAG HYDROX/AL HYDROX/SIMETH 30 ML UNIT-DOSE CUP PO PRN (15:15)
[2020-11-02] MEDS ORDERED: BISMUTH SUBSALICYLATE 524 MG/30 ML UD PO PRN (15:15)
[2020-11-02] MEDS ORDERED: METHOCARBAMOL 500 MG TABLET PO PRN (15:15)
[2020-11-02] MEDS ORDERED: cloNIDine HCL 0.1 MG TABLET PO PRN (15:15)
[2020-11-02] MEDS ORDERED: METHADONE HCL 10 MG TABLET (FOR DETOX USE ONLY) PO ONE (15:15)
[2020-11-02] MEDS ORDERED: NICOTINE POLACRILEX 2 MG GUM BUC PRN (15:15)
[2020-11-02] MEDS ORDERED: NALOXONE (NARCAN) HCL 4 MG/0.1 ML SPRAY NS PRN (15:15)
[2020-11-02] MEDS ORDERED: ACETAMINOPHEN 325 MG TABLET (FP) PO PRN (15:15)
[2020-11-02] MEDS: NICOTINE 21 MG/24 HOURS TOPICAL PATCH TD SCH (15:51)
[2020-11-02] MEDS: amLODIPine BESYLATE 5 MG TABLET (FP) PO SCH (15:51)
[2020-11-02] MEDS: PRENATAL VITAMINS W/ FOLIC ACID TABLET (FP) PO SCH (15:51)
[2020-11-02] MEDS: ACETAMINOPHEN 325 MG TABLET (FP) PO PRN (15:53)
[2020-11-02] MEDS: diazePAM 5 MG TABLET PO PRN (15:56)
[2020-11-02] MEDS: diazePAM 5 MG TABLET PO SCH ×2 (17:52→22:12)
[2020-11-02] MEDS: hydrOXYzine PAMOATE 25 MG CAPSULE (FP) PO SCH ×2 (18:08→22:11)
[2020-11-02] MEDS: MELATONIN 5 MG TABLETS PO SCH (22:11)
[2020-11-02] MEDS: THIAMINE HCL 100 MG TABLET (FP) PO SCH (22:11)
[2020-11-02] MEDS: BUDESONIDE/FORMETEROL FUMARATE 160/4.5 mcg INHALER IH SCH (22:13)
[2020-11-03] MEDS: diazePAM 5 MG TABLET PO SCH ×4 (05:31→22:28)
[2020-11-03] MEDS: hydrOXYzine PAMOATE 25 MG CAPSULE (FP) PO SCH ×2 (05:31→10:25)
[2020-11-03] MEDS ORDERED: METHADONE HCL 10 MG TABLET (FOR DETOX USE ONLY) ONE (09:03)
[2020-11-03] MEDS ORDERED: METHADONE HCL 5 MG TABLET (FOR DETOX USE ONLY) ONE (09:03)
[2020-11-03] MEDS ORDERED: METHADONE (DETOX) 20 MG, METHADONE (DETOX) 5 MG PO ONE (10:00)
[2020-11-03 10:11] LABS: HEMATOCRIT 38.5 % (35.4-49); HEMOGLOBIN 13.1 GM/dL (11.7-16.9); MCH 33.1 pg (25.7-33.7); MCHC 34.1 g/dl (32.0-35.9); MEAN CELL VOLUME 97.2 fl (80-96); MEAN PLT VOLUME 8.6 fl (7.5-11.1); PLATELET COUNT 302 K/MM3 (134-434); RBC 3.96 M/mm3 (4.00-5.60); RDW 13.8 % (11.9-15.9); WHITE BLOOD COUNT 6.1 K/mm3 (4.0-10.0)
[2020-11-03 10:16] LABS: ALBUMIN 3.9 g/dl (3.4-5.0); BLOOD UREA NITROGEN 14.9 mg/dL (7-18)
[2020-11-03 10:19] LABS: CREATININE 1.1 mg/dL (0.55-1.3)
[2020-11-03 10:20] LABS: BILIRUBIN,TOTAL 0.4 mg/dL (0.2-1); TOT PROT 7.4 g/dl (6.4-8.2)
[2020-11-03] MEDS: BUDESONIDE/FORMETEROL FUMARATE 160/4.5 mcg INHALER IH SCH ×2 (10:22→22:29)
[2020-11-03] MEDS: amLODIPine BESYLATE 5 MG TABLET (FP) PO SCH (10:22)
[2020-11-03] MEDS: TIOTROPIUM BROMIDE 2.5 MCG (SPIRIVA) RESPIMAT INHALER IH SCH (10:22)
[2020-11-03] MEDS: PRENATAL VITAMINS W/ FOLIC ACID TABLET (FP) PO SCH (10:22)
[2020-11-03] MEDS: NICOTINE 21 MG/24 HOURS TOPICAL PATCH TD SCH (10:25)
[2020-11-03] MEDS: diazePAM 5 MG TABLET PO PRN (14:51)
[2020-11-03] MEDS: THIAMINE HCL 100 MG TABLET (FP) PO SCH (22:28)
[2020-11-03] MEDS: MELATONIN 5 MG TABLETS PO SCH (22:28)
[2020-11-03] MEDS: hydrOXYzine PAMOATE 25 MG CAPSULE (FP) PO PRN (22:30)
[2020-11-04] MEDS: diazePAM 5 MG TABLET PO SCH ×3 (05:20→22:07)
[2020-11-04] MEDS ORDERED: METHADONE HCL 10 MG TABLET (FOR DETOX USE ONLY) PO ONE (10:00)
[2020-11-04] MEDS: NICOTINE 21 MG/24 HOURS TOPICAL PATCH TD SCH (10:09)
[2020-11-04] MEDS: TIOTROPIUM BROMIDE 2.5 MCG (SPIRIVA) RESPIMAT INHALER IH SCH (10:09)
[2020-11-04] MEDS: amLODIPine BESYLATE 5 MG TABLET (FP) PO SCH (10:10)
[2020-11-04] MEDS: BUDESONIDE/FORMETEROL FUMARATE 160/4.5 mcg INHALER IH SCH ×2 (10:10→22:08)
[2020-11-04] MEDS: PRENATAL VITAMINS W/ FOLIC ACID TABLET (FP) PO SCH (10:12)
[2020-11-04] MEDS: diazePAM 5 MG TABLET PO PRN (18:06)
[2020-11-04] MEDS: MELATONIN 5 MG TABLETS PO SCH (22:06)
[2020-11-04] MEDS: THIAMINE HCL 100 MG TABLET (FP) PO SCH (22:06)
[2020-11-04] MEDS: hydrOXYzine PAMOATE 25 MG CAPSULE (FP) PO PRN (22:07)
[2020-11-05] MEDS: diazePAM 5 MG TABLET PO SCH ×2 (05:17→17:19)
[2020-11-05] MEDS ORDERED: METHADONE (DETOX) 10 MG, METHADONE (DETOX) 5 MG PO ONE (10:00)
[2020-11-05] MEDS ORDERED: METHADONE HCL 10 MG TABLET (FOR DETOX USE ONLY) ONE (10:09)
[2020-11-05] MEDS ORDERED: METHADONE HCL 5 MG TABLET (FOR DETOX USE ONLY) ONE (10:09)
[2020-11-05] MEDS: amLODIPine BESYLATE 5 MG TABLET (FP) PO SCH (10:10)
[2020-11-05] MEDS: BUDESONIDE/FORMETEROL FUMARATE 160/4.5 mcg INHALER IH SCH ×2 (10:12→22:20)
[2020-11-05] MEDS: PRENATAL VITAMINS W/ FOLIC ACID TABLET (FP) PO SCH (10:13)
[2020-11-05] MEDS: NICOTINE 21 MG/24 HOURS TOPICAL PATCH TD SCH (10:13)
[2020-11-05 14:07] LABS: SARS-CoV-2 NAA Not Detected (Not Detected)
[2020-11-05] MEDS: diazePAM 5 MG TABLET PO PRN (14:59)
[2020-11-05] MEDS: hydrOXYzine PAMOATE 25 MG CAPSULE (FP) PO PRN ×2 (17:20→22:20)
[2020-11-05] MEDS: MELATONIN 5 MG TABLETS PO SCH (22:19)
[2020-11-05] MEDS: THIAMINE HCL 100 MG TABLET (FP) PO SCH (22:19)
[2020-11-05] MEDS: IBUPROFEN 400 MG TABLET (FP) PO PRN (22:21)
[2020-11-06] MEDS: ACETAMINOPHEN 325 MG TABLET (FP) PO PRN (05:44)
[2020-11-06] MEDS ORDERED: diazePAM 5 MG TABLET PO ONE (06:00)
[2020-11-06] MEDS ORDERED: METHADONE HCL 10 MG TABLET (FOR DETOX USE ONLY) PO ONE (10:00)
[2020-11-06] MEDS: BUDESONIDE/FORMETEROL FUMARATE 160/4.5 mcg INHALER IH SCH ×2 (10:09→22:55)
[2020-11-06] MEDS: amLODIPine BESYLATE 5 MG TABLET (FP) PO SCH (10:09)
[2020-11-06] MEDS: PRENATAL VITAMINS W/ FOLIC ACID TABLET (FP) PO SCH (10:09)
[2020-11-06] MEDS: TIOTROPIUM BROMIDE 2.5 MCG (SPIRIVA) RESPIMAT INHALER IH SCH (10:09)
[2020-11-06] MEDS: NICOTINE 21 MG/24 HOURS TOPICAL PATCH TD SCH (10:10)
[2020-11-06] MEDS: hydrOXYzine PAMOATE 25 MG CAPSULE (FP) PO PRN ×2 (10:11→22:11)
[2020-11-06 21:47] VITALS: TEMP 97.1
[2020-11-06] MEDS: MELATONIN 5 MG TABLETS PO SCH (22:10)
[2020-11-06] MEDS: THIAMINE HCL 100 MG TABLET (FP) PO SCH (22:10)
[2020-11-07] MEDS: IBUPROFEN 400 MG TABLET (FP) PO PRN (02:28)
[2020-11-07] MEDS ORDERED: METHADONE HCL 5 MG TABLET (FOR DETOX USE ONLY) PO ONE (06:00)
[2020-11-07 06:52] VITALS: PULSE 67
[2020-11-07 08:59] VITALS: BP 124/71
[2020-11-07] MEDS: TIOTROPIUM BROMIDE 2.5 MCG (SPIRIVA) RESPIMAT INHALER IH SCH ×2 (09:42→09:43)
[2020-11-07] MEDS: NICOTINE 21 MG/24 HOURS TOPICAL PATCH TD SCH (09:42)
[2020-11-07] MEDS: amLODIPine BESYLATE 5 MG TABLET (FP) PO SCH (09:42)
[2020-11-07] MEDS: PRENATAL VITAMINS W/ FOLIC ACID TABLET (FP) PO SCH (09:42)
[2020-11-07] MEDS: BUDESONIDE/FORMETEROL FUMARATE 160/4.5 mcg INHALER IH SCH (09:43)
== END 2020-11-07 09:15 | disposition home or self-care (01) | DRG 773 ==
LOC: YASAS 12:14 → Y3N 15:20
PROVIDERS: ADMIT Allergy & Immunology; ATTEND Allergy & Immunology
PROC: HZ2ZZZZ Detoxification Services for Substance Abuse Treatment (ICD-10-PCS; principal; 2020-11-02)
DX: F11.23 Opioid dependence with withdrawal (principal); F10.230 Alcohol dependence with withdrawal, uncomplicated; F14.20 Cocaine dependence, uncomplicated; F12.20 Cannabis dependence, uncomplicated; F15.10 Other stimulant abuse, uncomplicated; F17.210 Nicotine dependence, cigarettes, uncomplicated; F19.282 Other psychoactive substance dependence with psychoactive substance-induced sleep disorder; I10 Essential (primary) hypertension; J43.9 Emphysema, unspecified; A53.0 Latent syphilis, unspecified as early or late; B18.1 Chronic viral hepatitis B without delta-agent; D86.9 Sarcoidosis, unspecified; Z88.0 Allergy status to penicillin
CPT/HCPCS: 36415; 80053; 82947; 83036; 85027; 86593; 86780; C9803; U0003; U0005

== ENCOUNTER 2020-12-15 18:10 | Inpatient (IN) | payer OTHER ==
[2020-12-15 21:45] VITALS: BMI 23.4
[2020-12-15] MEDS ORDERED: MAG HYDROX/AL HYDROX/SIMETH 30 ML UNIT-DOSE CUP PO PRN (22:13)
[2020-12-15] MEDS ORDERED: MAGNESIUM HYDROX 2400MG/30ML ORAL SUSPENSION 30 ML CUP PO PRN (22:13)
[2020-12-15] MEDS ORDERED: ACETAMINOPHEN 325 MG TABLET (FP) PO PRN ×2 (22:13)
[2020-12-15] MEDS ORDERED: MAGNESIUM CITRATE 300 ML BOTTLE PO PRN (22:13)
[2020-12-15] MEDS ORDERED: IBUPROFEN 400 MG TABLET (FP) PO PRN (22:13)
[2020-12-15] MEDS ORDERED: METHOCARBAMOL 500 MG TABLET PO PRN (22:13)
[2020-12-15] MEDS ORDERED: MENTHOL/PHENOL 1 EACH UD MM PRN (22:13)
[2020-12-15] MEDS ORDERED: METHADONE HCL 10 MG TABLET (FOR DETOX USE ONLY) PO ONE (22:14)
[2020-12-15] MEDS ORDERED: cloNIDine HCL 0.1 MG TABLET PO PRN (22:14)
[2020-12-16] MEDS: diazePAM 5 MG TABLET PO SCH ×5 (00:01→22:04)
[2020-12-16] MEDS: BUDESONIDE/FORMETEROL FUMARATE 160/4.5 mcg INHALER IH SCH ×3 (00:02→22:06)
[2020-12-16] MEDS ORDERED: METHADONE HCL 5 MG TABLET (FOR DETOX USE ONLY) ONE (09:04)
[2020-12-16] MEDS ORDERED: METHADONE HCL 10 MG TABLET (FOR DETOX USE ONLY) ONE (09:04)
[2020-12-16] MEDS ORDERED: METHADONE (DETOX) 20 MG, METHADONE (DETOX) 5 MG PO ONE (10:00)
[2020-12-16] MEDS: TIOTROPIUM BROMIDE 2.5 MCG (SPIRIVA) RESPIMAT INHALER IH SCH (10:19)
[2020-12-16] MEDS: PRENATAL VITAMINS W/ FOLIC ACID TABLET (FP) PO SCH (10:20)
[2020-12-16] MEDS: amLODIPine BESYLATE 5 MG TABLET (FP) PO SCH (10:21)
[2020-12-16] MEDS: NICOTINE POLACRILEX 2 MG GUM BUC PRN (10:25)
[2020-12-16 11:20] LABS: HEMATOCRIT 31.7 % (35.4-49); HEMOGLOBIN 10.8 GM/dL (11.7-16.9); MCH 32.8 pg (25.7-33.7); MCHC 34.1 g/dl (32.0-35.9); MEAN CELL VOLUME 96.2 fl (80-96); MEAN PLT VOLUME 8.1 fl (7.5-11.1); PLATELET COUNT 212 K/MM3 (134-434); RDW 13.6 % (11.9-15.9); WHITE BLOOD COUNT 4.7 K/mm3 (4.0-10.0)
[2020-12-16 11:39] LABS: CALCIUM 8.7 mg/dL (8.5-10.1)
[2020-12-16 11:41] LABS: ALBUMIN 3.2 g/dl (3.4-5.0); BLOOD UREA NITROGEN 15.9 mg/dL (7-18)
[2020-12-16 11:46] LABS: BILIRUBIN,TOTAL 0.7 mg/dL (0.2-1); TOT PROT 6.1 g/dl (6.4-8.2)
[2020-12-16] MEDS: THIAMINE HCL 100 MG TABLET (FP) PO SCH (22:04)
[2020-12-16] MEDS: MELATONIN 5 MG TABLETS PO SCH (22:06)
[2020-12-17] MEDS: diazePAM 5 MG TABLET PO SCH ×3 (05:31→22:11)
[2020-12-17] MEDS ORDERED: METHADONE HCL 10 MG TABLET (FOR DETOX USE ONLY) PO ONE (10:00)
[2020-12-17] MEDS: PRENATAL VITAMINS W/ FOLIC ACID TABLET (FP) PO SCH (10:17)
[2020-12-17] MEDS: amLODIPine BESYLATE 5 MG TABLET (FP) PO SCH (10:17)
[2020-12-17] MEDS: BUDESONIDE/FORMETEROL FUMARATE 160/4.5 mcg INHALER IH SCH ×2 (10:17→22:11)
[2020-12-17] MEDS: TIOTROPIUM BROMIDE 2.5 MCG (SPIRIVA) RESPIMAT INHALER IH SCH (10:18)
[2020-12-17] MEDS: diazePAM 5 MG TABLET PO PRN (10:21)
[2020-12-17] MEDS: NICOTINE POLACRILEX 2 MG GUM BUC PRN (11:31)
[2020-12-17] MEDS: MELATONIN 5 MG TABLETS PO SCH (22:11)
[2020-12-17] MEDS: THIAMINE HCL 100 MG TABLET (FP) PO SCH (22:11)
[2020-12-18] MEDS: diazePAM 5 MG TABLET PO SCH ×2 (05:41→18:18)
[2020-12-18] MEDS ORDERED: METHADONE HCL 5 MG TABLET (FOR DETOX USE ONLY) ONE (08:39)
[2020-12-18] MEDS ORDERED: METHADONE HCL 10 MG TABLET (FOR DETOX USE ONLY) ONE (08:40)
[2020-12-18] MEDS ORDERED: METHADONE (DETOX) 10 MG, METHADONE (DETOX) 5 MG PO ONE (10:00)
[2020-12-18] MEDS: amLODIPine BESYLATE 5 MG TABLET (FP) PO SCH (10:02)
[2020-12-18] MEDS: BUDESONIDE/FORMETEROL FUMARATE 160/4.5 mcg INHALER IH SCH ×2 (10:05→22:06)
[2020-12-18] MEDS: PRENATAL VITAMINS W/ FOLIC ACID TABLET (FP) PO SCH (10:05)
[2020-12-18] MEDS: TIOTROPIUM BROMIDE 2.5 MCG (SPIRIVA) RESPIMAT INHALER IH SCH (10:05)
[2020-12-18] MEDS: diazePAM 5 MG TABLET PO PRN ×2 (13:44→22:08)
[2020-12-18] MEDS: NICOTINE POLACRILEX 2 MG GUM BUC PRN (18:19)
[2020-12-18] MEDS: MELATONIN 5 MG TABLETS PO SCH (22:05)
[2020-12-18] MEDS: THIAMINE HCL 100 MG TABLET (FP) PO SCH (22:07)
[2020-12-19] MEDS ORDERED: diazePAM 5 MG TABLET PO ONE (06:00)
[2020-12-19] MEDS ORDERED: METHADONE HCL 10 MG TABLET (FOR DETOX USE ONLY) PO ONE (10:00)
[2020-12-19] MEDS: PRENATAL VITAMINS W/ FOLIC ACID TABLET (FP) PO SCH (10:23)
[2020-12-19] MEDS: BUDESONIDE/FORMETEROL FUMARATE 160/4.5 mcg INHALER IH SCH ×2 (10:23→22:21)
[2020-12-19] MEDS: amLODIPine BESYLATE 5 MG TABLET (FP) PO SCH (10:23)
[2020-12-19] MEDS: TIOTROPIUM BROMIDE 2.5 MCG (SPIRIVA) RESPIMAT INHALER IH SCH (10:24)
[2020-12-19] MEDS: THIAMINE HCL 100 MG TABLET (FP) PO SCH (22:21)
[2020-12-19] MEDS: MELATONIN 5 MG TABLETS PO SCH (22:22)
[2020-12-20 05:59] VITALS: TEMP 98
[2020-12-20] MEDS ORDERED: METHADONE HCL 5 MG TABLET (FOR DETOX USE ONLY) PO ONE (06:00)
[2020-12-20] MEDS: BUDESONIDE/FORMETEROL FUMARATE 160/4.5 mcg INHALER IH SCH (09:10)
[2020-12-20] MEDS: TIOTROPIUM BROMIDE 2.5 MCG (SPIRIVA) RESPIMAT INHALER IH SCH (09:10)
[2020-12-20] MEDS: amLODIPine BESYLATE 5 MG TABLET (FP) PO SCH (09:10)
[2020-12-20] MEDS: PRENATAL VITAMINS W/ FOLIC ACID TABLET (FP) PO SCH (09:11)
[2020-12-20 09:24] VITALS: BP 138/76; PULSE 69
== END 2020-12-20 09:40 | disposition home or self-care (01) | DRG 773 ==
LOC: YASAS 18:10 → Y6N 22:56
PROVIDERS: ADMIT Allergy & Immunology; ATTEND Allergy & Immunology
PROC: HZ2ZZZZ Detoxification Services for Substance Abuse Treatment (ICD-10-PCS; principal; 2020-12-15)
DX: F11.23 Opioid dependence with withdrawal (principal); F10.230 Alcohol dependence with withdrawal, uncomplicated; F14.20 Cocaine dependence, uncomplicated; F12.20 Cannabis dependence, uncomplicated; F17.210 Nicotine dependence, cigarettes, uncomplicated; A53.0 Latent syphilis, unspecified as early or late; D86.9 Sarcoidosis, unspecified; I10 Essential (primary) hypertension; J44.9 Chronic obstructive pulmonary disease, unspecified; Z86.19 Personal history of other infectious and parasitic diseases; Z88.0 Allergy status to penicillin
CPT/HCPCS: 36415; 80053; 85027; 86593; 86780; C9803; U0003; U0005

== ENCOUNTER 2021-02-23 17:21 | Inpatient (IN) | payer OTHER ==
[2021-02-23] MEDS ORDERED: IBUPROFEN 400 MG TABLET (FP) PO PRN (23:34)
[2021-02-23] MEDS ORDERED: MAG HYDROX/AL HYDROX/SIMETH 30 ML UNIT-DOSE CUP PO PRN (23:34)
[2021-02-23] MEDS ORDERED: MENTHOL/PHENOL 1 EACH UD MM PRN (23:34)
[2021-02-23] MEDS ORDERED: cloNIDine HCL 0.1 MG TABLET PO PRN (23:34)
[2021-02-23] MEDS ORDERED: MAGNESIUM HYDROX 2400MG/30ML ORAL SUSPENSION 30 ML CUP PO PRN (23:34)
[2021-02-23] MEDS ORDERED: ACETAMINOPHEN 325 MG TABLET (FP) PO PRN ×2 (23:34)
[2021-02-23] MEDS ORDERED: BISMUTH SUBSALICYLATE 524 MG/30 ML PO PRN (23:34)
[2021-02-23] MEDS ORDERED: MAGNESIUM CITRATE 300 ML BOTTLE PO PRN (23:34)
[2021-02-23] MEDS ORDERED: methaDONE HCL 10 MG TABLET (FOR DETOX USE ONLY) PO ONE (23:34)
[2021-02-23] MEDS ORDERED: NICOTINE 10 MG CARTRIDGE (INHALER) IH PRN (23:34)
[2021-02-23] MEDS ORDERED: diazePAM 5 MG TABLET PO ONE (23:34)
[2021-02-23] MEDS ORDERED: ONDANSETRON *ODT* 4 MG TABLET SL PRN (23:34)
[2021-02-23] MEDS ORDERED: diazePAM 5 MG TABLET PO PRN (23:34)
[2021-02-23] MEDS ORDERED: clonazePAM 0.5 MG ODT TABLETS SL PRN (23:34)
[2021-02-24] MEDS ORDERED: ALBUTEROL SO4 HFA INHALER IH ONE (01:27)
[2021-02-24 01:45] VITALS: BMI 24.1
[2021-02-24] MEDS ORDERED: clonazePAM 0.5 MG TABLET PO PRN (02:28)
[2021-02-24] MEDS: diazePAM 5 MG TABLET PO SCH ×5 (02:32→22:19)
[2021-02-24] MEDS: BUDESONIDE/FORMETEROL FUMARATE 160/4.5 mcg INHALER IH SCH ×3 (03:00→22:19)
[2021-02-24] MEDS ORDERED: diazePAM 5 MG TABLET ONE (07:16)
[2021-02-24] MEDS ORDERED: hydrOXYzine PAMOATE 25 MG CAPSULE (FP) PO ONE (07:17)
[2021-02-24] MEDS: hydrOXYzine PAMOATE 25 MG CAPSULE (FP) PO SCH ×5 (07:57→22:18)
[2021-02-24] MEDS: NICOTINE POLACRILEX 2 MG GUM BUC PRN ×3 (09:10→14:14)
[2021-02-24] MEDS ORDERED: methaDONE HCL 10 MG TABLET (FOR DETOX USE ONLY) ONE (11:18)
[2021-02-24] MEDS: amLODIPine BESYLATE 5 MG TABLET (FP) PO SCH (11:21)
[2021-02-24] MEDS: PRENATAL VITAMINS W/ FOLIC ACID TABLET (FP) PO SCH (11:21)
[2021-02-24] MEDS: NICOTINE 14 MG/24 HOURS TOPICAL PATCH TD SCH (11:22)
[2021-02-24] MEDS: METHOCARBAMOL 500 MG TABLET PO PRN (11:24)
[2021-02-24] MEDS: THIAMINE HCL 100 MG TABLET (FP) PO SCH (22:18)
[2021-02-24] MEDS: MELATONIN 5 MG TABLETS PO SCH (22:18)
[2021-02-25] MEDS: hydrOXYzine PAMOATE 25 MG CAPSULE (FP) PO SCH ×5 (06:03→22:29)
[2021-02-25] MEDS: diazePAM 5 MG TABLET PO SCH ×3 (06:03→22:29)
[2021-02-25] MEDS ORDERED: methaDONE HCL 10 MG TABLET (FOR DETOX USE ONLY) PO ONE (10:00)
[2021-02-25] MEDS: amLODIPine BESYLATE 5 MG TABLET (FP) PO SCH (10:21)
[2021-02-25] MEDS: PRENATAL VITAMINS W/ FOLIC ACID TABLET (FP) PO SCH (10:21)
[2021-02-25] MEDS: NICOTINE 14 MG/24 HOURS TOPICAL PATCH TD SCH (10:23)
[2021-02-25] MEDS: BUDESONIDE/FORMETEROL FUMARATE 160/4.5 mcg INHALER IH SCH ×2 (10:23→22:28)
[2021-02-25] MEDS: NICOTINE POLACRILEX 2 MG GUM BUC PRN (10:24)
[2021-02-25] MEDS ORDERED: TIOTROPIUM BROMIDE 2.5 MCG (SPIRIVA) RESPIMAT INHALER IH PRN (10:25)
[2021-02-25] MEDS ORDERED: ALBUTEROL SO4 HFA INHALER IH PRN (10:32)
[2021-02-25 11:58] LABS: HEMATOCRIT 38.7 % (35.4-49); MCHC 33.6 g/dl (32.0-35.9); MEAN CELL VOLUME 98.3 fl (80-96); MEAN PLT VOLUME 8.8 fl (7.5-11.1); PLATELET COUNT 211 10^3/uL (134-434); RBC 3.94 M/mm3 (4.00-5.60); RDW 13.8 % (11.9-15.9); WHITE BLOOD COUNT 7.4 K/mm3 (4.0-10.0)
[2021-02-25 12:24] LABS: ALBUMIN 3.8 g/dl (3.4-5.0); BLOOD UREA NITROGEN 10.9 mg/dL (7-18); CALCIUM 8.8 mg/dL (8.5-10.1)
[2021-02-25 12:27] LABS: CREATININE 1.1 mg/dL (0.55-1.3)
[2021-02-25 12:29] LABS: BILIRUBIN,TOTAL 0.4 mg/dL (0.2-1); TOT PROT 7.3 g/dl (6.4-8.2)
[2021-02-25] MEDS: TIOTROPIUM BROMIDE 2.5 MCG (SPIRIVA) RESPIMAT INHALER IH SCH ×2 (13:29→22:28)
[2021-02-25] MEDS: MELATONIN 5 MG TABLETS PO SCH (22:29)
[2021-02-25] MEDS: THIAMINE HCL 100 MG TABLET (FP) PO SCH (22:29)
[2021-02-26] MEDS: diazePAM 5 MG TABLET PO SCH ×2 (05:31→19:04)
[2021-02-26] MEDS: hydrOXYzine PAMOATE 25 MG CAPSULE (FP) PO SCH ×2 (05:33→10:52)
[2021-02-26] MEDS ORDERED: methaDONE HCL 10 MG TABLET (FOR DETOX USE ONLY) ONE (09:15)
[2021-02-26] MEDS: amLODIPine BESYLATE 5 MG TABLET (FP) PO SCH (10:05)
[2021-02-26] MEDS: TIOTROPIUM BROMIDE 2.5 MCG (SPIRIVA) RESPIMAT INHALER IH SCH ×2 (10:05→22:04)
[2021-02-26] MEDS: BUDESONIDE/FORMETEROL FUMARATE 160/4.5 mcg INHALER IH SCH ×2 (10:05→22:03)
[2021-02-26] MEDS: NICOTINE 14 MG/24 HOURS TOPICAL PATCH TD SCH (10:52)
[2021-02-26] MEDS: PRENATAL VITAMINS W/ FOLIC ACID TABLET (FP) PO SCH (10:52)
[2021-02-26] MEDS: hydrOXYzine PAMOATE 25 MG CAPSULE (FP) PO PRN ×2 (14:51→22:05)
[2021-02-26] MEDS: MELATONIN 5 MG TABLETS PO SCH (22:03)
[2021-02-26] MEDS: THIAMINE HCL 100 MG TABLET (FP) PO SCH (22:03)
[2021-02-26] MEDS: METHOCARBAMOL 500 MG TABLET PO PRN (22:04)
[2021-02-27] MEDS: hydrOXYzine PAMOATE 25 MG CAPSULE (FP) PO PRN ×2 (05:27→10:04)
[2021-02-27] MEDS ORDERED: diazePAM 5 MG TABLET PO ONE (06:00)
[2021-02-27 09:23] VITALS: BP 125/84; PULSE 80; TEMP 97.3
[2021-02-27] MEDS: PRENATAL VITAMINS W/ FOLIC ACID TABLET (FP) PO SCH (09:59)
[2021-02-27] MEDS: BUDESONIDE/FORMETEROL FUMARATE 160/4.5 mcg INHALER IH SCH (09:59)
[2021-02-27] MEDS: amLODIPine BESYLATE 5 MG TABLET (FP) PO SCH (09:59)
[2021-02-27] MEDS: TIOTROPIUM BROMIDE 2.5 MCG (SPIRIVA) RESPIMAT INHALER IH SCH (09:59)
[2021-02-27] MEDS ORDERED: methaDONE HCL 10 MG TABLET (FOR DETOX USE ONLY) PO ONE (10:00)
[2021-02-27] MEDS: NICOTINE 14 MG/24 HOURS TOPICAL PATCH TD SCH (10:00)
== END 2021-02-27 11:22 | disposition home or self-care (01) | DRG 773 ==
LOC: YASAS 17:21 → Y3N 02-24 10:50
PROVIDERS: ADMIT Allergy & Immunology; ATTEND Allergy & Immunology
PROC: HZ2ZZZZ Detoxification Services for Substance Abuse Treatment (ICD-10-PCS; principal; 2021-02-24)
DX: F11.23 Opioid dependence with withdrawal (principal); F10.230 Alcohol dependence with withdrawal, uncomplicated; F14.20 Cocaine dependence, uncomplicated; F17.210 Nicotine dependence, cigarettes, uncomplicated; F19.282 Other psychoactive substance dependence with psychoactive substance-induced sleep disorder; F19.24 Other psychoactive substance dependence with psychoactive substance-induced mood disorder; E78.5 Hyperlipidemia, unspecified; I10 Essential (primary) hypertension; J44.9 Chronic obstructive pulmonary disease, unspecified; D86.9 Sarcoidosis, unspecified; Z86.19 Personal history of other infectious and parasitic diseases; Z91.14 Patient's other noncompliance with medication regimen; Z88.8 Allergy status to other drugs, medicaments and biological substances
CPT/HCPCS: 36415; 80053; 85027; 86593; 86780; C9803; U0003; U0005

== ENCOUNTER 2021-06-06 13:25 | Inpatient (IN) | payer OTHER ==
[2021-06-06] MEDS ORDERED: MAG HYDROX/AL HYDROX/SIMETH 30 ML UNIT-DOSE CUP PO PRN (14:54)
[2021-06-06] MEDS ORDERED: MENTHOL/PHENOL 1 EACH UD MM PRN (14:54)
[2021-06-06] MEDS ORDERED: NICOTINE 10 MG CARTRIDGE (INHALER) IH PRN (14:54)
[2021-06-06] MEDS ORDERED: ONDANSETRON *ODT* 4 MG TABLET SL PRN (14:54)
[2021-06-06] MEDS ORDERED: BISMUTH SUBSALICYLATE 262 MG/15 ML BTL PO PRN (14:54)
[2021-06-06] MEDS ORDERED: ACETAMINOPHEN 325 MG TABLET (FP) PO PRN ×2 (14:54)
[2021-06-06] MEDS ORDERED: IBUPROFEN 400 MG TABLET (FP) PO PRN (14:54)
[2021-06-06] MEDS ORDERED: MAGNESIUM CITRATE 300 ML BOTTLE PO PRN (14:54)
[2021-06-06] MEDS ORDERED: MAGNESIUM HYDROX 2400MG/30ML ORAL SUSPENSION 30 ML CUP PO PRN (14:54)
[2021-06-06 15:52] VITALS: BMI 21.2
[2021-06-06] MEDS: amLODIPine BESYLATE 10 MG TABLET (FP) PO SCH (16:11)
[2021-06-06] MEDS ORDERED: ALBUTEROL SO4 HFA INHALER IH PRN (17:19)
[2021-06-06] MEDS: hydrOXYzine PAMOATE 25 MG CAPSULE (FP) PO SCH ×2 (17:24→23:14)
[2021-06-06] MEDS ORDERED: methaDONE HCL 10 MG TABLET (FOR DETOX USE ONLY) PO ONE (19:30)
[2021-06-06] MEDS: cloNIDine HCL 0.1 MG TABLET PO PRN (20:56)
[2021-06-06] MEDS: THIAMINE HCL 100 MG TABLET (FP) PO SCH (23:14)
[2021-06-06] MEDS: FLUTICASONE PROP 0.05% 16 GM NASAL SPRAY NS SCH (23:14)
[2021-06-06] MEDS: MELATONIN 5 MG TABLETS PO SCH (23:14)
[2021-06-07] MEDS: hydrOXYzine PAMOATE 25 MG CAPSULE (FP) PO SCH ×5 (05:23→22:46)
[2021-06-07] MEDS ORDERED: methaDONE HCL 10 MG TABLET (FOR DETOX USE ONLY) ONE (08:57)
[2021-06-07] MEDS ORDERED: LORazepam 0.5 MG TABLET PO PRN (09:40)
[2021-06-07] MEDS: PRENATAL VITAMINS W/ FOLIC ACID TABLET (FP) PO SCH (10:20)
[2021-06-07] MEDS: METHOCARBAMOL 500 MG TABLET PO PRN (10:20)
[2021-06-07] MEDS: amLODIPine BESYLATE 10 MG TABLET (FP) PO SCH (10:20)
[2021-06-07] MEDS: FLUTICASONE PROP 0.05% 16 GM NASAL SPRAY NS SCH ×2 (10:21→22:43)
[2021-06-07] MEDS: BUDESONIDE/FORMETEROL FUMARATE 160/4.5 mcg INHALER IH PRN ×2 (10:22→22:45)
[2021-06-07] MEDS: LORazepam 1 MG TABLET PO SCH ×3 (11:46→22:41)
[2021-06-07] MEDS: THIAMINE HCL 100 MG TABLET (FP) PO SCH (22:41)
[2021-06-07] MEDS: cloNIDine HCL 0.1 MG TABLET PO PRN (22:42)
[2021-06-07] MEDS: MELATONIN 5 MG TABLETS PO SCH (22:44)
[2021-06-08] MEDS: LORazepam 0.5 MG TABLET PO SCH ×4 (05:10→22:32)
[2021-06-08] MEDS: hydrOXYzine PAMOATE 25 MG CAPSULE (FP) PO SCH ×5 (05:12→22:31)
[2021-06-08] MEDS ORDERED: methaDONE HCL 10 MG TABLET (FOR DETOX USE ONLY) PO ONE (10:00)
[2021-06-08] MEDS: PRENATAL VITAMINS W/ FOLIC ACID TABLET (FP) PO SCH (10:10)
[2021-06-08] MEDS: amLODIPine BESYLATE 10 MG TABLET (FP) PO SCH (10:10)
[2021-06-08] MEDS: FLUTICASONE PROP 0.05% 16 GM NASAL SPRAY NS SCH ×2 (10:11→22:35)
[2021-06-08] MEDS: BUDESONIDE/FORMETEROL FUMARATE 160/4.5 mcg INHALER IH PRN (10:11)
[2021-06-08 11:10] LABS: HEMATOCRIT 37.5 % (35.4-49); HEMOGLOBIN 12.5 GM/dL (11.7-16.9); MCH 32.8 pg (25.7-33.7); MCHC 33.5 g/dl (32.0-35.9); MEAN CELL VOLUME 97.9 fl (80-96); MEAN PLT VOLUME 7.8 fl (7.5-11.1); PLATELET COUNT 261 10^3/uL (134-434); RBC 3.83 M/mm3 (4.00-5.60); RDW 14.4 % (11.9-15.9); WHITE BLOOD COUNT 5.7 K/mm3 (4.0-10.0)
[2021-06-08 13:52] LABS: ALBUMIN 3.2 g/dl (3.4-5.0); BILIRUBIN,TOTAL 0.3 mg/dL (0.2-1); BLOOD UREA NITROGEN 13.7 mg/dL (7-18); CALCIUM 8.9 mg/dL (8.5-10.1); CREATININE 1.1 mg/dL (0.55-1.3); TOT PROT 6.9 g/dl (6.4-8.2)
[2021-06-08] MEDS: THIAMINE HCL 100 MG TABLET (FP) PO SCH (22:31)
[2021-06-08] MEDS: MELATONIN 5 MG TABLETS PO SCH (22:31)
[2021-06-09] MEDS: METHOCARBAMOL 500 MG TABLET PO PRN ×2 (02:16→10:12)
[2021-06-09] MEDS ORDERED: LORazepam 0.5 MG TABLET PO ONE (05:00)
[2021-06-09] MEDS: hydrOXYzine PAMOATE 25 MG CAPSULE (FP) PO SCH ×2 (05:26→10:12)
[2021-06-09] MEDS ORDERED: methaDONE HCL 10 MG TABLET (FOR DETOX USE ONLY) ONE (08:59)
[2021-06-09] MEDS: FLUTICASONE PROP 0.05% 16 GM NASAL SPRAY NS SCH (10:11)
[2021-06-09] MEDS: PRENATAL VITAMINS W/ FOLIC ACID TABLET (FP) PO SCH (10:11)
[2021-06-09] MEDS: BUDESONIDE/FORMETEROL FUMARATE 160/4.5 mcg INHALER IH PRN (10:11)
[2021-06-09] MEDS: amLODIPine BESYLATE 10 MG TABLET (FP) PO SCH (10:12)
[2021-06-09 10:41] VITALS: BP 126/89; PULSE 84; TEMP 98.2
[2021-06-10] MEDS ORDERED: methaDONE HCL 10 MG TABLET (FOR DETOX USE ONLY) PO ONE (10:00)
== END 2021-06-09 11:46 | disposition home or self-care (01) | DRG 773 ==
LOC: YASAS 13:25 → Y6N 15:08 → UNDOADMIN 15:08
PROVIDERS: ADMIT Allergy & Immunology; ATTEND Allergy & Immunology
PROC: HZ2ZZZZ Detoxification Services for Substance Abuse Treatment (ICD-10-PCS; principal; 2021-06-06)
DX: F11.23 Opioid dependence with withdrawal (principal); F10.230 Alcohol dependence with withdrawal, uncomplicated; F12.20 Cannabis dependence, uncomplicated; F17.210 Nicotine dependence, cigarettes, uncomplicated; E78.5 Hyperlipidemia, unspecified; I10 Essential (primary) hypertension; J43.9 Emphysema, unspecified; R74.01 Elevation of levels of liver transaminase levels; Z86.19 Personal history of other infectious and parasitic diseases; Z88.0 Allergy status to penicillin
CPT/HCPCS: 36415; 80053; 85027; 86593; 86780; C9803; J0735; U0003; U0005